=== PATIENT | male | born 1945 | race Caucasian/White ===

== ENCOUNTER 2018-05-26 22:50 | Inpatient (IN) ==
[2018-05-27] MEDS ORDERED: DUONEB (A & A) INH ONE (00:24)
[2018-05-27] MEDS ORDERED: ROCEPHIN 1 GM in NS 50 ML IV ONE (00:24)
[2018-05-27] MEDS ORDERED: ZITHROMAX 500 MG/NS 500 MG/250 ML IVPB IV ONE (00:24)
[2018-05-27 00:54] LABS: BASO# 0.02 X1000 (0.0-0.2); BASO% 0.2 % (0.0-0.8); EOS% 4.4 % (0.0-10.0); HEMATOCRIT 44.7 % (42.0-52.0); HEMOGLOBIN 15.4 g/dL (14.0-18.0); IMM GRAN# 0.03 X1000 (0.0-0.04); IMM GRAN% 0.3 % (0.0-0.5); LYMPH# 1.34 X1000 (1.2-3.4); LYMPH% 14.8 % (20.5-51.1); MCHC 34.5 g/dL (33-37); MCV 92.9 FL (81-99); MONO# 0.98 X1000 (0.11-0.59); MONO% 10.8 % (1.7-9.3); MPV 11.4 FL (7.4-10.4); NEUT# 6.27 X1000 (1.4-6.5); NEUT% 69.5 % (42.2-75.2); PLT 225 X1000 (130-400); RBC 4.81 XMIL (4.7-6.1); RDW 14.5 % (11.5-14.5); WBC 9.04 X1000 (4.8-10.8)
[2018-05-27 00:55] LABS: ALLEN TEST YES; BE 0.7 mmoll (-3.0-3.0); BLOOD TYPE ARTERIAL; HCO3-(ACT) 25.2 mmoll (20.0-26.0); METHB 0.6 % (0.0-1.5); PCO2(98.6) 40 mmHg (35-45); PO2(98.6) 56 mmHg (60-100); SAMPLE BLOOD; SAO2 90.5 % (95.0-100.0); THB 15.3 g/dL (11.5-17.4); pH(98.6) 7.41 (7.35-7.45)
[2018-05-27 00:56] LABS: MODALITY CANNULA
[2018-05-27 00:57] LABS: O2HB 88.5 % (95.0-99.0)
[2018-05-27 01:02] LABS: INR 1.03; PROTIME 14.3 Seconds (11.0-16.0)
[2018-05-27 01:03] LABS: PTT 36.8 Seconds (22.3-41.8)
[2018-05-27 01:15] LABS: ALB/GLOB RATIO 1.7; ALBUMIN 3.8 g/dL (3.5-5.0); CALCIUM 9.4 mg/dL (8.8-10.2); CREATININE 1.3 mg/dL (0.7-1.2); TOTAL BILIRUBIN 0.5 mg/dL (0.20-1.00); TOTAL PROTEIN 6.1 g/dL (6.3-8.3)
[2018-05-27 01:54] LABS: URINE SOURCE CLEAN CATCH
[2018-05-27 01:57] LABS: BILIRUBIN URINE NEGATIVE (NEGATIVE); BLOOD URINE NEGATIVE (NEGATIVE); COLOR YELLOW; GLUCOSE URINE NEGATIVE (NEGATIVE); KETONE URINE NEGATIVE (NEGATIVE); LEUKOCYTES URINE TRACE (NEGATIVE); NITRITE URINE NEGATIVE (NEGATIVE); PROTEIN URINE 100 mg/dL (NEGATIVE); SP GRAVITY URINE 1.009; TURBIDITY URINE CLEAR (CLEAR); UR EPITHELIAL CELLS <10 /HPF (<10); URINE BACTERIA NEGATIVE /HPF; URINE RBC <10 /HPF (<10); URINE WBC <10 /HPF (<10); UROBILINOGEN URINE NORMAL (NORMAL)
[2018-05-27] MEDS ORDERED: LASIX IV ONE (05:54)
[2018-05-27] MEDS ORDERED: NITROGLYCERIN TOP ONE (05:55)
--- NOTE | 2018-05-27 06:04 | PROVIDER DOCUMENTATION ---
This chart was entered by Abida Cordova Scribe, acting as scribe for Devon High MD. HPI-Abdominal Pain/GI Problem - General Chief Complaint: Abdominal Pain Stated Complaint: LOWER ABDOMINAL, SOB, HAD IMAGING DONE EARLIER Time Seen by Provider: 05/26/18 23:39 Source: patient Allergies/Adverse Reactions: Patient Allergies Allergy/AdvReac Type Severity Reaction Status Date / Time No Known Allergies Allergy Verified 05/27/18 00:42 Home Medications: Home Medication List Medication Instructions Recorded Confirmed Last Taken Type Duloxetine [Cymbalta] 60 mg PO QAM #30 capsule 03/04/16 09/14/17 08/28/17 Rx Quetiapine [Seroquel] 100 mg PO HS #0 tablet 03/04/16 09/14/17 08/28/17 Rx Aspirin 325 mg PO DAILY 08/13/17 09/14/17 Unknown History Atorvastatin Calcium 10 mg PO QPM 08/13/17 09/14/17 08/28/17 History Bupropion X.l. [Wellbutrin Xl] 300 mg PO DAILY 08/13/17 09/14/17 08/28/17 History Ropinirole HCl 1 mg PO WSUPPER 08/13/17 09/14/17 08/28/17 History Albuterol 2.5MG/Ipratrop 0.5MG 3 ml INH Q4H PRN PRN neb 08/18/17 09/14/17 Unknown Rx [Duoneb (A & A)] Amiodarone [Cordarone] 200 mg PO DAILY #30 tab 08/18/17 09/14/17 08/28/17 Rx Diltiazem C.d. [Cardizem Cd] 120 mg PO DAILY #60 cap 08/18/17 09/14/17 08/28/17 Rx Polyethylene Glycol 3350 [Miralax] 17 gm PO BID powder, packet 08/18/1708/28/17 Rx Lactobacillus Rhamnosus GG 1 ea PO BID #120 cap 09/08/17 09/14/17 Unknown Rx [Culturelle] Omeprazole [Prilosec] 40 mg PO DAILY@0700 #120 cap 09/08/17 09/14/17 Unknown Rx Diltiazem C.d. [Cardizem Cd] 120 mg PO DAILY #30 cap 09/19/17 Unknown Rx Hydrocodone/APAP 7.5 mg/325 mg 1 ea PO Q6H PRN PRN #20 tab 09/19/17 Unknown Rx [[place]-7.5] - History of Present Illness-ABD Nature of Presenting Problems: Pt is 72/m presenting to the ED w/ lower abd pain that has been constant for the last 2 weeks. He sts that he had some imaging done today, but that he tried to lay down but could not because it was hurting so badly and he decided to just come in. He reports some SOB for the last week as well as some weakness. Abdominal Pain Onset Location: reports: periumbilical Pain Radiation: reports: no radiation Quality of Pain: reports: aching Severity in ED: reports: moderate Onset/Duration: reports: other (2 wks) Timing: reports: still present Activities at Onset: reports: none Modifying Factors: improves with: eating (eating temporarily helps) Associated Symptoms: reports: shortness of breath, weakness. denies: constipation, fatigue, fever/chills, vomiting Review of Systems - Adult - REVIEW OF SYSTEMS - ADULT Constitutional: denies: chills, fever Eyes: reports: no symptoms reported Ears, Nose, Mouth & Throat: reports: no symptoms reported Cardiovascular: reports: no symptoms reported. denies: chest pain Respiratory: reports: shortness of breath. denies: wheezing Gastrointestinal: reports: abdominal pain. denies: diarrhea, nausea, vomiting Genitourinary: reports: no symptoms reported Musculoskeletal: reports: no symptoms reported Integumentary: reports: no symptoms reported Neurological: reports: no symptoms reported. denies: dizziness/vertigo Psychiatric: reports: no symptoms reported Endocrine: reports: no symptoms reported Hematologic/Lymphatic: reports: no symptoms reported Allergic/Immunologic: reports: no symptoms reported All Other Systems: Reviewed and Negative Past History - Adult - PAST MEDICAL HISTORY-ADULT Review of Records: reports: Old Records Reviewed, Nursing Assessment Review, Medications Reviewed, Social history reviewed & non-contributory. Major Childhood Illnesses: reports: denies history Cardiovascular: reports: aortic disease (AAA), CAD, HTN, hyperlipidemia, [place], PVD Respiratory: reports: COPD Gastrointestinal: reports: denies history Obstetrical/Gynecological: reports: denies history Genitourinary: reports: denies history Musculoskeletal: reports: chronic pain, intervertebral disc disease Neurological: reports: denies history Psychiatric: reports: anxiety, depression, other (substance abuse) Endocrine/Immune: reports: denies history Other Conditions: reports: denies history - PRIOR SURGERIES/PROCEDURES Surgical/Procedure History: reports: CABG, cholecystectomy, hernia repair, other (bilateral fem/pop) - IMMUNIZATION STATUS Childhood Immunizations: See Nurse Assessment Flu Vaccine: See Nurse Assessment - FAMILY HISTORY Family History: reviewed, not pertinent - SOCIAL HISTORY Smoking: quit greater than 1 year Alcohol Use Frequency: never Living Situation: family Physical Exam-General - PHYSICAL EXAM-ADULT Initial Vital Signs Reviewed: Yes - CONSTITUTIONAL General Appearance: appears well, alert, no apparent distress - EYES Eyes: PERRL/EOMI - HEAD, EARS, NOSE, MOUTH & THROAT HENMT: normocephalic/atraumatic, moist mucous membranes, normal ENT inspection, TMs normal, pharynx normal - NECK Neck: non-tender, full range of motion, supple, normal inspection - RESPIRATORY Respiratory: chest non-tender, normal breath sounds, rhonchi (bilat bases) - CARDIOVASCULAR Cardiovascular: other (2+ edema to L lower extremities) - GASTROINTESTINAL (ABDOMEN) Abdominal Exam: normal bowel sounds, soft, tenderness (suprapubic bilater and RLQ) - LYMPHATIC Lymphatic: no adenopathy - MUSCULOSKELETAL Back Exam: normal inspection, no CVA tenderness Extremity: normal range of motion, non-tender, normal gait, normal inspection - SKIN Integumentary: normal color, warm/dry - NEUROLOGIC Neurologic: grossly normal - PSYCHIATRIC Psych/Mental Status: normal mood/affect, normal thought content, normal thought process, oriented x 3 Progress - PLAN OF CARE/RESULTS Progress/Plan/Lab Results: Vital Signs - 8 hr 05/26/18 23:39 05/26/18 23:40 05/26/18 23:50 Temperature Pulse Rate 98 H 92 H Respiratory Rate 24 20 Blood Pressure O2 Sat by Pulse Oximetry 81 L 83 L 92 L 05/26/18 23:53 05/27/18 00:00 05/27/18 00:10 Temperature 97.7 F Pulse Rate 57 L 84 88 Respiratory Rate 18 18 14 Blood Pressure 167/86 O2 Sat by Pulse Oximetry 83 L 91 L 92 L Orders Category Date Time Status Bladder Scan and Record Result ORDERED Care 05/27/18 00:19 Active ABG [RESP] Routine Lab 05/27/18 00:22 Ordered BLOOD CULTURE [BLDCUL] Stat Lab 05/27/18 00:20 Ordered CBC WITH DIFF [HEME] Stat Lab 05/27/18 00:30 Ordered COMPREHENSIVE METABOLIC PANEL [CHEM] Stat Lab 05/27/18 00:30 Ordered LACTATE, PLASMA [CHEM] Stat Lab 05/27/18 00:30 Ordered PROTIME WITH INR [COAG] Stat Lab 05/27/18 00:26 Uncollected PTT [COAG] Stat Lab 05/27/18 00:26 Uncollected URINALYSIS W/POSS RFLX CULT [URINALYSIS] Stat Lab 05/27/18 00:19 Uncollected Albuterol 2.5MG/Ipratrop 0.5MG [Duoneb (A & A)] Med 05/27/18 00:24 Discontinued 3 ml INH NOW ONE Azithromycin 500 mg/Ns [Zithromax 500 mg/Ns] Med 05/27/18 00:24 Active 500 mg in 250 ml IV NOW CefTRIAXONE [Rocephin] 1 gm Med 05/27/18 00:24 Active 0.9% Sodium Chloride Inj [Ns] 50 ml IV NOW Aerosol Treatments Routine Oth 05/27/18 00:25 Active Aerosol Treatments Stat Oth 05/27/18 00:25 Active Oxygen Device Stat Oth 05/27/18 00:21 Active Pulse Oximetry Stat Oth 05/27/18 00:21 Active EKG [EKG] Stat Ther 05/26/18 23:39 Ordered Result Diagrams: 05/26/18 23:45 05/26/18 23:45 - EKG 1 Time of EKG reading by physician:: 23:36 EKG Read and Signed by:: Devon High EKG Interpretation (*Must complete 3 of following elements*): Abnormal (sinus rhythm with frequent premature ventricular complexes. Possible left atrial enlargement, Nonspecific T wave abnormality Prolonged QT Abnormal ECG) [place]: normal - CT/MRI 1 CT Study: Abdomen, Pelvis Impression: Abnormal CT Results: interval devel of mod pleural effusions and suspected pul edema - CONSULTS/PCP/HOSPITALIST Notification #1 *Consult/PCP/Hospitalist*: Levi Time Discussed: 06:02 Consult Disposition: Admit Departure - Departure Date of Disposition Decision: 05/27/18 Time of Disposition Decision: 06:02 DIAGNOSIS: Pleural effusion, bilateral, Hypoxemia Pulmonary edema Qualifiers: Chronicity: acute Qualified Code(s): J81.0 - Acute pulmonary edema Disposition: ADMITTED INPATIENT 09 Certified Medical Emergency: Emergent Condition: Fair Referrals and Follow-Ups: Halle See MD [Primary Care Provider] - - Critical Care Note This patient required my direct & personal management of CC.: No Attestation - Physician/ LAVELL Attestation Patient care was provided by Advanced Practice Provider:: No The physician spent face to face time with patient:: Yes Advanced Practice Provider documentation review:: Supervising physician onsite and consulted in the evaluation and care of this patient. The physician did have a face to face encounter with the patient. This chart was documented by the indicated scribe, (Abida Cordova, [email or web address]) and accurately reflects the services I performed and decisions made by me, Devon High MD, as attested by the provider's signature.
--- NOTE | 2018-05-27 06:55 | Diag Imaging Result Doc PS360 ---
EXAM: CT ABD/PELVIS W/IV CONT ONLY HISTORY: low abd pain TECHNIQUE: CT abdomen and pelvis with intravenous contrast COMPARISON: 09/13/2017 FINDINGS: There are [id number] sized bilateral pleural effusions on the current study. Normal left measures 4.0 cm posteriorly in the midline where is the one on the right measures 5.0 cm. There is basilar atelectasis and there may be underlying infiltrates. The gallbladder has been removed. There is fatty infiltration of the liver with a tiny cyst anteriorly. Normal spleen, pancreas, and adrenal glands. There is scarring to the right kidney. Small renal cysts. No hydronephrosis. Prominent atherosclerosis with prior aortic iliac grafts. There is stool throughout. There are scattered colonic diverticula. No inflammation about the cecum. No abscess. The urinary bladder is moderately distended and is normal. The calcifications within the prostate. Prostate is not enlarged. Prominent atherosclerosis in the iliac and femoral arteries. IMPRESSION: 1.Interval development of bilateral pleural effusions with basilar atelectasis and possibly underlying infiltrates. There is pulmonary edema. 2.Cholecystectomy 3.Fatty infiltration of the liver with a tiny cyst 4.Prominent constipation 5.Diverticulosis 6.Aortic iliac graft. Prominent atherosclerosis 7.A preliminary report was given at 5:41 AM This exam was performed using automated exposure control, adjustment of mA or kV according to patient size, and/or use of iterative reconstruction technique. Electronically signed by Jermaine Lambert 05/27/2018 6:53 AM
[2018-05-27] MEDS ORDERED: NORCO-7.5 PO PRN (08:00)
[2018-05-27] MEDS ORDERED: APRESOLINE IV PRN (08:00)
[2018-05-27] MEDS ORDERED: DUONEB (A & A) INH PRN (09:09)
[2018-05-27] MEDS ORDERED: CARDIZEM CD PO ONE (09:09)
[2018-05-27] MEDS ORDERED: FLEET ENEMA PR ONE (09:09)
--- NOTE | 2018-05-27 09:19 | HISTORY AND PHYSICAL ---
PRIMARY CARE PROVIDER: Dr. Halle See. RAG BALER: Dr. Diaz Silvestre. CHIEF COMPLAINT: Left lower quadrant abdominal pain, ongoing shortness of breath. HISTORY OF PRESENT ILLNESS: Mr. Cerna is a 72-year-old male who carries a past medical history of coronary artery disease status post CABG, hypertension, hyperlipidemia, BPH, supraventricular tachycardia, restless leg syndrome, hypertension, situational depression, non STEMI secondary to supply demand mismatch. Patient reported to the ED for increase in left lower quadrant abdominal pain. Patient states it has been ongoing for weeks. He could only describe it as "terrible pain" that is constant. Eating and drinking does not have any affect on the pain. His last bowel movement was 4 to 5 days ago; it was watery diarrhea, but he states since coming to the ED his pain has subsided. He also reports constantly being short of breath. He thinks it may have increased over the last 2 weeks. However, it does not get any worse with activity or rest. It remains the same. Imaging in the ED revealed a left lobe infiltrate and pulmonary edema. Initiated on IV antibiotics and IV Lasix. Abdomen and pelvis CT showed constipation. He was also hypoxemic; even on nasal cannula, he was switched to a non-rebreather. We will admit him for CIC. Continue treatment for hypoxic respiratory failure, congestive heart failure, pneumonia, and constipation. PAST MEDICAL HISTORY: 1. Coronary artery disease. 2. Hypertension. 3. Hyperlipidemia. 4. Benign prostatic hyperplasia. 5. Supraventricular tachycardia. 6. Colitis. 7. Pneumonia. 8. Restless leg syndrome. 9. Situational depression. 10. Non-ST segment elevated myocardial infarction, believed to be supply/demand mismatch. 11. Grade 1 diastolic heart function. PAST SURGICAL HISTORY: 1. Thoracic aortic aneurysm repair with graft. 2. Coronary artery bypass graft. 3. Abdominal hernia repair. FAMILY HISTORY: 1. Positive for mother with heart disease. 2. Positive for father with brain cancer. SOCIAL HISTORY: He lives with his . He is . He quit smoking 25 years ago. No illicit drugs or alcohol. ALLERGIES: No known drug allergies. HOME MEDICATIONS: Home medications have not been reconciled, however upon his last discharge in September he was on amiodarone, aspirin, Lipitor, Wellbutrin, Cardizem CD, [place], Culturelle, Protonix, MiraLAX, Seroquel and Requip. Again, these medications have not been confirmed. REVIEW OF SYSTEMS: A 14 point review of systems completely negative, except for those mentioned in HPI. The patient denies any nausea or vomiting. No headache. No fever. No chills. No cough. No productive sputum. Negative for chest pain. PHYSICAL EXAMINATION: VITAL SIGNS: Temperature is 97.7 degrees, heart rate 103, respirations 18, blood pressure is 172/116, O2 90% on non-rebreather. GENERAL: Mr. Cerna is a 72-year-old male, who is sitting up on the side of the bed urinating in no acute distress. HEENT: Atraumatic, normocephalic. ARUNA. NECK: Supple. Trachea midline. No JVD appreciated. CV: S1, S2 appreciated. No murmurs, gallops, or rubs noted. RESPIRATORY: Lung sounds clear with diffuse crackles heard in the bases. GI: Soft, tender to the left lower quadrant. Positive bowel sounds 4 quads. EXTREMITIES: Bilateral lower extremity trace edema. Per patient report, his edema was worse a few weeks ago. It has gone down since. NEUROLOGIC: He is alert and oriented x3. Follows commands. Moves all extremities. SKIN: Appears to be warm, dry, and intact. DIAGNOSTIC DATA: Abdomen and pelvis CT: Interval development of bilateral effusions with bibasilar atelectasis and possibly underlying infiltrates. There is pulmonary edema, cholecystectomy, fatty infiltration of the liver and a tiny cyst, prominent constipation, diverticulosis, aortic iliac graft, prominent atherosclerosis. V/Q scan with no evidence of PE. Chest x-ray showed left-sided pneumonia and mild central vascular prominence. LABORATORY DATA: White count 9, hemoglobin and hematocrit 15 and 44, platelet count is 225. ABG: He had an O2 saturation of 90. Chemistry: Sodium 139, potassium 4.0. BUN 19, creatinine 1.3, blood glucose is 110. ProBNP is currently pending. Urinalysis is negative. ASSESSMENT AND PLAN: 1. Diastolic heart failure exacerbation. We will continue with intravenous Lasix every 12 hours. Reassess his cardiac function with echocardiogram. We will continue strict ins and outs, daily weights. 2. Left-sided pneumonia, community acquired. We will continue with Rocephin and Levaquin. Aggressive pulmonary toilet, bronchodilators. Follow-up chest x-rays. 3. Significant constipation. We will continue with laxatives with oral Colace, bisacodyl suppositories, and a Fleet's enema now. 4.Hypoxic respiratory failure continue with supplemental O2 recheck ABG in am. 5. Coronary artery disease status post non-ST segment elevated myocardial infarction. We will continue on home medications when reconciled. 6. Hypertension. The patient has accelerated hypertension now. We will all start intravenous Apresoline. Continue home medications when reconciled. 7. Hyperlipidemia. Will continue statin. 8. Benign prostatic hypertrophy. 9. Recent supraventricular tachycardia. Will continue on patient's Cardizem and amiodarone. 10. Restless leg syndrome. 11. Further recommendation to follow physician evaluation, laboratory, and diagnostic data. Dictated by BRIAN Carter for Kevin Edgar MD cc: MD Halle Gan MD I have seen and examined Mr Cerna today. No family at the bedside. But was on the phone I have reviewed his labs and imaging studies. Mr Ayala presents with Heart failure exacerbation. He has hx of ischemic cardiomyopathy with abnormal stress test done on Aug 12 2017. He follows up with Dr. Silvestre. He seems to have have left lower lobe pneumonia and severe obstipation Will continue with iv diuretic therapy and restart his other home meds and consult cardiology. I agree with the above HPI and the plan reflects my opinion discussed with the [employer]LECT[employer]ION [employer]. Plan has been discussed with the patient and his on the phone. KANA
[2018-05-27] MEDS: COLACE PO SCH ×2 (10:00→20:41)
[2018-05-27] MEDS ORDERED: NORCO-10 PO ONE (10:16)
[2018-05-27] MEDS: DULCOLAX PR SCH ×2 (10:30→20:42)
[2018-05-27] MEDS: DUONEB (A & A) INH SCH ×4 (11:30→22:50)
[2018-05-27] MEDS: NORCO-10 PO SCH ×2 (15:12→19:16)
[2018-05-27] MEDS: LASIX IV SCH (16:00)
--- NOTE | 2018-05-27 20:00 | ECHO REPORT ---
ORDER DATE: 05/27/2018 INDICATION: Pulmonary edema, coronary artery disease, hypertension, hyperlipidemia. FINDINGS: 1. Right atrium appears normal size. 2. Mild tricuspid regurgitation. Insufficient data to estimate RV systolic pressure. 3. Right ventricle is difficult to visualize on this study. It appears to have normal size, possible mild reduction in RV systolic function. 4. Mild pulmonic insufficiency. 5. There is moderate left atrial enlargement at 5 cm. 6. No mitral valve prolapse. Mild to moderate mitral regurgitation. 7. Dilated left ventricle with an end-diastolic dimension of 6.3 cm. Normal wall thicknesses with a posterior and interventricular septal wall thickness 1 cm each. There is reduction in LV systolic function. This is a very difficult study. There appears to be a somewhat irregular rate as well as off axis views. Estimated ejection fraction on this study is around 40%. I would consider alternative modality to assess. 8. Aortic valve opens well. It is trileaflet. No evidence of stenosis or insufficiency. 9. Aorta appears normal in visualized segments. 10. No pericardial effusion seen. cc: Diaz Silvestre MD
[2018-05-27] MEDS: KLONOPIN PO SCH (20:40)
[2018-05-27] MEDS: LIPITOR PO SCH (21:39)
[2018-05-27] MEDS: PLETAL PO SCH (21:40)
[2018-05-27] MEDS: ZANAFLEX PO SCH (21:41)
[2018-05-28] MEDS ORDERED: ROCEPHIN 1 GM in NS 50 ML IV SCH ×2
[2018-05-28] MEDS: LEVAQUIN 500 MG/D5W 500 MG/100 ML IVPB IV SCH (00:21)
[2018-05-28] MEDS: LASIX IV SCH ×2 (01:23→15:25)
[2018-05-28] MEDS: DUONEB (A & A) INH SCH ×6 (03:00→23:25)
[2018-05-28 06:10] LABS: BASO# 0.02 X1000 (0.0-0.2); BASO% 0.2 % (0.0-0.8); EOS# 0.11 X1000 (0.0-0.7); EOS% 1.2 % (0.0-10.0); HEMATOCRIT 46.1 % (42.0-52.0); HEMOGLOBIN 15.8 g/dL (14.0-18.0); IMM GRAN# 0.02 X1000 (0.0-0.04); IMM GRAN% 0.2 % (0.0-0.5); LYMPH# 0.85 X1000 (1.2-3.4); LYMPH% 9.4 % (20.5-51.1); MCH 31.8 PG (27-31); MCHC 34.3 g/dL (33-37); MCV 92.8 FL (81-99); MONO% 7.7 % (1.7-9.3); MPV 10.7 FL (7.4-10.4); NEUT# 7.36 X1000 (1.4-6.5); NEUT% 81.3 % (42.2-75.2); PLT 250 X1000 (130-400); RBC 4.97 XMIL (4.7-6.1); RDW 14.4 % (11.5-14.5); WBC 9.06 X1000 (4.8-10.8)
[2018-05-28 06:20] LABS: ALLEN TEST YES; BLOOD TYPE ARTERIAL; HCO3-(ACT) 26.2 mmoll (20.0-26.0); METHB 0.4 % (0.0-1.5); O2(CT) 28.6 mL/dL (15.0-23.0); O2HB 91.1 % (95.0-99.0); PCO2(98.6) 37 mmHg (35-45); PO2(98.6) 60 mmHg (60-100); SAMPLE BLOOD; SAO2 92.9 % (95.0-100.0); THB 22.4 g/dL (11.5-17.4); pH(98.6) 7.45 (7.35-7.45)
[2018-05-28 06:25] LABS: MODALITY CANNULA
[2018-05-28 06:51] LABS: ALB/GLOB RATIO 1.7; ALBUMIN 3.8 g/dL (3.5-5.0); CALCIUM 8.7 mg/dL (8.8-10.2); CREATININE 1.5 mg/dL (0.7-1.2); POTASSIUM 3.3 mmol/L (3.5-5.1); TOTAL BILIRUBIN 0.36 mg/dL (0.20-1.00); TOTAL PROTEIN 6.1 g/dL (6.3-8.3)
[2018-05-28] MEDS: DULCOLAX PR SCH ×3 (09:00→22:45)
[2018-05-28] MEDS: PLETAL PO SCH ×2 (09:35→22:38)
[2018-05-28] MEDS: KLONOPIN PO SCH ×2 (09:35→22:38)
[2018-05-28] MEDS: COLACE PO SCH ×2 (09:35→22:37)
[2018-05-28] MEDS: WELLBUTRIN XL PO SCH (09:35)
[2018-05-28] MEDS: NORCO-10 PO SCH ×3 (09:35→18:48)
[2018-05-28] MEDS: CARDIZEM CD PO SCH (09:35)
[2018-05-28] MEDS: ZANAFLEX PO SCH ×2 (09:35→22:38)
[2018-05-28] MEDS: CYMBALTA PO SCH (09:35)
[2018-05-28] MEDS: PROTONIX PO SCH (09:35)
[2018-05-28] MEDS: NEURONTIN PO SCH (09:35)
--- NOTE | 2018-05-28 11:04 | Diag Imaging Result Doc PS360 ---
EXAM: CHEST-PORTABLE - 05/28/2018 HISTORY: Pneumonia TECHNIQUE: Portable chest COMPARISON: 05/26/2018 FINDINGS: The patient is rotated towards the right. Heart size appears upper normal. There has been apparent mild increase in perihilar infiltrate on the left. There is been apparent decrease in small left pleural effusion. The right lung appears essentially clear. There is no pneumothorax identified. IMPRESSION: Mild increase in perihilar infiltrate on the left. Decrease in small left pleural effusion. Electronically signed by Yang Teran 05/28/2018 11:01 AM
--- NOTE | 2018-05-28 12:55 | PROGRESS NOTE ---
DATE: 05/28/2018 SUBJECTIVE: Patient is resting comfortably in bed. OBJECTIVE: Vital Signs: Temperature 98.7 degrees, pulse 106, respirations 19, blood pressure 126/90, oxygen saturation is 93%. HEENT: Atraumatic and normocephalic. Cardiovascular System: S1, S2. Irregular. Respiratory System: Good air entry bilaterally. Abdomen: Soft, nontender. No masses felt. Extremities: No evidence of significant edema. Central Nervous System: No obvious focal deficits noted. Labs: WBCs 9.06, hematocrit is 36.1, with a platelet count of 250,000. ABG 7.45/37/60/92.9. Sodium is 140, potassium 3.3, chloride is 101, bicarb is 25, BUN is 16, creatinine is 1.5. X-ray of the chest shows mild increase in perihilar infiltrate on the left. There is also a decrease in small left pleural effusion. ASSESSMENT AND PLAN: 1. Community-acquired pneumonia. Obtain sputum and blood cultures. Continue antibiotics. 2. Chronic diastolic heart failure. Monitor intakes and outputs, as well as daily weights. Use diuretics as needed. 3. Coronary artery disease, stable. The patient is currently asymptomatic. 4. Hypertension. Optimize blood pressure control. Use parenteral as well as oral agents. 5. Hyperlipidemia. Continue statin. 6. Benign prostatic hypertrophy. Maintain patient on Flomax. 7. History of supraventricular tachycardia. Continue rate controlling agent. 8. Deep vein thrombosis prophylaxis. Lovenox. 9. Gastrointestinal prophylaxis. Proton pump inhibitor. cc: Sea Casas MD
[2018-05-28] MEDS: FLOMAX PO SCH (14:25)
[2018-05-28] MEDS: LIPITOR PO SCH (22:37)
[2018-05-28] MEDS: TYLENOL PO PRN (22:38)
[2018-05-29] MEDS: LEVAQUIN 500 MG/D5W 500 MG/100 ML IVPB IV SCH (01:09)
[2018-05-29] MEDS: TYLENOL PO PRN ×2 (01:09→22:55)
[2018-05-29] MEDS: DUONEB (A & A) INH SCH ×6 (03:15→23:05)
[2018-05-29] MEDS: WELLBUTRIN XL PO SCH (08:35)
[2018-05-29] MEDS: PLETAL PO SCH ×2 (08:35→22:56)
[2018-05-29] MEDS: CARDIZEM CD PO SCH (08:35)
[2018-05-29] MEDS: NORCO-10 PO SCH ×3 (08:35→16:24)
[2018-05-29] MEDS: COLACE PO SCH ×2 (08:35→22:56)
[2018-05-29] MEDS: ZANAFLEX PO SCH ×2 (08:35→22:57)
[2018-05-29] MEDS: KLONOPIN PO SCH ×2 (08:35→23:01)
[2018-05-29] MEDS: NEURONTIN PO SCH (08:35)
[2018-05-29] MEDS: PROTONIX PO SCH (08:35)
[2018-05-29] MEDS: CYMBALTA PO SCH (08:35)
[2018-05-29] MEDS: FLOMAX PO SCH (08:35)
[2018-05-29] MEDS: DULCOLAX PR SCH ×2 (08:36→22:58)
--- NOTE | 2018-05-29 09:18 | EKG Report ---
Test Performed on : 05/26/2018 11:36:23 PM Test Reason : low hr Blood Pressure : / mmHG Vent. Rate : 099 BPM Atrial Rate : 099 BPM P-R Int : 162 ms QRS Dur : 100 ms QT Int : 378 ms P-R-T Axes : 031 016 067 degrees QTc Int : 485 ms Sinus rhythm. with frequent premature ventricular complexes. Possible Left atrial enlargement Nonspecific T wave abnormality Prolonged QT Abnormal ECG When compared with ECG of 13-SEP-2017 15:58, premature ventricular complexes. are now present Nonspecific T wave abnormality, improved in Inferior leads Unconfirmed Result
[2018-05-29] MEDS: LASIX IV SCH ×2 (13:39→23:29)
[2018-05-29] MEDS ORDERED: KLOR-CON PO ONE (15:25)
--- NOTE | 2018-05-29 16:00 | PROGRESS NOTE ---
DATE: 05/29/2018 SUBJECTIVE: The patient is resting comfortable in bed. Not in any obvious distress. OBJECTIVE: As follows: Temperature is 98.1, pulse 101, respiratory rate is 16 , blood pressure is 127/55, oxygen saturation 92%. HEENT: Atraumatic, normocephalic. Cardiovascular: S1, S2. Irregular. Respiratory: Has evidence of good air entry bilaterally. Abdomen: Soft, nontender. No masses felt. Extremities: No evidence of edema. Central Nervous System: No obvious of focal deficit noted. LABORATORY DATA: None today. ASSESSMENT AND PLAN: 1. Community-acquired pneumonia. Continue antibiotics. Follow up on sputum as well as blood cultures. Maintain patient on oxygen and nebulized bronchodilators if needed. 2. Chronic diastolic heart failure. Monitor I's and O's, as well as daily weights. Use diuretics if needed. 3. Coronary artery disease. Asymptomatic. Maintain the patient on anti- platelet. Continue statin. 4. Hypertension. Continue current antihypertensive regimen. 5. Hyperlipidemia. Continue statin. 6. Benign prostatic hypertrophy. Continue Flomax. 7. History of supraventricular tachycardia. Continue rate controlling agent. 8. Urinary tract infection. Urine cultures positive for E coli. Maintain patient on antibiotics. 9. DVT prophylaxis. Lovenox. 10. GI prophylaxis. PPI. cc: Sea Casas MD MTDD
[2018-05-29] MEDS: ASPIRIN PO SCH (16:25)
[2018-05-29] MEDS: LIPITOR PO SCH (22:56)
[2018-05-30] MEDS: LASIX IV SCH ×2 (01:24→14:50)
[2018-05-30] MEDS: LEVAQUIN 500 MG/D5W 500 MG/100 ML IVPB IV SCH (01:24)
[2018-05-30] MEDS: DUONEB (A & A) INH SCH ×6 (03:55→23:27)
[2018-05-30 06:23] LABS: BASO# 0.02 X1000 (0.0-0.2); BASO% 0.3 % (0.0-0.8); EOS# 0.37 X1000 (0.0-0.7); EOS% 4.7 % (0.0-10.0); HEMOGLOBIN 14.9 g/dL (14.0-18.0); LYMPH# 0.84 X1000 (1.2-3.4); LYMPH% 10.6 % (20.5-51.1); MCHC 33.9 g/dL (33-37); MCV 94.6 FL (81-99); MONO# 0.76 X1000 (0.11-0.59); MONO% 9.6 % (1.7-9.3); MPV 10.4 FL (7.4-10.4); NEUT# 5.94 X1000 (1.4-6.5); NEUT% 74.8 % (42.2-75.2); PLT 225 X1000 (130-400); RBC 4.65 XMIL (4.7-6.1); RDW 14.5 % (11.5-14.5); WBC 7.93 X1000 (4.8-10.8)
[2018-05-30 06:38] LABS: CALCIUM 8.9 mg/dL (8.8-10.2); CREATININE 1.6 mg/dL (0.7-1.2); POTASSIUM 3.9 mmol/L (3.5-5.1)
[2018-05-30] MEDS: CARDIZEM CD PO SCH (09:32)
[2018-05-30] MEDS: PROTONIX PO SCH (09:32)
[2018-05-30] MEDS: KLONOPIN PO SCH ×2 (09:32→21:12)
[2018-05-30] MEDS: WELLBUTRIN XL PO SCH (09:33)
[2018-05-30] MEDS: ASPIRIN PO SCH (09:33)
[2018-05-30] MEDS: NEURONTIN PO SCH (09:33)
[2018-05-30] MEDS: COLACE PO SCH ×2 (09:33→21:12)
[2018-05-30] MEDS: FLOMAX PO SCH (09:33)
[2018-05-30] MEDS: PLETAL PO SCH ×2 (09:34→21:11)
[2018-05-30] MEDS: CYMBALTA PO SCH (09:34)
[2018-05-30] MEDS: ZANAFLEX PO SCH ×2 (09:34→21:11)
[2018-05-30] MEDS: NORCO-10 PO SCH ×3 (09:34→17:58)
[2018-05-30] MEDS: DULCOLAX PR SCH ×2 (09:36→21:12)
[2018-05-30] MEDS: ROCEPHIN 1 GM in NS 50 ML IV SCH (18:01)
--- NOTE | 2018-05-30 18:22 | PROGRESS NOTE ---
DATE: 05/30/2018 SUBJECTIVE: The patient has no complaints, no major issues. OBJECTIVE: Blood pressure 134/75, heart rate 61, respiratory rate 18, temperature 98.1 degrees, 91% on 6 L. Cardiovascular: Regular rate and rhythm. Pulmonary: Bilateral breath sounds, clear to auscultation. GI: Soft, nontender, nondistended. Bowel sounds are positive. LABORATORY DATA: White count 7, hemoglobin and hematocrit 14 and 44, platelets 225,000. Creatinine 1.6. Urine culture grew out E. coli, resistant to Levaquin. PROBLEM LIST: 1. Pneumonia. He had been on Levaquin but because of resistance I have changed it to Rocephin. We may need to add azithromycin. He still has a fairly hefty oxygen requirement, although he does not look like he is in any particular distress, but he has not had a chest x-ray in a couple of days. I think that needs to be repeated, and we will continue with pulmonary toilet. I am not sure if he may need further diuresis. 2. Escherichia coli urinary tract infection. We will continue Rocephin. This will be day 1. 3. Diastolic heart failure. I may give him a bit of diuretic. He is still weak and short of breath, and he has an oxygen requirement. 4. Supraventricular tachycardia, stable currently. DISPOSITION: He is going to need PT. He is going to need home O2. I do not think he is ready for discharge just yet. He has been on Lasix, he has been on diuretics. He has been on breathing treatments. We will get, again, a 2-view x-ray and see where we are at. cc: Emile Dumont MD
[2018-05-30] MEDS: ZITHROMAX 500 MG/NS 500 MG/250 ML IVPB IV SCH (18:49)
[2018-05-30] MEDS: LIPITOR PO SCH (21:11)
[2018-05-31] MEDS: LASIX IV SCH ×2 (02:44→13:53)
[2018-05-31] MEDS: DUONEB (A & A) INH SCH ×6 (03:51→23:15)
[2018-05-31] MEDS: WELLBUTRIN XL PO SCH (08:43)
[2018-05-31] MEDS: NEURONTIN PO SCH (08:43)
[2018-05-31] MEDS: ASPIRIN PO SCH (08:43)
[2018-05-31] MEDS: PLETAL PO SCH ×2 (08:43→22:19)
[2018-05-31] MEDS: FLOMAX PO SCH (08:43)
[2018-05-31] MEDS: PROTONIX PO SCH (08:43)
[2018-05-31] MEDS: COLACE PO SCH ×2 (08:44→22:18)
[2018-05-31] MEDS: KLONOPIN PO SCH ×2 (08:44→22:18)
[2018-05-31] MEDS: CARDIZEM CD PO SCH (08:44)
[2018-05-31] MEDS: ZANAFLEX PO SCH ×2 (08:44→22:19)
[2018-05-31] MEDS: CYMBALTA PO SCH (08:44)
[2018-05-31] MEDS: DULCOLAX PR SCH ×2 (08:45→22:20)
[2018-05-31] MEDS: NORCO-10 PO SCH ×3 (08:45→16:54)
--- NOTE | 2018-05-31 11:47 | Diag Imaging Result Doc PS360 ---
MUGA (GATED CARDIAC SCAN) - 05/31/2018 INDICATION: chf TECHNIQUE: 18.5 mCi of labeled red blood cells was used COMPARISON: None FINDINGS: The left ventricular ejection fraction is 34%. This is very subnormal. There is global hypokinesis of the left ventricular becker, without any focal abnormality. IMPRESSION: Subnormal left ventricular ejection fraction is 34%. Global hypokinesis of the left ventricle becker. Electronically signed by Heraclio Field 05/31/2018 11:44 AM
[2018-05-31] MEDS: ROCEPHIN 1 GM in NS 50 ML IV SCH (16:55)
[2018-05-31] MEDS: ZITHROMAX 500 MG/NS 500 MG/250 ML IVPB IV SCH (17:40)
--- NOTE | 2018-05-31 19:50 | PROGRESS NOTE ---
DATE: 05/31/2018 SUBJECTIVE: Patient is breathing better. OBJECTIVE: Vital Signs: Blood pressure is more stable, 120/82. Heart rate 74, respiratory rate 16, temperature 98.3, 94% on 3 L. Cardiovascular: Regular rate and rhythm. Pulmonary: Bilateral breath sounds. Clear to auscultation. GI: Soft, nontender, nondistended. Bowel sounds are positive. LABORATORY DATA: White count 7, hemoglobin and hematocrit 14 and 44. Basic was normal. Creatinine 1.6. Troponin was negative. ProBNP has been mildly elevated. MUGA shows an EF of 34%, which is consistent with systolic heart failure. Now he had an echo earlier which we really could not tell. Actually, the EF around there was 40%, which is close and looks like there has been a change in his cardiac function, because I think his previous echos were normal or he has had diastolic dysfunction. He is status post CABG but his CABG was in 1992, so it has been a while then, about 16 years. He had a stress test and a catheterization which showed PATRICIA was patent. His saphenous vein was occluded to the marginal and the PDA and he had an in-stent stenosis. He may be not amenable to treatment. His perfusion imaging showed a fixed defect but only very small jaylin-infarct ischemia. His EF at that time was 47%, which was pretty close. I am not sure if he has had progression here. It is possible. His echocardiogram in 2016 showed a normal EF, so I am a little suspicious he has had progression and there could be some ischemic issues going on here concurrently. 1. Pneumonia. He is on Rocephin and azithromycin and he seems to be doing okay. 2. E coli urinary tract infection. He is on Rocephin day 2. 3. Heart failure. It looks like he has systolic heart failure, acute, although his x-ray to me looks a bit better. He is on Lasix. We will continue that. He seems to be doing better and I am going to get a Cardiology input in the morning, about other testing and we will see how he does. 4. Disposition: We will likely need him to have home O2, hopefully needs to be discharged either tomorrow or the next day because we set up home oxygen already which I anticipate he will need. cc: Emile Dumont MD
[2018-05-31] MEDS: LIPITOR PO SCH (22:18)
[2018-05-31] MEDS: TYLENOL PO PRN (22:19)
[2018-06-01] MEDS: DUONEB (A & A) INH SCH ×6 (03:10→23:10)
[2018-06-01] MEDS: LASIX IV SCH ×2 (05:02)
[2018-06-01 06:51] LABS: BASO# 0.04 X1000 (0.0-0.2); BASO% 0.5 % (0.0-0.8); EOS# 0.44 X1000 (0.0-0.7); EOS% 5.8 % (0.0-10.0); HEMATOCRIT 46.7 % (42.0-52.0); HEMOGLOBIN 15.9 g/dL (14.0-18.0); IMM GRAN# 0.02 X1000 (0.0-0.04); IMM GRAN% 0.3 % (0.0-0.5); LYMPH# 0.92 X1000 (1.2-3.4); LYMPH% 12.1 % (20.5-51.1); MCH 31.8 PG (27-31); MCV 93.4 FL (81-99); MONO# 0.72 X1000 (0.11-0.59); MONO% 9.5 % (1.7-9.3); MPV 10.8 FL (7.4-10.4); NEUT# 5.46 X1000 (1.4-6.5); NEUT% 71.8 % (42.2-75.2); PLT 248 X1000 (130-400); RDW 14.5 % (11.5-14.5)
[2018-06-01 07:13] LABS: CALCIUM 9.7 mg/dL (8.8-10.2); CREATININE 1.8 mg/dL (0.7-1.2); POTASSIUM 3.8 mmol/L (3.5-5.1)
[2018-06-01] MEDS: KLONOPIN PO SCH ×2 (08:17→22:39)
[2018-06-01] MEDS: CYMBALTA PO SCH (08:17)
[2018-06-01] MEDS: PLETAL PO SCH ×2 (08:17→22:37)
[2018-06-01] MEDS: NORCO-10 PO SCH ×3 (08:17→17:51)
[2018-06-01] MEDS: ASPIRIN PO SCH (08:18)
[2018-06-01] MEDS: NEURONTIN PO SCH (08:18)
[2018-06-01] MEDS: WELLBUTRIN XL PO SCH (08:18)
[2018-06-01] MEDS: COLACE PO SCH ×2 (08:18→22:36)
[2018-06-01] MEDS: PROTONIX PO SCH (08:18)
[2018-06-01] MEDS: FLOMAX PO SCH (08:18)
[2018-06-01] MEDS: CARDIZEM CD PO SCH (08:18)
[2018-06-01] MEDS: ZANAFLEX PO SCH ×2 (08:19→22:37)
[2018-06-01] MEDS: DULCOLAX PR SCH ×2 (08:19→22:40)
--- NOTE | 2018-06-01 11:53 | CARDIOLOGY CONSULTATION ---
DATE: 06/01/2018 CHIEF COMPLAINT ON PRESENTATION: Abdominal pain, shortness of breath. HISTORY OF PRESENT ILLNESS: Mr. Cerna is a 72-year-old white male who I follow in clinic, who has a history of coronary artery disease coronary artery bypass grafting. He presented with complaints of shortness of breath, abdominal pain and chest discomfort. His abdominal pain is felt to be due to a significant amount of constipation that has been present and found on the CT. His shortness of breath and chest discomfort has been occurring with minimal exertion. His discomfort is described as tightness and has occurred 3 to 4 times in the last month. They seem to occur with minimal exertion and resolve after 3 to 4 minutes or so. He does not seem to have any other associated symptoms with that. It resolves with minimal rest. He has noted some orthopnea over that time period. His medication regimen that he came in on is different from what I had him on in September 2016. He did not follow up for his 6 month visit. PAST MEDICAL HISTORY: Significant for: 1. Coronary disease with coronary artery bypass grafting. This was done in 1992. He has a PATRICIA to the LAD. He had a vein graft to the ramus and a vein graft to the PDA. Last catheterization in 2015 showed an occluded LAD, patent PATRICIA to the LAD. His circumflex was normal proximally with a mid 50% lesion. His ramus was occluded. Vein graft to the ramus was noted to be occluded. His RCA was occluded. Vein graft to the PDA was noted to be occluded. His last nuclear scan in July 2015 demonstrated an EF of 58%, a reversible perfusion defect in the lateral wall diagnostic of ischemia was noted, as well as a fixed defect in the mid and basal inferior wall suggestive of scar. 2. Aortic aneurysm. 3. Hypertension. 4. Hyperlipidemia. 5. Previous tobacco abuse. 6. Peripheral vascular disease with a femoral-popliteal bypass as well as a previous aortic aneurysm repair. 7. Chronic pain. 8. Hypertension. 9. Hyperlipidemia. SOCIAL HISTORY: He is . He quit smoking around 25 years ago. No current alcohol or illicit drugs. FAMILY HISTORY: Mother reported had heart disease, father had a history of some sort of brain malignancy. REVIEW OF SYSTEMS: Ten system review of systems is negative except for those mentioned in HPI. PHYSICAL EXAMINATION: Vital signs: He is afebrile. His heart rate is 81. His most recent blood pressure is 151/89. He has had systolics ranging in the 120s to 140s lately. His intakes and outputs over the course of this hospitalization are somewhat difficult to evaluate secondary to limited input on many days as well as limited output. Overall he is -700 mL per vitals. His weight is 194 pounds. He has widely fluctuating weights during this hospitalization. General: He is in no acute distress. Very pleasant. He is not short of breath during the examination. HEENT: Oropharynx is moist. Poor dentition. Eye examination is pink conjunctivae, white sclerae. Neck: No obvious thyromegaly or thyroid tenderness. Cardiovascular : He sounds to be in a regular rate and rhythm. I do not hear any obvious murmurs. He has somewhat distant heart sounds. No lower extremity edema. He has warm and well perfused lower extremities. Chest: Has mild reduction in breath sounds in the bases. Otherwise clear bilaterally. No increased work of breathing. Abdomen: Soft, nontender. He has no obvious organomegaly . Skin: Warm and dry throughout without any rashes. Neurological: He is moving all extremities well. He has no lateralizing deficits. PERTINENT DATA: He had an echo suggesting a dilated left ventricle, mild reduction in his EF of 40%. Possible mild reduction in RV systolic pressure. He had a MUGA scan demonstrating an ejection fraction of 34% with global hypokinesis. His most recent chest x-ray was interpreted on the and shows a mild increase in the perihilar infiltrate on the left with a decrease in the small left effusion. His laboratory data shows a white count of 7.6, hematocrit 46, platelet count of 248,000. His sodium is 143, potassium is 3.8, BUN 29, creatinine is 1.8. His creatinine was 1.3 on presentation with the most recent of 1.8. His proBNP is 553. His admit proBNP was 4257. ASSESSMENT: Mr. Cerna is a 72-year-old gentleman with a history of coronary artery disease who presents with the above complaints and was noted to have a new reduction in ejection fraction. PLAN: His proBNP and creatinine would suggest that he has been diuresed. We will stop his IV diuretics and start him on oral Lasix in the morning. I will stop his diltiazem and place him on Coreg 6.25 b.i.d. starting in the morning. He will likely need a new ischemia evaluation in the future. We will likely plan on doing a nuclear scan as an outpatient considering he just had a MUGA. We will try to add in an ROVERTO or an ARB in the near future but given his mild renal insufficiency and trend-up lately, I would try to avoid that for the time being. cc: Diaz Silvestre MD MTDD
[2018-06-01] MEDS: ROCEPHIN 1 GM in NS 50 ML IV SCH (17:51)
[2018-06-01] MEDS: ZITHROMAX 500 MG/NS 500 MG/250 ML IVPB IV SCH (18:03)
--- NOTE | 2018-06-01 19:15 | PROGRESS NOTE ---
DATE: 06/01/2018 INTERVAL HISTORY: No acute events. MUGA scan had detected ejection fraction of 35%. His diltiazem was stopped and he was started on Coreg by Cardiology. SUBJECTIVE: The patient is feeling fine, denying any chest pain or shortness of breath. His lower extremity swelling has significantly decreased. His abdominal pain has resolved. We discussed about the echocardiogram for findings and plan, and I answered all of his questions. OBJECTIVE: Currently temperature of 98 degrees, pulse 92, respiratory rate 20, blood pressure 130/84, saturating 93% on 3 L nasal cannula. General: Does not appear in any acute distress. Oral cavity is moist. Air entry bilaterally equal. No wheeze, rhonchi or crackles. S1, S2 normal, irregularly irregular. No murmur, rub or gallop. Abdomen is soft, nontender. No lower extremity edema. DIAGNOSTIC DATA: An EKG has been ordered. LABORATORY DATA: Labs suggestive of no leukocytosis. Acceptable range of hemoglobin, hematocrit and platelet count. Normal electrolytes, what appears to be chronic kidney disease stage 3. His proBNP has significantly decreased. Microbiology: Urine culture was growing E. coli. ASSESSMENT AND PLAN: 1. Bilateral pneumonia and urinary tract infection with Escherichia coli. Continue the patient on ceftriaxone and azithromycin to complete a total of 5-7 days course of antibiotics. 2. New-onset acute systolic congestive heart failure with ejection fraction of 35%. Cardiology on board. Continue the patient on Lasix, carvedilol, aspirin and atorvastatin. He would likely need nuclear medicine stress testing as an outpatient and further diagnostics or intervention. 3. Chronic kidney disease stage 3, appears to be currently stable. 4. Acute hypoxic respiratory failure, likely because of congestive heart failure and pneumonia. The patient would likely need home oxygen, and it has been already arranged. 5. Chronic pain and chronic back pain. Continue home duloxetine, gabapentin, hydrocodone/acetaminophen. 6. Continue pantoprazole for gastroesophageal reflux disease, and tizanidine for muscle relaxation for muscle spasm. 7. Disposition: The patient remains inside the hospital. If he continues to do better, my plan is to discharge him home tomorrow. The plan of care was discussed with him. All of his questions have been answered. cc: MD NANETTE GardnerD
[2018-06-01] MEDS ORDERED: LIPITOR PO SCH (21:00)
[2018-06-02] MEDS: DUONEB (A & A) INH SCH ×4 (03:27→15:25)
--- NOTE | 2018-06-02 06:54 | EKG Report ---
Test Performed on : 06/02/2018 01:02:52 AM Test Reason : rule out A-fib Blood Pressure : / mmHG Vent. Rate : 105 BPM Atrial Rate : 105 BPM P-R Int : 200 ms QRS Dur : 100 ms QT Int : 386 ms P-R-T Axes : 038 032 065 degrees QTc Int : 510 ms Sinus tachycardia. with premature atrial complexes. Moderate voltage criteria for LVH, may be normal variant Nonspecific T wave abnormality Abnormal ECG When compared with ECG of 01-JUN-2018 18:34, (Unconfirmed) premature ventricular complexes. are no longer present Confirmed by Andreea ANDRE, Irwin Stone ([id number]) on 06/02/2018 7:16:02 AM
[2018-06-02 06:58] LABS: CALCIUM 9.3 mg/dL (8.8-10.2); CREATININE 1.5 mg/dL (0.7-1.2); MAGNESIUM 2.3 mg/dL (1.5-2.7); POTASSIUM 3.6 mmol/L (3.5-5.1)
--- NOTE | 2018-06-02 07:23 | EKG Report ---
Test Performed on : 06/01/2018 6:34:05 PM Test Reason : Rule out A Fib Blood Pressure : / mmHG Vent. Rate : 089 BPM Atrial Rate : 089 BPM P-R Int : 180 ms QRS Dur : 104 ms QT Int : 450 ms P-R-T Axes : 015 024 058 degrees QTc Int : 547 ms Sinus rhythm. with occasional premature ventricular complexes. and premature atrial complexes. Minimal voltage criteria for LVH, may be normal variant Nonspecific T wave abnormality Prolonged QT Abnormal ECG When compared with ECG of 26-MAY-2018 23:36, (Unconfirmed) premature atrial complexes. are now present QT has lengthened Confirmed by Andreea ANDRE, Irwin Stone ([id number]) on 06/03/2018 7:09:56 AM
[2018-06-02] MEDS: CYMBALTA PO SCH (08:39)
[2018-06-02] MEDS: PLETAL PO SCH (08:39)
[2018-06-02] MEDS: KLONOPIN PO SCH (08:39)
[2018-06-02] MEDS: NORCO-10 PO SCH ×2 (08:39→13:51)
[2018-06-02] MEDS: FLOMAX PO SCH (08:39)
[2018-06-02] MEDS: ASPIRIN PO SCH (08:40)
[2018-06-02] MEDS: COLACE PO SCH (08:40)
[2018-06-02] MEDS: WELLBUTRIN XL PO SCH (08:40)
[2018-06-02] MEDS: NEURONTIN PO SCH (08:40)
[2018-06-02] MEDS: DULCOLAX PR SCH (08:40)
[2018-06-02] MEDS: ZANAFLEX PO SCH (08:40)
[2018-06-02] MEDS: PROTONIX PO SCH (08:40)
[2018-06-02] MEDS ORDERED: COREG PO SCH (09:00)
[2018-06-02] MEDS ORDERED: LASIX PO SCH (09:00)
[2018-06-02] MEDS ORDERED: ZOSTRIX TOP PRN (11:32)
--- NOTE | 2018-06-02 15:15 | Diag Imaging Result Doc PS360 ---
EXAM: CHEST-2 VIEWS HISTORY: hypoxia TECHNIQUE: Chest two views 05/28/2018 COMPARISON: 05/28/2018 FINDINGS: Interval decrease in the size and density of the left perihilar infiltrates. Interval decrease in the vascular prominence. Small infiltrates remain. The heart remains enlarged. Questionable trace pleural fluid. IMPRESSION: Overall interval improvement Electronically signed by Jermaine Lambert 06/02/2018 3:12 PM
[2018-06-02 15:37] VITALS: BP 110/70
--- NOTE | 2018-06-02 21:15 | CARDIOLOGY PROGRESS NOTE ---
DATE: 06/02/2018 SUBJECTIVE: Mr. Cerna is not have any orthopnea. He has no chest pain. PHYSICAL: Vital Signs: He is afebrile, heart rate 84, blood pressure 110/70. Generally: No acute distress. Cardiovascular: He sounds to be in a regular rate and rhythm. I do not hear any obvious murmurs. He has no S3. He has no lower extremity edema. Chest exam: Sounds clear bilaterally. He has no increased work of breathing. Abdomen: Soft, nontender. PERTINENT DATA: Patient had chemistry data from today showing a sodium 141, potassium 3.6, his BUN is 28, creatinine is 1.5, which is relatively stable from the last couple of days. His proBNP yesterday was 553. ASSESSMENT: Mr. Cerna is a 72-year-old gentleman, with a history of coronary disease. He has a new reduction in ejection fraction. PLAN: He is on oral Lasix and Coreg. He will likely need a new ischemia evaluation as an outpatient. His renal function and relative low blood pressure are limiting the addition of an ROVERTO or ARB at this point. We will consider trying to add this as an outpatient. I will make arrangements for him to follow up with me in the office in a couple weeks. cc: Diaz Silvestre MD
--- NOTE | 2018-06-03 16:51 | DISCHARGE SUMMARY ---
ADMISSION DATE: 05/27/2018 DISCHARGE DATE: 06/02/2018 DISCHARGE DIAGNOSIS: 1. Acute hypoxic respiratory failure requiring home oxygen now. 2. Bilateral pneumonia due to gram-negative organism. 3. Escherichia coli urinary tract infection. 4. New onset acute systolic congestive heart failure with ejection fraction of 35%. 5. Acute kidney injury. OTHER DIAGNOSIS: 1. History of essential hypertension. 2. History of hyperlipidemia. 3. History of supraventricular tachycardia and benign prostatic hyperplasia. 4. History of coronary artery disease and non-ST segment elevation myocardial infarction in the past. 5. Chronic kidney disease stage 3. 6. Chronic back pain. 7. Gastroesophageal reflux disease and muscle spasm. 8. History of coronary artery bypass graft in 1992 . DISCHARGE MEDICATIONS: Atorvastatin 10 mg at nighttime, bupropion 150 mg daily, cilostazol 100 mg b.i.d., clonazepam 1 tablet p.o. b.i.d., gabapentin 300 mg p.o. daily, hydrocodone acetaminophen 1 tablet p.o. t.i.d., pantoprazole 40 mg daily, tizanidine 1 tablet 4 mg b.i.d., aspirin 81 mg daily, carvedilol 6.25 mg b.i.d. prescribed, cephalexin 500 mg p.o. q.12 hours, docusate 200 mg p.o. b.i.d., duloxetine 60 mg in the morning time, Lasix 40 mg daily, atorvastatin 40 mg at nighttime. PHYSICAL EXAMINATION: Vital Signs: At the time of discharge temperature 97.3 degrees, pulse 84 per minute, blood pressure 110/70, saturating 96% on 3 L nasal cannula. General: Does not appear in any acute distress. Oral cavity is moist. Lungs: Air entry bilaterally equal. No wheeze, rhonchi, crackles. S1, S2 normal. No murmur, rub, or gallop. No jugular venous distention. Abdomen: Soft, nontender. Minimal bilateral lower extremity edema. Neurologic: Alert, oriented x3. LABS: At the time of discharge WBC 7.6, hemoglobin 15.9, platelet 248,000, potassium of 3.6, BUN of 26, creatinine of 1.5, proBNP decreased from 2300 to 550. Microbiology. Urine culture growing E coli which is sensitive to cefazolin and ceftriaxone. CONSULTATION: Cardiology Dr. Diaz Silvestre. IMAGIN. Abdomen pelvis CT on admission had detected bilateral pleural effusion and basilar atelectasis and possible infiltrate, cholecystectomy, fatty infiltration of liver with tiny cyst, constipation, diverticulosis, aortic iliac graft with atherosclerosis. 2. Echocardiogram had suggested dilated left ventricle with end-diastolic dimension of 6.3 cm, normal wall thickness and ejection fraction of close to 40% however it was of poor quality so patient underwent cardiac imaging nuclear medicine MUGA scan which had suggested ejection fraction of 34%. HOSPITAL COURSE SUMMARY: Mr. Nehemiah berry is 72 years man with past medical history of coronary artery disease, CABG, essential hypertension who came in with complaints of left lower quadrant abdominal pain and subjective feeling of shortness of breath. CAT scan abdomen, pelvis had detected bilateral pleural effusions and pulmonary edema, he was started with intravenous diuresis. He was also diagnosed with bilateral pneumonia and was started on intravenous antibiotics. Urine culture grew E coli, with intravenous Lasix and intravenous antibiotics for pneumonia and urine tract infection he started improving. At the time of discharge he was hemodynamically stable. He still needed oxygen likely in the setting of acute congestive heart failure as well as pneumonia and he was discharged on home oxygen. He was detected to have new onset congestive heart failure for which he was advised to follow up outpatient to get further nuclear medicine testing done. HOSPITAL COURSE: 1. Bilateral pneumonia and urine tract infection with E coli. He should complete course of p.o. cephalexin which was prescribed to him. 2. New onset acute systolic congestive heart failure with ejection fraction of 35%. He was continued on Lasix, carvedilol, aspirin and atorvastatin. Considering his fluctuating kidney function ROVERTO inhibitors or ARBs were not started, he should get outpatient reevaluation regarding this. 3. Chronic kidney disease stage 3 it was stable. He was advised to get repeat BMP outpatient and a prescription was provided. 4. Acute hypoxic respiratory failure likely because of congestive heart failure and pneumonia, he will be discharged on home oxygen . 5. For his chronic back pain he was continued on home duloxetine, gabapentin, hydrocodone acetaminophen, he was continued on pantoprazole for GERD and tizanidine for muscle spasm. 6. Disposition. At the time of discharge I went to the bedside answered all of patient's questions. More than 30 minutes were spent in discharging this patient. He was advised to look out for signs of any bleeding. Plan of care were discussed with him. All of his questions have been answered satisfactorily . cc: Sarwat Lopez MD
== END 2018-06-02 18:46 | disposition home health service (06) | DRG 177 ==
LOC: ED 22:50 → SUATTDRO 05-27 08:51 → EDIPHOLD 05-27 08:51 → 4N 05-28 14:14
PROVIDERS: ATTEND Internal Medicine
CPT/HCPCS: 51798; 71010; 71020; 71045; 71046; 74177; 78472; 78582; 80048; 80053; 81001; 82805; 83605; 83735; 83880; 84484; 85025; 85610; 85730; 87040; 87077; 87088; 87186; 93005; 93010; 93306; 93970; 94640; 94761; 94799; 96365; 96367; 96375; 96376; 97116; 97162; 97530; 99285; A9270; A9512; A9539; A9540; J0360; J0456; J0696; J1940; J1956; Q9967

== ENCOUNTER 2018-06-15 16:20 | Inpatient (IN) ==
[2018-06-15] MEDS ORDERED: TORADOL IV ONE (18:26)
[2018-06-15] MEDS ORDERED: NS 1,000 ML IV ONE (18:26)
[2018-06-15 18:54] LABS: BASO# 0.01 X1000 (0.0-0.2); BASO% 0.1 % (0.0-0.8); EOS# 0.09 X1000 (0.0-0.7); HEMATOCRIT 49.7 % (42.0-52.0); HEMOGLOBIN 16.2 g/dL (14.0-18.0); IMM GRAN# 0.02 X1000 (0.0-0.04); IMM GRAN% 0.2 % (0.0-0.5); LYMPH# 0.83 X1000 (1.2-3.4); LYMPH% 9.5 % (20.5-51.1); MCH 31.2 PG (27-31); MCHC 32.6 g/dL (33-37); MCV 95.6 FL (81-99); MONO# 0.63 X1000 (0.11-0.59); MONO% 7.2 % (1.7-9.3); MPV 11.7 FL (7.4-10.4); NEUT# 7.16 X1000 (1.4-6.5); PLT 174 X1000 (130-400); RDW 14.3 % (11.5-14.5); WBC 8.74 X1000 (4.8-10.8)
--- NOTE | 2018-06-15 19:11 | Diag Imaging Result Doc PS360 ---
EXAM: CHEST-2 VIEWS INDICATION: sob TECHNIQUE: 2 views COMPARISON: 06/14/2018 FINDINGS: Bibasilar consolidations most consistent with pulmonary edema as well as bilateral small effusions and adjacent atelectasis are stable. No new consolidation is identified. Cardiac silhouette is stable. IMPRESSION: Stable chest. Electronically signed by Reza Schwarz 06/15/2018 7:08 PM
[2018-06-15 19:25] LABS: ALB/GLOB RATIO 2.2; ALBUMIN 4.2 g/dL (3.5-5.0); CALCIUM 9.2 mg/dL (8.8-10.2); CREATININE 1.6 mg/dL (0.7-1.2); POTASSIUM 4.8 mmol/L (3.5-5.1); TOTAL BILIRUBIN 0.62 mg/dL (0.20-1.00); TOTAL PROTEIN 6.1 g/dL (6.3-8.3)
[2018-06-15 19:31] LABS: URINE SOURCE VOIDED
[2018-06-15] MEDS ORDERED: LOPRESSOR IV ONE (19:36)
[2018-06-15 19:37] LABS: BILIRUBIN URINE NEGATIVE (NEGATIVE); BLOOD URINE NEGATIVE (NEGATIVE); COLOR YELLOW; GLUCOSE URINE NEGATIVE (NEGATIVE); KETONE URINE NEGATIVE (NEGATIVE); LEUKOCYTES URINE NEGATIVE (NEGATIVE); NITRITE URINE NEGATIVE (NEGATIVE); PH URINE 5.5; PROTEIN URINE 100 mg/dL (NEGATIVE); SP GRAVITY URINE 1.021; TURBIDITY URINE CLEAR (CLEAR); UROBILINOGEN URINE NORMAL (NORMAL)
[2018-06-15 19:38] LABS: UR EPITHELIAL CELLS <10 /HPF (<10); URINE BACTERIA NEGATIVE /HPF; URINE RBC <10 /HPF (<10); URINE WBC <10 /HPF (<10)
[2018-06-15] MEDS ORDERED: LASIX IV ONE ×2 (19:47→21:12)
--- NOTE | 2018-06-15 20:32 | PROVIDER DOCUMENTATION ---
This chart was entered by Surekha Schwarz Scribe, acting as scribe for Jesus White MD. HPI-Abdominal Pain/GI Problem - General Chief Complaint: Abdominal Pain Stated Complaint: CHF, FLUID ON LUNGS Time Seen by Provider: 06/15/18 18:14 Source: patient Allergies/Adverse Reactions: Patient Allergies Allergy/AdvReac Type Severity Reaction Status Date / Time No Known Allergies Allergy Verified 06/09/18 19:22 Home Medications: Home Medication List Medication Instructions Recorded Confirmed Last Taken Type Duloxetine [Cymbalta] 60 mg PO QAM #30 capsule 03/04/16 05/27/18 08/28/17 Rx Atorvastatin Calcium 10 mg PO QPM 08/13/17 05/27/18 08/28/17 History Bupropion X.l. [Wellbutrin Xl] 150 mg PO DAILY 08/13/17 05/27/18 08/28/17 Histo ry Cilostazol [Pletal] 100 mg PO BID 05/27/18 05/27/18 Unknown History Clonazepam 1 tab PO BID 05/27/18 05/27/18 Unknown History Gabapentin 1 cap PO DAILY 05/27/18 05/27/18 Unknown History Hydrocodone/Acetaminophen 1 tab PO TID 05/27/18 05/27/18 Unknown History [Hydrocodone-Acetamin 10-325 mg] Pantoprazole [Protonix] 1 tab PO DAILY 05/27/18 05/27/18 Unknown History Tizanidine [Zanaflex] 1 tab PO BID 05/27/18 05/27/18 Unknown History ATORVAstatin [Lipitor] 40 mg PO QPM #30 tab 06/02/18 Unknown Rx Aspirin 81 mg PO DAILY #30 chewtab 06/02/18 Unknown Rx Carvedilol [Coreg] 6.25 mg PO BID #120 tab 06/02/18 Unknown Rx Cephalexin [Keflex] 500 mg PO Q12H #10 cap 06/02/18 Unknown Rx Docusate Sodium [Colace] 200 mg PO BID #20 cap 06/02/18 Unknown Rx Furosemide [Lasix] 40 mg PO DAILY #30 tab 06/02/18 Unknown Rx Ondansetron Odt [Zofran 4 mg Odt] 4 mg PO Q6H PRN PRN #20 tab 06/09/18 Unknown Rx Oxycodone HCl/Acetaminophen 1 ea PO Q6-8H PRN PRN #20 tab 06/09/18 Unknown Rx [Percocet 5-325 mg Tablet] - History of Present Illness-ABD Nature of Presenting Problems: 72 yom presents to ed w/co lower abd pain, nausea and was sent by pcp to ed for fluid on heart. pt came to ed on 3- and saw Dr. lemons. pt has ct on abd and there was nothing notable wrong. pt states the pain in abd is dull and pt hasn't had an appetite in 2-3 days. pt states many times of when abd pain started ranging from months ago to 1 week ago. pt also having trouble sleeping because of nausea. pt has hx of chf, had aaa and had graft put in with no problems since. pt on 3 liters of o2 at home. pt denies fever, chills, body aches. Abdominal Pain Onset Location: reports: LLQ, suprapubic Review of Systems - Adult - REVIEW OF SYSTEMS - ADULT Constitutional: reports: no symptoms reported. denies: chills, fever Eyes: reports: no symptoms reported Ears, Nose, Mouth & Throat: reports: no symptoms reported Cardiovascular: reports: no symptoms reported, other (sent to ed by pcp for fluid on heart). denies: irregular heart rate, orthopnea, palpitations Respiratory: reports: no symptoms reported Gastrointestinal: reports: see HPI, abdominal pain (llq and suprapubic), nausea. denies: constipation, diarrhea, vomiting Genitourinary: reports: no symptoms reported Musculoskeletal: reports: no symptoms reported Integumentary: reports: no symptoms reported Neurological: reports: no symptoms reported Psychiatric: reports: no symptoms reported Endocrine: reports: no symptoms reported Hematologic/Lymphatic: reports: no symptoms reported Allergic/Immunologic: reports: no symptoms reported All Other Systems: Reviewed and Negative Past History - Adult - PAST MEDICAL HISTORY-ADULT Review of Records: reports: Old Records Reviewed, Nursing Assessment Review, Medications Reviewed, Social history reviewed & non-contributory. Major Childhood Illnesses: reports: denies history Cardiovascular: reports: aortic disease (AAA), CAD, HTN, hyperlipidemia, LA, PVD Respiratory: reports: COPD Gastrointestinal: reports: denies history Obstetrical/Gynecological: reports: denies history Genitourinary: reports: chronic UTI's Musculoskeletal: reports: chronic pain, intervertebral disc disease Neurological: reports: denies history Psychiatric: reports: anxiety, depression, other (substance abuse) Endocrine/Immune: reports: denies history Other Conditions: reports: denies history - PRIOR SURGERIES/PROCEDURES Surgical/Procedure History: reports: CABG, cholecystectomy, hernia repair, other (bilateral fem/pop) - IMMUNIZATION STATUS Childhood Immunizations: See Nurse Assessment Flu Vaccine: See Nurse Assessment - FAMILY HISTORY Family History: reviewed, not pertinent - SOCIAL HISTORY Smoking: other (former smoker) Substance Use: alcohol Alcohol Use Frequency: occasionally Physical Exam-General - PHYSICAL EXAM-ADULT Initial Vital Signs Reviewed: Yes - CONSTITUTIONAL General Appearance: appears well, alert, no apparent distress - EYES Eyes: PERRL/EOMI - HEAD, EARS, NOSE, MOUTH & THROAT HENMT: normocephalic/atraumatic, moist mucous membranes, normal ENT inspection - NECK Neck: non-tender, full range of motion, supple - RESPIRATORY Respiratory: chest non-tender, lungs clear, normal breath sounds - CARDIOVASCULAR Cardiovascular: normal peripheral pulses, regular rate, rhythm, no edema, no gallop, no JVD, no murmur - GASTROINTESTINAL (ABDOMEN) Abdominal Exam: normal bowel sounds, soft, no organomegaly, no pulsatile mass, tenderness (llq suprapubic). negative: non tender, guarding, rigid, rebound - LYMPHATIC Lymphatic: no adenopathy - MUSCULOSKELETAL Back Exam: normal inspection, no CVA tenderness, no vertebral tenderness Extremity: normal range of motion, non-tender, normal inspection - SKIN Integumentary: normal color, normal turgor, warm/dry - NEUROLOGIC Neurologic: machine fastener II-XII nml as tested, grossly normal, no motor/sensory deficits - PSYCHIATRIC Psych/Mental Status: normal mood/affect, normal thought content, normal thought process, oriented x 3 Progress - PLAN OF CARE/RESULTS Progress/Plan/Lab Results: Vital Signs - 8 hr 06/15/18 16:42 Temperature 98.2 F Pulse Rate 89 Respiratory Rate 20 Blood Pressure 127/89 Orders Category Date Time Status Saline Loc NOW Care 06/15/18 18:26 Active NPO Diet 06/15/18 16:54 Active CHEST-2 VIEWS [RAD] Stat Exams 06/15/18 18:24 Ordered CBC WITH DIFF [HEME] Stat Lab 06/15/18 16:54 Uncollected COMPREHENSIVE METABOLIC PANEL [CHEM] Stat Lab 06/15/18 16:54 Uncollected LIPASE [CHEM] Stat Lab 06/15/18 16:54 Uncollected PRO B-NATRIURETIC PEPTIDE Stat Lab 06/15/18 18:32 Uncollected TROPONIN T Stat Lab 06/15/18 18:27 Uncollected URINALYSIS [URINALYSIS] Stat Lab 06/15/18 16:54 Uncollected 0.9% Sodium Chloride Inj [Ns] 1,000 ml Med 06/15/18 18:26 Active IV 999 mls/hr Ketorolac [Toradol] Med 06/15/18 18:26 Discontinued 30 mg IV NOW ONE Abd Pain/OB <20 weeks Stat Oth 06/15/18 16:54 Ordered EKG [EKG] Stat Ther 06/15/18 16:54 Ordered A/P: Pulmonary Edema. Elevated BNP. pt also has epigastric pain of unknown origin, has been worke dup in the past, with no resolution. Pt is drug seeking, asking repeatlty for narcotic pain medication. anjali dmit for IV dieuresis. BP Result Diagrams: 06/15/18 18:33 06/15/18 18:33 - EKG 1 Time of EKG reading by physician:: 17:01 EKG Read and Signed by:: Charlie Livingston EKG Interpretation (*Must complete 3 of following elements*): Abnormal Rate: 91 (Possible Left Atrial Enlargement) Rhythm: NSR QRS: LVH, other (prolonged qt) TN Interval: normal - CONSULTS/PCP/HOSPITALIST Notification #1 *Consult/PCP/Hospitalist*: Dr Bustos Time Discussed: 20:31 Consult Disposition: Admit Departure - Departure Date of Disposition Decision: 06/15/18 Time of Disposition Decision: 20:31 DIAGNOSIS: Pulmonary edema Disposition: ADMITTED INPATIENT 09 Certified Medical Emergency: Emergent Condition: Stable Referrals and Follow-Ups: Halle See MD [Primary Care Provider] - - Critical Care Note This patient required my direct & personal management of CC.: No Attestation - Physician/ LAVELL Attestation Patient care was provided by Advanced Practice Provider:: No The physician spent face to face time with patient:: Yes Advanced Practice Provider documentation review:: Supervising physician onsite and consulted in the evaluation and care of this patient. The physician did have a face to face encounter with the patient. This chart was documented by the indicated scribe, (Surekha Schwarz, Inna) and accurately reflects the services I performed and decisions made by me, eJsus White MD, as attested by the provider's signature.
--- NOTE | 2018-06-15 22:16 | HISTORY AND PHYSICAL ---
CHIEF COMPLAINT: Abdominal pain. PRIMARY CARE PHYSICIAN: Halle See MD HISTORY OF PRESENT ILLNESS: This is a chronically ill-looking, 72-year-old male with past medical history of coronary artery disease with congestive heart failure with ejection fraction of 35% diagnosed last month who presented to the emergency department today complaining of abdominal pain. Actually that is the 2nd visit this month with same complaint. He was seen on June [address] scan of the abdomen and pelvis was unremarkable, and he was sent home with oral pain meds. Today, he came for same reason, actually abdominal pain is located in the left lower quadrant. According to who is at bedside, he was complaining also of shortness of breath that was progressively getting worse during the last week. She noticed orthopnea. He needed to use more pillows to sleep, and also patient has got paroxysmal nocturnal dyspnea. He was getting up 5 to 7 times during the night complaining of shortness of breath and also complaining of difficulty in urinating. He did not describe any burning, but he reports difficulty in peeing. Upon my examination, he is complaining of mild abdominal pain, 6-7 out of 10 in intensity, and also patient is very diaphoretic though he denies any shortness of breath, any chest pain, any chest discomfort, any palpitations. Workup in the ER revealed normal white cell count with stable chronic kidney disease stage 3 and proBNP is 8926. The chest x-ray shows stable chest, but the description includes bibasilar consolidation more consistent with pulmonary edema as well as bilateral effusions and atelectasis that are stable. Because of those findings considering the patient is still complaining of difficulty in breathing requiring Venturi mask and looking very diaphoretic, I prefer to send this patient to intensive care unit. PAST MEDICAL HISTORY: 1. History of new onset acute systolic congestive heart failure with ejection fraction of 35% in his last hospitalization of May 2018. 2. Chronic kidney disease stage 3 with creatinine at baseline now. 3. Essential hypertension. 4. Hyperlipidemia. 5. History of supraventricular tachycardia. 6. Benign prostatic hyperplasia. 7. History of coronary artery disease with non ST-segment elevation myocardial infarction in the past. 8. Chronic back pain. Taking Hamilton almost on a daily basis. 9. Gastroesophageal reflux disease. PAST SURGICAL HISTORY: 1. CABG in 1992. 2. Thoracic aneurysm with a graft. 3. Abdominal hernia repair. FAMILY HISTORY: Positive for mother with coronary artery disease. Father with brain cancer. SOCIAL HISTORY: Patient lives with his . Patient quit smoking 20 to 25 years ago. No drinking alcohol or using illicit drugs. ALLERGIES: No known drug allergies. HOME MEDICATIONS: Those are going to be reconciliated. REVIEW OF SYSTEMS: 1. Patient reports nocturia 6 to 7 times per night. 2. No weight loss. 3. Reports symptoms of paroxysmal nocturnal dyspnea. PHYSICAL EXAMINATION: GENERAL: This is a chronically ill-appearing, 72-year-old male, very diaphoretic, lying in bed in mild respiratory distress. tachypneic. HEENT: Head is normocephalic and atraumatic. Mucous membranes dry. Pupils equal, round, reactive to light and accommodation. Anicteric sclerae and pale conjunctivae. NECK: No JVD noted. No carotid bruits. No lymphadenopathy. No thyromegaly. CARDIOVASCULAR EXAM: S1, S2 heard. No murmurs, gallops, or rubs. Regular rate and rhythm. RESPIRATORY EXAM: Crackles all over both pulmonary gomez and also wheezing as well. Patient is using some accessory muscles, and no work of breathing noted. ABDOMEN: Soft, nontender to palpation. Bowel sounds present. No organomegaly. EXTREMITIES: No clubbing, cyanosis, or edema. Both lower extremities are cold to touch. Peripheral pulses present but faint. NEUROLOGICAL EXAM: Patient is alert and oriented x3. Moves 4 extremities. LABORATORY DATA: White cell count 8.74, hemoglobin 16.2, hematocrit 49.7, platelets 174,000 with creatinine 1.6. Urinalysis is normal. ASSESSMENT AND PLAN: 1. Acute congestive systolic heart failure. Patient came to the hospital with 1-week history of progressive shortness of breath, although no edema noted in both lower extremities. Patient has received Lasix for IV 80 mg. We are going to provide 1 more dose of 40. We will continue with Lasix 40 mg IV q.12 hours, and we will start Lasix drip on this patient. We will send to the intensive care unit. We will monitor this patient closely there. Even though this patient is not complaining of any chest pain, we will check troponins now q.6 hours to rule out any acute coronary syndrome. EKG did not show any ST-segment elevation or depression. 2. Acute hypoxemic respiratory failure secondary to condition #1. We will provide oxygen by Venturi mask. Pulmonary will be consulted. 3. Chronic kidney disease stage 3. Creatinine is at his baseline. We will continue to check BMP daily to make sure that kidney function did not get worse with the use of Lasix. 4. Essential hypertension. We are awaiting for reconciliation of his medications to start medications back. 5. Chronic back pain. We will provide Demerol IV p.r.n. 6. Recurrent abdominal pain. We are going to check another CT of abdomen and pelvis and see what it shows. 7. Gastroesophageal reflux disease. Patient will be placed on Protonix 40 mg IV q.12 hours. 8. Hyperlipidemia. We will check lipid panel tomorrow, and we will go from there. Addendum: CT of thorax showed bilateral patchy consolidations suspicious for pneumonia so will start Teflaro and Zosyn and will check CBC daily. cc: Luke Hutson MD MTDD
[2018-06-15] MEDS ORDERED: SODIUM CHLORIDE 0.9% INJ SCH (22:21)
--- NOTE | 2018-06-15 22:29 | Diag Imaging Result Doc PS360 ---
CT THORAX/ABD/PELVIS W/O CON - 06/15/2018 INDICATION: elevated WBC, LOC, hypothermia COMPARISON: 06/09/2018, 03/28/2016 FINDINGS: CHEST: There is cardiomegaly. There are moderate bilateral pleural effusions. There are heterogeneous infiltrates bilaterally involving every lobe. There is also diffuse interstitial pulmonary edema with intralobular septal thickening. There are CABG changes. There is an old healing right anterior-lateral sixth rib fracture. There is also a healing posterior right 11th rib fracture. Abdomen pelvis: Stable distal abdominal aortic aneurysm. Stable internal aortobiiliac stents. Stable cholecystectomy clips. No bowel obstruction or inflammation. There is mild diverticulosis of the colon. No abdominal free air or free fluid. Urinary bladder, prostate, and rectum are normal. Bony structures are grossly intact. IMPRESSION: 1. Cardiomegaly, pulmonary edema, moderate bilateral pleural effusions. 2. Heterogeneous bilateral infiltrates compatible with pneumonia. 3. No acute process in the abdomen or pelvis. This exam was performed using automated exposure control, adjustment of mA or kV according to patient size, and/or use of iterative reconstruction technique Electronically signed by Heraclio Field 06/15/2018 10:27 PM
--- NOTE | 2018-06-15 22:32 | Diag Imaging Result Doc PS360 ---
US ABDOMEN-COMPLETE - 06/15/2018 INDICATION: abdominal pain COMPARISON: Prior exams FINDINGS: The gallbladder is absent. The pancreas is mostly obscured. The liver, spleen, and both kidneys are normal. Common bile duct measures 4 mm. Aorta, IVC, and main portal vein are patent. IMPRESSION: No acute process. Electronically signed by Heraclio Field 06/15/2018 10:29 PM
[2018-06-15] MEDS: DEMEROL IV PRN (23:18)
[2018-06-15] MEDS: LOVENOX SUBQ SCH (23:19)
[2018-06-15] MEDS: PROTONIX IV SCH (23:20)
[2018-06-16] MEDS: ZOSYN 3.375 GM in NS 50 ML IV SCH ×5 (00:05→22:59)
[2018-06-16] MEDS: TEFLARO 600 MG in NS 250 ML IV SCH ×3 (00:42→22:59)
[2018-06-16] MEDS: LIPITOR PO SCH ×2 (01:44→20:15)
[2018-06-16] MEDS: LASIX 100 MG in NS 90 ML IV SCH ×3 (01:44→17:56)
[2018-06-16] MEDS: DEMEROL IV PRN (03:13)
[2018-06-16] MEDS: DUONEB (A & A) INH PRN (05:24)
[2018-06-16] MEDS: MORPHINE IV PRN ×2 (05:28→09:52)
[2018-06-16] MEDS: ZOFRAN IV PRN ×2 (05:29→20:19)
[2018-06-16 07:25] LABS: AGAP 14; BUN 34 mg/dL (8-22); CALCIUM 8.8 mg/dL (8.8-10.2); CHLORIDE 101 mmol/L (98-107); CHOLESTEROL 102 mg/dL (0-200); COSMO 289; CREATININE 1.6 mg/dL (0.7-1.2); ESTIMATED GFR 43; GLUCOSE 95 mg/dL (70-104); HDL 35 mg/dL (35-55); LDL 52 mg/dL; POTASSIUM 4.5 mmol/L (3.5-5.1); SODIUM 141 mmol/L (136-145); TCO2 26 mmol/L (25-35); TRIGLYCERIDES 77 mg/dL (39-160); VLDL 15 mg/dL
--- NOTE | 2018-06-16 07:25 | EKG Report ---
Test Performed on : 06/15/2018 5:01:24 PM Test Reason : SOB Blood Pressure : / mmHG Vent. Rate : 091 BPM Atrial Rate : 091 BPM P-R Int : 166 ms QRS Dur : 108 ms QT Int : 412 ms P-R-T Axes : 013 -04 031 degrees QTc Int : 506 ms Normal sinus rhythm. Possible Left atrial enlargement Left ventricular hypertrophy Inferior infarct , age undetermined Prolonged QT Abnormal ECG When compared with ECG of 09-JUN-2018 18:28, (Unconfirmed) premature ventricular complexes. are no longer present Inferior infarct is now present Unconfirmed Result
[2018-06-16 07:26] LABS: BASO# 0.01 X1000 (0.0-0.2); BASO% 0.1 % (0.0-0.8); EOS# 0.01 X1000 (0.0-0.7); EOS% 0.1 % (0.0-10.0); HEMATOCRIT 45.9 % (42.0-52.0); HEMOGLOBIN 15.1 g/dL (14.0-18.0); LYMPH# 1.11 X1000 (1.2-3.4); LYMPH% 15.3 % (20.5-51.1); MCH 31.5 PG (27-31); MCHC 32.9 g/dL (33-37); MCV 95.6 FL (81-99); MONO# 0.66 X1000 (0.11-0.59); MONO% 9.1 % (1.7-9.3); MPV 12.1 FL (7.4-10.4); NEUT# 5.45 X1000 (1.4-6.5); NEUT% 75.4 % (42.2-75.2); PLT 160 X1000 (130-400); RDW 14.1 % (11.5-14.5); WBC 7.24 X1000 (4.8-10.8)
[2018-06-16 09:12] LABS: ALLEN TEST YES; BE 0.5 mmoll (-3.0-3.0); BLOOD TYPE ARTERIAL; HCO3-(ACT) 25.1 mmoll (20.0-26.0); METHB 0.5 % (0.0-1.5); O2(CT) 20.5 mL/dL (15.0-23.0); O2HB 91.4 % (95.0-99.0); PCO2(98.6) 44 mmHg (35-45); PO2(98.6) 61 mmHg (60-100); SAMPLE BLOOD; pH(98.6) 7.38 (7.35-7.45)
[2018-06-16 09:14] LABS: MODALITY PRB
--- NOTE | 2018-06-16 09:31 | EKG Report ---
Test Performed on : 06/15/2018 8:54:16 PM Test Reason : ED. No order in [place] Blood Pressure : / mmHG Vent. Rate : 095 BPM Atrial Rate : 095 BPM P-R Int : 164 ms QRS Dur : 100 ms QT Int : 374 ms P-R-T Axes : 013 -03 010 degrees QTc Int : 469 ms Normal sinus rhythm. Possible Left atrial enlargement Inferior infarct (cited on or before 15-JUN-2018) Abnormal ECG When compared with ECG of 15-JUN-2018 17:01, (Unconfirmed) Non-specific change in ST segment in Lateral leads Unconfirmed Result
[2018-06-16] MEDS: PROTONIX IV SCH ×3 (09:54→22:58)
[2018-06-16] MEDS: ASPIRIN PO SCH (09:59)
[2018-06-16] MEDS ORDERED: DULCOLAX PR PRN (11:39)
[2018-06-16] MEDS ORDERED: RELISTOR SUBQ ONE (11:42)
--- NOTE | 2018-06-16 12:18 | PROGRESS NOTE ---
DATE: 06/16/2018 SUBJECTIVE: This morning Mr. Cerna refers to be hurting in his lower abdomen. He said this normally goes on every now and then and that he normally gets constipated. A CT scan of the chest and abdomen does show some constipation as well. Mr. Cerna is on Percocet chronically at home. OBJECTIVE: Vital signs: Blood pressure is 156/108, respiration is 23, pulse is 95, temperature is 98.9 degrees. Patient was saturating 91%. General exam: Mr. Cerna is a 72-year-old male. He is in bed, not in any cardiopulmonary distress. HEENT: Mucosa is pink and moist. Anicteric. Acyanotic. Neck: Supple. Chest: Air entry is bilaterally reduced. There are some crackles posteriorly. Cardiovascular: Regular rate and rhythm. There is a sternotomy scar on the anterior chest wall. Abdomen: Soft, minimally distended. Bowel sounds are present, but hypoactive. Patient has mild tympany on percussion. There is some tenderness in the lower abdomen. However, a Louis catheter is in place and bladder is decompressed. Extremities: No pedal edema. WOOL PULLER: Patient is awake, alert, oriented. There is no focal neurological deficit. LABORATORY DATA: WBC is 7.24, hemoglobin is 15.1, platelet count of 160. Chemistry is also reviewed. Creatinine is 1.6. ProBNP is 14,656. IMAGING STUDIES: 1. A chest x-ray did show bibasilar consolidation most consistent with pulmonary edema and bilateral fluids 2. A CT scan of the abdomen and pelvis showed no acute process in the abdomen and pelvis. ASSESSMENT: 1. Lower abdominal pain on presentation, likely secondary to constipation due to chronic narcotic use. I have withheld all narcotic medication. We will give the patient a dose of Relistor and start him on some bowel regimen. 2. Fluid overload manifested by pulmonary edema. 3. Pleural effusions likely due to congestive heart failure. The patient is getting diuretic therapy. The cardiac imaging nuclear scan which was done in May of this year showed an ejection fraction of 34% with global hypokinesis. cardiology has been consulted. 4. History of ischemic cardiomyopathy. 5. Chronic kidney disease, stable. 6. Suspected pneumonia. Patient is started on intravenous antibiotics. Cultures have been ordered. cc: MD KANA Gan
[2018-06-16] MEDS: MIRALAX PO SCH (12:33)
[2018-06-16] MEDS: ISORDIL PO SCH ×3 (13:21→20:16)
[2018-06-16] MEDS: OFIRMEV 1000 MG/ISOTONIC SOLN 1,000 MG/100 ML BOTTLE IV PRN ×2 (13:21→22:58)
--- NOTE | 2018-06-16 14:58 | CARDIOLOGY CONSULTATION ---
DATE: 06/16/2018 CHIEF COMPLAINT ON PRESENTATION: Shortness of breath, as well as chest pain. HISTORY OF PRESENT ILLNESS: Mr. Cerna is a 72-year-old white male with a history of systolic heart failure with a recent hospitalization last month. He has chronic kidney disease as well. Yesterday, he was at rest when he had the onset of a bloating type discomfort diffusely in his abdomen, as well as into his lower chest area. He denies any orthopnea. He reported his symptoms were quite severe and lasted for several minutes to hours. He did not have any nausea or vomiting. He denies any overt diaphoresis. He was short of breath with those symptoms. PAST MEDICAL HISTORY: Significant for: 1. Coronary disease with coronary bypass grafting performed in 1992. PATRICIA to the LAD, vein graft to the ramus and a vein graft to the PDA. His last heart catheterization in 2015 showed an occluded LAD with a patent PATRICIA. His circumflex was normal in the proximal vessel with a mid 50% lesion. His ramus is occluded. Vein graft to the ramus was noted to be occluded as well. The RCA was occluded. The vein graft to the PDA was occluded. Based on that he has a remaining PATRICIA to the LAD and a remaining tulalip circumflex. His last nuclear scan in August of 2017 demonstrated a large size, severe grade fixed defect in the inferior and inferior lateral wall diagnostic of scar. His last ejection fraction was calculated by [facility] last month and demonstrated an EF of 34% with global hypokinesis. 2. Aortic aneurysm. 3. Hypertension. 4. Hyperlipidemia. 5. Previous tobacco use. 6. History of peripheral vascular disease with femoral-popliteal bypass, as well as previous aortic aneurysm repair. 7. Chronic pain. SOCIAL HISTORY: He is . He quit smoking around 25 years ago. No current alcohol or illicit drugs. FAMILY HISTORY: Mother had heart disease; father had some sort of brain malignancy. REVIEW OF SYSTEMS: A 10 system review of systems is negative except for those things mentioned in the HPI. PHYSICAL EXAMINATION: Vital Signs: Patient is afebrile. His heart rates are in the 90s to low 100s. His blood pressure has been significantly elevated with the most recent of 143/100. His presenting blood pressure was 127/89, but most of his systolics have been in the 140s or higher. His I's and O's thus far have not really been assessed at all this hospitalization. General: He is in no acute distress. HEENT: Oropharynx is moist. Poor dentition. Eye examination has pink conjunctivae, white sclerae. Neck: Examination shows no obvious thyromegaly or thyroid tenderness. Cardiovascular: He sounds to be in a regular rate and rhythm. I do not hear any obvious murmurs. He has no S3. He has warm and well perfused extremities with no edema. Chest: His chest exam has bibasilar rales. No increased work of breathing. Abdomen: Soft, nontender, nondistended. He has no obvious organomegaly. Skin Exam: Warm and dry throughout without any rashes. Neurological: He is moving all extremities well. He has no lateralizing deficits. PERTINENT DATA: CT scan of his abdomen and pelvis showed a stable to moderate size bibasilar pleural effusions with adjacent atelectasis and/or possible infiltrate. His chest x-ray demonstrated bibasilar consolidations most likely suggestive of pulmonary edema with effusions. His EKG reviewed by me shows sinus rhythm. PVCs are evident. No acute signs of ischemic changes. His lab data shows a white count of 7.2, hematocrit 45, his platelet count is 160. His sodium is 141, potassium 4.5, BUN 34, creatinine is 1.6. Cardiac enzymes are negative. His proBNP is 14,656; it was down to 553 on the - when he went home. ASSESSMENT: Mr. Cerna is a 72-year-old gentleman with a new onset of systolic heart failure last month. PLAN: The plan was to pursue an outpatient ischemia evaluation which the patient did not tolerate. He is being admitted to the hospital. We are diuresing him over the weekend. We have initiated him on hydralazine, as well as ISDN. I have resumed his carvedilol. We will continue him on the aspirin and statin. Hopefully, we can diurese him and improve his heart failure over the weekend, and plan on catheterization on Tuesday. cc: Diaz Silvestre MD
[2018-06-16] MEDS: APRESOLINE PO SCH ×2 (15:15→20:16)
[2018-06-16] MEDS: WELLBUTRIN XL PO SCH (17:37)
[2018-06-16] MEDS: PERCOCET-5 PO PRN (17:37)
[2018-06-16] MEDS: KLONOPIN PO SCH (20:15)
[2018-06-16] MEDS: COREG PO SCH (20:16)
[2018-06-16] MEDS: LOVENOX SUBQ SCH ×2 (20:18→22:58)
--- NOTE | 2018-06-17 02:37 | CONSULTATION ---
DATE OF CONSULTATION: 06/16/2018 REQUESTING PROVIDER: Dr. Luke Bustos. REASON FOR CONSULTATION: Acute respiratory failure, pneumonia, congestive heart failure. HISTORY OF PRESENT ILLNESS: This is a 72-year-old male with a medical history of systolic congestive heart failure, chronic kidney disease, essential hypertension, hyperlipidemia, gastroesophageal reflux disease, supraventricular tachycardia, benign prostatic hyperplasia, coronary artery disease, chronic back and abdominal pain, restless legs syndrome. He presented to the ER last night with a dull lower abdominal pain, nausea, and insomnia for more than 1 week. Initial lab in the ER revealed BUN 33, creatinine 1.6, and proBNP 8926. Chest x-ray revealed pulmonary edema, with bilateral small effusions and adjacent atelectasis. CT thorax, abdomen, and pelvis revealed cardiomegaly, pulmonary edema, moderate bilateral pleural effusions, and heterogeneous bilateral infiltrates, compatible with pneumonia. He initially required a nasal cannula at 3 L, which is his baseline oxygen requirement at home. This morning, his respiratory status starting declining, and he eventually required a non-rebreather, with FiO2 80%. He has been admitted to the ICU for further evaluation and management. At the time of my examination, the patient just arrived at the ICU. He reports continuous shortness of breath. He also reports paroxysmal nocturnal dyspnea and difficulty in urination. He reports he gained 31 pounds in 3 days. He has no fever, chills, cough, wheezing, vomiting, diarrhea, chest pain, or palpitations. PAST MEDICAL AND SURGICAL HISTORY: 1. Systolic congestive heart failure. Ejection fraction of 35% on May 2018, currently on home oxygen at 3 L. 2. Chronic kidney disease stage 3. 3. Essential hypertension. 4. Hyperlipidemia. 5. Gastroesophageal reflux disease. 6. Supraventricular tachycardia. 7. Benign prostatic hyperplasia. 8. Coronary artery disease, with non ST-elevated myocardial infarction, status post coronary artery bypass grafting in 1992. 9. Chronic back and abdominal pain, on narcotic therapy. 10. Restless legs syndrome. 11. Thoracic aortic aneurysm, with a graft. 12. Abdominal hernia repair. SOCIAL HISTORY: Patient lives at home with his . He is a former smoker, and quit 25 years ago. He has no history of alcohol or illicit drug use. FAMILY HISTORY: Positive for coronary artery disease and brain cancer. ALLERGIES: No known drug allergies. REVIEW OF SYSTEMS: A 10-point review of systems was conducted, and the pertinent is listed within the HPI, otherwise noncontributory. PHYSICAL EXAMINATION: Vital Signs: Temperature 97.7, blood pressure 143/100, pulse 95, respiratory rate 26, oxygen saturation 90% on a nonrebreather, with FiO2 80%. HEENT: Atraumatic. Trachea midline. Mucosa pink and slightly dry. Respiratory: Rapid and shallow, but the patient does not use accessory muscles. Lung expansion equal bilaterally. Auscultation reveals crackles and diminished breathing sounds bilateral. Cardiovascular: Regular rate and rhythm. Gastrointestinal: Bowel sounds present in all 4 quadrants. Soft, nondistended, with tenderness in bilateral lower quadrant quadrants. Extremities: No pitting edema. No cyanosis. No clubbing. Neurologic: Alert and oriented x3. Speech fluent. Follows commands. LAB DATA: White blood cells 7.24, hemoglobin 15.1, hematocrit 45.9, platelets 160,000. Sodium 141, potassium 4.5, chloride 101, carbon dioxide 26, BUN 34, creatinine 1.6, glucose 95. ProBNP 14,656. ABG: pH 7.38, pCO2 44, PO2 61, HCO3 25.1, base excess 0.5, and oxyhemoglobin 91.4. ASSESSMENT AND PLAN: This is a 72-year-old male with a medical history of systolic congestive heart failure, chronic kidney disease, essential hypertension, hyperlipidemia, gastroesophageal reflux disease, supraventricular tachycardia, benign prostatic hyperplasia, coronary artery disease, chronic back pain, and restless legs syndrome. He has been admitted to the ICU with lower abdominal pain, pulmonary edema, and pleural effusions. 1. [id number] hypoxemic respiratory failure, likely secondary to congestive heart failure exacerbation and pneumonia. Continue supplemental oxygen. Start BiPAP at bedtime and as needed. 2. Continue bronchodilators. Follow up with ABG. 3. Congestive heart failure exacerbation. Dr. Silvestre is on board. Continue diuresis, per Dr. Silvestre. Follow with BMP for kidney function. 4. Pneumonia. Continue ceftaroline and Zosyn. Continue bronchodilators. Follow up with chest x- ray. 5. Lower abdominal pain. Aware. 6. Continue GI and DVT prophylaxis. 7. Additional recommendations pending hospital course. Thank you for the courtesy of this consult. Dictated by BRIAN Bean for Radha Jaramillo MD cc: BRIAN Bean MD MTDD
[2018-06-17] MEDS: PERCOCET-5 PO PRN ×4 (02:59→20:54)
[2018-06-17] MEDS: ZOFRAN IV PRN ×2 (03:05→06:24)
[2018-06-17] MEDS: ZOSYN 3.375 GM in NS 50 ML IV SCH ×5 (03:09→23:00)
[2018-06-17 04:50] LABS: ALLEN TEST YES; BE 3.6 mmoll (-3.0-3.0); BLOOD TYPE ARTERIAL; HCO3-(ACT) 27.7 mmoll (20.0-26.0); METHB 0.9 % (0.0-1.5); O2(CT) 20.9 mL/dL (15.0-23.0); PCO2(98.6) 43 mmHg (35-45); PO2(98.6) 89 mmHg (60-100); SAMPLE BLOOD; SAO2 96.9 % (95.0-100.0); THB 15.6 g/dL (11.5-17.4); pH(98.6) 7.43 (7.35-7.45)
[2018-06-17 04:51] LABS: MODALITY NRB
[2018-06-17 05:56] LABS: CALCIUM 8.3 mg/dL (8.8-10.2); CREATININE 1.6 mg/dL (0.7-1.2); POTASSIUM 3.9 mmol/L (3.5-5.1)
--- NOTE | 2018-06-17 07:48 | GASTROENTEROLOGY CONSULTATION ---
DATE: 06/16/2018 REASON FOR CONSULTATION: Abdominal pain. HISTORY OF PRESENT ILLNESS: Mr. Roberto Carlos Cerna is a 72-year-old gentleman with past medical history significant for hypertension, systolic CHF, hyperlipidemia, CAD status post CABG in 1992, peripheral vascular disease status post femoropopliteal bypass, chronic pain on opiates, who was admitted on 06/15/2018 with shortness of breath, chest pain, and recurrent abdominal pain. He is currently being treated with CHF exacerbation. However, the patient reports having severe diffuse abdominal pain for the last month. He says he has been seen in the hospital 4 times over this period, complaining of this problem. He denies any aggravating or alleviating factors. He says he has not had a bowel movement for the last 4 days and complains of associated bloating and shortness of breath. Currently, he denies nausea, vomiting, fevers, chest pain, rectal bleeding, melena, diarrhea, or abnormal weight loss. He denies having any similar symptoms like this in the past. No new medications. No NSAIDs. He is on aspirin. PAST MEDICAL HISTORY: Hypertension, hyperlipidemia, PAD status post CABG, popliteal-femoral bypass, chronic pain, GERD, CKD stage 3. PAST SURGICAL HISTORY: CABG, popliteal-femoral bypass, he has had a cholecystectomy in the past. MEDICATIONS: 1. Cymbalta. 2. Atorvastatin. 3. Bupropion. 4. Clonazepam. 5. Pantoprazole. 6. Aspirin. 7. Coreg. 8. Lasix. 9. [place]. ALLERGIES: No known drug allergies. FAMILY HISTORY: No family history of GI malignancies. Positive CHF. SOCIAL HISTORY: Remote smoker. No alcohol or drug use. REVIEW OF SYSTEMS: As per HPI, otherwise 12 point review of systems negative. PHYSICAL EXAMINATION: Vital Signs: Temperature 98.1 degrees, heart rate 97, respiratory rate 24, blood pressure 162/108, O2 saturation 96% on non-rebreather, 100% oxygen. Generally: Patient is awake, alert, oriented, in no acute distress. HEENT: Sclerae anicteric. Moist mucous membranes. No JVD or lymphadenopathy. Cardiac: Regular rate and rhythm. No murmurs. Lungs: Bibasilar crackles. No wheezing. Abdomen: Soft, nontender, nondistended. Normoactive bowel sounds. No rebound or guarding. Extremities: No clubbing, cyanosis, or edema. Skin: Warm and well perfused. Neurologic: Nonfocal. No lateralizing deficits. LABORATORY DATA: White count 7.2, hemoglobin 15.1, platelets of 160,000. Sodium 147, potassium 4.5, chloride 101, bicarb 26, BUN 34, creatinine 1.6. LFTs show a total bilirubin of 0.63, AST of 136, ALT of 211, alkaline phosphatase 111. Troponin 0.023, proBNP of 8926. Albumin of 4.2, total protein of 6.1, lipase of 30, lactate of 1.3. UA shows proteinuria, no infection. IMAGIN. Chest x-ray on 06/15/2018 showed stable chest compared to 06/14/2018 that showed bibasilar consolidations most consistent with pulmonary edema, as well as bilateral small pleural effusions and adjacent atelectasis. 2. Abdominal ultrasound on 06/15/2018 shows absent gallbladder. Common bile duct measuring 4 mm. No acute process. 3. CT chest, abdomen and pelvis without contrast done on 06/15/2018 and compared to one done on 06/09/2018 shows cardiomegaly, pulmonary edema, moderate bilateral pleural effusion, heterogeneous bilateral infiltrates compatible with pneumonia. No acute process in the abdomen or pelvis. Stable internal aortic and biliary stents. Mild diverticulosis without diverticulitis. No bowel obstruction or inflammation. ASSESSMENT AND PLAN: Mr. Roberto Carlos Cerna is a 72-year-old gentleman with past medical history of systolic congestive heart failure, coronary artery disease status post bypass, peripheral arterial disease, chronic kidney disease stage 3 and chronic pain on narcotics, who presents with acute hypoxic respiratory failure in the setting of congestive heart failure exacerbation. GI was consulted for a 1-month history of diffuse abdominal pain in the setting of constipation. Prior workup including lipase, CT abdomen and pelvis, ultrasound, and hemoglobin were unrevealing. He does have elevated liver function tests that are elevated in the hepatocellular pattern, unclear etiology of this finding. Liver function tests were normal just 6 days ago. Differential includes acute liver injury from probable medications side effect. Other etiologies include sepsis, sphincter of Oddi dysfunction. Unlikely acute viral hepatitis. No evidence of stones on recent abdominal imaging. The patient's pain is diffuse and is not localized in the right upper quadrant. # Abdominal pain I suspect that his abdominal pain is related to constipation either from constipation, and opioid-induced constipation. There are no red flags. He had a colonoscopy in the past within the last 5 to 10 years. His hgb is normal. He is being treated supportively with analgesics. # Constipation: He was given a dose of methylnaltrexone subcutaneously 12 mg earlier today. We will reassess his response to therapy. He is also currently on MiraLAX 17 g once daily. # Abnormal liver function tests, unclear etiology. Will check acute hepatitis panel and avoid hepatotoxic agents. # Gastroesophageal reflux disease. He is on PPI IV b.i.d. Can transition to p.o. once daily. # Congestive heart failure exacerbation. He is currently on a Lasix drip as per primary and Cardiology # Left basilar consolidation concerning for possible pneumonia, on antibiotics. # Chronic kidney disease stage 3. His creatinine is at baseline. We will continue to monitor. # Chronic back pain. He is on his home Percocet. Recommend minimizing narcotics, correcting any electrolyte abnormalities. Thank you for this consult. Will follow with you. Please call with any questions or concerns. KANA
[2018-06-17] MEDS: MIRALAX PO SCH ×2 (08:07→20:56)
[2018-06-17] MEDS: APRESOLINE PO SCH ×4 (08:08→20:54)
[2018-06-17] MEDS: WELLBUTRIN XL PO SCH (08:08)
[2018-06-17] MEDS: COREG PO SCH ×2 (08:08→20:54)
[2018-06-17] MEDS: CYMBALTA PO SCH (08:08)
[2018-06-17] MEDS: KLONOPIN PO SCH ×2 (08:08→20:55)
[2018-06-17] MEDS: ISORDIL PO SCH ×3 (08:08→20:55)
[2018-06-17] MEDS: ASPIRIN PO SCH (08:08)
[2018-06-17] MEDS: PROTONIX IV SCH ×2 (09:23→21:01)
[2018-06-17] MEDS: ALDACTONE PO SCH (09:24)
[2018-06-17] MEDS: LASIX IV SCH ×2 (09:24→17:22)
[2018-06-17 09:35] LABS: URINE SOURCE CATH
[2018-06-17 09:40] LABS: BILIRUBIN URINE NEGATIVE (NEGATIVE); BLOOD URINE SMALL (NEGATIVE); COLOR YELLOW; GLUCOSE URINE NEGATIVE (NEGATIVE); KETONE URINE NEGATIVE (NEGATIVE); LEUKOCYTES URINE NEGATIVE (NEGATIVE); NITRITE URINE NEGATIVE (NEGATIVE); PH URINE 5.5; PROTEIN URINE TRACE mg/dL (NEGATIVE); SP GRAVITY URINE 1.006; TURBIDITY URINE CLEAR (CLEAR); UR EPITHELIAL CELLS <10 /HPF (<10); URINE BACTERIA NEGATIVE /HPF; URINE RBC <10 /HPF (<10); URINE WBC <10 /HPF (<10); UROBILINOGEN URINE NORMAL (NORMAL)
--- NOTE | 2018-06-17 09:53 | PROGRESS NOTE ---
DATE: 06/17/2018 SUBJECTIVE: This morning Mr. Cerna refers to be feeling a little better. He still complains of the lower abdominal pain but according to him, it gets slightly better with medications. Per the nursing staff, Mr. Cerna was able to tolerate his BiPAP last night, but then after couple hours he referred to be having being uncomfortable so they had to take him off the BiPAP. This morning, he is saturating over 90 but when the face mask is off, he gets really low. OBJECTIVE: Vital signs: Blood pressure is 165/110, pulse is 93, respirations 24, temperature is 98 degrees. General: Mr. Cerna is a 72-year-old gentleman. He was in bed, no distress. HEENT: Mucosa was pink and moist. Anicteric. Acyanotic. Neck: Supple. Chest: Air entry is bilaterally reduced. There are crepitations posteriorly. There is also an old sternotomy scar on the anterior mid chest wall. Gastrointestinal: Abdomen is soft, distended and minimally tender in the lower abdomen. Bowel sounds are present but hypoactive. Central nervous system: Patient is awake, alert, and oriented. There is no focal neurological deficit. LABORATORY DATA: WBC 7.24, hemoglobin is 15.1, platelet count of 160,000. Chemistry is also reviewed. Sodium is 146, potassium is 3.9, chloride is 104, bicarb is 29, creatinine is 1.6. The patient's intake and output, urine output was 2450. Patient has a total negative balance of 925. IMAGING STUDIES: No imaging studies today. ASSESSMENT: 1. Diffuse abdominal pain, suspected to be due to constipation. This is improved. 2. Suspected narcotic gut. The patient was given 1 dose of Relistor yesterday. He was able to make some good bowel movement. We will put him on oral Movantik. 3. Chronic pain syndrome noted. 4. Fluid overload secondary to congestive heart failure. We will continue with the diuretic therapy. Patient has been evaluated by Cardiology. 5. Severe ischemic cardiomyopathy. The patient is status post coronary artery bypass grafting in the past. Per Cardiology notes, it appears that some of the bypass veins have also been occluded. There is a plan for a left heart catheterization on Tuesday once he becomes euvolemic. 6. Chronic kidney disease stage IIIB, stable. 7. Questionable bilateral lower lobe pneumonia. Patient is on IV antibiotics. PLAN: So in general, I think Mr. Cerna seems to be fairly stable. He continues to be remarkably hypoxemic as soon as he takes off the oxygen therapy. I think the hypoxemia is due to the pulmonary edema. The patient will continue to be here in the ICU. We will put in a Louis catheter to get better output documentation. I have discontinued the Lasix drip and switched it to 3 times per day diuretic therapy. We will add Aldactone to his medication, one, to enhance the diuretic therapy, and also for blood pressure control, and will also go up on the hydralazine since patient's blood pressure is fairly uncontrolled. cc: Kevin Edgar MD MTDD
[2018-06-17] MEDS: TEFLARO 600 MG in NS 250 ML IV SCH ×2 (11:15→23:00)
[2018-06-17] MEDS: OFIRMEV 1000 MG/ISOTONIC SOLN 1,000 MG/100 ML BOTTLE IV PRN (17:21)
[2018-06-17] MEDS: LIPITOR PO SCH (20:55)
[2018-06-17] MEDS: LOVENOX SUBQ SCH (21:01)
--- NOTE | 2018-06-17 23:03 | GASTROENTEROLOGY PROGRESS NOTE ---
DATE: 06/17/2018 SUBJECTIVE: Patient is resting in bed, he complains abdominal discomfort but is improving. He has moved his bowels once last night. He denies any nausea, vomiting, vomiting blood, denies any fevers, rigors, chills. OBJECTIVE: Vital signs: Temperature of 98.1, pulse rate of 81, respiratory, blood pressure 113/78, saturating 96% on 100% non-rebreather. Body weight of 189 pounds. BMI of 25.6 kg/m2. General: He is lying in bed, in no acute distress. HEENT: No pallor. No icterus. Neck: Face mask in place. Neck is supple. Abdomen: Mild distention noted. No rebound, no guarding. Discomfort periumbilical area. Extremities: No cyanosis, clubbing. Neuro- olson: Alert, awake, oriented. LABS: His hemoglobin and hematocrit yesterday was 15.1 and 45.9. His ABG showing pH of 7.43, pCO2 of 43, PO2 of 89, this is on non-rebreather 100% FiO2. Sodium 140, potassium 3.9, chloride 104, bicarb 29, anion gap 13, BUN of 29, creatinine 1.2. Glucose of 97, calcium 8.3. Urinalysis showing trace protein and small amount of blood. IMPRESSION AND PLAN: 1. Abdominal pain, likely secondary to constipation. We will continue the bowel regimen and evaluate the response. He had 1 bowel last night. Will continue MiraLAX once daily. 2. Elevated liver enzymes. We will follow up on the acute hepatitis panel. His ultrasound was negative for any kind of liver lesions. 3. Reflux disease. He is on proton pump inhibitors for now. 4. Congestive heart failure exacerbation. He is on Lasix and cardiology is following. 5. Left basilar consolidation. Follow up concerning for possible pneumonia. He is on antibiotics. 6. Chronic back pain. Aware, try to reduce the narcotics. 7. Chronic kidney disease. Aware. 8. Chronic ileus. 9. Severe ischemic cardiomyopathy. His ejection fraction is 35% to 40%, per the patient's recall. Will continue to work along with cardiology. Eventually as an outpatient, he will probably need EGD and colonoscopy, but this will be decided based on the patient's overall health status and cardiology status. 10. The above plan discussed with the patient, and all questions answered. I also spoke with the nursing staff. Further recommendations are pending hospital course. Please call us if further questions. cc: José Miguel Dietz MD MTDD
[2018-06-18] MEDS: LOVENOX SUBQ SCH ×3 (00:27→22:10)
[2018-06-18] MEDS: PROTONIX IV SCH ×2 (00:27→10:23)
[2018-06-18] MEDS: LASIX IV SCH ×3 (00:31→16:58)
[2018-06-18] MEDS: PERCOCET-5 PO PRN ×4 (03:31→20:18)
[2018-06-18] MEDS: ZOSYN 3.375 GM in NS 50 ML IV SCH ×4 (04:50→23:08)
[2018-06-18] MEDS: MOVANTIK PO SCH ×2 (04:51→06:02)
[2018-06-18 05:36] LABS: ALLEN TEST YES; BE 7.3 mmoll (-3.0-3.0); BLOOD TYPE ARTERIAL; HCO3-(ACT) 30.4 mmoll (20.0-26.0); O2HB 91.4 % (95.0-99.0); PCO2(98.6) 50 mmHg (35-45); PO2(98.6) 60 mmHg (60-100); SAMPLE BLOOD; SAO2 93.4 % (95.0-100.0); THB 15.6 g/dL (11.5-17.4); pH(98.6) 7.43 (7.35-7.45)
[2018-06-18 05:38] LABS: MODALITY NRB
[2018-06-18] MEDS: ZOFRAN IV PRN ×4 (06:07→20:20)
[2018-06-18 06:29] LABS: CALCIUM 8.4 mg/dL (8.8-10.2); CREATININE 1.6 mg/dL (0.7-1.2); POTASSIUM 3.1 mmol/L (3.5-5.1)
--- NOTE | 2018-06-18 07:12 | Diag Imaging Result Doc PS360 ---
EXAM: CHEST-1 VIEW 06/18/2018 HISTORY: SOB TECHNIQUE: AP portable at 0524 COMMENT: There is cardiomegaly. There is increased pulmonary vascularity. There are diffuse interstitial opacities. Compared to 06/15/2018 the left pleural fluid collection has improved. The right pleural fluid collection appears slightly worse however. IMPRESSION: Pulmonary edema, cardiomegaly, and right pleural effusion. Electronically signed by Emerson Kendrick 06/18/2018 7:10 AM
[2018-06-18] MEDS ORDERED: KLOR-CON PO ONE (08:10)
[2018-06-18] MEDS: MIRALAX PO SCH ×2 (08:53→21:10)
[2018-06-18] MEDS: KLONOPIN PO SCH ×2 (08:54→20:19)
[2018-06-18] MEDS: CYMBALTA PO SCH (08:54)
[2018-06-18] MEDS: ALDACTONE PO SCH (08:54)
[2018-06-18] MEDS: APRESOLINE PO SCH ×3 (08:55→20:18)
[2018-06-18] MEDS: ISORDIL PO SCH ×3 (08:55→20:18)
[2018-06-18] MEDS: ASPIRIN PO SCH (08:55)
[2018-06-18] MEDS: COREG PO SCH ×2 (08:55→20:17)
[2018-06-18] MEDS: WELLBUTRIN XL PO SCH (08:59)
--- NOTE | 2018-06-18 09:53 | PROGRESS NOTE ---
DATE: 06/18/2018 SUBJECTIVE: This morning Mr. Cerna refers to be feeling a whole lot better. Still remains some lower abdominal discomfort, but for most part he feels he is improved. OBJECTIVE: Vital signs: Blood pressure is 142/96, respiration is 20, pulse is 92. The patient is saturating about 99% on 5 L of nasal cannula. General: Mr. Cerna is a 72-year-old gentleman. He is in bed. He is not in any cardiopulmonary distress. Mucosa is pink and moist. Anicteric and acyanotic. No JVD. Respiratory: Air entry is bilaterally reduced. There is still some diffuse inspiratory crackles in both posterior lung gomez. There is an old sternotomy scar on the anterior chest wall. GI: Abdomen soft, distended, but nontender. Bowel sounds are present. Slightly hypoactive. EYEWEAR CONSULTANT: Patient is awake, alert, oriented. No focal neurological deficit. Extremities: No pedal edema. Distal pulses are present. There are old scars on the thighs consistent with previous vein harvest. LABORATORY DATA: Chemistry: Sodium is 143, potassium is 3.1, chloride is 100, bicarb is 29, creatinine remains at 1.6. INPUT AND OUTPUT: Urine output was 3250. Patient is currently negative balance of 2400. Bowel movement, one documented. CURRENT MEDICATIONS: All have been reviewed. Patient is on nebulization. 1. Aspirin 81 mg daily. 2. Lipitor 40 mg q.p.m. 3. Colace. 4. Bupropion. 5. Coreg 6.25 b.i.d. 6. Ceftaroline 600 q.12. 7. Klonopin 0.5 b.i.d. 8. Cymbalta 60 mg q.a.m. 9. Lovenox. 10. Furosemide 40 mg IV q.8. 11. Hydralazine 25 times per day. 12. Isordil 10 mg 3 times per day. 13. Movantik 12.5 q.a.m. 14. Percocet. 15. Protonix 40 mg IV daily. 16. Zosyn 3.375 q.6h. 17. MiraLAX. 18. Spironolactone 25 mg daily. ASSESSMENT: 1. Diffuse lower abdominal pain, suspected to be constipation, improved. The patient continues to be on bowel regimen. 2. Suspected narcotic gut. The patient is currently on Movantik. 3. Chronic pain syndrome. 4. Fluid overload secondary to congestive heart failure. The patient continues to be on diuretic therapy. Cardiology is on board. 5. Severe ischemic cardiomyopathy. The patient is status post CABG in the past. There is a plan for left heart catheterization on Tuesday. 6. Chronic kidney disease stage IIIB. Creatinine remains stable. 7. Questionable bilateral lower lobe pneumonia. Patient is currently on antibiotics. White cell count remains normal. A chest x-ray this morning only makes mention of pulmonary edema. We will repeat this tomorrow. If no other him is signs of pneumonia we will discontinue the antibiotics. PLAN: 1. So in general, I think Mr. Cerna is doing a lot better. Breathing has significantly improved. He is making adequate urine with the diuretic therapy. He is currently negative balance. We are going to transfer him from the ICU to [facility]. We will replace all his electrolyte abnormalities and get him ready for his left heart catheterization hopefully tomorrow. 2. Patient is being seen currently by Cardiology and Gastroenterology. cc: Kevin Edgar MD
[2018-06-18 09:55] LABS: HEPATITIS PROFILE ACUTE SEE COMMENTS
[2018-06-18 10:14] LABS: ALB/GLOB RATIO 1.4; ALBUMIN 3.3 g/dL (3.5-5.0); DIRECT BILIRUBIN 0.2 mg/dL (0.00-0.20); TOTAL BILIRUBIN 0.66 mg/dL (0.20-1.00); TOTAL PROTEIN 5.7 g/dL (6.3-8.3)
[2018-06-18] MEDS: TEFLARO 600 MG in NS 250 ML IV SCH ×2 (10:22→23:15)
--- NOTE | 2018-06-18 17:54 | GASTROENTEROLOGY PROGRESS NOTE ---
DATE: 06/18/2018 SUBJECTIVE: Resting in bed. He is feeling better. He denies any nausea, vomiting, vomiting blood, or passing blood in the stools. He continues to have some shortness of breath. He is on 5 L nasal cannula. He denies any fevers, rigors, chills. He had moved his bowels last night which was formed brown. PHYSICAL EXAMINATION: Vital Signs: Temperature 98.8, pulse rate 77, respiratory 24, blood pressure 124/94, saturating 95% on 5 L cannula. General Appearance: lying in bed, in no acute distress. HEENT: No pallor. No icterus. Neck: Supple. Abdomen: Protuberant. Mild distention. No rebound or guarding. Extremities: No cyanosis or clubbing. Neurologic: Alert, awake, and oriented x3. LABORATORY DATA: His ABG showing pH 7.43, pCO2 of 50, PO2 of 60, this is on non-rebreather. Sodium 143, potassium 3.1, chloride 100, bicarb 29, anion gap of 14, BUN of 23, creatinine 1.6, glucose 142. Calcium is 8.4, total bilirubin is 0.66, direct 0.2. AST 40, ALT 115, alkaline phosphatase 87, total protein 5.7, albumin of 3.3. Hepatitis panel is nonreactive. Chest x-ray done today showed pulmonary edema, cardiomegaly, right pleural effusion. IMPRESSION AND PLAN: 1. Elevated Liver enzymes and Diffuse abdominal pain. Slowly improving. He is on bowel regimen. He had a bowel movement yesterday. Continue to follow. His hepatitis panel was negative. ?Congestive hepatopathy from cardiomyopathy. Will follow the liver enzymes. Avoid Hepatotoxic drugs. 2. Narcotic bowel. He is on Movantik. 3. Chronic pain. He is on narcotics. I counseled him to reduce the dose of narcotics as low as possible. 4. Congestive heart failure, pulmonary edema, and the pleural effusion likely contributing to his shortness of breath. He has questionable bilateral lower lobe pneumonia. He is on antibiotics. 5. Severe ischemic cardiomyopathy. Likely component of congestive heart failure. He is status post coronary artery bypass graft in the past. He has left heart catheterization planned Tuesday with Dr. Silvestre. 6. Fluid overload secondary to congestive heart failure. He is on diuretic therapy. 7. GI prophylaxis, PPIs. 8. The above plans discussed with the patient and all questions answered. Please call us with any further questions. cc: MD Kevin Wilson MD MTDD
[2018-06-18] MEDS: LIPITOR PO SCH (20:17)
[2018-06-19] MEDS: LASIX IV SCH (00:09)
[2018-06-19] MEDS: PROTONIX IV SCH ×3 (00:10→22:18)
[2018-06-19] MEDS: ZOSYN 3.375 GM in NS 50 ML IV SCH ×4 (04:23→22:18)
[2018-06-19] MEDS: MOVANTIK PO SCH ×2 (04:23→06:02)
[2018-06-19 04:59] LABS: ALLEN TEST YES; BE 7.6 mmoll (-3.0-3.0); BLOOD TYPE ARTERIAL; HCO3-(ACT) 30.6 mmoll (20.0-26.0); PCO2(98.6) 43 mmHg (35-45); PO2(98.6) 51 mmHg (60-100); SAMPLE BLOOD; pH(98.6) 7.48 (7.35-7.45)
[2018-06-19 05:01] LABS: MODALITY ROOM AIR
--- NOTE | 2018-06-19 07:53 | Diag Imaging Result Doc PS360 ---
EXAM: CHEST-1 VIEW INDICATION: SOB TECHNIQUE: One view COMPARISON: 06/18/2018 FINDINGS: The patient is rotated toward the right. The pleural fluid collection on the right is approximately stable. Pulmonary edema and pulmonary venous congestion is approximately stable. No new consolidation is identified. Cardiac silhouette is stable. IMPRESSION: Stable chest. Electronically signed by Reza Schwarz 06/19/2018 7:50 AM
[2018-06-19] MEDS: ZOFRAN IV PRN (07:54)
[2018-06-19 08:33] LABS: BASO# 0.02 X1000 (0.0-0.2); BASO% 0.2 % (0.0-0.8); EOS# 0.21 X1000 (0.0-0.7); EOS% 2.5 % (0.0-10.0); HEMATOCRIT 51.3 % (42.0-52.0); LYMPH% 14.1 % (20.5-51.1); MCH 31.3 PG (27-31); MCHC 33.1 g/dL (33-37); MCV 94.5 FL (81-99); MONO# 0.92 X1000 (0.11-0.59); MONO% 10.8 % (1.7-9.3); MPV 11.6 FL (7.4-10.4); NEUT# 6.18 X1000 (1.4-6.5); NEUT% 72.4 % (42.2-75.2); PLT 168 X1000 (130-400); RBC 5.43 XMIL (4.7-6.1); RDW 14.5 % (11.5-14.5); WBC 8.53 X1000 (4.8-10.8)
--- NOTE | 2018-06-19 08:36 | EKG Report ---
Test Performed on : 06/19/2018 07:31:12 AM Test Reason : pre heart cath Blood Pressure : / mmHG Vent. Rate : 081 BPM Atrial Rate : 081 BPM P-R Int : 170 ms QRS Dur : 102 ms QT Int : 408 ms P-R-T Axes : 024 -04 027 degrees QTc Int : 473 ms Sinus rhythm. with occasional premature ventricular complexes. Possible Left atrial enlargement Left ventricular hypertrophy Inferior infarct , age undetermined Abnormal ECG No previous ECGs available Unconfirmed Result
[2018-06-19 08:38] LABS: INR 1.02; PROTIME 14.2 Seconds (11.0-16.0)
[2018-06-19 08:49] LABS: CREATININE 1.7 mg/dL (0.7-1.2); POTASSIUM 4.2 mmol/L (3.5-5.1)
[2018-06-19] MEDS: ALDACTONE PO SCH (08:54)
[2018-06-19] MEDS: CYMBALTA PO SCH (09:02)
[2018-06-19] MEDS: ISORDIL PO SCH ×3 (09:03→20:21)
[2018-06-19] MEDS: ASPIRIN PO SCH (09:03)
[2018-06-19] MEDS: APRESOLINE PO SCH ×3 (09:03→20:22)
[2018-06-19] MEDS: MIRALAX PO SCH ×2 (09:03→20:21)
[2018-06-19] MEDS: WELLBUTRIN XL PO SCH (09:03)
[2018-06-19] MEDS: COREG PO SCH ×2 (09:03→20:22)
[2018-06-19] MEDS: KLONOPIN PO SCH ×2 (09:03→20:21)
[2018-06-19] MEDS: PERCOCET-5 PO PRN (09:11)
[2018-06-19] MEDS ORDERED: HEPARIN 1000 UNITS/NS 2,000 UNIT/1,000 ML IV.SOLN ONE (09:15)
[2018-06-19] MEDS ORDERED: MORPHINE ONE (09:51)
[2018-06-19] MEDS ORDERED: NS 1,000 ML ONE (09:51)
[2018-06-19] MEDS ORDERED: VERSED ONE (09:51)
[2018-06-19] MEDS ORDERED: ANESTHESIA PB SET 88 IN 5742 ONE (09:51)
[2018-06-19] MEDS ORDERED: CLAVE TWINSITE 32 IN 11959 ONE (09:51)
--- NOTE | 2018-06-19 09:52 | PROGRESS NOTE ---
DATE: 06/19/2018 SUBJECTIVE: This morning, Mr. Cerna refers to be doing fairly okay. He complains of some nauseation, but no vomiting, and continued to have low abdominal discomfort. Mr. Cerna is pending to have left heart catheterization this morning. OBJECTIVE: Vital Signs: Blood pressure is 151/102, pulse 78, respirations 21, temperature is 97 degrees, the patient is saturating about 92% on 2 L. General: Mr. Cerna is a 72-year-old male. He is in bed. He is not in any cardiopulmonary distress. HEENT: Mucosa is pink and moist. Anicteric. Acyanotic. Neck: Supple. Chest: Air entry is bilaterally reduced. There are crepitations in both posterior lung gomez, but no wheezing, no rhonchi. Cardiovascular: Regular rate and rhythm. No murmurs, no rubs, no gallops. There is an old sternotomy scar on the anterior chest wall. GI: Abdomen was soft, minimally distended in the lower abdomen. Bowel sounds are present. Extremities: No pedal edema. HORSE GROOMER: The patient is awake, alert, oriented. There is no focal neurological deficit. Skin: There are some old scars on the thighs consistent with previous vein harvest for the CABG. LABORATORY DATA: WBC is 8.53, hemoglobin is 17.0, platelet count of 168,000. Sodium is 146, potassium is 4.2, creatinine is 1.7. ProBNP is down to 4407. The patient's I's and O's show urine output 3675. The patient is currently negative balance of 4685. MEDICATIONS: Medications have all been reviewed. Continues to be on ceftaroline and Zosyn. Today is day 4 on both antibiotics, for a total of 7 days therapy. ASSESSMENT: 1. Diffuse lower abdominal pain associated with nauseation, suspected to be constipation. The patient continues to be on bowel regimen. GI is on board. 2. Suspected narcotic gut. Will continue with Movantik. 3. Chronic pain syndrome. We are aware, and we are going to be extremely careful with the use of excessive narcotics in this gentleman. 4. Fluid overload secondary to congestive heart failure. The patient is on diuretic therapy. We are going to be cutting down on the Lasix. 5. Severe ischemic cardiomyopathy. The patient is status post coronary artery bypass graft in the past. Plan is to have a left heart catheterization today. 6. Chronic kidney disease stage IIIB, stable. 7. Bilateral lower lobe pneumonia. The patient is on antibiotics (ceftaroline and Zosyn) for a total of 7 days. Today is day 4. In general, Mr. Cerna seems to be fairly stable. The shortness of breath and the lung fluid seems to be getting better. The patient is currently negative balance. She seems to be euvolemic at this point. There is a plan for left heart catheterization today, and then go from there. Gastroenterology is also seeing the patient for the lower abdominal discomfort and nauseation. cc: Kevin Edgar MD
--- NOTE | 2018-06-19 11:14 | GASTROENTEROLOGY PROGRESS NOTE ---
DATE: 06/19/2018 SUBJECTIVE: Resting in bed. The patient is n.p.o. He is going for cardiac catheterization today with Dr. Silvestre. His is present at bedside. The patient has abdominal discomfort which is improving. He denies any nausea/vomiting or vomiting blood. He denies any fevers, rigors, chills. OBJECTIVE: Vital Signs: Temperature of 98.9 degrees, pulse rate of 70, respiratory rate of 20, blood pressure 151/102, saturating 92% on 5 L nasal cannula. General Appearance: Moderately built, well nourished, lying in bed, in no acute distress. HEENT: No pallor. No icterus. Neck: Supple. Abdomen: Protuberant, soft, mild discomfort in the periumbilical region. No rebound or guarding. Extremities: No cyanosis, clubbing. Neurologic: Alert, awake, oriented x3. DIAGNOSTIC STUDIES: Hemoglobin is 7, hematocrit 51.3, white count of 8.53, platelet count of 168,000. ABG showing pH of 7.48, pCO2 of 42, PO2 of 51. Sodium 146, potassium 4.2, chloride 103, bicarbonate of 29, anion gap of 14, BUN of 19, creatinine 1.7, glucose of 78, calcium 9. Troponin less than 0.01. Albumin yesterday was 3.3. His AST was 40, ALT 115 yesterday, alkaline phosphatase 87, which are trending down. Hepatitis panel is nonreactive. IMPRESSION AND PLAN: 1. Diffuse abdominal pain with nausea and constipation. We have been keeping him on bowel regimen. His bowels are moving. His last bowel movement was yesterday. His abdominal pain is improving. His nausea is still persistent. We will evaluate it. He is high risk for any kind of endoscopic intervention because of severe cardiomyopathy. 2. Suspected narcotic gut. He will continue on Movantik. 3. Chronic pain syndrome. We will try to reduce the narcotics as low as possible. 4. Ischemic cardiomyopathy. He is scheduled for left heart catheterization today by Dr. Silvestre. 5. Congestive heart failure causing fluid overload. He is on diuretic therapy with Lasix. 6. Chronic kidney disease, stage 3. Aware. 7. Bilateral lower lobe pneumonia. He is on antibiotics ceftaroline and Zosyn. 8. Gastrointestinal (GI) prophylaxis with proton pump inhibitors (PPIs). 9. Elevated liver enzymes. We will continue to watch for now. It could be secondary to congestive hepatopathy. His hepatitis panel is nonreactive, and his ultrasound of the abdomen is also unrevealing. The above plans were discussed with the patient and family, and all questions were answered. Please call with any further questions. cc: MD Kevin Wilson MD MTDNavdeep
[2018-06-19] MEDS: OFIRMEV 1000 MG/ISOTONIC SOLN 1,000 MG/100 ML BOTTLE IV PRN (11:45)
[2018-06-19] MEDS ORDERED: NS 1,000 ML IV SCH (11:45)
[2018-06-19] MEDS: TEFLARO 600 MG in NS 250 ML IV SCH ×2 (12:22→22:18)
--- NOTE | 2018-06-19 14:44 | CARDIOLOGY PROGRESS NOTE ---
DATE: 06/19/2018 SUBJECTIVE: Mr. Cerna reports he feels well today. His breathing has improved, as has his abdominal pain. SUBJECTIVE: Vital Signs: He is afebrile. Heart rate is 75. His blood pressure is 127/83. General: He is in no acute distress. Cardiovascular: He sounds to be in a regular rate and rhythm. He has no obvious murmurs. He has no S3. He has no lower extremity edema. Chest: His chest exam sounds clear bilaterally. He has no increased work of breathing. Abdomen: Soft, nontender. PERTINENT DATA: Sodium 146, potassium 4.2, BUN 19, creatinine is 1.7, which has roughly been stable over the last several checks. His proBNP is down to 4447 which is down from a peak of 14,000 on the 8th. ASSESSMENT: Mr. eCrna is a 72-year-old gentleman with an ischemic cardiomyopathy with a new recent drop in his ejection fraction. PLAN: He does not seem to have any targets for intervention on his cardiac catheterization. We will continue to titrate medications. His ISDN was increased this morning. We could consider a hydralazine increase tomorrow if his blood pressure will tolerate. We will continue him on the current Lasix dose. He has laboratories ordered for the morning. cc: Diaz Silvestre MD
[2018-06-19] MEDS: DUONEB (A & A) INH PRN (19:45)
[2018-06-19] MEDS: LIPITOR PO SCH (20:21)
[2018-06-19] MEDS: LOVENOX SUBQ SCH (22:18)
--- NOTE | 2018-06-19 23:43 | CARDIAC CATH REPORT ---
PROCEDURE NAME: - PROCEDURE PERFORMED: Left heart catheterization with selective coronary angiography and angiography of left internal mammary artery graft. Left ventriculography not performed to minimize contrast load. ENTRY SITE: Right femoral artery. CATHETERS USED: 5-Icelandic JL4, JR4, ADIN, and angled pigtail catheters. ENTRY SITE: Right femoral artery. TECHNIQUE: After intravenous sedation with morphine and Versed, local anesthesia with lidocaine was applied over right femoral artery. Arterial access was established with placement of a 5- Icelandic sheath in right femoral artery using modified Seldinger technique. Selective coronary angiography was performed. Following this, angiography of left internal mammary artery graft to left anterior descending coronary was performed. Angiography of saphenous vein grafts were not performed as they had been proven to be occluded on previous studies. Upon completion of procedure, arterial sheath was removed from right femoral artery and hemostasis facilitated with manual pressure. The patient tolerated the procedure without apparent complications. FINDINGS: Hemodynamics: Aortic pressure 84/68, left ventricular pressure 103/EDP of 8. COMMENTS: On hemodynamics there is no significant gradient across aortic valve demonstrated on pullback from left ventricle. ANGIOGRAPHY: 1. Left ventriculogram not performed. 2. Left main coronary. Left main coronary artery is free of significant coronary stenosis. 3. Left anterior descending coronary. The left anterior descending coronary gives rise to a medium to large 1st diagonal branch very proximally. Left anterior descending coronary is subsequently occluded after 1st septal perforators. The 1st diagonal branch demonstrates a stent proximally. There is a moderate (60%) stenosis in the proximal region of stent which is eccentric in nature. 4. Ramus intermedius branch. A ramus intermedius branch is demonstrated (versus very high 1st obtuse marginal) and occluded very proximally. The distal portion of ramus intermedius branch can be seen filling late by [id number] collaterals. 5. Left circumflex coronary . Left circumflex coronary gives rise to an obtuse marginal proximally which is medium to large in size. Just beyond this is a focal area of mild to moderate (40%) stenosis. The remainder of the left circumflex coronary branches are free of significant coronary stenosis. 6. Right coronary. The dominant right coronary demonstrates severe atherosclerotic disease very proximally and is occluded at the origin of the right ventricular branch. The very distal right coronary can be seen filling via left to right collaterals from the left circumflex coronary system. 7. Left internal mammary artery graft to left anterior descending coronary. This graft is widely patent. 8. Saphenous vein graft to distal right coronary and saphenous vein graft to ramus intermedius branch not imaged on the study as they were shown to be occluded on previous studies. CONCLUSIONS: 1. Severe 3 vessel coronary atherosclerosis as describe with proximal occlusion of left anterior descending coronary artery, occluded ramus intermedius branch and proximal occlusion of right coronary. There is moderate eccentric stenosis in the stented region of 1st diagonal branch. Left internal mammary artery graft to left anterior descending coronary widely patent. Previous studies have shown occlusion of saphenous vein graft to ramus intermedius branch and saphenous vein graft to right coronary. RECOMMENDATIONS: Favor continued medical management of patient's coronary atherosclerosis. cc: Asael Haynes MD
[2018-06-20] MEDS: PERCOCET-5 PO PRN ×4 (01:00→22:13)
[2018-06-20] MEDS: ZOSYN 3.375 GM in NS 50 ML IV SCH ×4 (05:19→22:13)
[2018-06-20] MEDS: MOVANTIK PO SCH ×2 (05:20→06:14)
[2018-06-20 05:31] LABS: ALLEN TEST YES; BE 4.6 mmoll (-3.0-3.0); BLOOD TYPE ARTERIAL; HCO3-(ACT) 28.4 mmoll (20.0-26.0); METHB 0.8 % (0.0-1.5); O2(CT) 21.1 mL/dL (15.0-23.0); O2HB 94.9 % (95.0-99.0); PCO2(98.6) 42 mmHg (35-45); PO2(98.6) 79 mmHg (60-100); SAMPLE BLOOD; SAO2 96.6 % (95.0-100.0); THB 15.8 g/dL (11.5-17.4); pH(98.6) 7.45 (7.35-7.45)
[2018-06-20 05:34] LABS: MODALITY CANNULA
[2018-06-20 06:08] LABS: CALCIUM 8.7 mg/dL (8.8-10.2); CREATININE 1.6 mg/dL (0.7-1.2); POTASSIUM 3.8 mmol/L (3.5-5.1)
[2018-06-20] MEDS: DUONEB (A & A) INH PRN ×4 (07:16→19:45)
--- NOTE | 2018-06-20 07:54 | Diag Imaging Result Doc PS360 ---
CHEST-1 VIEW - 06/20/2018 INDICATION: SOB COMPARISON: 06/19/2018 FINDINGS: Stable sternotomy wires. Stable significant cardiomegaly and pulmonary vascular congestion. Stable hazy focal infiltrate in the right midlung and lung base. Stable small right basilar pleural effusion. No left-sided pleural effusion. IMPRESSION: No change from prior. Electronically signed by Heraclio Field 06/20/2018 7:52 AM
[2018-06-20] MEDS: MIRALAX PO SCH ×3 (08:03→20:03)
[2018-06-20] MEDS: PROTONIX IV SCH ×3 (08:04→22:13)
[2018-06-20] MEDS: CYMBALTA PO SCH (08:04)
[2018-06-20] MEDS: ISORDIL PO SCH ×4 (08:05→20:02)
[2018-06-20] MEDS: WELLBUTRIN XL PO SCH (08:05)
[2018-06-20] MEDS: COREG PO SCH ×3 (08:05→20:02)
[2018-06-20] MEDS: KLONOPIN PO SCH ×3 (08:06→20:03)
[2018-06-20] MEDS: APRESOLINE PO SCH ×4 (08:06→20:02)
[2018-06-20] MEDS: ALDACTONE PO SCH (08:06)
[2018-06-20] MEDS: ASPIRIN PO SCH (08:09)
[2018-06-20] MEDS ORDERED: LASIX IV SCH (09:00)
--- NOTE | 2018-06-20 09:44 | PROGRESS NOTE ---
DATE: 06/20/2018 SUBJECTIVE: Mr. Cerna was admitted on 06/15/2018 with abdominal pain followed by Dr. See. A 72-year-old with a past medical history of coronary artery disease, congestive heart failure, and ejection fraction of 35% diagnosed last month in the emergency department complaining of abdominal pain. This is his second visit this month with the same complaint on 06/[address] scan of the abdomen and pelvis were unremarkable. He was sent home with oral pain medicines. He came back in for the same reason of abdominal pain located in the left lower quadrant complaining of shortness of breath and progressively worse, noticed orthopnea, and having to use more pillows to go to sleep. PAST MEDICAL HISTORY: 1. History of new onset acute systolic congestive heart failure with ejection fraction of 35%. Last hospitalization in May of 2018. 2. Chronic kidney disease stage 3 with creatinine at baseline now. 3. Essential hypertension. 4. Hyperlipidemia. 5. History of supraventricular tachycardia. 6. Benign prostatic hyperplasia. 7. Coronary artery disease with non ST-segment elevation myocardial infarction in the past. 8. Chronic back pain. 9. Gastroesophageal reflux. PAST SURGICAL HISTORY: He had CABG surgery in 1992, thoracic aneurysm with a graft, and abdominal hernia repair. He was admitted with congestive heart failure and acute hypoxemia, chronic kidney disease stage 3, essential hypertension, and back pain. OBJECTIVE: On exam today, he states he is breathing better and feeling better. His chest x-ray from this morning no change. Stable sternotomy wires. Stable significant cardiomegaly with pulmonary vascular congestion. Stable hazy focal infiltrate in the right midlung lung base. Stable small right basilar pleural effusion. No left-sided pleural effusion.Vital Signs: Afebrile, temperature 98.4 degrees, pulse 74, respirations 20, and blood pressure 120/89. HEENT: Pupils are equal and round. Lungs: Clear in all lung gomez. Cardiovascular: Regular rhythm and rate without murmur or S3. Abdomen: Nondistended. It feels like the swelling has gone down in his lower extremities. No pedal edema. ASSESSMENT AND PLAN: 1. Diffuse lower abdominal pain associated with nausea suspected to be constipation. Continue his bowel regimen. GI is following. 2. Suspect narcotic gut. Continue Movantik. 3. Chronic pain syndrome. He is going to be extremely careful with his narcotics. 4. Fluid overload secondary to congestive heart failure. The patient has been diuresed and marked improvement. 5. Severe ischemic cardiomyopathy, status post coronary artery bypass graft in the past. He has had a left heart catheterization, which I think was yesterday. I think he had a left heart catheterization. 6. Chronic kidney disease stage 3B. 7. Bilateral lower lobe pneumonia. The patient on antibiotics. He is on ceftaroline and Zosyn for a total of 7 days. This will be day 5. He seems to be clinically doing better. REVIEW OF ORDERS: 1. He is on aspirin 81 mg a day. 2. Lipitor 40 mg every evening. 3. Wellbutrin XL 150 mg a day. 4. Coreg 6.25 mg b.i.d. 5. Ceftaroline 600 mg IV q.12. 6. Klonopin 0.5 mg b.i.d. 7. Cymbalta 60 mg every morning. 8. Lovenox 30 mg subcutaneous q.24 hours. 9. Lasix 40 mg IV daily. 10. Apresoline 25 mg 3 times a day I believe. 11. Isosorbide dinitrate 20 mg 3 times a day. 12. Mobic 12.5 mg daily. 13. Protonix 40 mg IV q.12 14. MiraLAX 17 g b.i.d. 15. Zosyn 3.375 g IV q.6 hours. We need to make sure he is getting up out of bed. Physical Therapy has already been started. cc: Meño Arroyo MD
[2018-06-20] MEDS: TEFLARO 600 MG in NS 250 ML IV SCH ×2 (11:40→22:48)
--- NOTE | 2018-06-20 15:49 | CARDIOLOGY PROGRESS NOTE ---
DATE: 06/20/2018 SUBJECTIVE: Mr. Cerna reports his breathing is better. He is not having any pain complaints. OBJECTIVE: Vital Signs: On physical, he is afebrile .heart rate 65. His blood pressure is 101/64. More recently, his systolics have been predominantly in the 120s. His I's and O's continue to be slightly on the negative side. He is a total 4.9 L negative for the course of the hospitalization. General: He is in no acute distress. Cardiovascular: He is in a regular rate and rhythm. He has no murmurs, no S3, no lower extremity edema. His JVP is less than 8 cm of water. Chest: His chest exam is clear bilaterally. He has no increased work of breathing. Abdomen: Soft, nontender. PERTINENT DATA: He had a sodium today of 143, potassium 3.8, BUN 21, creatinine is 1.6 which has been stable for the course of the entire hospitalization. His proBNP yesterday was 4447. ASSESSMENT: Mr. Cerna is a 72-year-old gentleman with an ischemic cardiomyopathy. PLAN: He underwent cardiac catheterization yesterday which did not demonstrate any clear intervenable lesion. His EDP was 8 suggesting adequate volume status management. His medications have been increased significantly from his home regimen. His carvedilol continues at the same dose. I have escalated his furosemide to 60 mg daily, and we have initiated ISDN at 20 mg t.i.d. and hydralazine at 25 mg t.i.d. From my vantage point, he can get laboratories in the morning and if they are relatively stable, then he can likely be discharged. I have ordered basic chemistry and a proBNP. cc: Diaz Silvestre MD
[2018-06-20] MEDS: LIPITOR PO SCH ×2 (19:55→20:03)
[2018-06-20] MEDS: LOVENOX SUBQ SCH (22:13)
--- NOTE | 2018-06-20 23:32 | PROVIDER PROGRESS NOTE ---
Progress Note - - 06/20/2018 SUBJECTIVE: No acute overnight events. No N/V/F, CP, SOB, abdominal pain, rectal bleeding, melena, diarrhea. +BMs. Tolerating diet OBJECTIVE Last Vital Signs Temp 96.3 F L 06/20/18 19:35 Pulse 72 06/20/18 19:35 Resp 9 L 06/20/18 19:35 BP 92/68 06/20/18 19:35 Pulse Ox 99 06/20/18 19:35 Height 6 ft Weight 189 lb GEN: awake, alert, NAD HEENT: anicteric, MMM NECK: supple, no LAD CV: RRR, no murmurs PULM CTAB ABD: soft NT/ND, NABS, no rebound or guarding EXT: no cce NEURO: nonfocal LABS 06/20/18 04:55 Sodium 143 Potassium 3.8 Chloride 103 Carbon Dioxide 29 Anion Gap 11 BUN 21 Creatinine 1.6 H A/P: Mr. Roberto Carlos Cerna is a 72-year-old gentleman with past medical history of systolic congestive heart failure, coronary artery disease status post bypass, peripheral arterial disease, chronic kidney disease stage 3 and chronic pain on narcotics, who presents with acute hypoxic respiratory failure in the setting of congestive heart failure exacerbation. GI was consulted abdominal pain in the setting of constipation, likely OIC. #Abdominal pain: resolved with bowel regimen. Movantik #OIC: improved with Movantik #CHF exacerbation: on diuretics per primary #CKD3: stable #Abnormal LFTs: likely drug-induced; improve on last check #ICM: mgmt per cardiology Will sign off. Please call with questions
[2018-06-21 03:36] LABS: ALLEN TEST YES; BE 3.6 mmoll (-3.0-3.0); BLOOD TYPE ARTERIAL; HCO3-(ACT) 27.6 mmoll (20.0-26.0); METHB 0.9 % (0.0-1.5); O2HB 91.9 % (95.0-99.0); PCO2(98.6) 43 mmHg (35-45); PO2(98.6) 62 mmHg (60-100); SAMPLE BLOOD; SAO2 93.9 % (95.0-100.0); THB 14.7 g/dL (11.5-17.4); pH(98.6) 7.43 (7.35-7.45)
[2018-06-21 03:37] LABS: MODALITY CANNULA
[2018-06-21] MEDS: DUONEB (A & A) INH PRN (03:57)
[2018-06-21] MEDS: ZOSYN 3.375 GM in NS 50 ML IV SCH ×2 (05:50→11:11)
[2018-06-21] MEDS: MOVANTIK PO SCH ×2 (05:50→06:06)
[2018-06-21] MEDS: PERCOCET-5 PO PRN ×2 (05:51→11:16)
[2018-06-21 05:53] LABS: CALCIUM 8.7 mg/dL (8.8-10.2); CREATININE 1.5 mg/dL (0.7-1.2); MAGNESIUM 2.1 mg/dL (1.5-2.7); POTASSIUM 3.4 mmol/L (3.5-5.1)
--- NOTE | 2018-06-21 07:28 | Diag Imaging Result Doc PS360 ---
EXAM: CHEST-1 VIEW INDICATION: SOB TECHNIQUE: One view COMPARISON: 06/20/2018 FINDINGS: Pulmonary venous congestion is approximately stable. Interstitial thickening bilaterally and airspace infiltrate on the right is approximately stable. There has been interval decrease in the small right pleural effusion. Cardiac silhouette is stable. IMPRESSION: Decrease in small right pleural effusion. Essentially stable chest, otherwise. Electronically signed by Reza Schwarz 06/21/2018 7:26 AM
[2018-06-21] MEDS: ISORDIL PO SCH (08:01)
[2018-06-21] MEDS: ALDACTONE PO SCH (08:01)
[2018-06-21] MEDS: KLONOPIN PO SCH (08:01)
[2018-06-21] MEDS: WELLBUTRIN XL PO SCH (08:01)
[2018-06-21] MEDS: ASPIRIN PO SCH (08:01)
[2018-06-21] MEDS: CYMBALTA PO SCH (08:01)
[2018-06-21] MEDS: APRESOLINE PO SCH (08:02)
[2018-06-21] MEDS: COREG PO SCH (08:02)
[2018-06-21] MEDS ORDERED: LASIX PO SCH (09:00)
--- NOTE | 2018-06-21 10:00 | PROGRESS NOTE ---
DATE: 06/21/2018 SUBJECTIVE: Mr. Cerna feels much better and is questioning whether he can go home. OBJECTIVE: Vital signs: Afebrile, temperature 98.1 degrees, pulse 78, respirations 15, blood pressure 136/78. HEENT: Pupils are equal and round. Lungs are clear in all lung gomez. Cardiovascular: Regular rhythm and rate without murmur or S3. IMAGING: Chest x-ray from this morning, decrease in small right pleural effusion. ASSESSMENT AND PLAN: 1. Diffuse lower abdominal pain associated with nausea. Suspect constipation. Continue bowel regimen. 2. Suspect narcotic gut. He is on Movantik. 3. Chronic pain syndrome. Have explained to him he needs to be extremely careful with his opioid medicine. 4. Fluid overload secondary to congestive heart failure. Seems to be doing better. 5. Severe ischemic cardiomyopathy, status post coronary artery disease and coronary artery bypass graft. Has had a left heart catheterization. 6. Chronic kidney disease stage IIIB. 7. Bilateral lower pneumonia. He has been on ceftaroline and Zosyn. He has finished out 8 days of that and switch him to p.o. antibiotic, and he can go home today. cc: Meño Arroyo MD
--- NOTE | 2018-06-21 10:08 | DISCHARGE SUMMARY ---
ADMISSION DATE: 06/15/2018 DISCHARGE DATE: 06/21/2018 HOSPITAL COURSE: Mr. Cerna came in with abdominal pain. He is a patient of Dr. Halle See. A 72-year-old male with past medical history of coronary artery disease and congestive heart failure, ejection fraction 35% diagnosed last month in the emergency room. His 2nd visit to the emergency room complaining of shortness of breath, abdominal discomfort. PAST MEDICAL HISTORY: 1. History of new-onset acute systolic congestive heart failure with ejection fraction 35%. Last hospitalization was May of this year. 2. Chronic kidney disease stage 3. Creatinine at baseline now. 3. Essential hypertension. 4. Hyperlipidemia. 5. History of supraventricular tachycardia. 6. Benign prostatic hyperplasia. 7. History of coronary artery disease, [id number] elevation myocardial infarction in the past. 8. Chronic back pain, taking [place] almost daily basis. 9. Gastroesophageal reflux disease. PAST SURGICAL HISTORY: 1. CABG in 1992. 2. Thoracic aneurysm with a graft. 3. Abdominal hernia repair. So admission diagnosis was acute congestive heart failure, 1-week history of progressive shortness of breath. So they diuresed him with some Lasix IV and addressed his acute hypoxemic respiratory failure. He responded to diuresis. He does have underlying chronic kidney disease stage 3. Renal function remained stable and they watched his blood pressure carefully and he showed continued improvement. Gastroenterology was consulted, Dr. Landen Sotelo, and he was having abdominal pain, felt that was probably related to constipation, so they put him on a bowel regimen. Liver enzyme function tests were abnormal, unclear etiology, and because of his history of gastroesophageal reflux, he was on a proton pump inhibitor. He showed steady improvement. His bowels improved as well. He seemed to be responding to physical therapy. He was able to get up and walk around, stronger, and felt he was ready to go home on 06/21/2018. DISCHARGE MEDICATIONS: He will be on aspirin 81 mg a day, Lipitor 40 mg a day, Wellbutrin XR XL 150 mg a day, Coreg 6.25 mg b.i.d., Klonopin 0.5 mg b.i.d., Cymbalta 60 mg q.a.m., Lasix 60 mg p.o. daily, Apresoline 25 mg 3 times a day, Isordil 20 mg 3 times a day, Movantik 12.5 mg daily, and Protonix 40 mg IV q.12. We will change the Protonix to 40 mg p.o. twice a day. MiraLAX 17 g b.i.d., Aldactone 25 mg daily. FOLLOW-UP: He is to follow back with his primary care physician in a couple of weeks. He does apparently have O2 at home. cc: Meño Arroyo MD
[2018-06-21] MEDS: PROTONIX IV SCH (11:11)
[2018-06-21] MEDS: MIRALAX PO SCH (11:11)
[2018-06-21] MEDS: TEFLARO 600 MG in NS 250 ML IV SCH (11:11)
[2018-06-21 11:47] VITALS: BP 126/68
== END 2018-06-21 14:05 | disposition home health service (06) | DRG 286 ==
LOC: ED 16:20 → SUATTDRO 21:25 → EDIPHOLD 21:25 → ICU 06-16 10:55 → 3S 06-19 14:23
PROVIDERS: ATTEND Emergency Medicine
CPT/HCPCS: 71010; 71020; 71045; 71046; 71250; 74176; 76700; 80048; 80053; 80061; 80074; 80076; 81001; 82550; 82565; 82805; 82948; 83605; 83690; 83735; 83880; 84484; 85025; 85610; 93005; 93010; 93459; 94640; 94761; 96365; 96366; 96367; 96368; 96372; 96375; 96376; 97163; 97530; 99285; A9270; C9113; J0131; J0712; J1644; J1650; J1885; J1940; J2175; J2250; J2270; J2405; J2543; J7030; J7050; Q9967; S0164; XXXXX

== ENCOUNTER 2018-10-16 10:22 | Inpatient (IN) ==
--- NOTE | 2018-10-16 12:09 | PROVIDER DOCUMENTATION ---
HPI-General Adult - General Chief Complaint: Fall Stated Complaint: FALL - Time Seen by Provider: 10/16/18 10:58 Source: patient Allergies/Adverse Reactions: Patient Allergies Allergy/AdvReac Type Severity Reaction Status Date / Time No Known Allergies Allergy Verified 10/16/18 11:08 Home Medications: Home Medication List Medication Instructions Recorded Confirmed Last Taken Type Duloxetine [Cymbalta] 60 mg PO QAM #30 capsule 03/04/16 09/01/18 08/28/17 Rx Aspirin 81 mg PO DAILY #30 chewtab 06/02/18 09/01/18 Unknown Rx Carvedilol [Coreg] 6.25 mg PO BID #120 tab 06/02/18 09/01/18 Unknown Rx ATORVAstatin [Lipitor] 40 mg PO QPM tab 06/21/18 09/01/18 Unknown Rx Furosemide [Lasix] 60 mg PO DAILY 30 Days #30 tab 06/21/18 09/01/18 Unknown Rx Isosorbide Dinitrate [Isordil] 20 mg PO 0900,1500,2100 30 Days 06/21/18 09/01/18 Unknown Rx #90 tab Gabapentin 1 cap PO DAILY 09/01/18 09/01/18 Unknown History Hydrocodone/Acetaminophen [[place] 1 tab PO Q4-6H PRN PRN 09/01/18 09/01/18 Unknown History 10-325 Tablet] Tizanidine [Zanaflex] 1 tab PO BID 09/01/18 09/01/18 Unknown History - History of Present Illness -Gen Adult Nature of Presenting Problems: Patient is a 73yo M who presents after falling 3 days ago. Patient reports he fell 2x that afternoon. Reports the first fall, he was carrying groceries into his house when he got dizzy on the steps in his garage and fell. Reports he hit the R side of his head and his R ribs when he fell. States he is unsure if he lost consciousness or not. Patient reports later the same day, he was outside walking when he got dizzy and fell again landing on his R side. Reports he did not hit his head the second time. Patient states prior to falling, the only symptom he experienced was dizziness. Denies CP, SOB, diaphoresis, n/v, back pain, sensory/motor weakness/deficits, headache, or visual changes. A&Ox3. PERRLA. EOMI. Review of Systems - Adult - REVIEW OF SYSTEMS - ADULT Constitutional: denies: chills, fever Eyes: denies: decreased vision, blurred vision, double vision, eye pain Ears, Nose, Mouth & Throat: reports: no symptoms reported Cardiovascular: denies: chest pain, palpitations Respiratory: denies: cough, dyspnea on exertion, shortness of breath Gastrointestinal: denies: abdominal pain, nausea, vomiting Genitourinary: reports: no symptoms reported Musculoskeletal: reports: other (R rib pain). denies: back pain Integumentary: reports: no symptoms reported Neurological: reports: see HPI, dizziness/vertigo, loss of balance. denies: headache/migraines, paresthesia, seizure, slurred speech, tremors Psychiatric: reports: no symptoms reported Endocrine: reports: no symptoms reported Past History - Adult - PAST MEDICAL HISTORY-ADULT Review of Records: reports: Nursing Assessment Review, Medications Reviewed, Social history reviewed & non-contributory. Major Childhood Illnesses: reports: denies history Cardiovascular: reports: aortic disease (AAA), CAD, HTN, hyperlipidemia, NH, PVD Respiratory: reports: COPD Gastrointestinal: reports: denies history Obstetrical/Gynecological: reports: denies history Genitourinary: reports: denies history Musculoskeletal: reports: chronic pain, intervertebral disc disease Neurological: reports: denies history Psychiatric: reports: anxiety, depression, other (substance abuse) Endocrine/Immune: reports: denies history Other Conditions: reports: denies history - PRIOR SURGERIES/PROCEDURES Surgical/Procedure History: reports: CABG, cholecystectomy, hernia repair, other (bilateral fem/pop) - IMMUNIZATION STATUS Childhood Immunizations: See Nurse Assessment Flu Vaccine: See Nurse Assessment - FAMILY HISTORY Family History: reviewed, not pertinent - SOCIAL HISTORY Smoking: non-smoker Physical Exam-General - PHYSICAL EXAM-ADULT Initial Vital Signs Reviewed: Yes - CONSTITUTIONAL General Appearance: appears well, alert, no apparent distress. negative: anxiou s, lethargic, slow to respond, obtunded - EYES Eyes: PERRL/EOMI, pink conjunctivae. negative: EOM palsy - HEAD, EARS, NOSE, MOUTH & THROAT HENMT: normocephalic/atraumatic, moist mucous membranes, other (No pavon sign, racoon eyes, lacerations, or abrasions noted. Mild bruising noted to R sabianism from impact of eyeglasses when falling.) - NECK Neck: full range of motion, supple, normal inspection. negative: C-spine tenderness, limited range of motion - RESPIRATORY Respiratory: lungs clear, normal breath sounds, no respiratory distress, no accessory muscle use, pain on inspiration (R rib). negative: crackles, rales, rhonchi, stridor, wheezing, retractions, splinting, crepitus - CARDIOVASCULAR Cardiovascular: regular rate, rhythm, no gallop - GASTROINTESTINAL (ABDOMEN) Abdominal Exam: normal bowel sounds, non tender, soft - MUSCULOSKELETAL Back Exam: normal inspection, no CVA tenderness, no vertebral tenderness Extremity: normal range of motion, non-tender, normal gait, normal inspection, pelvis stable - SKIN Integumentary: normal color, warm/dry, other (mild bruising noted to R sabianism from impact of glasses during fall). negative: cyanosis, erythema, jaundice, pallor - NEUROLOGIC Neurologic: grossly normal. negative: abnormal gait, aphasia, EOM palsy, facial droop, focal weakness, motor weakness, sensory deficit - PSYCHIATRIC Psych/Mental Status: normal mood/affect, normal thought content, normal thought process, oriented x 3 Progress - PLAN OF CARE/RESULTS Progress/Plan/Lab Results: Vital Signs - 8 hr 10/16/18 10:44 Temperature 97.3 F L Pulse Rate 65 Respiratory Rate 18 Blood Pressure 116/69 O2 Sat by Pulse Oximetry 95 Orders Category Date Time Status ED: Orthostatic Vital Signs (E DIRECTED Care 10/16/18 11:[address] HEAD/C-SPINE W/O CONTRAST [CT] Stat Exams 10/16/18 11:00 Taken RIBS UNILAT W/PA CHEST RIGHT [RAD] Stat Exams 10/16/18 11:02 Taken BASIC METABOLIC PANEL [CHEM] Stat Lab 10/16/18 11:59 Uncollected CBC WITH ELECTRONIC DIFF [HEME] Stat Lab 10/16/18 11:59 Uncollected CK PROFILE [SP CHEM] Stat Lab 10/16/18 12:00 Uncollected PRO B-NATRIURETIC PEPTIDE Stat Lab 10/16/18 12:00 Ordered PROTIME WITH INR [COAG] Stat Lab 10/16/18 11:59 Uncollected PTT [COAG] Stat Lab 10/16/18 11:59 Uncollected TROPONIN T Stat Lab 10/16/18 12:00 Uncollected EKG [EKG] Stat Ther 10/16/18 12:00 Ordered Result Diagrams: 10/16/18 12:34 10/16/18 12:34 - XRAY 1 XRAY: Right XRAY Study: Chest, Ribs Impression: See EMR Report ([facility] - [address], [address], [place] [address] [place] [address] [place] [address] Department of Imaging Patient: CARMEN DRUMMOND Date: 10/16/18MR#: [id number] : 5ADM Status: PRE ERAcct#: [id number] Age/Sex: 73/MRoom/Bed: Loc: ED Ordering Physician: No Brody Family Physician: Halle See MD Reason for Procedure: fall Signed EXAM: RIBS UNILAT W/PA CHEST RIGHT HISTORY: fall TECHNIQUE: Chest and right rib detail, five views COMPARISON: 09/01/2018 FINDINGS: No contusion. No pneumothorax. There is deformity to the right seventh rib anteriorly. No acute fracture lines identified. IMPRESSION: Fracture to the right seventh rib anteriorly which may be an old injury. Electronically signed by Jermaine Lambert 10/16/2018 12:09 PM 10/16/18 1203 Interpreting Physician: Jermaine Lambert MD Dictated Date/Time: 10/16/18 1200 cc: No Brody; Halle See MD) - CT/MRI 1 CT Study: Cervical Spine, Head Impression: See EMR Report ([facility] - [address], [address], [place] [address] [place] [address] [address] [facility] [place] [address] Department of Imaging Patient: CARMEN DRUMMOND Date: 10/16/18#: [id number] : 1945DM Status: PRE ERAcct#: [id number] Age/Sex: 73/MRoom/Bed: Loc: ED Ordering Physician: No Brody Family Physician: Halle See MD Reason for Procedure: fall Signed EXAM : CT HEAD/C-SPINE W/O CONTRAST HISTORY: fall TECHNIQUE: 1. CT head without contrast 2. CT cervical spine without contrast COMPARISON: 08/29/2017 FINDINGS: Head: No parenchymal hemorrhage. No epidural or subdural hematoma. No subarachnoid hemorrhage. There are chronic microvascular ischemic changes and atrophy. Old lacunar infarcts. No mass identified on this noncontrasted exam. No hydrocephalus. No skull fracture. Cervical spine: Mild scoliosis. No precervical soft tissue swelling. No subluxation. No fracture. Degenerative changes throughout the cervical spine. IMPRESSION: Head: No hemorrhage. No injury. Cervical spine: No acute fracture. This exam was performed using automated exposure control, adjustment of mA or kV according to patient size, and/or use of iterative reconstruction technique. Electronically signed by Jermaine Lambert 10/16/2018 12:07 PM 10/16/18 1207 Interpreting Physician: Jermaine Lambert MD Dictated Date/Time: 10/16/18 1204 cc: No Brody; Halle See MD) - CONSULTS/PCP/HOSPITALIST Notification #1 *Consult/PCP/Hospitalist*: BRIAN Dale Hospitalist Time Discussed: 13:43 Reason/Comments: Orthostatic hypotension; frequent falls; tachycardia Consult Disposition: Admit Departure - Departure Date of Disposition Decision: 10/16/18 Time of Disposition Decision: 13:44 DIAGNOSIS: Orthostatic hypotension, Tachycardia, Frequent falls, Elevated brain natriuretic peptide (BNP) level Head injury, acute, without loss of consciousness Qualifiers: Encounter type: initial encounter Qualified Code(s): S09.90XA - Unspecified injury of head, initial encounter Disposition: ADMITTED INPATIENT 09 Certified Medical Emergency: Emergent Condition: Stable Referrals and Follow-Ups: Halle See MD [Primary Care Provider] - - Critical Care Note This patient required my direct & personal management of CC.: No Attestation - Physician/ LAVELL Attestation Patient care was provided by Advanced Practice Provider:: Yes Advanced Practice Provider:: No Brody Advanced Practice Provider documentation review:: The Mid-level provider documentation, treatment plan and medical decision making was reviewed by the physician who agrees with all treatment and medical decision making by the MLP. The physician spent face to face time with patient:: No Advanced Practice Provider documentation review:: Supervising physician onsite a nd consulted in the evaluation and care of this patient. The physician did not have a face to face encounter with the patient.
[2018-10-16 12:51] LABS: BASO# 0.02 X1000 (0.0-0.2); BASO% 0.3 % (0.0-0.8); EOS# 0.16 X1000 (0.0-0.7); EOS% 2.3 % (0.0-10.0); HEMATOCRIT 42.4 % (42.0-52.0); HEMOGLOBIN 14.4 g/dL (14.0-18.0); IMM GRAN# 0.05 X1000 (0.0-0.04); IMM GRAN% 0.7 % (0.0-0.5); LYMPH# 1.81 X1000 (1.2-3.4); LYMPH% 25.6 % (20.5-51.1); MCH 32.4 PG (27-31); MCV 95.5 FL (81-99); MONO# 0.69 X1000 (0.11-0.59); MONO% 9.7 % (1.7-9.3); MPV 10.9 FL (7.4-10.4); NEUT# 4.35 X1000 (1.4-6.5); NEUT% 61.4 % (42.2-75.2); PLT 133 X1000 (130-400); RBC 4.44 XMIL (4.7-6.1); RDW 14.9 % (11.5-14.5); WBC 7.08 X1000 (4.8-10.8)
[2018-10-16 12:56] LABS: INR 1.06; PROTIME 14.7 Seconds (11.0-16.0)
[2018-10-16 12:58] LABS: PTT 30.5 Seconds (22.3-41.8)
--- NOTE | 2018-10-16 13:00 | EKG Report ---
Test Performed on : 10/16/2018 12:34:29 PM Test Reason : dizziness Blood Pressure : / mmHG Vent. Rate : 059 BPM Atrial Rate : 059 BPM P-R Int : 198 ms QRS Dur : 104 ms QT Int : 504 ms P-R-T Axes : 021 012 105 degrees QTc Int : 498 ms Sinus bradycardia. with premature atrial complexes. with aberrant conduction. Possible Left atrial enlargement Nonspecific ST and T wave abnormality Abnormal ECG When compared with ECG of 01-SEP-2018 12:46, (Unconfirmed) Vent. rate has decreased BY 37 BPM Criteria for Inferior-posterior infarct are no longer present Nonspecific T wave abnormality, worse in Lateral leads Unconfirmed Result
[2018-10-16 13:07] LABS: CALCIUM 8.7 mg/dL (8.8-10.2); CREATININE 1.7 mg/dL (0.7-1.2)
--- NOTE | 2018-10-16 13:18 | ED EKG INTERP ---
This chart was entered by Surekha Schwarz Scribe, acting as scribe for Giacomo Rodrigues MD. EKG Interpretation - EKG Time of EKG reading by physician:: 13:04 EKG Read and Signed by:: Giacomo Rodrigues (early transition ) EKG Interpretation (*Must complete 3 of following elements*): Abnormal Rate: 59 (LAE ) Rhythm: Sinus daija w/ PVC QRS: LVH ST Wave: non-specific ST changes (nonspecific st and t wave abnormality) Attestation - Physician/ LAVELL Attestation Patient care was provided by Advanced Practice Provider:: Yes Advanced Practice Provider:: No Brody Advanced Practice Provider documentation review:: The Mid-level provider documentation, treatment plan and medical decision making was reviewed by the physician who agrees with all treatment and medical decision making by the MLP. The physician spent face to face time with patient:: No Advanced Practice Provider documentation review:: Supervising physician onsite and consulted in the evaluation and care of this patient. The physician did not have a face to face encounter with the patient. This chart was documented by the indicated scribe, (Surekha Schwarz Scribe) and accurately reflects the services I performed and decisions made by , Giacomo Rodrigues MD, as attested by the provider's signature.
[2018-10-16] MEDS ORDERED: ZOFRAN IV PRN (14:27)
[2018-10-16] MEDS ORDERED: PNEUMOVAX 23 IM ONE (16:32)
--- NOTE | 2018-10-16 16:51 | EKG Report ---
Test Performed on : 10/16/2018 4:42:54 PM Test Reason : dizzy, hypotension Blood Pressure : / mmHG Vent. Rate : 049 BPM Atrial Rate : 049 BPM P-R Int : 190 ms QRS Dur : 110 ms QT Int : 530 ms P-R-T Axes : 018 000 062 degrees QTc Int : 478 ms Sinus bradycardia. Possible Left atrial enlargement Left ventricular hypertrophy with repolarization abnormality Inferior infarct , age undetermined Abnormal ECG When compared with ECG of 16-OCT-2018 12:34, (Unconfirmed) aberrant conduction. is no longer present Inferior infarct is now present Confirmed by Dmitriy Robledo MD ([id number]) on 10/18/2018 4:37:06 PM
--- NOTE | 2018-10-16 18:33 | HISTORY AND PHYSICAL ---
CHIEF COMPLAINT: Fall, dizziness. HISTORY OF PRESENT ILLNESS: This is a very pleasant 73-year-old gentleman with a history of hypertension, CAD, chronic kidney disease, CHF. He presents to the emergency room complaining of dizziness on standing that has been present for about 4 weeks. He stated that it started shortly after being discharged from [facility] on . It was persistent, although it was self-limiting. He was evaluated by Dr. Diaz Silvestre in the office in September. Medications were decreased. He stated that symptoms did not improve; in fact, over the last 4 days, they have increased, and in the last 48 hours, he has fallen twice. He is unsure if he actually lost consciousness. He denied being incontinent of stool or urine. He denied any palpitations, any nausea, or any accompanying symptoms with these episodes. Today, he complains of right-sided rib pain and neck pain. He was noted to have abrasions to his face and elbows. His CT of the head revealed no acute abnormality. Chest x-ray with ribs showed a fracture to the right 7th rib anteriorly, although it did not appear acute. PAST MEDICAL HISTORY: 1. Hypertension. 2. CAD status post CO. 3. Paroxysmal SVT. 4. Congestive heart failure. 5. Chronic obstructive pulmonary disease. 6. Gastroesophageal reflux disease. 7. Chronic kidney disease, stage 3. 8. Aortic aneurysm. 9. Peripheral vascular disease with femoral-popliteal bypass with previous aortic aneurysm repair. SOCIAL HISTORY: He is . He denies any alcohol, tobacco, or illicit drug use. ALLERGIES: No known drug allergies. HOME MEDICATIONS: List will be obtained by the nursing staff, and once verified we will review and restart as is appropriate. REVIEW OF SYSTEMS: Discussed with patient with pertinent positives stated in the HPI. He denied any chest pain or palpitations, any shortness of breath, cough, fever, chills, recent weight loss, or weight gain, any night sweats, any nausea/vomiting, diarrhea, constipation, any black or bloody vomitus or stools, hematuria, dysuria, frequency, urgency. PHYSICAL EXAMINATION: GENERAL: This is a 73-year-old gentleman who is sitting up at the bedside in the chair in no distress. VITAL SIGNS: Blood pressure 158/80 with a heart rate of 52, respirations are 20, temperature is 98.9 degrees oral with room air saturations 97% to 98%. EYES: Pupils equal, round, and react to light. EOMs are intact. Sclerae anicteric. HENT: Head is normocephalic, atraumatic. Mucous membranes are moist. NECK: Supple with trachea midline. CARDIOVASCULAR: Regular rate and rhythm. S1 and S2 appreciated. He has no lower extremity edema. Peripheral pulses are palpable x4 extremities with calves nontender bilateral. PULMONARY: Breath sounds are clear with no increased work of breathing noted. Chest rises and falls symmetric with respiration. GASTROINTESTINAL: Abdomen is soft, nontender, nondistended with bowel sounds in all 4 quadrants. GENITOURINARY: He has no CVA or suprapubic tenderness. NEUROLOGIC: He is alert and oriented x3. DIAGNOSTIC STUDIES: WBC is 7.0 with hemoglobin 14.4, hematocrit 42.4, platelets 133,000. Sodium 143, potassium 4, BUN 26, creatinine 1.7 with a glucose of 67. CPK is 74 with a proBNP of 1163. CT of the head and cervical spine revealed no hemorrhage, no injury. Cervical spine has no acute fracture. Rib x-ray with chest x-ray revealed fracture to the right 7th rib anteriorly which may be an old injury. No acute fracture lines identified. No pneumothorax. No contusion. ASSESSMENT AND PLAN: 1. Syncope. 2. Orthostatic hypotension with a lying blood pressure of 180/97 with a heart rate of 49, standing heart rate of 64 with a blood pressure of 179/98. 3. Falls secondary to orthostatic hypotension. 4. Right rib fracture. 5. Hypertension. 6. CAD. 7. History of congestive heart failure. 8. Chronic obstructive pulmonary disease. 9. Chronic kidney disease, stage 3. 10. Gastroesophageal reflux disease. 11. History of abdominal aortic aneurysm. 12. History of supraventricular tachycardia. PLAN: The patient will be admitted to the medical/surgical floor. He will be placed on telemetry. We will consult Dr. Diaz Silvestre, his field associate. We will identify his home medications and once verified, we will review and continue as appropriate. We will check orthostatic vital signs q.12 h. along with vital signs every 4. We will check a CBC, CMP, magnesium, and phosphorus in the morning, as well as a TSH. We will trend his troponins and recheck EKG in the morning. For DVT prophylaxis, we will use SCDs, holding off on anticoagulation as he had frequent falls, and for GI prophylaxis, we will use PPI. Further treatments pending hospital course. Dictated by BRIAN Garcia for Brett Aponte MD cc: BRIAN Garcia MD
[2018-10-16] MEDS: NORCO-10 PO PRN (19:11)
--- NOTE | 2018-10-16 19:21 | CARDIOLOGY CONSULTATION ---
DATE: 10/16/2018 CHIEF COMPLAINT ON PRESENTATION: Dizziness. HISTORY OF PRESENT ILLNESS: Mr. Cerna is a 73-year-old male with a history of coronary disease who I last saw in clinic in September of 2018. He presented for evaluation of dizziness and falls. The falls have occurred this past Tuesday and occurred when he got out of his truck, took a couple steps, attempted to go up his back steps to his house, got quite dizzy and fell. One of the falls resulted in him obtaining a small contusion to the right side of his head as well as impacting his right ribs. He was quite sore over the weekend from his rib discomfort he did not experience syncope. The last time we saw in the clinic in September, we have made adjustments in his medications based on his history of chronic dizziness. This dizziness has been going on for at least several months. We decrease his Aldactone as well as his hydralazine. In an attempt to continue with antianginal, we increased his Ranexa. He cannot recall any real improvement in his symptoms based on these dose changes. He is a difficult historian at best. PAST MEDICAL HISTORY: 1. Significant for coronary disease with coronary bypass grafting. He had a PATRICIA to the LAD, vein graft to an OM 1 and a vein graft to the PDA. His last cardiac catheterization was performed in August of 2018 showing a distal left main lesion of 70%. His the LAD was occluded proximally and filled via a left internal mammary. There is a high takeoff diagonal with luminal irregularities. The circumflex has a high takeoff of the obtuse marginal with 50% lesion unchanged with previous studies earlier this year. The RCA was occluded proximally with [id number]-rjst collaterals from the circumflex. The ramus is occluded with oslz-nj-cvis collaterals. The vein graft to the RCA was occluded in the aorta. The vein graft to the ramus is occluded in the aorta. The mammary graft is widely patent. 2. SVT. 3. Chronic dizziness. 4. Diastolic heart failure. The weighted gated heart scan was performed in August of 2018 demonstrating a calculated ejection fraction of 49%, but appeared much better than that. 5. Aortic aneurysm. Last imaging study done in March of 2016 did not demonstrate any clear evidence of aneurysm. The aorta on that study was tortuous. Abdominal imaging has not shown any abdominal aneurysm. 6. Hypertension. 7. Hyperlipidemia. 8. Chronic kidney disease. 9. Peripheral vascular disease status post femoral-popliteal bypass. 10. Chronic back pain. 11. Extensive history of dizziness and falls with records at least as far back as 2016 with this. 12. Last echo showed rwts-vs-zdowxhyc MR, mild pulmonic insufficiency, mild tricuspid regurgitation. No evidence of significant aortic valvular pathology. SOCIAL HISTORY: He quit smoking around 25 years ago. . No current alcohol or illicit drugs. FAMILY HISTORY: Mother had some sort of heart disease father had some sort of brain malignancy. REVIEW OF SYSTEMS: A 10-system review of systems is negative except for those mentioned in HPI. PHYSICAL EXAMINATION: Vital signs: He is febrile. His heart rate on presentation was 65. He had orthostatics performed initially with a sitting heart rate of 59 and a standing heart rate of 200; however, this was not backed up with any sort of telemetry or EKG data. His subsequent orthostatics at 15:46 show a supine heart rate of 49 and a blood pressure of 180/97. Standing heart rate of 64 with a blood pressure 179/98. No significant change in the seated vitals. Generally: He is in no acute distress. HEENT: Oropharynx moist. Poor dentition. Eye examination is pink conjunctivae. White sclerae. Neck: Examination shows no obvious thyromegaly or thyroid tenderness. Cardiovascular: He sounds to be in a regular rate and rhythm. I do not hear any obvious murmurs. He has no S3. He has no lower extremity edema. Chest: Clear bilaterally. He has tenderness to palpation of the right lateral chest wall with no obvious external sign of trauma. He has no increased work of breathing. Abdomen: Soft, nontender, nondistended. He has no obvious organomegaly. Skin: Warm and dry throughout without any rashes. Neurological: He is moving all extremities well. He has no lateralizing deficits. PERTINENT DATA: His EKG at 12:34 today shows sinus rhythm, a suggestion of left atrial enlargement. PVC identified. His rib films show his fractures to the right 7th rib anteriorly which could possibly be an old injury. CT of the head and cervical spine show mild scoliosis. No obvious acute changes in the C-spine. No acute head findings. LABORATORY DATA: Shows a white count of 7, hematocrit of 42. His platelet count is 133,000. His INR is 1.0. His sodium is 143. Potassium 4, BUN 26, creatinine is 1.7. His cardiac enzymes are negative. His proBNP is 1163. ASSESSMENT: Mr. Cerna is a 73-year-old gentleman with chronic dizziness who presents with recurrent dizziness and a fall. PLAN: His initial vital signs appear to be orthostatics based on a supine blood pressure 127 systolic and a standing blood pressure of 99 systolic. His heart rate also escalated from 57 to 200 between those positional changes; however, I am questioning the validity of that 200 based on it was a blood pressure cuff reading and we have no objective telemetry or EKG data to back it up. His subsequent vitals show systolics quite elevated with no change between positions. I would not repeat an echo at this time as the patient has recently had those studies done. Specifically, he had 1 performed in May as well as a recent gated heart scan. I would, at this time, just trend his blood pressures. I am not sure what to recommend right now based on his widely variable blood pressures and some question of compliance at home in his medications. We had already made slight decreases in his Aldactone and hydralazine at home based on his symptoms of dizziness. I am not sure if it is actually blood pressure related or not. I would certainly recommend performing some sort of outpatient balance training and physical therapy to deal with fall prevention. Would consider an ENT evaluation as an outpatient as well. We will follow him on telemetry. If no significant arrhythmias present, then, I would likely plan on outpatient heart monitor. cc: Diaz Silvestre MD
[2018-10-16] MEDS ORDERED: SEROQUEL PO SCH (21:00)
[2018-10-16] MEDS ORDERED: REQUIP PO SCH (21:00)
[2018-10-16] MEDS ORDERED: LIPITOR PO SCH (21:00)
[2018-10-16] MEDS ORDERED: NEURONTIN PO SCH (21:00)
[2018-10-16] MEDS: ZANAFLEX PO SCH (22:33)
[2018-10-17] MEDS: NORCO-10 PO PRN ×3 (03:43→15:52)
[2018-10-17 06:52] LABS: BASO# 0.02 X1000 (0.0-0.2); BASO% 0.3 % (0.0-0.8); EOS# 0.18 X1000 (0.0-0.7); EOS% 2.8 % (0.0-10.0); HEMATOCRIT 43.1 % (42.0-52.0); HEMOGLOBIN 14.7 g/dL (14.0-18.0); IMM GRAN# 0.03 X1000 (0.0-0.04); IMM GRAN% 0.5 % (0.0-0.5); LYMPH# 1.42 X1000 (1.2-3.4); LYMPH% 21.9 % (20.5-51.1); MCH 32.3 PG (27-31); MCHC 34.1 g/dL (33-37); MCV 94.7 FL (81-99); MONO# 0.63 X1000 (0.11-0.59); MONO% 9.7 % (1.7-9.3); MPV 11.3 FL (7.4-10.4); NEUT# 4.21 X1000 (1.4-6.5); NEUT% 64.8 % (42.2-75.2); PLT 129 X1000 (130-400); RBC 4.55 XMIL (4.7-6.1); RDW 14.7 % (11.5-14.5); WBC 6.49 X1000 (4.8-10.8)
[2018-10-17] MEDS ORDERED: PROTONIX PO SCH (07:00)
[2018-10-17 07:32] LABS: ALB/GLOB RATIO 1.5; ALBUMIN 3.7 g/dL (3.5-5.0); CALCIUM 9.5 mg/dL (8.8-10.2); CREATININE 1.5 mg/dL (0.7-1.2); MAGNESIUM 2.2 mg/dL (1.5-2.7); POTASSIUM 4.5 mmol/L (3.5-5.1); TOTAL BILIRUBIN 0.84 mg/dL (0.20-1.00); TOTAL PROTEIN 6.2 g/dL (6.3-8.3)
[2018-10-17] MEDS ORDERED: IMDUR PO SCH (09:00)
[2018-10-17] MEDS ORDERED: PLAVIX PO SCH (09:00)
[2018-10-17] MEDS ORDERED: CYMBALTA PO SCH (09:00)
[2018-10-17] MEDS ORDERED: LASIX PO SCH (09:00)
[2018-10-17] MEDS ORDERED: ASPIRIN PO SCH (09:00)
--- NOTE | 2018-10-17 09:08 | PROGRESS NOTE ---
DATE: 10/17/2018 SUBJECTIVE: This patient has been complaining of right chest pain which is not new. He fell a few days ago and he has trauma in that area. He is still feeling dizzy, especially when he goes from the sitting position to the standing position. Orthostatic vital signs showed that when he is laying flat, his systolic blood pressure is 1/167 and upon standing, it is 139, and he felt dizzy. On the other hand, his heart rate has been sometimes in the low 50s and even 40s. OBJECTIVE: Vital Signs: Temperature 97.5 degrees, pulse 46, respiratory rate 20, blood pressure 174/83, oxygen saturation 96 on room air. HEENT: Head normocephalic. PERRLA. Neck: Supple. No JVD. No masses. Central trachea. Chest: Clear to auscultation. No wheezing. No rales. Painful to palpation at the level of the right side of the ribcage. Cardiovascular: RRR. Bradycardic. Abdomen: Soft, nontender, nondistended. No hepatosplenomegaly. Extremities: No edema, no clubbing, no cyanosis. Neurological Examination: The patient is alert and oriented x3. No focal deficits. Laboratory: WBC 6.4, hemoglobin 14.7, hematocrit 43.1, platelets 129,000. Sodium 141, potassium 4.5, chloride 104, bicarbonate 26, BUN 24, creatinine 1.5, glucose 102, calcium 9.5. Troponins negative x3. Albumin 3.7. ASSESSMENT AND PLAN: 1. Syncope. It looks like this patient has been having orthostatic changes. His systolic blood pressure a few minutes ago was 167 when he was laying flat and upon standing, 139. He has been bradycardic as well. Cardiology department on board. He is not on beta blockers. 2. Bradycardia, as above. 3. Orthostatic hypotension, as per #1. 4. Right rib fracture, aware. 5. Hypertension. We will continue with the same management. Cardiology on board. 6. History of severe coronary artery disease. 7. History of congestive heart failure. 8. Chronic obstructive pulmonary disease, not in exacerbation. 9. Chronic kidney disease stage 3. This is his baseline. 10. Gastroesophageal reflux disease. Continue with proton pump inhibitors. 11. History of supraventricular tachycardia, stable. 12. The patient seems to be having orthostatic changes. Also, he has been bradycardic. I checked his home medications and he is not on hydralazine or Aldactone. I basically put him back on his home medications and I will wait for cardiology recommendations. cc: Brett Aponte MD
[2018-10-17] MEDS: ZANAFLEX PO SCH (09:34)
--- NOTE | 2018-10-17 15:29 | CARDIOLOGY PROGRESS NOTE ---
DATE: 10/17/2018 SUBJECTIVE: Mr. Cerna mainly is complaining of his chronic neck pain that he has been complaining about for years. He has had no dizziness. He continues to have a right-sided rib pain consistent with his fractured rib. PHYSICAL EXAMINATION: Vital signs: He is afebrile. Heart rate 52 blood pressure 113/66. Notably his blood pressures have been widely variable, during this hospitalization. He did have orthostatics checked this morning with heart rates anywhere from 49 to 55. His standing blood pressure is 139/90 his sitting was 142/91. His supine was 167/90. Generally in no acute distress. Cardiovascular he sounds to be in a regular rate and rhythm. He has no murmurs, no S3. He has no lower extremity edema. His chest is clear bilaterally. No increased work of breathing. Abdomen: Soft, nontender. PERTINENT DATA: Sodium 141, potassium 4.5, BUN 24, creatinine is 1.5. ASSESSMENT: Mr. Cerna is a 73-year-old gentleman who presented with near syncope. PLAN: At this point, he has had no significant arrhythmias during this hospitalization. He did have a 1 time pulse rate elevation of 200 that is suspect given the method in which it was obtained and the fact that there is no corroborating data. We will check a 1 week KATHRYN at home to evaluate this. As far as his orthostasis goes, I do not have any acute recommendations. I would tend to consider trying to keep him on Imdur. He tends to be quite hypertensive at times. I am wondering if there is a pain component related to this as he has chronic neck and back pain. In addition, he could be having potential symptoms from it seems like multiple medications that could be related including the Cymbalta and Neurontin, Seroquel, Requip and Zanaflex. I would consider evaluation of these medications for there is significant for their necessity. He has a preserved ejection fraction based on recent MUGA. At this point from last from my standpoint, he can be discharged home. cc: Diaz Silvestre MD
[2018-10-17 15:40] VITALS: BP 140/85
--- NOTE | 2018-10-18 17:02 | DISCHARGE SUMMARY ---
ADMISSION DATE: 10/16/2018 DISCHARGE DATE: 10/17/2018 DISCHARGE DIAGNOSES: 1. Syncope, likely due to orthostatic changes, bradycardia. 2. Orthostatic hypotension. 3. History of right rib fracture. 4. Hypertension. 5. History of severe coronary artery disease. 6. History of congestive heart failure. 7. Chronic obstructive pulmonary disease, not in exacerbation. 8. Chronic kidney disease stage 3. 9. Gastroesophageal reflux disease. 10. History of supraventricular tachycardia. PROCEDURES PERFORMED: Head/cervical spine CT dated 10/16/2017, impression: No injury. Ribs with chest x-ray dated 10/16/2018, impression: Fracture to the right 7th rib anteriorly which may be an old injury. HOSPITAL COURSE: Mr. Roberto Carlos Cerna is a 73-year-old male with a past medical history of hypertension, coronary artery disease, CKD, CHF, paroxysmal SVT, GERD, COPD, peripheral vascular disease, and probably peripheral neuropathy, hypertension, admitted on 10/16/2018 due to dizziness on standing that has been present for about 4 weeks. Apparently, that started shortly after being discharged from [facility] on , but it has been persistent. He was evaluated by his biomedical equipment tech in the office in September and medications were decrease but even though the medications were decreased, the symptoms did not improved and in the past 48 hours he has fallen twice. He denied being incontinent of stool or urine. No palpitation, nausea, or associated symptoms with those episodes. He was noted to have abrasions to his face and elbow. CT of the head revealed no acute abnormality. Chest x-ray with ribs showed a fracture to the 7th rib, but it looks chronic. He was admitted to the medical floor. Cardiology Department evaluated this patient. No big changes were made. He has had no significant arrhythmia during this hospitalization. He will go home and he will be checked with 1 week KATHRYN at home to evaluate any kind of rhythm problems. Also, we recommended to decrease some of his medications like pain medication, gabapentin, bupropion, quetiapine to see if that can help. Also we recommended to this patient to go to an ENT doctor. The patient seems to understand. I explained to him that he if he is going to sit up or get up he needs to do that slowly and when he feels safe to walk or go he can do it. The patient seems to be stable. He will be discharged home. OBJECTIVE: Vital Signs: Temperature 98.4 degrees, pulse 58, respiratory rate 20, blood pressure 140/85, oxygen saturation 98 on room air. HEENT: Head normocephalic. No trauma. PERRLA. Neck: Supple. No JVD. Central trachea. He has mild abrasions on his face and elbows. Neck pain to mobilization, mostly. Chest: Clear to auscultation. No wheezing. No rales. Abdomen: Soft, nontender, nondistended. No hepatosplenomegaly. Extremities: No edema. No clubbing. No cyanosis. Cardiovascular: RRR. Bradycardic. Neurological: The patient is alert and oriented x3. No focal deficits. LABORATORY: WBC 6.4, hemoglobin 14.7, hematocrit 43.1, platelets 129,000. Sodium 141, potassium 4.5, chloride 104, bicarbonate 26, BUN 24, creatinine 1.5, glucose 102, calcium 9.5, magnesium 2.2. DISCHARGE MEDICATIONS: Aspirin 81 mg p.o. daily, atorvastatin 10 mg p.o. at bedtime, bupropion 150 mg p.o. daily, Plavix 75 mg p.o. daily, duloxetine 60 mg p.o. daily, furosemide 40 mg p.o. daily, gabapentin 300 mg p.o. at bedtime, [place] 10 one tablet p.o. q.6 hours as needed for pain, isosorbide mononitrate 120 mg p.o. q.a.m., pantoprazole 40 mg p.o. q.a.m., quetiapine 100 mg p.o. at bedtime, ranolazine 1000 mg p.o. b.i.d., ropinirole 1 mg p.o. at bedtime, tizanidine 4 mg p.o. b.i.d. TIME DISCHARGING THIS PATIENT: Thirty-five minutes. cc: Brett Aponte MD
== END 2018-10-17 16:36 | disposition home or self-care (01) | DRG 312 ==
LOC: ED 10:22 → 4N 15:17
PROVIDERS: ATTEND Internal Medicine
CPT/HCPCS: 70450; 71101; 72125; 80048; 80053; 82550; 83735; 83880; 84100; 84443; 84484; 85025; 85610; 85730; 90732; 93005; 93010; A9270

== ENCOUNTER 2019-04-08 09:43 | Inpatient (IN) ==
[2019-04-08 10:57] LABS: URINE SOURCE CLEAN CATCH
[2019-04-08 11:00] LABS: BILIRUBIN URINE NEGATIVE (NEGATIVE); BLOOD URINE SMALL (NEGATIVE); COLOR YELLOW; GLUCOSE URINE NEGATIVE (NEGATIVE); KETONE URINE NEGATIVE (NEGATIVE); LEUKOCYTES URINE LARGE (NEGATIVE); NITRITE URINE POSITIVE (NEGATIVE); PH URINE 6.5; PROTEIN URINE 200 mg/dL (NEGATIVE); TURBIDITY URINE HAZY (CLEAR); UROBILINOGEN URINE 2 mg/dL (NORMAL)
[2019-04-08 11:00] LABS: BASO# 0.01 X1000 (0.0-0.2); BASO% 0.1 % (0.0-0.8); EOS# 0.06 X1000 (0.0-0.7); EOS% 0.8 % (0.0-10.0); HEMATOCRIT 42.6 % (42.0-52.0); HEMOGLOBIN 14.2 g/dL (14.0-18.0); IMM GRAN# 0.03 X1000 (0.0-0.04); IMM GRAN% 0.4 % (0.0-0.5); LYMPH# 0.85 X1000 (1.2-3.4); LYMPH% 11.3 % (20.5-51.1); MCH 32.2 PG (27-31); MCHC 33.3 g/dL (33-37); MCV 96.6 FL (81-99); MONO# 0.58 X1000 (0.11-0.59); MONO% 7.7 % (1.7-9.3); MPV 11.3 FL (7.4-10.4); NEUT# 5.97 X1000 (1.4-6.5); NEUT% 79.7 % (42.2-75.2); PLT 158 X1000 (130-400); RBC 4.41 XMIL (4.7-6.1); RDW 14.4 % (11.5-14.5)
[2019-04-08 11:02] LABS: UR EPITHELIAL CELLS <10 /HPF (<10); URINE BACTERIA 4+ /HPF; URINE RBC <10 /HPF (<10); URINE WBC TNTC /HPF (<10)
[2019-04-08 11:10] LABS: INR 1.13; PROTIME 14.7 Seconds (11.0-16.0)
[2019-04-08 11:11] LABS: PTT 33.1 Seconds (22.3-41.8)
[2019-04-08 11:20] LABS: UR AMPHETAMINES QUAL NONE DETECTED (NONE DETECT); UR BARBITUATES QUAL NONE DETECTED (NONE DETECT); UR BENZODIAZEPIN QUAL NONE DETECTED (NONE DETECT); UR CANNABINOIDS QUAL NONE DETECTED (NONE DETECT); UR COCAINE QUAL NONE DETECTED (NONE DETECT); UR METHADONE QUAL NONE DETECTED (NONE DETECT); UR OPIATES QUAL PRESUMPTIVE POSITIVE (NONE DETECT); UR OXYCODONE QUAL NONE DETECTED (NONE DETECT); UR PCP QUAL NONE DETECTED (NONE DETECT)
--- NOTE | 2019-04-08 11:22 | PROVIDER DOCUMENTATION ---
This chart was entered by Brittanie Box Scribe, acting as scribe for Sandy Fuller MD. HPI-General Adult - General Chief Complaint: Fall Stated Complaint: BACK PAIN/FALL Time Seen by Provider: 04/08/19 09:48 Source: patient, family (gSon) Allergies/Adverse Reactions: Patient Allergies Allergy/AdvReac Type Severity Reaction Status Date / Time No Known Allergies Allergy Verified 04/08/19 10:09 Home Medications: Home Medication List Medication Instructions Recorded Confirmed Last Taken Type Aspirin 81 mg PO DAILY 10/16/18 10/16/18 10/16/18 History Atorvastatin Calcium 10 mg PO QHS 10/16/18 10/16/18 10/15/18 History Bupropion HCl [Bupropion HCl ER] 150 mg PO DAILY 10/16/18 10/16/18 10/16/18 History Clopidogrel Bisulfate [Plavix] 75 mg PO DAILY 10/16/18 10/16/18 10/16/18 History Duloxetine HCl [Cymbalta] 60 mg PO DAILY 10/16/18 10/16/18 10/16/18 History Furosemide 40 mg PO DAILY 10/16/18 10/16/18 10/16/18 History Gabapentin 300 mg PO QHS 10/16/18 10/16/18 10/15/18 History Hydrocodone/APAP 10 mg/325 mg 1 ea PO Q6H PRN PRN 10/16/18 04/08/19 04/08/19 History [Bromide-10] Isosorbide Mononitrate [Isosorbide 120 mg PO QAM 10/16/18 10/16/18 10/16/18 History Mononitrate ER] Pantoprazole Sodium 40 mg PO QAM 10/16/18 10/16/18 10/16/18 History Quetiapine Fumarate 100 mg PO QHS 10/16/18 10/16/18 10/15/18 History Ranolazine [Ranolazine ER] 1,000 mg PO BID 10/16/18 10/16/18 10/16/18 History Ropinirole HCl 1 mg PO QHS 10/16/18 10/16/18 10/15/18 History Tizanidine HCl 4 mg PO BID 10/16/18 10/16/18 10/16/18 History Ciprofloxacin HCl 500 mg PO Q12H #28 tab 03/11/19 Unknown Rx Dicyclomine [Bentyl] 20 mg PO BID #10 cap 03/11/19 Unknown Rx Promethazine [Phenergan] 25 mg PO Q12H PRN #12 tab 03/11/19 Unknown Rx - History of Present Illness -Gen Adult Nature of Presenting Problems: 73 y/o male presents to the ED after fall with complaint of neck and mid back pain. The patient states he was dizzy before fall today and gives a history of chronic neck pain for which he has an appointment with Dr. Cardenas but states this pain is new. The patient also reports he was seen in [place] 2 days ago due to being clammy and having elevated blood pressure when he went to visit his at rehab facility. Also states fell in [facility] 4 days ago when the room was spinning and he "just fell out". Son states the patient's who usually administers his medication has been in rehab facility in [place] since the day after [place] and he is unsure if the patient has been taking medication correctly. Son states he counted pills believes the patient has been taking too much norco including the patient admitting to the son he took 3 Bromide 10 mg just prior to arrival and immediately after fall. Son does not believe the patient is taking his other medications at all including his Plavix. Son also gives a history of multiple open heart surgeries and stent placement with most performed in [place] as well as history of inoperable aneurysm, denies history of a-fib. The patient was also seen in [place] two months ago for chest pain and told to be due to this aneurysm according to the son. Location of Pain/Injury: reports: neck, back (thoracic) Pain Radiation: reports: no radiation Onset/Duration: reports: just prior to arrival Timing: reports: still present Context/Activities at Onset: reports: other (fall) Modifying Factors: worse with: movement, palpation Associated Symptoms: reports: back/neck pain. denies: diarrhea, shortness of breath, vomiting Recently seen or treated by another doctor?: Yes (see HPI) Review of Systems - Adult - REVIEW OF SYSTEMS - ADULT Constitutional: reports: no symptoms reported Eyes: reports: no symptoms reported Ears, Nose, Mouth & Throat: denies: tinnitus, epistaxis, loose teeth Cardiovascular: reports: no symptoms reported Respiratory: reports: no symptoms reported Gastrointestinal: denies: diarrhea, poor appetite, vomiting Genitourinary: reports: no symptoms reported Musculoskeletal: reports: back pain, neck pain. denies: joint pain Integumentary: reports: no symptoms reported Neurological: reports: no symptoms reported Psychiatric: reports: no symptoms reported Endocrine: reports: no symptoms reported Hematologic/Lymphatic: reports: no symptoms reported Allergic/Immunologic: reports: no symptoms reported All Other Systems: Reviewed and Negative Past History - Adult - PAST MEDICAL HISTORY-ADULT Review of Records: reports: Old Records Reviewed, Nursing Assessment Review, Medications Reviewed Major Childhood Illnesses: reports: denies history Cardiovascular: reports: aortic disease (AAA), CAD, HTN, hyperlipidemia, NM, PVD Respiratory: reports: COPD Gastrointestinal: reports: denies history Obstetrical/Gynecological: reports: denies history Genitourinary: reports: denies history Musculoskeletal: reports: chronic pain, intervertebral disc disease Neurological: reports: denies history Psychiatric: reports: anxiety, depression, other (substance abuse) Endocrine/Immune: reports: denies history Other Conditions: reports: denies history - PRIOR SURGERIES/PROCEDURES Surgical/Procedure History: reports: CABG, cholecystectomy, hernia repair, other (bilateral fem/pop) - IMMUNIZATION STATUS Childhood Immunizations: See Nurse Assessment Flu Vaccine: See Nurse Assessment - FAMILY HISTORY Family History: reviewed, not pertinent - SOCIAL HISTORY Smoking: other (former smoker) Substance Use: alcohol Alcohol Use Frequency: occasionally Living Situation: family Physical Exam-General - PHYSICAL EXAM-ADULT Initial Vital Signs Reviewed: Yes - CONSTITUTIONAL General Appearance: alert, other (the patient answers questions mostly appropria tely but seems to get stories and times distorted) - EYES Eyes: PERRL/EOMI - HEAD, EARS, NOSE, MOUTH & THROAT HENMT: normocephalic/atraumatic - NECK Neck: supple, tender lateral (left). negative: C-spine tenderness - RESPIRATORY Respiratory: lungs clear, normal breath sounds, no respiratory distress, no accessory muscle use. negative: rales, rhonchi, crepitus - CARDIOVASCULAR Cardiovascular: normal peripheral pulses, no murmur, irregularly irregular - GASTROINTESTINAL (ABDOMEN) Abdominal Exam: normal bowel sounds, non tender, soft. negative: distended - MUSCULOSKELETAL Back Exam: other (paraspinous tenderness upper and mid thoracic spine on left and left lateral neck). negative: vertebral tenderness Extremity: other (walks with cane) - SKIN Integumentary: normal color, warm/dry - NEUROLOGIC Neurologic: grossly normal - PSYCHIATRIC Psych/Mental Status: normal mood/affect, oriented x 3 Progress - PLAN OF CARE/RESULTS Progress/Plan/Lab Results: Vital Signs - 8 hr 04/08/19 09:44 Temperature 98.1 F Pulse Rate 85 Respiratory Rate 18 Blood Pressure 168/94 O2 Sat by Pulse Oximetry 94 L Patient with frequent falls over the last week. Has UTI and son states takes too much of his pain medication. Tylenol level slightly elevated but not enough to give NAC. Will repeat in 4 hours. Has CKD and Cr appears to be at baseline. CT H ead and Cspine negative. BNP 6500. CXR showing COPD and CHF. Given a dose of rocephin and hospitlaist states they will dose lasix. Needs PT consult and CM consult for possible DC planning if placement is to be considered. Counseled patient and son and findings and the need to stay in hospital. Spoke to ANGELITO Dale for hospitalist who accepted patient for admission. Further orders to be placed by their team. Result Diagrams: 04/08/19 10:38 04/08/19 10:38 - EKG 1 Time of EKG reading by physician:: 11:06 EKG Read and Signed by:: Sandy Fuller EKG Interpretation (*Must complete 3 of following elements*): Abnormal Rate: 69 Rhythm: NSR QRS: LVH, other (prolonged QT) ST Wave: non-specific ST changes - CT/MRI 1 CT Study: Cervical Spine, Head Comparison with other Films: no changes (CT HEAD/C-SPINE W/O CONTRAST - 04/08/2019 INDICATION: dizziness, fall COMPARISON: 10/16/2018 FINDINGS: Head CT: There is stable advanced cerebral atrophy and cerebral white matter chronic microvascular ischemia. No intracranial mass or hemorrhage. The skull is intact. The sinuses are clear. Cervical spine: Alignment is anatomic. No fracture or subluxation. Stable advanced multilevel degenerative disc disease. No central canal stenosis. IMPRESSION: No acute injury. No change from prior. This exam was performed using automated exposure control, adjustment of mA or kV according to patient size, and/or use of iterative reconstruction technique Electronically signed by Heraclio Field 04/08/2019 12:11 PM) - CONSULTS/PCP/HOSPITALIST Notification #1 *Consult/PCP/Hospitalist*: [facility] Time Discussed: 12:20 Reason/Comments: multiple falls Consult Disposition: Admit (to [facility]) Departure - Departure Date of Disposition Decision: 04/08/19 Time of Disposition Decision: 12:20 DIAGNOSIS: Frequent falls, Opioid dependence, Polypharmacy, UTI (urinary tract infection), Chronic kidney disease, Congestive heart failure (CHF) Disposition: HOME 01 Certified Medical Emergency: Emergent Condition: Stable Referrals and Follow-Ups: Halle See MD [Primary Care Provider] - - Critical Care Note This patient required my direct & personal management of CC.: No Attestation - Physician/ LAVELL Attestation Patient care was provided by Advanced Practice Provider:: No The physician spent face to face time with patient:: Yes Advanced Practice Provider documentation review:: Supervising physician onsite and consulted in the evaluation and care of this patient. The physician did have a face to face encounter with the patient. This chart was documented by the indicated scribe, (Brittanie Box, [place]) and accurately reflects the services I performed and decisions made by me, Sandy Fuller MD, as attested by the provider's signature.
[2019-04-08 11:34] LABS: AGAP 15; ALB/GLOB RATIO 1.8; ALBUMIN 3.6 g/dL (3.5-5.0); ALKALINE PHOSPHATASE 82 U/L (32-122); BUN 21 mg/dL (8-22); CALCIUM 9.2 mg/dL (8.8-10.2); CHLORIDE 104 mmol/L (98-107); CK TOTAL 136 U/L (24-204); COSMO 285; CREATININE 1.4 mg/dL (0.7-1.2); GLUCOSE 109 mg/dL (70-104); GOT 28 U/L (10-34); GPT 38 U/L (10-44); POTASSIUM 4.3 mmol/L (3.5-5.1); SODIUM 141 mmol/L (136-145); TCO2 22 mmol/L (25-35); TOTAL BILIRUBIN 0.66 mg/dL (0.20-1.00); TOTAL PROTEIN 5.6 g/dL (6.3-8.3)
[2019-04-08] MEDS: ROCEPHIN 1 GM in NS 50 ML IV SCH (11:53)
--- NOTE | 2019-04-08 12:14 | Diag Imaging Result Doc PS360 ---
CT HEAD/C-SPINE W/O CONTRAST - 04/08/2019 INDICATION: dizziness, fall COMPARISON: 10/16/2018 FINDINGS: Head CT: There is stable advanced cerebral atrophy and cerebral white matter chronic microvascular ischemia. No intracranial mass or hemorrhage. The skull is intact. The sinuses are clear. Cervical spine: Alignment is anatomic. No fracture or subluxation. Stable advanced multilevel degenerative disc disease. No central canal stenosis. IMPRESSION: No acute injury. No change from prior. This exam was performed using automated exposure control, adjustment of mA or kV according to patient size, and/or use of iterative reconstruction technique Electronically signed by Heraclio Field 04/08/2019 12:11 PM
[2019-04-08 12:15] LABS: ACETAMINOPHEN 4.2 ug/mL (10-30); SALICYLATES < 3.00 mg/dL (3-10)
--- NOTE | 2019-04-08 12:15 | Diag Imaging Result Doc PS360 ---
CHEST-2 VIEWS - 04/08/2019 INDICATION: freq fall, rib pain COMPARISON: 03/11/2019 FINDINGS: Stable sternotomy wires. Stable cardiomegaly and moderate pulmonary vascular congestion. There are moderate interstitial infiltrates in the lung bases suggesting pulmonary edema. There is stable COPD. No pneumothorax or pleural effusion. IMPRESSION: Congestive heart failure. COPD. Electronically signed by Heraclio Field 04/08/2019 12:12 PM
[2019-04-08 12:22] LABS: FREE T4 1.16 ng/dL (0.93-1.70); TSH 1.17 uIUmL (0.27-4.20)
--- NOTE | 2019-04-08 16:26 | HISTORY AND PHYSICAL ---
The patient's primary are physician is Dr. See. CHIEF COMPLAINT: Syncope. HISTORY OF PRESENT ILLNESS: This is a 73-year-old gentleman with a prior history of hypertension, chronic kidney disease, CAD, congestive heart failure, as well as chronic back pain on chronic narcotics. He presents to the emergency room complaining of multiple falls and syncopal episodes. The patient is a poor historian and his son is at the bedside. He does assist in history. Mr. Cerna's usually sets his medications out for him. She has been in a rehab facility since just after and the patient has been managing his medications himself. As the patient does have a history of overtaking narcotics the son went through the patient's medication bottles. He reports that patient had his [place] 10 refilled on the 05 of April. On pill count today he has 22 pills, there are 22 extra pills missing that should be. The patient did report taking three 10 mg [place] this morning. According to the son, Mr. Cerna has had multiple syncopal episodes over the past 2 weeks falling at home multiple times . He was in [employer] 4 days ago felt the room spinning and fell out. Evidently a pharmacist and other employees evaluated the patient, opted not to call 911. The patient felt better after sitting down and drove himself home. Two days ago he reports being at the [facility] visiting his . He said that rehab workers said that he was pale, sweating. They were concerned and sent him to the emergency room where he was evaluated and discharged from the ER. Today when he fell he had no warning. He woke up on the floor and his left side was hurting. Mr. Cerna does have a history of chronic back pain when asked where he hurts he states "just all over." PAST MEDICAL HISTORY: 1. Coronary artery disease status post SD. 2. Hypertension. 3. Hyperlipidemia. 4. Peripheral vascular disease. 5. COPD. 6. Aortic disease. 7. Chronic kidney disease stage 3. 8. History of congestive heart failure. 9. History of prior syncopal episodes. He was bradycardic at this time. 10. History of SVT. PAST SURGICAL HISTORY: Cholecystectomy, coronary artery bypass graft, cataract removal, hernia repair, femoral-popliteal bypass, esophageal surgery and cardiac stents. SOCIAL HISTORY: He lives alone at present as his is in rehab. He does have a daughter and son that are as active in his care as he will allow. He does have a history of alcohol use and he does have a history of overtaking prescribed narcotics. ALLERGIES: No known drug allergies. FAMILY HISTORY: Is positive for hypertension and heart disease in grandparents. REVIEW OF SYSTEMS: Discussed with the patient with pertinent positives stated in the HPI. He denied any chest pain or palpitations, any shortness of breath, cough, fever, chills, night sweats, any nausea, vomiting, diarrhea, constipation, black or bloody vomitus or stools, any hematuria, dysuria, frequency urgency. PHYSICAL EXAM: This is a 73-year-old gentleman who is sitting up in the bed in no distress. VITAL SIGNS: Blood pressure is 150/90 with a heart rate of 67, respirations are 18, temperature is 98.1 degrees with room air saturations that are 95 to 96 percent. HEENT: Head is normocephalic, atraumatic. Mucous membranes are moist. NECK: Supple with trachea midline. CARDIOVASCULAR: Regular rate and rhythm. S1 and S2 appreciated. He has no lower extremity edema. Peripheral pulses are palpable x4 extremities. Calves are nontender bilateral. PULMONARY: Breath sounds are clear with no increased work of breathing noted. Chest rises and fall symmetric with respiration. Chest wall is nontender to palpation . GASTROINTESTINAL: Abdomen soft, nontender, nondistended with bowel sounds in all 4 quadrants. : He has no CVA or suprapubic tenderness. NEUROLOGIC: He is alert and oriented x3. He is anxious. SKIN: Warm and dry. LABS: WBC is 7.5 with hemoglobin 14.2, hematocrit 42.6 and platelets 158,000. Sodium 141, potassium 4.3, BUN 21, creatinine 1.4 which is his baseline with a glucose of 109. Urinalysis reveals small amount of blood with positive nitrites, large leukocytes, fxh-gtawyxae-qi-count white blood cells and 4+ bacteria. Urine drug screen is presumptive positive for opiates. Blood alcohol is none detected. Urine culture is pending. Chest x-ray revealed congestive heart failure and COPD. CT of the head revealed no acute injury. No change from prior. CT of the cervical spine revealed alignment is anatomic. No fracture or subluxation. Stable advanced multilevel degenerative disk disease. ASSESSMENT AND PLAN: 1. Syncope. 2. Frequent falls. 3. Chronic pain on chronic narcotics. 4. History of overuse of prescribed narcotics. 5. History of coronary artery disease. 6. Chronic kidney disease stage 3 with a baseline creatinine of 1.4. 7. History of congestive heart failure with echocardiogram May 2018 which reveals ejection fraction of 40% with reduced systolic function. PLAN: 1. The patient will be admitted to the hospital. He will be placed on telemetry. We will get orthostatic vital signs every shift. We will check them now and then every shift. Will update his home medications and once they are verified will review and restart as appropriate. We will obtain a echocardiogram as well as a carotid ultrasound, neuro checks q.4 hours. Will identify his home medications and continue. 2. Urinary tract infection. He was given Rocephin in the emergency room. We will continue the and then further antibiotics will be culture driven. 3. For DVT prophylaxis will use SCDs. Will hold off on any anticoagulation as patient has fallen multiple times. For GI prophylaxis PPI. Mr. Cerna is very concerned about being admitted to the hospital. He keeps stating that he has to go home. He is concerned that we are not going to give his pain medication as he takes at home. I discussed with the patient as well as his son that he is overtaking his medications and this may very well in fact be the cause of his episodes. We discussed the narcotics altering his mentation as well as decreasing his blood pressure and heart rate to which he stated "I don't care I need my medicine." He did after much talking from the son he did decide to stay at the hospital as of this time. I did discuss with the patient that we would not discharge him. He would have to leave against medical advice. Plan was discussed with Dr. Casas. Dictated by BRIAN Garcia for Sea Casas MD cc: BRIAN Garcia MD
--- NOTE | 2019-04-08 16:56 | EKG Report ---
Test Performed on : 04/08/2019 11:04:40 AM Test Reason : fall Blood Pressure : / mmHG Vent. Rate : 069 BPM Atrial Rate : 069 BPM P-R Int : 176 ms QRS Dur : 100 ms QT Int : 506 ms P-R-T Axes : 024 004 055 degrees QTc Int : 542 ms Sinus rhythm. with premature atrial complexes. Moderate voltage criteria for LVH, may be normal variant Inferior infarct (cited on or before 16-OCT-2018) Prolonged QT Abnormal ECG When compared with ECG of 11-MAR-2019 18:23, (Unconfirmed) T wave inversion no longer evident in Anterior leads QT has lengthened Unconfirmed Result
[2019-04-08] MEDS ORDERED: MELATONIN PO ONE (20:41)
[2019-04-08] MEDS ORDERED: NEURONTIN PO ONE (20:41)
[2019-04-08] MEDS: ZOFRAN IV PRN (21:10)
[2019-04-08] MEDS: TYLENOL PO PRN (21:11)
[2019-04-09] MEDS: TYLENOL PO PRN ×4 (02:50→21:15)
[2019-04-09 07:34] LABS: HEMATOCRIT 43.9 % (42.0-52.0); HEMOGLOBIN 14.8 g/dL (14.0-18.0); MCH 32.7 PG (27-31); MCHC 33.7 g/dL (33-37); MCV 96.9 FL (81-99); MPV 11.2 FL (7.4-10.4); RBC 4.53 XMIL (4.7-6.1); RDW 14.5 % (11.5-14.5); WBC 6.12 X1000 (4.8-10.8)
[2019-04-09 07:47] LABS: CALCIUM 8.8 mg/dL (8.8-10.2); CREATININE 1.3 mg/dL (0.7-1.2)
[2019-04-09] MEDS: ZOFRAN IV PRN (08:47)
[2019-04-09] MEDS: NORCO-7.5 PO PRN ×2 (10:28→18:43)
[2019-04-09] MEDS: LASIX PO SCH (10:28)
[2019-04-09] MEDS: ROCEPHIN 1 GM in NS 50 ML IV SCH (11:53)
[2019-04-09] MEDS ORDERED: ROCEPHIN 1 GM in NS 50 ML IV SCH (12:00)
[2019-04-09] MEDS ORDERED: LASIX IV ONE (15:25)
--- NOTE | 2019-04-09 16:29 | CARDIOLOGY CONSULTATION ---
DATE: 04/09/2019 CHIEF COMPLAINT ON PRESENTATION: Fall. HISTORY OF PRESENT ILLNESS: Mr. Cerna is a 73-year-old white male who I see in clinic, he has a history of coronary disease, coronary artery bypass grafting. He was in his usual state of health Tuesday evening while he was watching a football game. He got up to go to the restroom and denies having an episode of syncope. He said he thinks he may have just tripped around the end of his bed ended up on the floor. He is not aware of any significant injuries but he did have some pain in his back. He carried about the rest of the evening doing his usual activities and then contacted his son the next morning and was brought in to the ER for evaluation. The patient denies syncope to me. He is not exactly sure what happened in him ending up on the floor but he thinks it may have been just a simple trip. He is not having any chest pain. No shortness of breath. PAST MEDICAL HISTORY: 1. Significant for coronary disease with previous coronary bypass grafting. His last cardiac catheterization was in August 2018. At that time, he had a distal tapering left main lesion of 70%. His LAD was occluded proximally and fills via a patent ADIN. Circumflex had a high takeoff with 50% proximal stenosis in obtuse marginal. This was not significantly changed from previous evaluations earlier in the year. The RCA was occluded proximally with left-to- right collaterals from the circumflex. The ramus was occluded proximally with [id number]-ba-pazx collaterals. His vein graft to the RCA was occluded. Vein graft to the ramus was occluded, PATRICIA to the LAD was widely patent. This was consistent with a recent cardiac catheterization. Ejection fraction by MUGA in August 2018 was 49%. 2. PVCs. 3. Relative bradycardia. 4. Diastolic heart failure. 5. COPD. 6. Hypertension. 7. Hyperlipidemia. 8. Peripheral vascular disease with previous femoral-popliteal bypass. 9. Peripheral edema. 10. Chronic pain with chronic use of narcotic pain medications. 11. History of falling. SOCIAL HISTORY: He is , is not present with him. His is apparently in rehab after a hospital stay. FAMILY HISTORY: Significant for hypertension. REVIEW OF SYSTEMS: A 10 system review of systems is negative except for those things mentioned in HPI. PHYSICAL EXAMINATION: He is afebrile. Blood pressure 152/96. His heart rate during my evaluation was in the 70s to 80s per his telemetry.General: He is in no acute distress. HEENT: Oropharynx is moist. Normal dentition. Eye examination shows pink conjunctivae, white sclerae. Neck: Shows no obvious thyromegaly or thyroid tenderness. Cardiovascular: He sounds to be in a regular rate and rhythm. He has no obvious murmurs. He has no S3. He has no lower extremity edema. Chest: Clear bilaterally. He has no increased work of breathing. Abdomen: Soft, nontender. He has no obvious organomegaly. Skin: Warm and dry throughout without any rashes. Neurological: He is moving all extremities well. He has no lateralizing deficits. PERTINENT DATA: His EKG on presentation yesterday at 11:04 shows sinus rhythm, PACs, nonspecific ST-T changes. Suggestion of LVH. Chest x-ray shows stable cardiomegaly with moderate pulmonary vascular congestion. His head CT shows no acute changes. White count is 6.1, his hematocrit is 43, his platelet count is 151,000. His sodium is 142, potassium 4, BUN 21, creatinine is 1.3. Yesterday his proBNP was 6325 with negative cardiac enzymes. His UDS is positive for opiates. ASSESSMENT: Mr. Cerna is a 73-year-old gentleman with a history of chronic narcotic usage at times taking excessive medications, presents with a fall. He denies any shortness of breath. PLAN: Reviewed patient's telemetry and discussed with the telemetry service. The patient has not had any heart rates below 60 during the course of the evaluation. He has multiple PACs and PVCs. Historically most likely the heart rates documented between 42 and 46 are secondary to erroneous reads from a blood pressure cuff. Would recommend recording of the heart rate off the telemetry pack that he has. We have sent the patient home before with a KATHRYN that was unremarkable for evaluation of bradycardia. I would recommend resumption of his home medications. He is back on his home dose of Lasix. Patient's is currently in rehab so could possibly be that he has a much higher salt intake recently. Again the patient has had a long history of noncompliance. cc: Diaz Silvestre MD
--- NOTE | 2019-04-09 18:01 | PROGRESS NOTE ---
DATE: 04/09/2019 INTERVAL HISTORY: Patient with no further syncopal episodes, but has had some bradycardia today, mostly in the low 40s. No other acute events. No new complaints aside from missing his . REVIEW OF SYSTEMS: Twelve-point review of systems negative except as per interval history. LABS: WBC 6.1, hemoglobin 14.8, hematocrit 43.9, platelets 151,000. Sodium 142, potassium 4, BUN 21, creatinine 1.3, glucose 101. VITAL SIGNS: T-max 98.6 degrees, pulse 46, respirations 20, blood pressure 152/96, and O2 saturation 93% on room air. Orthostatic vital signs essentially negative. The patient had some increase in heart rate and some decrease in blood pressure from going supine to sitting, but he was significantly bradycardic and hypertensive before that, and then moving from sitting to standing did essentially nothing to his blood pressure and only minimal increase in heart rate. PHYSICAL EXAMINATION: General: No acute distress. Vital Signs: As above. HEENT and Neck: Normocephalic, atraumatic. Moist mucous membranes. No cervical adenopathy. Cardiovascular: Mildly bradycardic, but regular. No murmurs noted. Pulmonary: Clear to auscultation bilaterally. No wheezing, rales, or rhonchi. Abdomen: Soft, nontender, nondistended. Bowel sounds positive. Extremities: Peripheral pulses intact. No clubbing, cyanosis, or edema. Neurologic: Cranial nerves grossly intact. No focal deficits identified. Psychiatric: Essentially normal mood and affect. Cooperative. Awake, alert. Skin: No new appearing rashes or lesions noted. ASSESSMENT AND PLAN: 1. Syncopal episode. Initially strongly favored polypharmacy and likely taking a little too much of his home medication as a cause of his issues, but has had some bradycardia this morning down in the 40s pretty consistently, so we will get Cardiology to see him and see what their opinion is. Workup has been otherwise unremarkable. BNP is elevated at 6000, but he has been up to 8000 or 14,000 on more than 1 occasion in the past, so it is not really markedly elevated for him. Other vital signs are stable. 2. Chronic pain. The patient on a fair amount of [place] at home and reportedly had a fair number of pills missing when he was brought in. Also, on a number of other sedating medications including gabapentin and Seroquel. All of these may have been contributing to his issue, although as above bradycardia confuses the picture of it. We will continue his home [place] 10 every 8 hours as needed. We will hold his home gabapentin and Seroquel. We will likely restart home Cymbalta once this dose is confirmed. 3. Coronary artery disease. Continue home aspirin. 4. Hypertension. Continuing home Lasix and monitoring. We will see what his blood pressure does before starting other home medications. 5. Hyperlipidemia. Continue home statin. 6. Chronic obstructive pulmonary disease. No sign of exacerbation at this time. 7. Chronic kidney disease 3. Kidney function stable. 8. Mild chronic systolic congestive heart failure, last ejection fracture of 40%. No sign of significant volume overload at this point. A little pulmonary vascular congestion on chest x- ray, but the patient without any respiratory symptoms, saturating well on room air, and BNP not really significantly different than what he has had in the past. We will continue regular home Lasix and monitor. 9. Dementia, pretty coherent and cooperative right now.
[2019-04-09] MEDS ORDERED: MELATONIN PO PRN (19:36)
[2019-04-09] MEDS ORDERED: LIPITOR PO SCH (21:00)
--- NOTE | 2019-04-09 21:59 | ECHO REPORT ---
ORDER DATE: 04/08/2019 INTERPRETING PHYSICIAN: Dr. Salas CLINICAL INDICATIONS: Syncope, chronic kidney disease, and hypertension. M-MODE MEASUREMENTS: Left ventricle end diastole: 6.3 cm. Left ventricle end systole: 5.2 cm. Posterior wall: 1.2 cm. Interventricular septum: 1.2 cm. Left atrium: 6.2 cm. Aortic diameter: 3.4 cm. SUMMARY OF 2-DIMENSIONAL IMAGIN. Left ventricular chamber is enlarged significant. The left ventricular systolic function is moderately impaired. Ejection fraction is estimated to be in the range of 35% to 40%. There is segmental wall motion abnormality involving the posterior and inferior wall of the left ventricle consistent with a previous scar/myocardial infarction. 2. The left atrium is markedly dilated. 3. Aortic valve shows sclerosis of the cusps without stenosis. Color flow mapping unremarkable. 4. The tricuspid valve does not show any significant regurgitation. 5. The pulmonic valve is unremarkable. Color flow mapping shows trace of regurgitation. 6. Mitral valve shows reversal of the E and the A ratio at 0.7. 7. Tissue Doppler of septal and lateral mitral annulus averages 5 cm. 8. There is mild to moderate degree of mitral regurgitation. 9. There is no pericardial effusion, mass, and no thrombus. 10.The right-sided chambers do not appear to be particularly enlarged. Clinical correlation is recommended. The study was difficult. cc: MD Ingris Alvarado CRNP
[2019-04-10] MEDS: NORCO-7.5 PO PRN ×2 (02:56→15:30)
[2019-04-10] MEDS ORDERED: PLAVIX PO SCH (09:00)
[2019-04-10] MEDS: ZOFRAN IV PRN (09:41)
[2019-04-10] MEDS: TYLENOL PO PRN (09:41)
[2019-04-10] MEDS: LASIX PO SCH (09:41)
[2019-04-10] MEDS ORDERED: CYMBALTA PO SCH (10:45)
[2019-04-10] MEDS: ROCEPHIN 1 GM in NS 50 ML IV SCH (12:25)
[2019-04-10 14:38] VITALS: BP 159/99
--- NOTE | 2019-04-10 18:12 | DISCHARGE SUMMARY ---
ADMISSION DATE: 04/08/2019 DISCHARGE DATE: 04/10/2019 ADMISSION DIAGNOSES: 1. Syncope. 2. Frequent falls. 3. Chronic pain, on chronic narcotics. 4. History of overuse of prescribed narcotics. 5. History of coronary artery disease. 6. Chronic kidney disease stage 3, with a baseline creatinine of 1.9. 7. History of congestive heart failure, with echocardiogram in 05/2018 which reveals ejection fraction of 40% with reduced systolic function. DISCHARGE DIAGNOSES: 1. Syncopal episode, likely secondary to polypharmacy, too much pain medication and having some bradycardia. 2. Chronic pain. 3. Coronary artery disease. 4. Hypertension. 5. Hyperlipidemia. 6. Chronic obstructive pulmonary disease. 7. Chronic kidney disease stage 3. 8. Mild chronic systolic congestive heart failure. Last ejection fraction of 40%. No volume overload. 9. Dementia. 10. Asymptomatic bacteriuria with Escherichia coli, pansensitive. He was not symptomatic, so did not get any antibiotics. He did not have elevated white blood cell count. CONSULTATIONS: Cardiology. SURGERIES AND PROCEDURES: None. HOSPITAL COURSE: Mr. Roberto Carlos Cerna is a 73-year-old male who came in on 04/08 secondary to a syncopal episode. He had been having multiple episodes, multiple falls. He is a very poor historian. The son was at the bedside who assisted with history. Usually his gets medications out for him, but she was in a rehab facility and he had been trying to manage his home medications. He has a history of over-taking narcotics. When counting his [place] bottle, there were 22 extra pills missing from it from the time he had it filled. He admitted to taking 3 [place] 10 tablets on the morning of presentation. During his stay it was noted that he had bradycardic episodes. He had an echocardiogram which revealed that he had a newly found ejection fraction of 35% to 40%. Cardiology was consulted. He was seen by Dr. Diaz Silvestre. He has had other times where he has had his heart monitored in the past to evaluate for bradycardia. Today instead of continuing to be evaluated, he insisted on leaving as his was being sent to [facility]. He essentially was leaving against medical advice instead of receiving further workup for the newly found congestive heart failure. He was able to be sent home with Lasix and lisinopril, with strong advisement to follow up with Cardiology. DISCHARGE VITAL SIGNS: Temperature 98.3 degrees, heart rate 74, respiratory rate 15, blood pressure 162/98, O2 saturation 98% on room air. DISCHARGE LABORATORY DATA: White blood cells 6000, hemoglobin 14, hematocrit 43, platelet count 151,000. Sodium 142, potassium 4.0, BUN 21, creatinine 1.3, glucose 101, calcium 8.8. Microbiology: He had E. coli in the urine. It was pansensitive and ESBL negative. DIAGNOSTIC DATA: Pertinent imaging: Head spine CT; no acute findings. Chest x-ray: CHF and COPD. Echocardiogram: EF 35% to 40%; left atrium dilated. EKG: Rate is 69, sinus rhythm with PACs. DISCHARGE MEDICATIONS: 1. Atorvastatin 10 mg p.o. nightly. 2. Cymbalta 60 mg p.o. daily. 3. Pepcid 40 mg p.o. twice daily. 4. Nitroglycerin sublingual 0.4 mg. 5. [place] 10, one tablet p.o. every 8 hours p.r.n. 6. Plavix 75 mg p.o. daily. 7. Aspirin 81 mg p.o. daily. 8. Lisinopril 2.5 mg p.o. daily. DISCHARGE DIET: Heart healthy. DISCHARGE ACTIVITY: As tolerated. PHYSICIAN FOLLOWUP: Dr. See and Dr. Diaz Silvestre. DISCHARGE INSTRUCTIONS: No driving while taking pain medications. If condition changes, contact physician and/or return to the emergency department. Changes may include, but are not limited to, shortness of breath, increased fatigue, excessive bleeding, unexplained weight loss or gain, unmanageable pain or signs or symptoms of infection. DISCHARGE DISPOSITION: Home. Dictated by BRIAN Osborne for Haroon Black MD cc: BRIAN Osborne Agree with the above. the following is my own face to face assessment. patient with syncopal episode initially favored to be secondary to taking too much of his pain medicine but during the hospitalization he has had intermittent bradycardia and repeat echo showed mildly decreased EF which is new to him(previous chf diastolic with normal EF). cardiology on board but prior to them re-assessing the patient he and his sun insisted on leaving as the patient's had been hospitalized. discussed with them that I strongly recommended remaining for cardiology to see and evaluate him in light of his ongoing intermittent bradycardia, and new systolic CHF but he remained adamant on leaving. lisinopril added but no beta-luis given because of his intermittent bradycardia. strongly recommended that patient follow up with cardiology as soon as possible and return to care if further issues developed. KANA
[2019-04-10] MEDS ORDERED: PEPCID PO SCH (21:00)
--- NOTE | 2019-04-11 09:45 | Carotid Study ---
DATE: 04/08/2019 PROCEDURE: Bilateral duplex and color flow imaging of the carotid arteries. EQUIPMENT USED: Askuityid E 9 ultrasound system with a 9 L-D transducer. REFERRING PHYSICIAN: Chon. COMPLIANCE MONITOR: Alicia Mclaughlin RVT. PATIENT PROFILE: A 73-year-old male. INDICATIONS: Syncope/dizziness. FINDINGS: The velocities in cm/sec of both carotid systems were reviewed. The right ICA/CCA ratio 0.60, corresponding 2% stenosis of 0 to 39 percent. The left ICA/CCA ratio is 1, corresponding 2% stenosis of 0 to 39 percent. INTERPRETATION: Mild atherosclerotic disease of the distal common and internal carotid arteries bilaterally without evidence of a hemodynamically significant lesion in either carotid system. cc: MD Ingris Kennedy CRNP
== END 2019-04-10 16:48 | disposition home or self-care (01) | DRG 918 ==
LOC: ED 09:43 → EDIPHOLD 13:13 → SUATTDRO 13:13 → 3N 16:48
PROVIDERS: ATTEND Internal Medicine

== ENCOUNTER 2019-07-03 13:49 | Inpatient (IN) ==
--- NOTE | 2019-07-03 14:10 | Diag Imaging Result Doc PS360 ---
EXAM: CT HEAD W/O CONTRAST INDICATION: ams TECHNIQUE: This exam was performed using automated exposure control, adjustment of mA or kV according to patient size, and/or use of iterative reconstruction technique. COMPARISON: 04/08/2019 FINDINGS: There is stable advanced diffuse brain atrophy. There are a couple of thalamic chronic lacunar infarcts and a left basal ganglion chronic lacunar infarct that are stable. There is stable advanced white matter microangiopathy. There is no definite acute infarct given the limited sensitivity of CT versus MRI. There is no discrete intracranial mass, mass effect, or intracranial hemorrhage. The surrounding soft tissues and bony structures are essentially unremarkable. IMPRESSION: Stable advanced chronic changes as described. No definite acute intracranial pathology by CT. Electronically signed by Reza Schwarz 07/03/2019 2:08 PM
--- NOTE | 2019-07-03 14:51 | Diag Imaging Result Doc PS360 ---
EXAM: CHEST-2 VIEWS INDICATION: cough TECHNIQUE: 2 views COMPARISON: 04/08/2019 FINDINGS: There is stable cardiomegaly and CABG changes. Central vasculature is prominent suggesting at least moderate pulmonary venous congestion. There is also mild interstitial edema. This is similar to the previous study. No discrete pleural fluid collection or pneumothorax is appreciated. IMPRESSION: Cardiomegaly with pulmonary venous congestion and mild edema. Electronically signed by Reza Schwarz 07/03/2019 2:48 PM
[2019-07-03 15:29] LABS: URINE SOURCE CATH
[2019-07-03 15:33] LABS: BASO# 0.13 X1000 (0.0-0.2); BASO% 0.9 % (0.0-0.8); HEMATOCRIT 50.7 % (42.0-52.0); HEMOGLOBIN 17.2 g/dL (14.0-18.0); IMM GRAN# 0.21 X1000 (0.0-0.04); IMM GRAN% 1.5 % (0.0-0.5); LYMPH% 11.2 % (20.5-51.1); MCH 31.7 PG (27-31); MCHC 33.9 g/dL (33-37); MCV 93.5 FL (81-99); MONO# 1.81 X1000 (0.11-0.59); MONO% 12.7 % (1.7-9.3); NEUT# 10.53 X1000 (1.4-6.5); NEUT% 73.7 % (42.2-75.2); PLT 50 X1000 (130-400); RBC 5.42 XMIL (4.7-6.1); RDW 18.8 % (11.5-14.5); WBC 14.28 X1000 (4.8-10.8)
--- NOTE | 2019-07-03 15:33 | EKG Report ---
Test Performed on : 07/03/2019 2:31:54 PM Test Reason : CP Blood Pressure : / mmHG Vent. Rate : 101 BPM Atrial Rate : 101 BPM P-R Int : 162 ms QRS Dur : 098 ms QT Int : 368 ms P-R-T Axes : 052 005 061 degrees QTc Int : 477 ms Undetermined rhythm Left ventricular hypertrophy with repolarization abnormality Inferior infarct (cited on or before 16-OCT-2018) Abnormal ECG When compared with ECG of 08-APR-2019 11:04, Current undetermined rhythm precludes rhythm comparison, needs review QT has shortened Unconfirmed Result
[2019-07-03 15:35] LABS: BILIRUBIN URINE MODERATE (NEGATIVE); BLOOD URINE MODERATE (NEGATIVE); COLOR YELLOW; GLUCOSE URINE NEGATIVE (NEGATIVE); KETONE URINE NEGATIVE (NEGATIVE); LEUKOCYTES URINE SMALL (NEGATIVE); NITRITE URINE NEGATIVE (NEGATIVE); PROTEIN URINE 600 mg/dL (NEGATIVE); SP GRAVITY URINE 1.024; TURBIDITY URINE HAZY (CLEAR); UROBILINOGEN URINE 12 mg/dL (NORMAL)
[2019-07-03 15:37] LABS: UR EPITHELIAL CELLS <10 /HPF (<10); URINE BACTERIA 4+ /HPF
[2019-07-03 15:50] LABS: ALB/GLOB RATIO 1.8; ALBUMIN 3.4 g/dL (3.5-5.0); CALCIUM 10.2 mg/dL (8.8-10.2); CREATININE 1.8 mg/dL (0.7-1.2); POTASSIUM 4.3 mmol/L (3.5-5.1); TOTAL BILIRUBIN 14.17 mg/dL (0.20-1.00); TOTAL PROTEIN 5.3 g/dL (6.3-8.3)
[2019-07-03] MEDS ORDERED: NS 1,000 ML IV ONE (15:59)
[2019-07-03] MEDS ORDERED: LASIX IV ONE (16:08)
[2019-07-03 16:16] LABS: CK INDEX 1.5 (0.0-2.5); CK-MB 10.38 ng/mL (0.0-5.0)
[2019-07-03] MEDS ORDERED: ZOSYN 2.25 GM in NS 50 ML IV ONE (16:30)
--- NOTE | 2019-07-03 16:48 | Diag Imaging Result Doc PS360 ---
EXAM: CT ABDOMEN/PELVIS W/O CONTRAST INDICATION: abd pain, jaundice TECHNIQUE: This exam was performed using automated exposure control, adjustment of mA or kV according to patient size, and/or use of iterative reconstruction technique. COMPARISON: 03/11/2019 FINDINGS: There is marked cardiomegaly. The heart appears larger than the previous study. There is a trace right pleural effusion. There is excessive respiratory motion artifact, which somewhat limits the study at the upper abdomen. There has been a prior cholecystectomy. There is stable tiny low dense focus associated with the left hepatic lobe that probably represents a small cyst. The liver is grossly unremarkable as imaged, otherwise. As imaged, the spleen, pancreas, and adrenal glands are unremarkable. The right kidney is atrophic, stable. There are a couple of stable small right renal cyst. There is a Louis catheter in the urinary bladder and the bladder is nondistended. The urinary bladder wall is thickened. In part, this is due to underdistention. However, there is mild pericystic stranding, which could indicate cystitis. Please correlate clinically. There are a few scattered colonic diverticula. There is no evidence of diverticulitis. There is questionable very slight colonic wall thickening mainly at the sigmoid colon. At least in part, this is due to underdistention. A component of colitis is also possible. There is mild diffuse mesenteric edema and trace free fluid layering in the pelvis. There is no obstructive bowel pattern. The remainder of the GI tract is essentially unremarkable. There is a stable stent graft repair abdominal aortic aneurysm. Just superior to the stent graft, there is aneurysmal dilation of the upper abdominal aorta measuring up to 4.7 cm. This is stable. There is lumbar spondylosis. There is no evidence of acute osseous abnormality. IMPRESSION: 1.Bladder wall thickening with mild stranding around the urinary bladder. Consider cystitis. Please correlate clinically. 2.Subtle sigmoid colonic wall thickening. This could be due to underdistention. A component of colitis is possible, however. 3.Mild diffuse mesenteric edema with trace fluid layering in the pelvis. 4.Stable abdominal aortic aneurysm. 5.Cardiomegaly that appears worse than the previous study. 6.Trace effusion at the right lung base. 7.Other incidental/nonacute findings detailed above. Electronically signed by Reza Schwarz 07/03/2019 4:45 PM
[2019-07-03] MEDS ORDERED: ZOFRAN IV PRN (17:07)
--- NOTE | 2019-07-03 17:17 | PROVIDER DOCUMENTATION ---
This chart was entered by Cassidy Kimball Scribe, acting as scribe for Jorge Whitley CRNP. HPI-Neurological Disorder - General Chief Complaint: Altered Mental Status Stated Complaint: AMS Time Seen by Provider: 07/03/19 14:18 Source: patient, EMS (first response) Unable to obtain history due to:: altered Allergies/Adverse Reactions: Patient Allergies Allergy/AdvReac Type Severity Reaction Status Date / Time No Known Allergies Allergy Verified 07/03/19 15:35 Home Medications: Home Medication List Medication Instructions Recorded Confirmed Last Taken Type Atorvastatin Calcium 10 mg PO QHS 10/16/18 04/09/19 10/15/18 History Clopidogrel Bisulfate [Plavix] 75 mg PO DAILY 10/16/18 04/09/19 10/16/18 History Duloxetine HCl [Cymbalta] 60 mg PO DAILY 10/16/18 04/09/19 10/16/18 History Hydrocodone/APAP 10 mg/325 mg 1 ea PO Q8H PRN PRN 10/16/18 04/08/19 04/08/19 History [[place]-10] Famotidine 40 mg PO BID 04/09/19 04/09/19 Unknown History Nitroglycerin [Nitrostat] 0.4 tab SUBLINGUAL PRN PRN 04/09/19 04/09/19 Unknown History Aspirin [Children's Aspirin] 81 mg PO DAILY #30 tab.chew 04/10/19 Unknown Rx Lisinopril 2.5 mg PO DAILY #30 tab 04/10/19 Unknown Rx - History of Present Illness-Neuro Nature of Presenting Problem: 73 yowm presents to the ed via ems (first response) from his home. per ems ems was called by family with c/o ams and pt has been lying in the bed for 4 days and will not get up. pt has been incontinent of urine, decreased PO intake, generalized fatigue and weakness, cough, sob and abd discomfort.pt on exam is jaundice and confused and winces when palpation of LLQ is done. Severity: reports: moderate Onset/Duration: reports: 4 days ago Timing: reports: still present, constant Context: reports: other (not acting at baseline) Character of Altered Mental Status: reports: confused Any recent trauma/injury?: reports: none Character of Deficits: reports: decreased ability to walk New weakness or altered sensation location:: reports: general (diffuse) Cognitive Baseline: alert, oriented x3 Gait Baseline: walks without assistance Associated Symptoms: reports: short of breath, decreased ability to walk or s tand, confusion, other (abdominal pain LLQ). denies: fainting, chest pain, neck/back pain, fever/chills, loss of consciousness, nausea, slurred speech, vomiting, vision changes Similar Symptoms Previously?: No Recently seen or treated by another doctor?: No Review of Systems - Adult - REVIEW OF SYSTEMS - ADULT Constitutional: reports: see HPI, fatique. denies: chills, fever Eyes: reports: no symptoms reported Ears, Nose, Mouth & Throat: reports: no symptoms reported Cardiovascular: denies: chest pain, palpitations Respiratory: reports: see HPI, cough, shortness of breath. denies: wheezing Gastrointestinal: reports: see HPI, abdominal pain, poor appetite. denies: diarrhea, nausea, vomiting Genitourinary: reports: see HPI, incontinence (urine) Musculoskeletal: reports: see HPI, other (generalized weakness). denies: back pain, neck pain Integumentary: reports: no symptoms reported Neurological: reports: see HPI, other (confusion). denies: dizziness/vertigo, headache/migraines Psychiatric: reports: no symptoms reported Endocrine: reports: no symptoms reported Hematologic/Lymphatic: reports: no symptoms reported Allergic/Immunologic: reports: no symptoms reported All Other Systems: Reviewed and Negative Past History - Adult - PAST MEDICAL HISTORY-ADULT Review of Records: reports: Old Records Reviewed, Nursing Assessment Review, Medications Reviewed, Social history reviewed & non-contributory. Major Childhood Illnesses: reports: denies history Cardiovascular: reports: aortic disease (AAA), CAD, HTN, hyperlipidemia, IA, PVD Respiratory: reports: COPD Gastrointestinal: reports: denies history Genitourinary: reports: denies history Musculoskeletal: reports: chronic pain, intervertebral disc disease Neurological: reports: denies history Psychiatric: reports: anxiety, depression, other (substance abuse) Endocrine/Immune: reports: denies history Other Conditions: reports: denies history - PRIOR SURGERIES/PROCEDURES Surgical/Procedure History: reports: CABG, cholecystectomy, hernia repair, other (bilateral fem/pop) - IMMUNIZATION STATUS Childhood Immunizations: See Nurse Assessment Flu Vaccine: See Nurse Assessment - FAMILY HISTORY Family History: reviewed, not pertinent Physical Exam- Neurological - Physical Exam-Neuro Exam Limited by: pt will answer some questions and on exam is a/o x1 to person only Initial Vital Signs Reviewed: Yes General Appearance: alert, no apparent distress Eye Exam: bilateral eye: PERRL, EOMI, other (bilateral scleral icterus) HENMT: negative: moist mucous membranes (dry oral) Head Injury: no evidence of injury Neck: non-tender, full range of motion, normal inspection Respiratory: chest non-tender, lungs clear, normal breath sounds, increased rate (30) Cardiovascular: normal peripheral pulses, regular rate, rhythm Abdominal Exam: non tender, soft Extremity: normal range of motion, normal capillary refill, erythema (noted to bilateral elbow with left elbow has small open wound/bilateral heels are spongy with redness noted) fuller brush man Exam: normal hearing, normal speech (pt is short in speech but does answer questions when asked), PERRL Neurologic: negative: facial droop, focal weakness Integumentary: warm/dry, jaundice Psych/Mental Status: negative: oriented x 3 (pt is A/O x1 to person only) - Glascow Coma Scale Best Eye Response: (4) open spontaneously Best Verbal Response: (4) confused conversation Best Motor Response: (6) obeys commands Total Glascow Score: 14 Progress - PLAN OF CARE/RESULTS Progress/Plan/Lab Results: Vital Signs - 8 hr 07/03/19 14:20 Temperature 97.5 F L Pulse Rate 95 H Respiratory Rate 30 H Blood Pressure 155/108 O2 Sat by Pulse Oximetry 96 Laboratory Results - last 24 hr 07/03/19 07/03/19 07/03/19 15:02 15:02 15:02 WBC RBC Hgb Hct MCV MCH MCHC RDW Std Deviation Plt Count MPV Immature Gran % (Auto) Neut % (Auto) Lymph % (Auto) [place] % (Auto) Eos % (Auto) Baso % (Auto) Immature Gran # (Auto) Neut # (Auto) Lymph # (Auto) [place] # (Auto) Eos # (Auto) Baso # (Auto) Sodium 146 H Potassium 4.3 Chloride 105 Carbon Dioxide 22 L Anion Gap 19 BUN 67 H Creatinine 1.8 H Estimated GFR/1.73 m2 37 BUN/Creatinine Ratio 37 Glucose 120 H POC Glucose Calculated Osmolality 311 Calcium 10.2 Total Bilirubin 14.17 H AST 861 H ALT 1060 H Alkaline Phosphatase 239 H Ammonia 16 Creatine Kinase 688 H Creatine Kinase Index 1.5 CK-MB (CK-2) 10.38 H Troponin T High Sens Qeb-M-Xgwstynsgln Pept Total Protein 5.3 L Albumin 3.4 L Globulin 1.9 Albumin/Globulin Ratio 1.8 Amylase 78 Lipase 120 H Plasma Lactate Urine Source Urine Color Urine Turbidity Urine pH Ur Specific [place] Urine Protein Ur Glucose (Stick) Ur Ketones (Stick) Urine Blood Urine Nitrite Urine Bilirubin Urobilinogen Dipstick Urine Leukocytes Urine WBC (Auto) Urine RBC (Auto) U Epithel Cells (Auto) Urine Bacteria (Auto) 07/03/19 07/03/19 07/03/19 15:02 15:02 15:02 WBC 14.28 H RBC 5.42 Hgb 17.2 Hct 50.7 MCV 93.5 MCH 31.7 H MCHC 33.9 RDW Std Deviation 18.8 H Plt Count 50 L MPV Not Reportable Immature Gran % (Auto) 1.5 H Neut % (Auto) 73.7 Lymph % (Auto) 11.2 L [place] % (Auto) 12.7 H Eos % (Auto) 0.0 Baso % (Auto) 0.9 H Immature Gran # (Auto) 0.21 H Neut # (Auto) 10.53 H Lymph # (Auto) 1.60 [place] # (Auto) 1.81 H Eos # (Auto) 0.00 Baso # (Auto) 0.13 Sodium Potassium Chloride Carbon Dioxide Anion Gap BUN Creatinine Estimated GFR/1.73 m2 BUN/Creatinine Ratio Glucose POC Glucose Calculated Osmolality Calcium Total Bilirubin AST ALT Alkaline Phosphatase Ammonia Creatine Kinase Creatine Kinase Index CK-MB (CK-2) Troponin T High Sens 56 H Itg-W-Umsnzdxnoxv Pept > 75943 H Total Protein Albumin Globulin Albumin/Globulin Ratio Amylase Lipase Plasma Lactate Urine Source Urine Color Urine Turbidity Urine pH Ur Specific [place] Urine Protein Ur Glucose (Stick) Ur Ketones (Stick) Urine Blood Urine Nitrite Urine Bilirubin Urobilinogen Dipstick Urine Leukocytes Urine WBC (Auto) Urine RBC (Auto) U Epithel Cells (Auto) Urine Bacteria (Auto) 07/03/19 07/03/19 07/03/19 15:02 15:17 15:23 WBC RBC Hgb Hct MCV MCH MCHC RDW Std Deviation Plt Count MPV Immature Gran % (Auto) Neut % (Auto) Lymph % (Auto) [place] % (Auto) Eos % (Auto) Baso % (Auto) Immature Gran # (Auto) Neut # (Auto) Lymph # (Auto) [place] # (Auto) Eos # (Auto) Baso # (Auto) Sodium Potassium Chloride Carbon Dioxide Anion Gap BUN Creatinine Estimated GFR/1.73 m2 BUN/Creatinine Ratio Glucose POC Glucose 120 H Calculated Osmolality Calcium Total Bilirubin AST ALT Alkaline Phosphatase Ammonia Creatine Kinase Creatine Kinase Index CK-MB (CK-2) Troponin T High Sens Ivp-K-Wqptdetzuam Pept Total Protein Albumin Globulin Albumin/Globulin Ratio Amylase Lipase Plasma Lactate 4.9 H* Urine Source CATH Urine Color YELLOW Urine Turbidity HAZY Urine pH 6.0 Ur Specific [place] 1.024 Urine Protein 600 A Ur Glucose (Stick) NEGATIVE Ur Ketones (Stick) NEGATIVE Urine Blood MODERATE A Urine Nitrite NEGATIVE Urine Bilirubin MODERATE A Urobilinogen Dipstick 12 A Urine Leukocytes SMALL A Urine WBC (Auto) 10-20 A Urine RBC (Auto) 10-20 A U Epithel Cells (Auto) <10 Urine Bacteria (Auto) 4+ Orders Category Date Time Status Admit - [facility] Routine AdmDCTranf 07/03/19 17:07 Active Louis Cath Insertion ORDERED Care 07/03/19 15:08 Active NEWS Score 2-4:Order NEWS Lactate Series NOW Care 07/03/19 14:23 Active Neurological Check Q4H Care 07/03/19 17:08 Active Nursing- Obtain EKG ONCE Care 07/03/19 14:26 Active Saline Loc DIRECTED Care 07/03/19 14:14 Active Vital Signs Order Q 4-HR ASSESS Care 07/03/19 17:07 Active Z-Document. for Tele Applied ORDERED Care 07/03/19 17:09 Active NPO Diet 07/03/19 14:14 Completed NPO Diet 07/03/19 17:08 Active CHEST-2 VIEWS [RAD] Stat Exams 07/03/19 14:[address] ABDOMEN/PELVIS W/O CONTRAST [CT] Stat Exams 07/03/19 16:[address] HEAD W/O CONTRAST [CT] Stat Exams 07/03/19 13:50 Completed AMMONIA [CHEM] Stat Lab 07/03/19 15:02 Completed AMYLASE [CHEM] Stat Lab 07/03/19 15:02 Completed BLOOD CULTURE [BLDCUL] Stat Lab 07/03/19 15:09 Results CBC WITH ELECTRONIC DIFF [HEME] Stat Lab 07/03/19 15:02 Completed CK PROFILE [SP CHEM] Stat Lab 07/03/19 15:02 Completed COMPREHENSIVE METABOLIC PANEL [CHEM] Stat Lab 07/03/19 15:02 Completed LACTATE, PLASMA [CHEM] Lab 07/03/19 15:02 Completed LACTATE, PLASMA [CHEM] Lab 07/03/19 17:45 Uncollected LACTATE, PLASMA [CHEM] Lab 07/03/19 20:45 Uncollected LIPASE [CHEM] Stat Lab 07/03/19 15:02 Completed PRO [PRO B-NATRIURETIC PEPTIDE] Stat Lab 07/03/19 15:02 Completed TROPONIN T HIGH SENSITIVITY Stat Lab 07/03/19 15:02 Completed URINALYSIS W/POSS RFLX CULT [URINALYSIS] Stat Lab 07/03/19 15:17 Completed URINE CULTURE [RM] Routine Lab 07/03/19 15:17 Received 0.9% Sodium Chloride Inj [Ns] 1,000 ml Med 07/03/19 15:59 Discontinued IV 999 mls/hr Furosemide [Lasix] Med 07/03/19 16:08 Discontinued 60 mg IV NOW ONE Morphine Med 07/03/19 17:07 Active 2 mg IV Q2H PRN PRN Ondansetron [Zofran] Med 07/03/19 17:07 Active 4 mg IV Q4H PRN PRN Piperacillin/Tazobactam [Zosyn] 2.25 gm Med 07/03/19 16:30 Discontinued 0.9% Sodium Chloride Inj [Ns] 50 ml IV NOW Oxygen Device Routine Oth 07/03/19 17:08 Active Telemetry [OM.EQ] Routine Oth 07/03/19 17:07 Active EKG [EKG] Stat Ther 07/03/19 14:26 Draft Transfer/Admit Order [TRANSFER] Routine Transfer 07/03/19 17:10 Ordered Result Diagrams: 07/03/19 15:02 07/03/19 15:02 - EKG 1 Time of EKG reading by physician:: 14:31 EKG Read and Signed by:: Giacomo Rodrigues EKG Interpretation (*Must complete 3 of following elements*): Abnormal Rate: 101 Rhythm: undetermined rhythm QRS: LVH (with repolarization abnormality) OK Interval: normal ST Wave: normal Comments: inferior infarct, age undetermined - XRAY 1 XRAY: Bilateral XRAY Study: Chest Impression: See EMR Report (IMPRESSION: Cardiomegaly with pulmonary venous congestion and mild edema. Electronically signed by Reza Schwarz 07/03/2019 2:48 PM) - CT/MRI 1 CT Study: Head Impression: See EMR Report (FINDINGS: There is stable advanced diffuse brain atrophy. There are a couple of thalamic chronic lacunar infarcts and a left basal ganglion chronic lacunar infarct that are stable. There is stable advanced white matter microangiopathy. There is no definite acute infarct given the limited sensitivity of CT versus MRI. There is no discrete intracranial mass, mass effect, or intracranial hemorrhage. The surrounding soft tissues and bony structures are essentially unremarkable. IMPRESSION: Stable advanced chronic changes as described. No definite acute intracranial pathology by CT. Electronically signed by Reza Schwarz 07/03/2019 2:08 PM) 2 CT Study: Abdomen, Pelvis Impression: Abnormal ( FINDINGS: There is no definite acute infarct given the limited sensitivity of CT versus MRI. There is no discrete intracranial mass, mass effect, or intracranial hemorrhage. The surrounding soft tissues and bony structures are essentially unremarkable. IMPRESSION: No evidence of acute intracranial pathology.), See EMR Report - CONSULTS/PCP/HOSPITALIST Notification #1 *Consult/PCP/Hospitalist*: Dr Leon Time Discussed: 16:59 Reason/Comments: sepsis with acute hepatic failure, SONA, CHF, UTI Consult Disposition: Admit (Do not bolus fluids do to CHF and BNP.) Departure - Departure Date of Disposition Decision: 07/03/19 Time of Disposition Decision: 16:54 DIAGNOSIS: Acute kidney injury AMS (altered mental status) Qualifiers: Altered mental status type: unspecified Qualified Code(s): R41.82 - Altered mental status, unspecified Congestive heart failure (CHF) Qualifiers: Heart failure type: unspecified Heart failure chronicity: unspecified Qualified Code(s): I50.9 - Heart failure, unspecified UTI (urinary tract infection) Qualifiers: Urinary tract infection type: site unspecified Hematuria presence: with hematuria Qualified Code(s): N39.0 - Urinary tract infection, site not specified; R31.9 - Hematuria, unspecified Sepsis with acute hepatic failure Qualifiers: Hepatic coma status: unspecified Severe sepsis shock status: unspecified Disposition: ADMITTED INPATIENT 09 Certified Medical Emergency: Emergent Condition: Critical Additional Instructions: ED Follow Up Instructions: You have been treated by a care provider in the Emergency Department. These instructions are being provided to you so you can have an understanding of how to care for yourself upon discharge. Upon discharge from the Emergency Department, you are responsible for making arrangements for follow-up care by a physician of your choice. Take all prescribed medications as directed. Return to the Emergency Department immediately for any new or worsening symptoms. You may call the Physician Referral phone number at [phone] to obtain a list of Physicians who are taking new patients. Referrals and Follow-Ups: Halle See MD [Primary Care Provider] - Discharge Education: Steps to Quit Smoking, [id number] - Critical Care Note This patient required my direct & personal management of CC.: No Attestation - Physician/ LAVELL Attestation Patient care was provided by Advanced Practice Provider:: Yes Advanced Practice Provider documentation review:: The Mid-level provider documentation, treatment plan and medical decision making was reviewed by the physician who agrees with all treatment and medical decision making by the MLP. The physician spent face to face time with patient:: No Advanced Practice Provider documentation review:: Supervising physician onsite and consulted in the evaluation and care of this patient. The physician did not have a face to face encounter with the patient. This chart was documented by the indicated scribe, (Cassidy Kimball Scribe) and accurately reflects the services I performed and decisions made by me, Jorge Whitley CRNP, as attested by the provider's signature.
[2019-07-03] MEDS ORDERED: POTASSIUM CHLORIDE 10 MEQ in NS 1,000 ML IV SCH (19:30)
--- NOTE | 2019-07-03 19:57 | HISTORY AND PHYSICAL ---
CHIEF COMPLAINT: Altered mental status. HISTORY OF PRESENT ILLNESS: Mr. Cerna is a 73-year-old gentleman, not giving any history. Patient was confused and disoriented. History gotten from ER record. The patient was at home. He was brought by EMS. The family called EMS. As per EMS records, the patient did have altered mental status for 4 days. The patient was lying in the bed. Patient was incontinent of urine. His oral intake was poor. The patient was incontinent of urine, generalized weakness and fatigue. The patient did have some cough, chest congestion, shortness of breath, abdominal discomfort. Patient was also deeply jaundiced. On exam patient did have tenderness in the left lower quadrant. The patient was laying on examination table. The patient had Louis catheter placed, and it was draining dark urine. No recent seizure-type episode. The patient did have confusion and slurred speech at times, pain in the left lower quadrant. No seizure-type episode. No abdominal distention. No leg swelling. The patient was moving all 4 limbs. No sore throat. No further history available at this time. ALLERGIES: No known drug allergy. MEDICATIONS: Lipitor 10 mg p.m., Plavix, Cymbalta, [place], Pepcid, nitroglycerin, aspirin and lisinopril. PAST MEDICAL HISTORY: Significant for coronary artery disease, hypertension, hyperlipidemia, benign prostatic hypertrophy, supraventricular tachycardia, colitis, restless legs, situational depression, diastolic heart failure. PAST SURGICAL HISTORY: Thoracic aortic aneurysm repair with graft, coronary artery bypass graft, abdominal hernia repair. FAMILY HISTORY: Significant for mother with heart disease and father with brain cancer. SOCIAL HISTORY: , lives with . Quit smoking many years ago. Denied alcohol or substance abuse. REVIEW OF SYSTEMS: As per HPI. The patient has significant confusion and disorientation, otherwise unobtainable. PHYSICAL EXAMINATION: GENERAL: Elderly white gentleman lying in the bed in mild distress. The patient is uncooperative for detailed exam. VITAL SIGNS: Blood pressure 155/108, pulse 95, respirations 30, temperature 97.5 degrees. SKIN: Senile turgor. HEAD: Atraumatic, normocephalic. EYES: Lluveras conjunctivae. Icteric sclerae. Extraocular muscle movement. The patient was uncooperative. EARS AND NOSE: Benign. NECK: Supple. No JVD, thyromegaly or lymphadenopathy. CHEST: Bibasilar crepitation. No rales. Few basal crepitations. CARDIOVASCULAR: S1 and S2 heard. No gallop or thrill. ABDOMEN: Soft, globular. Bowel sounds present. Vague tenderness left lower quadrant. No guarding or rigidity. EXTREMITIES: No cyanosis, clubbing. No acute DVT. Peripheral pulsation. The patient was uncooperative. No acute vascular compromise. CENTRAL NERVOUS SYSTEM: Alert, awake but confused. Uncooperative for detailed exam. LABORATORY DATA: Revealed leukocytosis, hemoglobin 17.2, hematocrit 50.7, platelet count was 50,000. Patient does have thrombocytopenia. His electrolytes, sodium 146 potassium 4.3, anion gap was 19, BUN 67, creatinine 1.8, suggestive of acute kidney injury. Patient's bilirubin was 14.17. Abnormal LFT. Total CPK 688. ProBNP was more than 35,000. Amylase and lipase results reviewed. Urinalysis did reveal UTI. ASSESSMENT AND PLAN: 1. The patient is acutely ill with urinary tract infection. 2. Abnormal liver enzymes suggestive of hepatitis. I am going to check hepatitis panel. Ammonia level was normal. 3. Leukocytosis. 4. Acute kidney injury. 5. History of coronary artery disease. 6. The patient's CT scan of the abdomen and pelvis results reviewed which did reveal possible cystitis, colitis, mild diffuse mesenteric edema, cardiomegaly, trace effusion at the right lung base. The patient is acutely ill. We will do septic workup, gentle hydration, IV antibiotics, give him some Lasix, Protonix. We will do nephrology and GI consult. Overall prognosis fair to guarded. Admit patient to ICU. Dr. Sheikh to see the patient from tomorrow. Overall prognosis fair to guarded. cc: Raj Garland MD MTDD
[2019-07-03] MEDS: POTASSIUM CHLORIDE 10 MEQ in NS 1,000 ML IV SCH (20:30)
[2019-07-03] MEDS: PROTONIX IV SCH (20:40)
[2019-07-03] MEDS ORDERED: VANCOMYCIN IV PER PHARMACY MISC SCH (21:15)
[2019-07-03] MEDS: ZOSYN 2.25 GM in NS 50 ML IV SCH (22:06)
[2019-07-03] MEDS: MORPHINE IV PRN (22:14)
[2019-07-03 22:58] LABS: PTT 56.8 Seconds (22.3-41.8)
[2019-07-03] MEDS ORDERED: VANCOMYCIN 1,850 MG in NS 500 ML IV ONE (23:00)
[2019-07-03 23:03] LABS: INR 4.49; PROTIME 44.2 Seconds (11.0-16.0)
[2019-07-03 23:05] LABS: URINE SOURCE CATH
[2019-07-03 23:16] LABS: BILIRUBIN URINE SMALL (NEGATIVE); BLOOD URINE MODERATE (NEGATIVE); COLOR YELLOW; GLUCOSE URINE NEGATIVE (NEGATIVE); KETONE URINE NEGATIVE (NEGATIVE); LEUKOCYTES URINE NEGATIVE (NEGATIVE); NITRITE URINE NEGATIVE (NEGATIVE); PROTEIN URINE 70 mg/dL (NEGATIVE); SP GRAVITY URINE 1.014; TURBIDITY URINE HAZY (CLEAR); UROBILINOGEN URINE 3 mg/dL (NORMAL)
[2019-07-03 23:23] LABS: UR EPITHELIAL CELLS <10 /HPF (<10); URINE BACTERIA NEGATIVE /HPF; URINE RBC <10 /HPF (<10); URINE WBC <10 /HPF (<10)
[2019-07-03 23:31] LABS: URINE CASTS NONE SEEN; URINE CRYSTALS NONE SEEN; URINE SMALL ROUND CELLS NONE SEEN; URINE YEAST PRESENT
[2019-07-04] MEDS: MORPHINE IV PRN ×6 (00:15→23:48)
[2019-07-04] MEDS: POTASSIUM CHLORIDE 10 MEQ in NS 1,000 ML IV SCH (03:40)
[2019-07-04] MEDS: ZOSYN 2.25 GM in NS 50 ML IV SCH ×4 (03:40→22:05)
[2019-07-04 06:47] LABS: BASO# 0.08 X1000 (0.0-0.2); BASO% 0.5 % (0.0-0.8); HEMATOCRIT 47.5 % (42.0-52.0); HEMOGLOBIN 16.4 g/dL (14.0-18.0); IMM GRAN# 0.34 X1000 (0.0-0.04); IMM GRAN% 2.1 % (0.0-0.5); LYMPH% 7.5 % (20.5-51.1); MCH 32.7 PG (27-31); MCHC 34.5 g/dL (33-37); MCV 94.6 FL (81-99); MONO# 1.51 X1000 (0.11-0.59); MONO% 9.5 % (1.7-9.3); NEUT# 12.82 X1000 (1.4-6.5); NEUT% 80.4 % (42.2-75.2); RBC 5.02 XMIL (4.7-6.1); WBC 15.95 X1000 (4.8-10.8)
[2019-07-04 06:53] LABS: PLT 38 X1000 (130-400)
[2019-07-04 07:04] LABS: MONO 4 % (1-9); NRBC 3 % (0-0); SEGS 94 % (42-75)
[2019-07-04 07:07] LABS: ALB/GLOB RATIO 2.4; ALBUMIN 3.3 g/dL (3.5-5.0); CALCIUM 9.2 mg/dL (8.8-10.2); MAGNESIUM 2.5 mg/dL (1.5-2.7); POTASSIUM 4.5 mmol/L (3.5-5.1); TOTAL PROTEIN 4.7 g/dL (6.3-8.3)
[2019-07-04 07:09] LABS: HEMOGLOBIN A1C 5.1 % (4.8-6.0)
[2019-07-04 07:20] LABS: TOTAL BILIRUBIN 15.57 mg/dL (0.20-1.00)
[2019-07-04 09:51] LABS: ALLEN TEST NO; BE -6.8 mmoll (-3.0-3.0); BLOOD TYPE ARTERIAL; HCO3-(ACT) 19.4 mmoll (20.0-26.0); METHB 0.5 % (0.0-1.5); O2(CT) 20.6 mL/dL (15.0-23.0); O2HB 90.5 % (95.0-99.0); PCO2(98.6) 33 mmHg (35-45); PO2(98.6) 67 mmHg (60-100); SAMPLE BLOOD; SAO2 92.9 % (95.0-100.0); THB 16.2 g/dL (11.5-17.4); pH(98.6) 7.34 (7.35-7.45)
[2019-07-04 09:53] LABS: MODALITY CANNULA
[2019-07-04] MEDS: ATIVAN IV PRN ×2 (12:14→19:42)
--- NOTE | 2019-07-04 12:51 | GASTROENTEROLOGY CONSULTATION ---
DATE: 07/04/2019 CONSULTING PHYSICIAN: Dr. Gill MD. REASON FOR CONSULTATION: Hepatic failure. HISTORY OF PRESENT ILLNESS: This is a 73-year-old white male who was brought in to the emergency room after he was found to have altered mental status. The patient is currently admitted in ICU and being treated for UTI and urosepsis. During an investigation he was found to have significantly elevated LFT, hence consult was obtained. The chart was reviewed, data was reviewed, and films reviewed which revealed the patient has multiorgan failure including acute liver failure. 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 He has altered mental status, elevated PT/INR, and significantly elevated transaminases. As far as the underlying etiology triggering multiorgan injury, it is not clear, workup is in progress. From a GI point of view, there is not much to be added except identifying the injuring agent and addressing that. The liver will improve, but looking at the data it appears the patient has a poor prognosis. I have discussed the case with Dr. See and the nurse. I will be available if needed, again from the GI point of view not much can be added except with the supportive care and identification of underlying causes and treatment of that. cc: MD Halle Gonzalez MD
--- NOTE | 2019-07-04 13:36 | NEPHROLOGY CONSULTATION ---
DATE: 07/04/2019 REASON FOR CONSULTATION: Acute kidney injury. HISTORY OF PRESENT ILLNESS: Mr. Cerna is a 73-year-old, white male, who was brought to the emergency room because he had altered mental status for the last several days. He was not able to give any history in the ER, and he is still unable to interact verbally. He really does not respond, except to noxious stimuli. His initial evaluation in the emergency room found blood pressure 155/108, with heart rate 95, respirations 30, and he was afebrile. He was markedly jaundiced on initial evaluation. CT of the abdomen with possible cystitis and possible colitis. Marked liver abnormalities with transaminitis as well as bilirubin elevation. His INR is elevated at 4.49, and he does not take Coumadin. Tylenol level was 1.4. In this context, creatinine was 1.8, with BUN 67. Chart review finds baseline creatinine ranges from 1.3 to 1. He was actually seen by us back in 2018, at which time he had acute kidney injury in the context of cardiac evaluation. PAST MEDICAL HISTORY: Coronary artery disease, hypertension, hyperlipidemia, BPH, restless legs, diastolic heart failure. HOME MEDICATION LIST: Includes atorvastatin, clopidogrel, duloxetine, hydrocodone, nitroglycerin, famotidine, aspirin, quetiapine, gabapentin, lisinopril. ALLERGIES: None. SOCIAL HISTORY: He is and lives with his . Former smoker. FAMILY HISTORY: Otherwise noncontributory. REVIEW OF SYSTEMS: Otherwise noncontributory. PHYSICAL EXAMINATION: Vital Signs: Blood pressure 161/119, heart rate 112, respirations 16, afebrile. General: He is in moderate respiratory distress with increased work of breathing, and is writhing somewhat. Skin: Jaundiced and dry. HEENT: Conjunctivae are icteric. Pupils are equal and reactive. Oropharynx is dry. Neck: Neck veins are not appreciated. Trachea is midline. Cardiovascular: Heart is difficult to hear because of sonorous respiratory tones. No crackles. Accessory muscle use is present. No retractions. Abdomen: Soft, nontender. Bowel sounds are diminished. Organomegaly is not palpable. Extremities: No edema, clubbing, or cyanosis. Neurologic: As above. He moves all extremities. IMPRESSION: Acute kidney injury overlying chronic kidney disease. This is likely secondary to his liver disease, which is so far uncharacterized. It is possible that this is hepatocellular injury, possibly from Tylenol. We do not have a history of ingestion. Will check urine electrolytes. Will treat his hypertension with intravenous nicardipine. Will follow. cc: MD Halle Cook MD
[2019-07-04] MEDS ORDERED: CARDENE 20 MG/NS 20 MG/200 ML PIGGYBACK IV SCH (14:00)
[2019-07-04 15:22] LABS: UR CREAT RANDOM 84.6 mg/dL (14-26); UR PROT RANDOM 151.5 mg/dL
[2019-07-04 18:54] LABS: URINE SOURCE CATH
[2019-07-04 19:04] LABS: BILIRUBIN URINE MODERATE (NEGATIVE); BLOOD URINE LARGE (NEGATIVE); CLARITY CLEAR (CLEAR); COLOR AMBER; GLUCOSE URINE NEGATIVE (NEGATIVE); KETONE URINE NEGATIVE (NEGATIVE); LEUKOCYTES URINE TRACE (NEGATIVE); NITRITE URINE NEGATIVE (NEGATIVE); PROTEIN URINE 100 mg/dL (NEGATIVE); SP GRAVITY URINE 1.025
[2019-07-04 19:07] LABS: URINE BACTERIA 1+ /HFP; URINE EPITHELIAL CELLS <10 /HPF (<10); URINE RBC 20-40 /HPF (<10); URINE WBC <10 /HPF (<10)
[2019-07-04 19:08] LABS: URINE CAST GRANULAR PRESENT /LPF; URINE SMALL ROUND CELLS TRANSITIONAL PRESENT
[2019-07-04] MEDS: PROTONIX IV SCH (19:42)
[2019-07-04] MEDS: LEVOPHED 8 MG in D5 1/2 NS 250 ML IV SCH (21:00)
[2019-07-04] MEDS: D5 1/2 NS 1,000 ML IV SCH ×3 (21:00→23:48)
[2019-07-04] MEDS: CLINIMIX E 4.25%-5% SOLUTION 1,000 ML IV SCH (21:40)
[2019-07-04 22:31] LABS: BLOOD TYPE ARTERIAL; SAMPLE BLOOD
[2019-07-04 22:32] LABS: ALLEN TEST YES; BE -10.6 mmoll (-3.0-3.0); HCO3-(ACT) 16.7 mmoll (20.0-26.0); METHB 0.6 % (0.0-1.5); O2(CT) 18.7 mL/dL (15.0-23.0); O2HB 97.2 % (95.0-99.0); PCO2(98.6) 32 mmHg (35-45); PO2(98.6) 438 mmHg (60-100); SAO2 99.8 % (95.0-100.0); SRATE 18 BPM; THB 12.8 g/dL (11.5-17.4); TVOL 650 mL; pH(98.6) 7.28 (7.35-7.45)
[2019-07-04 22:34] LABS: MODALITY VENTILATOR
--- NOTE | 2019-07-04 22:36 | PULMONOLOGY CONSULTATION ---
DATE: 07/04/2019 REQUESTING CLINICIAN: Halle See MD REASON FOR CONSULTATION: Respiratory failure. HISTORY OF PRESENT ILLNESS: Mr. Cerna is a 73-year-old white male with multiple medical problems outlined below who was brought to the to the emergency room by EMS after family reported he had altered mental status for 4 days. He had not been eating or drinking. He was overtly jaundiced upon presentation. PAST MEDICAL HISTORY: 1. Coronary artery disease status post myocardial infarction and bypass grafting. 2. Chronic obstructive pulmonary disease with ongoing tobacco use. 3. Hypertension. 4. Dyslipidemia. 5. Peripheral vascular disease. 6. Chronic kidney disease. 7. History of congestive heart failure. 8. History of SVT. 9. Alcohol abuse. 10. Chronic pain syndrome. 11. Recurrent Escherichia coli urinary tract infection. SOCIAL HISTORY: The patient lives with his . Alcohol and tobacco use noted, but current amount, frequency or cessation not known. REVIEW OF SYSTEMS: Cannot be obtained. PHYSICAL EXAM: General: Upon my presentation room patient was completely unresponsive. His blood pressure was dropping. He had markedly increased work of breathing. He was semi urgently intubated. No drugs were required for sedation. He had a large amount of dried mucus above the vocal cords which could not be suctioned clear and had to be had to be removed with a Sera forceps. There was minor bleeding associated with removal. The patient was intubated with a 7.5 endotracheal tube and secured in position at 24 cm at the lip. Chest x-ray is pending. Vital Signs: Blood pressure 84/55, heart rate 103, respiratory rate 23, oxygen saturation currently not trending. HEENT: Eyes are anicteric, but pupils are equal. Oropharynx appears dry with intubation in place. Neck: Supple. Chest: Reveals coarse rhonchi bilaterally. Cardiac Exam: S1-S2. Abdomen: Soft. Extremities: Cool to the touch. LABORATORIES: White blood count 15.95, hemoglobin 16.4, platelet count 38,000. Sodium 149, potassium 4.5, chloride 107, bicarb 21, BUN 76, creatinine 2.0, glucose 67, bilirubin 15.5, AST 970, ALT 1198, albumin 3.3. IMPRESSION: A 73-year-old with: 1. Acute hypoxemic respiratory failure. 2. Acute liver failure. 3. Acute renal failure. 4. Hypotension. 5. Urinary tract infection. PLAN: 1. Intubation and initiation of mechanical ventilation. 2. Fluid bolus. 3. Continue current antibiotic regimen pending results of culture data. 4. Continue Ativan and morphine for sedation. 5. Prognosis is guarded to poor given multiorgan dysfunction. TIME SPENT: Time spent in critical care management 1 hour and 50 minutes. cc: MD Halle Clark MD [facility] CENTERNavdeep
[2019-07-04] MEDS: DUONEB (A & A) INH SCH (23:30)
[2019-07-05] MEDS: CLINIMIX E 4.25%-5% SOLUTION 1,000 ML IV SCH ×3 (00:54→18:12)
[2019-07-05] MEDS: DUONEB (A & A) INH SCH ×6 (03:00→23:30)
[2019-07-05] MEDS: ZOSYN 2.25 GM in NS 50 ML IV SCH ×5 (03:17→22:01)
[2019-07-05] MEDS: ATIVAN IV PRN (03:17)
[2019-07-05] MEDS: MORPHINE IV PRN ×2 (04:00→11:36)
--- NOTE | 2019-07-05 04:13 | PROGRESS NOTE ---
DATE: 07/04/2019 SUBJECTIVE: The patient is not able to communicate and has been somewhat agitated. He is awake but is disoriented and cannot answer my questions. OBJECTIVE: Vital Signs: Temperature 98.2 degrees, pulse 106 per minute, respiratory rate 18 per minute, blood pressure 153/103, pulse oximetry 99 percent with 6 L of oxygen via nasal cannula. General: The patient is awake but disoriented. He appears to be somewhat agitated at times but is not in any acute distress otherwise. Cardiovascular System: First and second heart sounds are audible, with regular tachycardia. Respiratory System: Bilateral lung air entry is slightly decreased but there are no rales or rhonchi present on auscultation. Gastrointestinal System: Abdomen is soft, nondistended. It is nontender on palpation and normal bowel sounds are present. Diagnostic Data: CBC shows WBC count of 15.95, with 80.4% neutrophils. Hemoglobin and hematocrit are within normal limits and platelet counts are 38,000. In comparison, his platelet count was 50,000 yesterday. Comprehensive metabolic panel shows bilirubin of 15.57, AST 970, ALT 1198, and alkaline phosphatase 202. BUN level is 76 and creatinine level is 2.2. Sodium level of 149. The rest of the comprehensive metabolic panel is nondiagnostic. Plasma lactate levels are found to be 5.4. Arterial blood gas obtained showed a pH of 7.34, pCO2 of 33, and PO2 of 67 44 % of oxygen. PT, PTT, and INR were found to be elevated yesterday with PT of 44.2, INR of 4.4, and PTT 56.8. Urinalysis showed 10 to 20 white blood cells per high-power field and 10 to 20 red blood cells per high-power field, with moderate improvement. Acetaminophen levels done this morning were found to be low at 1.4. CT of the abdomen and pelvis without contrast yesterday showed bladder wall thickening with stranding around the urinary bladder. Subtle sigmoid colonic wall thickening was also noted. Furthermore, there was trace of effusion at the right lung base. IMPRESSION: 1. Altered mental status with urinary tract infection and colitis causing sepsis. 2. Acute hepatitis with elevated PT/INR/PTT and multiple comorbidities including acute kidney injury, thrombocytopenia, leukocytosis and metabolic acidosis secondary to sepsis. PLAN: The patient has been admitted to the intensive care unit and has already been screened for Covid 19. Specimen has been sent for testing and it is my understanding, it is going to take several days before we get the results. Meanwhile, the patient will be kept in isolation and we will be given empiric antibiotics including vancomycin and Zosyn intravenously. We will continue supportive care including IV fluids and give him lorazepam on an as-needed basis for agitation. We will also give him morphine sulfate on an as-needed basis for pain and give him ondansetron on an as-needed basis for nausea and vomiting. We have initiated him on pantoprazole intravenously for peptic ulcer disease protection. Overall, his condition is critical and the next 24 to 48 hours will determine if he is getting any better in response to these measures. cc: Halle See MD MTDD
[2019-07-05 05:07] LABS: ALLEN TEST YES; BE -11.1 mmoll (-3.0-3.0); BLOOD TYPE ARTERIAL; HCO3-(ACT) 16.2 mmoll (20.0-26.0); METHB 0.8 % (0.0-1.5); O2(CT) 18.3 mL/dL (15.0-23.0); O2HB 96.3 % (95.0-99.0); PCO2(98.6) 27 mmHg (35-45); PO2(98.6) 155 mmHg (60-100); SAMPLE BLOOD; SAO2 98.6 % (95.0-100.0); SRATE 18 BPM; THB 13.3 g/dL (11.5-17.4); TVOL 650 mL; pH(98.6) 7.31 (7.35-7.45)
[2019-07-05 05:09] LABS: MODALITY VENTILATOR
[2019-07-05 05:38] LABS: BASO# 0.06 X1000 (0.0-0.2); BASO% 0.2 % (0.0-0.8); HEMATOCRIT 39.1 % (42.0-52.0); HEMOGLOBIN 13.1 g/dL (14.0-18.0); IMM GRAN# 0.23 X1000 (0.0-0.04); IMM GRAN% 0.8 % (0.0-0.5); LYMPH# 3.04 X1000 (1.2-3.4); LYMPH% 10.7 % (20.5-51.1); MCH 32.4 PG (27-31); MCHC 33.5 g/dL (33-37); MCV 96.8 FL (81-99); MONO# 2.03 X1000 (0.11-0.59); MONO% 7.2 % (1.7-9.3); NEUT# 23.01 X1000 (1.4-6.5); NEUT% 81.1 % (42.2-75.2); RBC 4.04 XMIL (4.7-6.1); RDW 19.1 % (11.5-14.5); WBC 28.37 X1000 (4.8-10.8)
[2019-07-05 05:42] LABS: PLT 31 X1000 (130-400)
[2019-07-05 05:51] LABS: ALB/GLOB RATIO 2.3; ALBUMIN 2.1 g/dL (3.5-5.0); CALCIUM 7.5 mg/dL (8.8-10.2); CREATININE 3.3 mg/dL (0.7-1.2); MAGNESIUM 2.2 mg/dL (1.5-2.7); PHOSPHORUS 4.9 mg/dL (2.7-4.5); POTASSIUM 4.9 mmol/L (3.5-5.1); TOTAL BILIRUBIN 14.23 mg/dL (0.20-1.00)
[2019-07-05 06:19] LABS: FREE T4 2.66 ng/dL (0.93-1.70)
--- NOTE | 2019-07-05 07:09 | Diag Imaging Result Doc PS360 ---
EXAM: CHEST-1 VIEW 07/04/2019 HISTORY: intubation TECHNIQUE: AP portable at 2213 COMMENT: There is an endotracheal tube with its tip at the thoracic inlet. There is cardiomegaly. The patient is rotated to the right. There is some haziness over the right hemidiaphragm which may be indicative of pulmonary edema. There was also some interstitial pulmonary edema on 07/03/2019. IMPRESSION: Cardiomegaly and mild pulmonary edema. Electronically signed by Emerson Kendrick 07/05/2019 7:06 AM
--- NOTE | 2019-07-05 07:15 | Diag Imaging Result Doc PS360 ---
EXAM: CHEST-PORTABLE 07/05/2019 HISTORY: respiratory failure TECHNIQUE: AP portable at 0530 COMMENT: There is an endotracheal tube with its tip at the thoracic inlet. There is ill-defined opacity over the right base. Some clearing of the left base has occurred since the previous study of 07/04/2019. IMPRESSION: Slightly improved pulmonary edema. Electronically signed by Emerson Kendrick 07/05/2019 7:13 AM
--- NOTE | 2019-07-05 11:09 | GASTROENTEROLOGY PROGRESS NOTE ---
DATE: 07/05/2019 Chart reviewed. Data reviewed. It appears the patient is in critical condition. He is currently being treated for urosepsis and has multiorgan injury including liver. He appears to have acute liver failure, maybe fulminant liver disease. He has elevated PT, INR, and he has altered mental status as well. From a GI point of view, it appears that his synthetic function of the liver is deteriorating and he is in critical condition. Not much to be added except treatment that has been instituted, that is antibiotics to take care of the urosepsis, and supportive care. No acute GI intervention needed. cc: MD Halle Gonzalez MD
[2019-07-05 11:36] LABS: HEPATITIS PROFILE ACUTE SEE COMMENTS
[2019-07-05] MEDS ORDERED: GAMUNEX-C 10% IV ONE (12:00)
[2019-07-05] MEDS ORDERED: OFIRMEV 1000 MG/ISOTONIC SOLN 1,000 MG/100 ML BOTTLE IV PRN (12:05)
[2019-07-05] MEDS: OFIRMEV 1000 MG/ISOTONIC SOLN 1,000 MG/100 ML BOTTLE IV PRN (12:10)
[2019-07-05] MEDS ORDERED: NS 1,000 ML IV ONE ×2 (12:15→13:16)
[2019-07-05] MEDS ORDERED: NS 500 ML IV ONE (12:17)
[2019-07-05] MEDS ORDERED: DILUENT IV ONE (12:30)
[2019-07-05] MEDS ORDERED: GAMUNEX C IV ONE (12:30)
--- NOTE | 2019-07-05 13:39 | PROGRESS NOTE ---
DATE: 07/05/2019 SUBJECTIVE: Patient has been intubated since yesterday and has not been able to communicate. OBJECTIVE: Vital Signs: Temperature 99.6 degrees Fahrenheit, pulse rate 107 per minute, respiratory rate 28 per minute, blood pressure 132/65, pulse ox 100 percent. Lungs: Bilateral lung air entry is slightly decreased but there are no rales or rhonchi present on auscultation. Cardiovascular System: First and second heart sounds are audible without any murmurs. Gastrointestinal System: Abdomen is soft and looks benign on palpation and auscultation. DIAGNOSTIC DATA: CBC shows WBC count of 28.37, hemoglobin 13.1, hematocrit 39.1, and platelet count of 31,000. Neutrophils are 81.1%. Chemistry shows BUN of 109, creatinine 3.3, calcium 7.5, phosphorus 4.9, total bilirubin 14.23, AST 80, ALT 1397, alkaline phosphatase 125. Total protein 3.0 and albumin levels of 2.1. B12 and folate levels were normal and ABG obtained this morning on 50% of oxygen showed pH of 7.31, pCO2 27, and PO2 of 155 with lactate levels of 5.8. Hepatitis profile for hepatitis A, B and C were negative and IgG and IgM levels were found to be low. Chest x-ray obtained this morning showed slightly improved pulmonary edema and ill-defined opacity over the right base, but no other infiltrates seen. IMPRESSION: 1. Acute hypoxemic respiratory failure with altered mental status and urinary tract infection along with colitis with sepsis. 2. Acute hepatitis with fulminant liver failure, acute kidney injury, thrombocytopenia, leukocytosis and metabolic acidosis secondary to sepsis with suspected Coronavirus Disease 2019 infection. PLAN: The patient will remain in the intensive care unit since he has already been intubated. We are going to wait for the Covid 19 testing and would continue with broad- spectrum antibiotics including intravenous vancomycin along with Zosyn. Dr. Bedoya from the critical care and pulmonology service is following the case. We have obtained a consultation with Dr. Christina from the gastroenterology service as well, who has recommended to continue with current management. The patient will continue with the IV fluids along with supportive care including immunoglobulins intravenously. We are also going to transfuse him platelets on as needed basis and we will continue with pantoprazole intravenously for peptic ulcer disease protection. Overall, his condition remains critical and I discussed that with his son, Edward Cerna, earlier this morning, who voiced understanding. TIME SPENT: 37 minutes of critical care time. cc: MD KANA Blake
--- NOTE | 2019-07-05 14:25 | NEPHROLOGY PROGRESS NOTE ---
DATE: 07/05/2019 SUBJECTIVE: He is now on the ventilator. OBJECTIVE: Vital Signs: Blood pressure 119/84, heart rate 115, respiration 29, temperature 101.6 degrees. General: He is unresponsive on the ventilator. Skin: Warm and dry, actually cool in the extremities but there is less mottling today. HEENT: Conjunctivae are pink. Neck: Neck veins are not visible. Heart: Regular and tachycardic. Lungs: Equal with decreased air movement and crackles. Abdomen: Soft. Decreased bowel sounds. Extremities: No edema. IMPRESSION: Acute kidney injury in the context of acute liver injury as well. Pattern most consistent with acute tubular necrosis. He does have blood and protein on his dipstick urine and high urine protein to creatinine ratio with low FENa. He is receiving a bolus of intravenous fluids and continues on norepinephrine. He is at high risk for requiring renal replacement therapy. Significant lactic acidosis. cc: MD Halle Cook MD
--- NOTE | 2019-07-05 14:31 | Diag Imaging Result Doc PS360 ---
CHEST-PORTABLE - 07/05/2019 INDICATION: central line placement COMPARISON: 5:30 AM FINDINGS: There is a new subclavian left central line in good position with the catheter tip at the upper SVC. Stable endotracheal tube in good position. Stable cardiomegaly. There has been improvement in the faint atelectasis in the right lung base. No new infiltrates. Stable significant cardiomegaly and pulmonary vascular congestion. IMPRESSION: Good left central line placement. Improved aeration of the right lung base. Electronically signed by Heraclio Field 07/05/2019 2:29 PM
--- NOTE | 2019-07-05 15:29 | OPERATIVE NOTE ---
PROCEDURE DATE: 07/05/2019 PROCEDURE PERFORMED: Left subclavian line placement. CLINICAL INDICATIONS: Critically ill patient with hypotension and shock in need of central venous access. PROCEDURE: The left subclavian site was prepped and draped in the usual sterile fashion. The patient was placed in Trendelenburg position. The left subclavian vein was identified with the 1st pass of the introducer needle. Wire was easily passed through the introducer. Site was dilated with the plastic dilator. A triple-lumen catheter was advanced over the wire and sutured into position. There was good blood return from all 3 ports. A post-procedure chest x-ray revealed no evidence of pneumothorax. Good line position. cc: MD Halle Clark MD
[2019-07-05] MEDS: LEVOPHED 8 MG in D5 1/2 NS 250 ML IV SCH (16:13)
--- NOTE | 2019-07-05 19:14 | PULMONOLOGY PROGRESS NOTE ---
DATE: 07/05/2019 SUBJECTIVE: The patient remains poorly responsive. Vital signs: Maximum temperature in last 24 hours is 102.5 degrees, blood pressure 120/69, respiratory rate 25, heart rate 100, oxygen saturation 100%. HEENT: Pupils are equal. Sclera are icteric. Oropharynx appears dry. Neck: Supple. Chest: Reveals rhonchi bilaterally. Cardiac exam: S1-S2. Abdomen: Soft with decreased bowel sounds. Extremities: Are cool to the touch. LABORATORIES: White blood count 14548, hemoglobin 13.1, platelet count 31,000. Sodium 146, potassium 4.9, chloride 112, bicarbonate 22, BUN 109, creatinine 3.3. Chest x-ray reveals better aeration of the right lung base. Microbiology is growing Escherichia coli from the urine which is ESBL negative. IMPRESSION: 73-year-old with 1. Acute hypoxemic respiratory failure. 2. Acute liver failure. 3. Acute renal failure. 4. Hypotension. 5. Urinary tract infection. PLAN: 1. Continue mechanical ventilation. 2. Additional fluid bolus this morning. 3. Continue current antibiotic regimen. 4. Continue gastric acid suppression. 5. A central line was placed in the left subclavian prior to this dictated note. Time spent in critical care management including central line placement is 1 hour and 50 minutes. cc: MD Halle Clark MD
[2019-07-05] MEDS: PROTONIX IV SCH (19:44)
[2019-07-06] MEDS: MORPHINE IV PRN ×3 (00:07→12:42)
[2019-07-06] MEDS: CLINIMIX E 4.25%-5% SOLUTION 1,000 ML IV SCH ×2 (03:29→16:04)
[2019-07-06] MEDS: ZOSYN 2.25 GM in NS 50 ML IV SCH ×4 (03:31→23:13)
[2019-07-06] MEDS: DUONEB (A & A) INH SCH ×6 (03:48→23:55)
[2019-07-06 04:34] LABS: ALLEN TEST YES; BE -9.9 mmoll (-3.0-3.0); BLOOD TYPE ARTERIAL; HCO3-(ACT) 17.2 mmoll (20.0-26.0); METHB 0.9 % (0.0-1.5); O2(CT) 17.3 mL/dL (15.0-23.0); O2HB 96.3 % (95.0-99.0); PCO2(98.6) 30 mmHg (35-45); PO2(98.6) 170 mmHg (60-100); SAMPLE BLOOD; SAO2 98.8 % (95.0-100.0); SRATE 18 BPM; THB 12.5 g/dL (11.5-17.4); TVOL 700 mL; pH(98.6) 7.31 (7.35-7.45)
[2019-07-06 04:35] LABS: MODALITY VENTILATOR
[2019-07-06] MEDS ORDERED: CARDIZEM IV ONE (05:41)
[2019-07-06] MEDS ORDERED: CARDIZEM 100 MG/NS 100 MG/100 ML IVPB ONE (05:51)
[2019-07-06] MEDS: CARDIZEM 100 MG/NS 100 MG/100 ML IVPB IV SCH ×2 (05:55→09:34)
[2019-07-06] MEDS: ATIVAN IV PRN (06:04)
--- NOTE | 2019-07-06 06:32 | Diag Imaging Result Doc PS360 ---
EXAM: CHEST-PORTABLE HISTORY: respiratory failure TECHNIQUE: Single view COMPARISON: 07/05/2019 FINDINGS: No change in the endotracheal tube or left subclavian line. The heart is mildly enlarged and there are sternal wires. Mild vascular distention. There appear to be infiltrates in the lower right lung. No pleural effusions identified. IMPRESSION: Mild interval worsening Electronically signed by Jermaine Lambert 07/06/2019 6:29 AM
[2019-07-06 06:51] LABS: BASO# 0.02 X1000 (0.0-0.2); BASO% 0.1 % (0.0-0.8); HEMATOCRIT 35.2 % (42.0-52.0); HEMOGLOBIN 11.8 g/dL (14.0-18.0); IMM GRAN# 0.11 X1000 (0.0-0.04); IMM GRAN% 0.5 % (0.0-0.5); LYMPH# 1.27 X1000 (1.2-3.4); LYMPH% 5.9 % (20.5-51.1); MCHC 33.5 g/dL (33-37); MCV 95.4 FL (81-99); MONO# 1.19 X1000 (0.11-0.59); MONO% 5.6 % (1.7-9.3); NEUT# 18.84 X1000 (1.4-6.5); NEUT% 87.9 % (42.2-75.2); PLT 59 X1000 (130-400); RBC 3.69 XMIL (4.7-6.1); RDW 19.5 % (11.5-14.5); WBC 21.43 X1000 (4.8-10.8)
[2019-07-06 07:24] LABS: LYMPHS 5 % (21-51); MONO 7 % (1-9); NRBC 6 % (0-0); SEGS 88 % (42-75)
[2019-07-06 07:26] LABS: ALB/GLOB RATIO 1.1; ALBUMIN 1.9 g/dL (3.5-5.0); CALCIUM 7.2 mg/dL (8.8-10.2); CREATININE 3.7 mg/dL (0.7-1.2); POTASSIUM 5.1 mmol/L (3.5-5.1); TOTAL BILIRUBIN 12.07 mg/dL (0.20-1.00); TOTAL PROTEIN 3.6 g/dL (6.3-8.3)
--- NOTE | 2019-07-06 10:08 | EKG Report ---
Test Performed on : 07/06/2019 00:59:08 AM Test Reason : CCU. No order in [place] Blood Pressure : / mmHG Vent. Rate : 108 BPM Atrial Rate : 174 BPM P-R Int : 160 ms QRS Dur : 104 ms QT Int : 402 ms P-R-T Axes : 046 017 066 degrees QTc Int : 538 ms Sinus tachycardia. with occasional premature ventricular complexes. and premature atrial complexes. Possible Left atrial enlargement Nonspecific T wave abnormality Prolonged QT Abnormal ECG When compared with ECG of 03-JUL-2019 14:31, (Unconfirmed) Criteria for Inferior infarct are no longer present T wave inversion now evident in Anterior leads QT has lengthened Confirmed by Dmitriy Robledo MD ([id number]) on 07/07/2019 5:24:26 PM
--- NOTE | 2019-07-06 10:09 | EKG Report ---
Test Performed on : 07/06/2019 05:41:16 AM Test Reason : HR 150'S Blood Pressure : / mmHG Vent. Rate : 156 BPM Atrial Rate : 153 BPM P-R Int : 000 ms QRS Dur : 114 ms QT Int : 328 ms P-R-T Axes : 000 006 200 degrees QTc Int : 528 ms Supraventricular tachycardia. vs. atrial flutter with RVR Inferior-posterior infarct , possibly acute Marked ST abnormality, possible lateral subendocardial injury ACUTE SD / STEMI Consider right ventricular involvement in acute inferior infarct Abnormal ECG When compared with ECG of 06-JUL-2019 00:59, (Unconfirmed) premature ventricular complexes. are no longer present ST more depressed in Anterior leads T wave inversion now evident in Inferior leads T wave inversion more evident in Anterolateral leads Confirmed by Dmitriy Robledo MD ([id number]) on 07/07/2019 5:27:01 PM
[2019-07-06] MEDS ORDERED: VANCOMYCIN 1,500 MG in NS 250 ML IV SCH (12:00)
[2019-07-06 12:26] LABS: UR CREAT RANDOM 49.1 mg/dL (14-26); UR SODIUM < 10 mmoll
--- NOTE | 2019-07-06 13:20 | PULMONOLOGY PROGRESS NOTE ---
DATE: 07/06/2019 SUBJECTIVE: Mr. Cerna does not respond today. He continues on a ventilator. OBJECTIVE: Vital Signs: Blood pressure is 124/76, heart rate of 88, respirations are 20, temperature 98.4 degrees, with O2 saturation saturations that are 100% on 50% FiO2. HEENT: Pupils are equal, round, react to light. Sclerae are icteric. Mucous membranes are dry. Neck: Supple with trachea midline. Cardiovascular: Regular rate and rhythm. S1 and S2 are appreciated. Pulmonary: Breath sounds reveal rhonchi scattered throughout. A little expiratory wheeze noted on the left. Chest rises and falls symmetrically with respiration. Gastrointestinal: Abdomen is soft with hypoactive bowel sounds throughout. He is nondistended. Extremities: With no edema. LABS: WBC is 21.4 with hemoglobin 11.8, hematocrit 35.2, platelets of 59. Sodium 142, potassium 5.1, BUN 141, creatinine 3.7 with a glucose of 119. Total bilirubin is 12 with AST of 1227, ALT of 1249. Urine culture reveals Escherichia coli. IMPRESSION: This is a 73-year-old gentleman with: 1. Acute hypoxemic respiratory failure. 2. Acute liver failure. 3. Acute renal failure. 4. Hypotension. 5. Escherichia coli urinary tract infection. PLAN: 1. Continue with mechanical ventilation. 2. Continue antibiotics of vancomycin and Zosyn. 3. Continue Protonix for GI prophylaxis. Dictated by BRIAN Garcia for Levi Bedoya MD Case was discussed with Ingris Givens. Time spent in critical care management: 35 minutes cc: BRIAN Garcia MD Adnan A. Seljuki, MD [facility]
[2019-07-06] MEDS ORDERED: CALCIUM GLUCONATE 1 GM in NS 50 ML IV ONE (13:45)
--- NOTE | 2019-07-06 14:07 | PROGRESS NOTE ---
DATE: 07/06/2019 SUBJECTIVE: Patient is unable to communicate since he is intubated. He does not appear to be in any acute distress. He did have an episode of atrial flutter with rapid ventricular rate at which time he was started on diltiazem IV. He has been doing relatively better and stable since then. OBJECTIVE: Vital Signs: Temperature 98.4 degrees, pulse 88 per minute, respiratory rate 24 per minute, blood pressure 124/76, pulse oximetry 100% on 50% oxygen. Respiratory System: Bilateral lung air entry is slightly decreased but there are no rales or rhonchi present on auscultation. Cardiovascular System: First and second heart sounds are audible without any murmurs. Slight irregularity of rhythm is noted. Gastrointestinal System: Abdomen is soft and nontender on palpation. Normal bowel sounds are present. DIAGNOSTIC DATA: CBC shows WBC count of 21.43 with 87.9% neutrophils. In comparison, his WBC count was 28.37 yesterday. Comprehensive metabolic panel shows BUN of 141 and creatinine 3.7. In comparison his BUN was 109 and creatinine 3.3 yesterday. AST is elevated at 1227 and ALT at 1249. In comparison, his AST was 1880 and ALT 1397 yesterday. Total bilirubin is 12.07 today. In comparison, his total bilirubin was 14.23 yesterday. Albumin is down from 2.1 yesterday to 1.9 today. ABG done this morning showed a pH of 7.31, pCO2 30, and PO2 170 on 50% of oxygen with lactate levels down from 5.80 yesterday to 2.70 today. Novel Coronavirus PCR testing was also found to be negative. ECG done this morning at 5:41 AM showed supraventricular rhythm that is underlying atrial flutter with rapid ventricular response of 156 beats per minute. Chest x-ray done this morning showed slight right lung base infiltrate with mild interval worsening. IMPRESSION: Acute hypoxemic respiratory failure with altered mental status, urinary tract infection and colitis, along with sepsis causing acute hepatitis with possible fulminant liver failure, acute kidney injury, thrombocytopenia, leukocytosis, and metabolic acidosis. He also has atrial flutter, initially with rapid ventricular response, but now with controlled rate. PLAN: The patient has been in intensive care unit and has been already intubated. We will continue with respiratory support as per Pulmonology and Critical Care Medicine. He will continue with broad-spectrum antibiotics including IV vancomycin and Zosyn. He had an episode of atrial flutter with rapid ventricular response after which he was started on diltiazem. Currently, his heart rhythm remains irregular and he is on Levophed because of hypotension, although that is being weaned off. He is still getting diltiazem 10 mg IV per hour for his rate control and currently his ventricular response has been within desired range. I am going to obtain Cardiology consultation to further assist us in controlling his atrial flutter. Otherwise, his renal function has worsened, although his transaminasemia seems to be getting better. He has received IVIG along with platelet transfusion yesterday. His platelet count has improved but we will see if that will remain there tomorrow. He is currently followed by Nephrology as well and we will continue to monitor his renal function under Nephrology guidance. He will also continue with IV pantoprazole and generalized supportive care. Further care will be provided as per hospital course. cc: Halle See MD MTDD
--- NOTE | 2019-07-06 14:51 | NEPHROLOGY PROGRESS NOTE ---
DATE: 07/06/2019 SUBJECTIVE: He remains unresponsive on the ventilator. OBJECTIVE: Vital Signs: Blood pressure 102/72 on Levophed, heart rate 85, respiration 23, afebrile, T-max. 100.6 degrees. General: Unresponsive. Skin: Cool and dry, minimal cyanosis. HEENT: Conjunctivae are pink. Neck: Neck veins are questionable. Heart: Regular. No gallops. Lungs: Equal. A few scattered crackles. Abdomen: Soft. Decreased bowel sounds. No organomegaly. Extremities: 1+ edema. No clubbing or cyanosis. IMPRESSION: Acute kidney injury. Moderate metabolic acidosis and a BUN 141. I will discuss potential renal replacement therapy with his . Most likely etiology of his renal disease is acute tubular necrosis from ischemia. He is not currently receiving intravenous fluids though he has received multiple boluses in the last 24 hours. Acid-base status is acceptable but if intravenous fluids are needed will use bicarb drip. cc: MD Halle Cook MD
--- NOTE | 2019-07-06 15:38 | CONSULTATION ---
DATE OF CONSULTATION: 07/06/2019 IMPRESSION: 1. Atrial flutter with rapid ventricular rate occurring in setting of acute severe noncardiac illness with multi organ failure. 2. Acute hypoxemic respiratory failure. 3. Acute hepatic failure. 4. Acute renal failure. 5. Marked coagulopathy and thrombocytopenia. Consider possible DIC. 6. Severe atherosclerotic coronary disease. 7. Chronic obstructive pulmonary disease. 8. Hypertension. 9. Hyperlipidemia. 10. Chronic kidney disease. 11. Urinary tract infection with Escherichia coli. Blood cultures negative. RECOMMENDATIONS: 1. Echocardiography. 2. Continue intravenous diltiazem drip as needed for rate control. Will provide IV metoprolol to be used on an as needed basis. 3. Recheck coag studies as well as D-dimer and fibrinogen level. 4. For now will manage conservatively with rate control. HISTORY: This is a 73-year-old white male with severe coronary disease, COPD, hypertension, hyperlipidemia, chronic kidney disease, and peripheral vascular disease who was admitted with acute hypoxemic respiratory failure after he had altered mental status for several days. He has been found to have multi-system failure and is on a ventilator. Early this morning, he developed atrial flutter with rapid ventricular rate and intravenous diltiazem was initiated. He is unresponsive. He has history of severe coronary disease including previous coronary bypass grafting. Last cardiac catheterization study in August 2018 demonstrated severe 3 vessel coronary atherosclerosis and patent left internal mammary artery graft to left anterior descending coronary with other bypass conduits occluded. PAST MEDICAL HISTORY: 1. Atherosclerotic coronary disease with previous coronary bypass grafting. 2. Hypertensive cardiovascular disease. 3. Chronic kidney disease. 4. Chronic obstructive pulmonary disease. 5. Hyperlipidemia. 6. Peripheral vascular disease. 7. Supraventricular tachycardia in the past. PAST SURGICAL HISTORY: 1. Previous femoral popliteal bypass and coronary bypass surgery. 2. Patient status post thoracic aortic aneurysm repair as well as abdominal hernia repair. ALLERGIES: He has no known drug allergies. MEDICATIONS PRIOR TO ADMISSION: As listed. SOCIAL HISTORY: He is and lives with his . He quit smoking around 25 years ago. He is . He does not currently use alcohol. FAMILY HISTORY: Positive for coronary disease. REVIEW OF SYSTEMS: Not obtainable given patient's condition. PHYSICAL EXAMINATION: General: A chronically ill-appearing, older white male who appears jaundiced and is on ventilator. He is unresponsive. Vital signs: Blood pressure 102/72, heart rate 85, with ECG monitor showing atrial flutter with controlled rate. Oxygen saturation 100% on ventilator. HEENT: Extraocular movements appear intact. Mucous membranes are moist. Neck: Supple without discernible jugular venous distention. Chest: Auscultation of the chest reveals coarse breath sounds bilaterally. Cardiac: Irregular rate and rhythm without appreciable murmur or gallop. Abdomen: Soft. Bowel sounds audible. Extremities: Demonstrate mild edema. LABORATORY DATA: Includes a white blood cell count of 21.43, hematocrit 35.2, hemoglobin 11.8, platelet count 59,000. Sodium 142, potassium 5.1, chloride 110, carbon dioxide 14, creatinine 3.7, BUN 141, glucose 119. AST 1227, ALT 1149, bilirubin 12.07. Albumin 1.9. PERTINENT DATA: A 12-lead EKG obtained on admission demonstrates sinus rhythm with frequent ventricular ectopy, left ventricular hypertrophy and repolarization abnormality and old inferior infarct. A 12-lead electrocardiogram from 5:50 a.m. today demonstrates atrial flutter with ventricular rate response of 156 beats per minute and 2 to 1 AV conduction. Inferior infarct, old and ST-T wave abnormality, consider ischemia or rate related changes. cc: MD Halle Molina MD
--- NOTE | 2019-07-06 16:45 | OPERATIVE NOTE ---
PROCEDURE DATE: 07/06/2019 PREOPERATIVE DIAGNOSIS: Acute kidney injury requiring hemodialysis. POSTOPERATIVE DIAGNOSIS: Acute kidney injury requiring hemodialysis. PROCEDURE: Ultrasound-guided right common femoral vein Vas-Cath placement. SURGEON: Marco Stewart MD. BAG PRESSER: None. ANESTHESIA: Local administered by the surgeon. FINDINGS: Good caliber common femoral vein, calcified femoral artery. COMPLICATIONS: None at time of dictation. ESTIMATED BLOOD LOSS: 10 mL. SPECIMENS REMOVED: None. BRIEF HISTORY: A 73-year-old gentleman who came in unresponsive. He has been in the hospital for several days and his kidney function is not improved. He was Coronavirus negative x2. [place] he would benefit from a Vas-Cath. The risks, benefits, and alternatives of procedure were discussed with the family. All questions answered. DESCRIPTION OF PROCEDURE: After informed consent was obtained, patient remained in his ICU bed, critical on the ventilator. His right groin was prepped and draped in a sterile fashion. After a time-out we turned our attention the right groin, used the ultrasound to identify the common femoral vein. I was able to cannulate the right common femoral vein on the 1 pass. I passed a wire. I was able to serially dilate up the tract in typical Seldinger technique to place the tip of the catheter in the vena cava. All ports aspirated and flushed easily. We secured it in place and placed sterile dressing. Patient tolerated the procedure well. cc: MD Halle Rodriguez MD
[2019-07-06] MEDS: PROTONIX IV SCH (20:29)
[2019-07-06] MEDS: ALBUMIN 25% IV SCH (23:13)
[2019-07-07] MEDS: CLINIMIX E 4.25%-5% SOLUTION 1,000 ML IV SCH ×3 (00:45→20:25)
[2019-07-07] MEDS: CARDIZEM 100 MG/NS 100 MG/100 ML IVPB IV SCH ×2 (00:50→22:50)
[2019-07-07] MEDS: DUONEB (A & A) INH SCH ×5 (03:35→19:50)
[2019-07-07 04:56] LABS: ALLEN TEST YES; BE -10.4 mmoll (-3.0-3.0); BLOOD TYPE ARTERIAL; HCO3-(ACT) 16.8 mmoll (20.0-26.0); METHB 0.5 % (0.0-1.5); O2(CT) 14.7 mL/dL (15.0-23.0); O2HB 96.6 % (95.0-99.0); PCO2(98.6) 29 mmHg (35-45); PO2(98.6) 113 mmHg (60-100); SAMPLE BLOOD; SRATE 18 BPM; THB 10.7 g/dL (11.5-17.4); TVOL 700 mL; pH(98.6) 7.31 (7.35-7.45)
[2019-07-07 04:57] LABS: MODALITY VENTILATOR
[2019-07-07] MEDS: ZOSYN 2.25 GM in NS 50 ML IV SCH ×4 (04:58→22:50)
[2019-07-07] MEDS: ALBUMIN 25% IV SCH ×2 (04:58→13:35)
[2019-07-07 07:01] LABS: BASO# 0.01 X1000 (0.0-0.2); BASO% 0.1 % (0.0-0.8); HEMATOCRIT 30.9 % (42.0-52.0); HEMOGLOBIN 10.5 g/dL (14.0-18.0); IMM GRAN# 0.13 X1000 (0.0-0.04); IMM GRAN% 0.7 % (0.0-0.5); LYMPH# 0.64 X1000 (1.2-3.4); LYMPH% 3.2 % (20.5-51.1); MCH 31.9 PG (27-31); MCV 93.9 FL (81-99); MONO# 1.49 X1000 (0.11-0.59); MONO% 7.5 % (1.7-9.3); NEUT# 17.71 X1000 (1.4-6.5); NEUT% 88.5 % (42.2-75.2); PLT 43 X1000 (130-400); RBC 3.29 XMIL (4.7-6.1); RDW 19.1 % (11.5-14.5); WBC 19.98 X1000 (4.8-10.8)
[2019-07-07 07:39] LABS: ALBUMIN 1.9 g/dL (3.5-5.0); CALCIUM 7.2 mg/dL (8.8-10.2); CREATININE 4.1 mg/dL (0.7-1.2); POTASSIUM 5.6 mmol/L (3.5-5.1); TOTAL BILIRUBIN 9.23 mg/dL (0.20-1.00); TOTAL PROTEIN 3.8 g/dL (6.3-8.3)
[2019-07-07 07:41] LABS: BANDS 8 % (0-1); LYMPHS 4 % (21-51); MONO 4 % (1-9); SEGS 84 % (42-75)
[2019-07-07 07:42] LABS: ANISOCYTOSIS 1+; HYPOCHROM 1+; POIKILOCYTOSIS 1+
[2019-07-07 07:43] LABS: LARGE PLATELETS 1+; SCHISTOCYTES OCCASIONAL
[2019-07-07 07:54] LABS: INR 2.94; PROTIME 31.5 Seconds (11.0-16.0)
[2019-07-07 07:58] LABS: PTT 101.5 Seconds (22.3-41.8)
[2019-07-07] MEDS ORDERED: NS 2,000 ML MISC PRN (08:01)
--- NOTE | 2019-07-07 08:11 | Diag Imaging Result Doc PS360 ---
EXAM: CHEST-PORTABLE INDICATION: respiratory failure TECHNIQUE: One view COMPARISON: 07/06/2019 FINDINGS: Support tubes and lines are in stable positions. Pulmonary venous congestion and interstitial edema is essentially stable. No new consolidation is identified. There is stable cardiomegaly. IMPRESSION: Stable chest. Electronically signed by Reza Schwarz 07/07/2019 8:08 AM
--- NOTE | 2019-07-07 10:00 | PROGRESS NOTE ---
DATE: 07/07/2019 SUBJECTIVE: The patient is noncommunicative on the ventilator at this time. OBJECTIVE: Vital signs: Blood pressure 131/65, respirations 22, pulse 79, temperature 98.1 degrees Fahrenheit. HEENT: He is normocephalic. Lungs: Sound fairly clear to auscultation. Chest x-ray is stable showing pulmonary venous congestion and interstitial edema that is essentially stable. No new consolidations identified. There is stable cardiomegaly. Heart: Sounds regular rate and rhythm at this time. He has had atrial flutter. Abdomen: Soft with active bowel sounds. Neurological: Difficult to assess at this point. LABORATORY: Shows white count 19,980, hemoglobin 10.5, hematocrit 30.9, platelet count is 43,000, neutrophils 17.71, which was high, and has a left shift. INR is 2.94, PTT 8.4, PTT 31.5 so he does have coagulopathy. Blood gas shows a pH of 7.31, pCO2 29, PO2 113. Lactate is coming down, had been 6.50 on the and is down to 1.90. Creatinine 4.1, BUN 176. He is getting dialysis. Total bilirubin 9.23. Patient does appear very jaundiced and had been up over 15 previously. AST 380, ALT 837, alkaline phosphatase 89. ProBNP had been over 35,000 on the . Albumin 3.8, globulin 1.9, so both low. The patient had E. coli in the urine, he has moderate acidosis. ASSESSMENT: 1. Respiratory distress on a ventilator and unresponsive. 2. Acute kidney injury. 3. Liver failure. 4. Probable early disseminated intravascular coagulation (DIC). 5. Probable urosepsis, though cultures were negative on the blood cultures. 6. Episode of atrial flutter. PLAN: Continue support. Appreciate Cardiology and Nephrology, Pulmonology seeing the patient. cc: MD Halle Bello Jr, MD
[2019-07-07] MEDS: MORPHINE IV PRN ×2 (10:04→15:29)
[2019-07-07] MEDS: ATIVAN IV PRN (11:44)
--- NOTE | 2019-07-07 11:46 | NEPHROLOGY PROGRESS NOTE ---
DATE: 07/07/2019 SUBJECTIVE: He remains sedated on the ventilator, unresponsive. OBJECTIVE: Vital Signs: Blood pressure 106/65, heart rate 86, respiration 25, afebrile. Intake 3.2 L, output 800 mL. General: No acute distress. Skin: Warm and dry. HEENT: Conjunctivae are pink. Heart: Regular with occasional irregularities, rate controlled. Lungs: Equal. Increased work of breathing but no crackles. Abdomen: Soft, nontender. Bowel sounds present. Extremities: 1+ edema. No clubbing or cyanosis. IMPRESSION AND PLAN: Acute kidney injury. Complicated by hyperkalemia, metabolic acidosis. SLED today for 8 hours using a 3K bath and a goal of 4 L ultrafiltration. He is not currently requiring vasopressor support and if his blood pressure becomes a problem, we will decrease our ultrafiltration and avoid vasopressors if possible. cc: MD Halle Cook MD
--- NOTE | 2019-07-07 13:19 | PULMONOLOGY PROGRESS NOTE ---
DATE: 07/07/2019 SUBJECTIVE: Mr. Cerna remains sedated and on the ventilator unresponsive. OBJECTIVE: Vital signs: Blood pressure is 100/54 with a heart rate of 90, respirations are 26, temperature is 98.1 degrees with O2 saturations that are 100% on 50% FiO2 per ventilator. HEENT: Pupils are equal, round, react to light. Sclerae anicteric. Head is atraumatic, normocephalic. Mucous membranes are moist. Neck: Supple with trachea midline. Cardiovascular: Regular rate and rhythm. S1 and S2 are appreciated. Pulmonary: Breath sounds are clear, coarse in the bases. Chest rises and falls symmetric with respiration. Gastrointestinal: Abdomen is soft, nontender with bowel sounds in all 4 quadrants. Extremities: He does have about 1+ edema to extremities x4. LABORATORY: WBC is 19.9 with hemoglobin 10.5, hematocrit 30.9, and platelets 43,000. Sodium 144, potassium 5.6, BUN 176, creatinine 4.1, with a glucose of 130. Total bilirubin is 9.23 with AST 380, ALT 837. ABGs: pH is 7.31 with pCO2 29, pO2 113, and bicarbonate of 16.8. IMPRESSION: This is a 73-year-old gentleman with: 1. Acute hypoxemic respiratory failure. Continue mechanical ventilation with current settings, PRVC with a rate of 18, FiO2 50%, tidal volume 700, PEEP of 5. 2. Acute liver failure. 3. Acute renal failure, being followed by Dr. Mccrary. The patient is currently receiving hemodialysis. 4. Hypotension. This is improved. The patient is requiring no pressors at present. 5. Escherichia coli urinary tract infection. Continue antibiotics as per Primary team. 6. Continue Protonix for gastrointestinal prophylaxis. 7. Protein calorie malnutrition. Will continue Clinimix. Dictated by BRIAN Garcia for Levi Bedoya MD Case was discussed with Ingris Givens. Time spent critical care management: 35 minutes cc: BRIAN Garcia MD Adnan A. Seljuki, MD [facility] CENTERNavdeep
[2019-07-07 14:11] LABS: INR 1.92; PROTIME 22.4 Seconds (11.0-16.0)
[2019-07-07] MEDS: LEVOPHED 8 MG in D5 1/2 NS 250 ML IV SCH (16:13)
[2019-07-07] MEDS: PROTONIX IV SCH (20:25)
[2019-07-08] MEDS: DUONEB (A & A) INH SCH ×6 (00:10→20:00)
[2019-07-08] MEDS: ZOSYN 2.25 GM in NS 50 ML IV SCH ×4 (04:34→23:24)
[2019-07-08 04:50] LABS: ALLEN TEST YES; BE -5.4 mmoll (-3.0-3.0); BLOOD TYPE ARTERIAL; HCO3-(ACT) 20.7 mmoll (20.0-26.0); METHB 0.8 % (0.0-1.5); O2(CT) 14.2 mL/dL (15.0-23.0); O2HB 96.2 % (95.0-99.0); PCO2(98.6) 32 mmHg (35-45); PO2(98.6) 146 mmHg (60-100); SAMPLE BLOOD; SRATE 18 BPM; THB 10.3 g/dL (11.5-17.4); TVOL 700 mL; pH(98.6) 7.38 (7.35-7.45)
[2019-07-08 04:51] LABS: MODALITY VENTILATOR
[2019-07-08] MEDS: CLINIMIX E 4.25%-5% SOLUTION 1,000 ML IV SCH ×4 (05:52→23:24)
[2019-07-08 06:25] LABS: BASO# 0.07 X1000 (0.0-0.2); BASO% 0.3 % (0.0-0.8); HEMATOCRIT 28.4 % (42.0-52.0); HEMOGLOBIN 9.6 g/dL (14.0-18.0); IMM GRAN# 0.23 X1000 (0.0-0.04); IMM GRAN% 1.1 % (0.0-0.5); LYMPH# 1.22 X1000 (1.2-3.4); MCH 31.9 PG (27-31); MCHC 33.8 g/dL (33-37); MCV 94.4 FL (81-99); MONO# 2.26 X1000 (0.11-0.59); MONO% 11.1 % (1.7-9.3); NEUT# 16.62 X1000 (1.4-6.5); NEUT% 81.5 % (42.2-75.2); PLT 36 X1000 (130-400); RBC 3.01 XMIL (4.7-6.1); RDW 19.9 % (11.5-14.5)
[2019-07-08 06:55] LABS: ALB/GLOB RATIO 1.2; ALBUMIN 2.3 g/dL (3.5-5.0); CALCIUM 7.7 mg/dL (8.8-10.2); CREATININE 2.7 mg/dL (0.7-1.2); POTASSIUM 6.1 mmol/L (3.5-5.1); TOTAL BILIRUBIN 6.62 mg/dL (0.20-1.00); TOTAL PROTEIN 4.2 g/dL (6.3-8.3)
[2019-07-08 07:26] LABS: LYMPHS 13 % (21-51); MONO 8 % (1-9); NRBC 8 % (0-0); SEGS 79 % (42-75)
[2019-07-08 07:27] LABS: ANISOCYTOSIS 2+
--- NOTE | 2019-07-08 08:24 | Diag Imaging Result Doc PS360 ---
EXAM: CHEST-PORTABLE INDICATION: respiratory failure TECHNIQUE: One view COMPARISON: 07/07/2019 FINDINGS: Support tubes and lines are in stable positions. Pulmonary venous congestion and interstitial edema appears to have improved somewhat, especially at the lung bases. No new consolidation is identified. Cardiac silhouette is stable. IMPRESSION: Interval improvement. Electronically signed by Reza Schwarz 07/08/2019 8:21 AM
[2019-07-08] MEDS ORDERED: KAYEXALATE PR ONE (10:26)
--- NOTE | 2019-07-08 10:48 | PROGRESS NOTE ---
DATE: 07/08/2019 SUBJECTIVE: The patient is not communicative. He is unconscious, on the ventilator at this point. OBJECTIVE: Vital Signs: Show blood pressure 115/74, respirations 31, pulse 77, temperature 99 degrees Fahrenheit. HEENT: He is normocephalic. Neck: Supple. Lungs: Sound fairly clear to auscultation. Chest x-ray shows pulmonary venous congestion and interstitial edema appears to have improved somewhat. Heart: Regular rate and rhythm without murmurs, gallops, or friction rubs. Abdomen: Soft. Active bowel sounds. No organomegaly or tenderness. Neurological Examination: Hard to assess at this point. Laboratory: Shows white count 20,400, hemoglobin 9.6, hematocrit 28.4, platelet count only 36,000. Blood gas with a pH of 7.38, pCO2 of 32, PO2 of 146, on 50% FiO2. Lactate is down to 2.20. Potassium is up today at 6.1, creatinine 2.7 after dialysis yesterday, BUN 101 down from 176 yesterday. Bilirubin 6.62, AST 160 which is down, ALT is 523 down from 837, had been higher than that. Total protein is low at 4.2, total albumin is low at 2.3. ASSESSMENT: 1. Acute hypoxic respiratory failure, on a ventilator. 2. Acute renal failure, has been on dialysis. 3. Hepatic failure. 4. Hypotension, improving. 5. Escherichia coli urinary tract infection. 6. Protein calorie malnutrition, being treated. 7. Hyperkalemia. We will give Kayexalate enema. PLAN: Continue to support. cc: MD Halle Bello Jr, MD
[2019-07-08] MEDS ORDERED: NS 2,000 ML MISC PRN (11:12)
--- NOTE | 2019-07-08 12:00 | ECHO REPORT ---
ORDER DATE: 07/06/2019 PROCEDURE: Limited 2D echocardiogram to assess left ventricular systolic function. INTERPRETING PHYSICIAN: Dr. Leoncio Jacobo. SUMMARY OF THE 2-DIMENSIONAL IMAGIN. Atrial flutter was noted. 2. Mitral valve was normal. 3. Aortic valve leaflets sclerosed, trileaflet. 4. Pulmonic valve was normal. 5. There is mild tricuspid regurgitation. Peak velocity across the tricuspid valve was 2.9 m/sec. 6. Pulmonary artery systolic pressure of 47 mmHg. 7. Normal left ventricular cavity size. Estimated ejection fraction of 35% to 40%. There is wall motion abnormality noted in the inferior wall and in the septum. 8. Peak velocity across the aortic valve less than 2 m/sec. 9. There is mild mitral regurgitation. 10. There is no pericardial effusion. cc: MD Asael Neal MD Adnan A. Seljuki, MD
[2019-07-08] MEDS: ALBUMIN 25% IV SCH (12:01)
--- NOTE | 2019-07-08 13:17 | GASTROENTEROLOGY PROGRESS NOTE ---
DATE: 07/08/2019 Mr. Cerna remains in critical condition. He remains obtunded and has been on ventilator. He has multiple organ failure, including liver failure. The etiology of his liver injury appears to be the same as whatever was the cause for his septicemia or multiorgan failure. His liver enzymes although have improved in the past few days. However, he still has significant thrombocytopenia and has had some lower GI bleed. Hemoglobin and hematocrit although have drifted down, but they are still within acceptable range and he has not required any blood transfusions. From a GI perspective, not much to add, except continue supportive care. Again, his liver enzymes have improved, and if he starts having brisk bleeding, the first thing to do would be to correct his thrombocytopenia. I have discussed the case with Dr. Branch. cc: MD Halle Gonzalez MD
--- NOTE | 2019-07-08 15:28 | PULMONOLOGY PROGRESS NOTE ---
DATE: 07/08/2019 SUBJECTIVE: Mr Cerna remains sedated on the ventilator. OBJECTIVE: Vital signs: Blood pressure is 148/80 with a heart rate of 73, respirations are 18, temperature is 99 degrees temporal with O2 saturations 100% on 40% FiO2. Cardiovascular: Regular rate and rhythm. S1 and S2 are appreciated. Pulmonary: Breath sounds are coarse throughout. Chest rises and falls symmetric with respiration. Gastrointestinal: Abdomen is soft, nondistended, with bowel sounds in all 4 quadrants. Extremities: Pitting edema noted to extremities x4. LABS: WBC is 20 with hemoglobin 9.6, hematocrit 28.4, platelets are 36,000. PTT is 167.4. Sodium 138, potassium 6.1, BUN 101, creatinine 2.7 with a glucose of 137. IMPRESSION: This is a 73-year-old gentleman with: 1. Acute hypoxemic respiratory failure. We will continue mechanical ventilation with his current settings: PRVC with a rate of 18, tidal volume 700, FiO2 40%, PEEP of 5. 2. Acute liver failure, being followed by Dr. Christina. 3. Acute renal failure, being followed by Dr. Mccrary. The patient is currently receiving hemodialysis. 4. Hypotension. 5. Escherichia coli urinary tract infection. Continue current antibiotics. 6. Continue Protonix for GI prophylaxis. 7. Protein calorie malnutrition. Continue Clinimix. Dictated by BRIAN Garcia for Levi Bedoya MD Case was discussed with Ingris Givens. Time spent in critical care management: 35 minutes cc: BRIAN Garcia MD Adnan A. Seljuki, MD MTDD
[2019-07-08] MEDS: CARDIZEM 100 MG/NS 100 MG/100 ML IVPB IV SCH (17:00)
--- NOTE | 2019-07-08 19:25 | NEPHROLOGY PROGRESS NOTE ---
DATE: 07/08/2019 SUBJECTIVE: He remains sedated on the ventilator. He has completed his dialysis treatment for today. He tolerated this without requiring vasopressor support. OBJECTIVE: Vital signs: Blood pressure 123/79, heart rate 83, respirations 27, T-max 100 degrees. Generally: Chronically ill, no acute distress. Skin: Is warm and dry. Neck: Veins are not visible. Cardiovascular: Heart is regular. No gallops. Lungs: Are equal. No crackles. Abdomen: Soft, scaphoid, nontender. Bowel sounds present. Extremities: 1+ edema. No clubbing or cyanosis. IMPRESSION: Acute kidney injury. We dialyzed him today because his potassium was 6.1. We achieved 4 L of ultrafiltration without difficulty. SLED again tomorrow. cc: MD Halle Cook MD
[2019-07-08] MEDS: PROTONIX IV SCH (19:51)
[2019-07-09] MEDS: DUONEB (A & A) INH SCH ×7 (00:15→23:21)
[2019-07-09] MEDS: CLINIMIX E 4.25%-5% SOLUTION 1,000 ML IV SCH ×3 (02:16→20:06)
[2019-07-09] MEDS: ZOSYN 2.25 GM in NS 50 ML IV SCH ×3 (04:02→21:43)
[2019-07-09 05:24] LABS: ALLEN TEST YES; BE -4.8 mmoll (-3.0-3.0); BLOOD TYPE ARTERIAL; HCO3-(ACT) 21.2 mmoll (20.0-26.0); METHB 0.5 % (0.0-1.5); O2(CT) 13.8 mL/dL (15.0-23.0); O2HB 96.7 % (95.0-99.0); PCO2(98.6) 30 mmHg (35-45); PO2(98.6) 184 mmHg (60-100); SAMPLE BLOOD; SAO2 98.9 % (95.0-100.0); SRATE 18 BPM; THB 9.8 g/dL (11.5-17.4); TVOL 700 mL; pH(98.6) 7.41 (7.35-7.45)
[2019-07-09 05:25] LABS: MODALITY VENTILATOR
[2019-07-09 07:15] LABS: BASO# 0.09 X1000 (0.0-0.2); BASO% 0.5 % (0.0-0.8); EOS# 0.04 X1000 (0.0-0.7); EOS% 0.2 % (0.0-10.0); HEMATOCRIT 27.1 % (42.0-52.0); IMM GRAN# 0.67 X1000 (0.0-0.04); IMM GRAN% 4.1 % (0.0-0.5); LYMPH# 1.16 X1000 (1.2-3.4); LYMPH% 7.1 % (20.5-51.1); MCH 31.6 PG (27-31); MCHC 33.2 g/dL (33-37); MCV 95.1 FL (81-99); MONO# 2.53 X1000 (0.11-0.59); MONO% 15.4 % (1.7-9.3); NEUT# 11.91 X1000 (1.4-6.5); NEUT% 72.7 % (42.2-75.2); PLT 51 X1000 (130-400); RBC 2.85 XMIL (4.7-6.1); RDW 20.7 % (11.5-14.5)
[2019-07-09 07:41] LABS: ALB/GLOB RATIO 1.5; ALBUMIN 2.7 g/dL (3.5-5.0); CALCIUM 8.1 mg/dL (8.8-10.2); CREATININE 2.7 mg/dL (0.7-1.2); TOTAL BILIRUBIN 4.85 mg/dL (0.20-1.00); TOTAL PROTEIN 4.5 g/dL (6.3-8.3)
[2019-07-09] MEDS: ALBUMIN 25% IV SCH ×2 (07:42→09:41)
--- NOTE | 2019-07-09 07:43 | Diag Imaging Result Doc PS360 ---
EXAM: CHEST-PORTABLE INDICATION: respiratory failure TECHNIQUE: One view COMPARISON: 07/08/2019 FINDINGS: Support tubes and lines are in stable positions. Slight pulmonary venous congestion and possible mild edema continues to improve. No new consolidation is identified. Cardiac silhouette is stable. IMPRESSION: Continued improvement. Electronically signed by Reza Schwarz 07/09/2019 7:40 AM
[2019-07-09] MEDS ORDERED: NS 2,000 ML MISC PRN (07:48)
[2019-07-09 08:04] LABS: BANDS 10 % (0-1); LYMPHS 9 % (21-51); MONO 13 % (1-9); NRBC 3 % (0-0); SEGS 68 % (42-75)
[2019-07-09 08:05] LABS: ANISOCYTOSIS 2+; HYPOCHROM 2+; POIKILOCYTOSIS 1+
[2019-07-09] MEDS: CARDIZEM 100 MG/NS 100 MG/100 ML IVPB IV SCH (09:04)
--- NOTE | 2019-07-09 10:34 | PROGRESS NOTE ---
DATE: 07/09/2019 SUBJECTIVE: Patient remains intubated. He is not able to respond. OBJECTIVE: Vital Signs: Temperature 97.8 degrees, pulse 79 beats per minute, respiratory rate 22 per minute, blood pressure 152/75, pulse oximetry 100% on 40% of oxygen. Cardiovascular System: First and second heart sounds are audible. A slight systolic murmur is present. Respiratory System: Bilateral lung air entry is good without any rales or rhonchi. Gastrointestinal System: Abdomen is soft and nondistended. Normal bowel sounds are present. DIAGNOSTIC DATA: CBC done this morning shows WBC count of 16.40, as opposed to 20.40 yesterday. Hemoglobin and hematocrit are also low at 9.0 and 27.1, as compared to 9.6 and 28.4 yesterday. Platelet counts have slightly improved with 51,000 today. His platelet counts were 36,000 yesterday. Comprehensive metabolic panel shows a potassium level of 6.0 as compared to 6.1 yesterday. BUN and creatinine are elevated at 110 and 2.7 respectively. His BUN was 101 yesterday and creatinine was 2.7 yesterday. Total bilirubin is down from 6.62 yesterday to 4.85 this morning. AST and ALT levels have also improved to 83 and 322 respectively. Furthermore, his albumin levels are low, but improved to 2.7. In comparison, his albumin levels were 1.9 two days ago on 07/07/2019. Arterial blood gases done this morning shows a pH of 7.41, pCO2 of 30, and PO2 of 184 with 40% of oxygen. His oxygenation appears to have improved since his ABG done yesterday showed PO2 of 146 on 50% of oxygen. Chest x-ray done this morning showed slight pulmonary venous congestion, but improved as compared to previous chest x-rays. No infiltrates were seen. IMPRESSION: 1. Acute hypoxemic respiratory failure with Escherichia coli urinary tract infection and colitis, along with sepsis, causing transaminasemia. 2. Acute kidney injury with hyperkalemia, thrombocytopenia, and leukocytosis. PLAN: The patient will be kept in the intensive care unit, and will be continued with respiratory support as per Pulmonology and Critical Care Medicine. The patient has been getting the Zosyn intravenously and IV vancomycin has been discontinued. He is currently off Levophed and his blood pressure has been stable. Furthermore, he has not been getting any diltiazem IV anymore and his heart rate has also been stable. He does have hyperkalemia with acute kidney injury and has had hemodialysis yesterday. I believe he is going to have another session of hemodialysis today. He will continue with the IV albumin as per Nephrology, and also continue with Clinimix IV. He will also continue with IV pantoprazole for gastrointestinal prophylaxis. Overall, his condition is getting better, but he continues to be in critical state. cc: Halle See MD
--- NOTE | 2019-07-09 11:30 | NEPHROLOGY PROGRESS NOTE ---
DATE: 07/09/2019 SUBJECTIVE: He is unresponsive, on no sedation. OBJECTIVE: Vital Signs: Blood pressure 149/76, heart rate 88, respirations 24. Intake 2.7 L, output 4.5 L. Levophed is now off. General: As above. Skin: Warm and dry. He has cyanosis of the feet that demarcates in the middle of the midfoot. Neck: Neck veins are not distended. Trachea is midline. Heart: Regular. Lungs: Equal. No crackles. Abdomen: Soft, scaphoid. Minimal bowel sounds. Extremities: Minimal edema. Cyanotic as above. IMPRESSION: Acute kidney injury. He is struggling with hyperkalemia, which is a new development over the last 48 hours. He does have peripheral ischemia, and this of course raises concern for bowel ischemia as well. Sustained low-efficiency dialysis today using a 3-potassium bath and 30 bicarbonate, goal of 4 liters. Poor prognosis. cc: MD Halle Cook MD
--- NOTE | 2019-07-09 16:35 | PULMONOLOGY PROGRESS NOTE ---
DATE: 07/09/2019 SUBJECTIVE: The patient is sedated and he is poorly responsive. He remains on Levophed for hypotensive shock. He has had some maroon/old blood in his stools. OBJECTIVE: Vital Signs: Maximum temperature in the last 24 hours was 100.0 degrees, blood pressure 138/76, heart rate 88, respiratory rate 26, oxygen saturation 100%. HEENT: Pupils are equal and reactive. Oropharynx appears clear. Neck: Supple. Chest: Reveals prolonged expiratory phase bilaterally. Cardiac Examination: S1-S2. Abdomen: Soft. Extremities: Reveal cyanosis/ischemia in both feet and toes. Laboratories: Chest x-ray reveals pulmonary vascular congestion with decreasing edema. Microbiology reveals no new data. White blood count 16.4, hemoglobin 9.0, platelet count 51,000. Sodium 137, potassium 6.0, chloride 104, bicarbonate 19, BUN 110, creatinine 2.7. Bilirubin 4.85, AST 83, ALT 322. IMPRESSION: A 74-year-old with: 1. Acute hypoxemic respiratory failure with radiographic improvement noted. 2. Acute renal failure with improvement in bilirubin. 3. Ongoing hypotension/shock. 4. Urinary tract infection. PLAN: 1. Continue full ventilatory support. 2. Continue vasopressors and wean as tolerated. 3. Continue current antibiotics. 4. Prognosis is guarded. Time spent in critical care management: 35 minutes cc: MD Halle Clark MD MTD
--- NOTE | 2019-07-09 16:41 | PROGRESS NOTE ---
DATE: 07/09/2019 SUBJECTIVE: Patient continues unresponsive, on the ventilator. He remains in atrial flutter with controlled rate. OBJECTIVE: Blood pressure 135/81, heart rate 90, with ECG monitor showing atrial flutter. Oxygen saturation 100% on the ventilator with FiO2 of 40%. Neck: Jugular venous distention cannot be appreciated. Chest: Auscultation of the chest reveals coarse breath sounds bilaterally. Cardiac Examination: Reveals an irregular rate and rhythm without appreciable murmur or gallop. Extremities: Demonstrate mild edema. Laboratory Data: Includes a white blood cell count of 16.4, hematocrit 27.1, hemoglobin 9.0, platelet count 51,000. PTT 59.2. Sodium 137, potassium 6.0, chloride 104, carbon dioxide 19, BUN 110, and creatinine 2.7. Total bilirubin 4.85, AST 83, ALT 322. IMPRESSION: 1. Atrial flutter occurring in the setting of acute severe noncardiac illness with multiorgan failure. 2. Acute hypoxemic respiratory failure. 3. Acute hepatic failure. 4. Acute renal failure. 5. Marked coagulopathy with thrombocytopenia, possibly related to disseminated intravascular coagulation. 6. Severe atherosclerotic coronary disease. 7. Chronic obstructive pulmonary disease. 8. Urinary tract infection with Escherichia coli. Blood cultures negative. 9. Hypertension. 10. Hyperlipidemia. RECOMMENDATIONS: 1. Try and transition to regular dosed IV metoprolol to allow weaning off of the IV diltiazem drip and continue supplemental IV metoprolol as needed for rate control. 2. Conservative cardiovascular management at present. His prognosis appears to be very poor. cc: MD Halle Molina MD
[2019-07-09] MEDS: LOPRESSOR IV SCH ×2 (18:28→21:46)
[2019-07-09] MEDS: PROTONIX IV SCH (20:06)
[2019-07-10] MEDS: DUONEB (A & A) INH SCH ×6 (03:23→22:46)
[2019-07-10] MEDS: ZOSYN 2.25 GM in NS 50 ML IV SCH ×5 (04:21→22:22)
[2019-07-10] MEDS: LOPRESSOR IV SCH ×4 (04:21→22:22)
[2019-07-10 04:29] LABS: ALLEN TEST YES; BE -1.7 mmoll (-3.0-3.0); BLOOD TYPE ARTERIAL; HCO3-(ACT) 23.5 mmoll (20.0-26.0); O2(CT) 10.9 mL/dL (15.0-23.0); O2HB 90.1 % (95.0-99.0); PCO2(98.6) 26 mmHg (35-45); PO2(98.6) 54 mmHg (60-100); SAMPLE BLOOD; SAO2 93.5 % (95.0-100.0); SRATE 18 BPM; THB 8.6 g/dL (11.5-17.4); TVOL 700 mL; pH(98.6) 7.51 (7.35-7.45)
[2019-07-10 04:30] LABS: MODALITY VENTILATOR
[2019-07-10] MEDS: CLINIMIX E 4.25%-5% SOLUTION 1,000 ML IV SCH ×2 (06:14→16:30)
--- NOTE | 2019-07-10 07:05 | Diag Imaging Result Doc PS360 ---
CHEST-PORTABLE - 07/10/2019 INDICATION: respiratory failure COMPARISON: 07/09/2019 FINDINGS: Support lines and tubes are stable. Stable cardiac megaly and pulmonary vascular congestion. Continued improvement in the mild pulmonary edema. No substantial infiltrates. No pneumothorax or pleural effusion. IMPRESSION: Continued improvement in the pulmonary edema. No complication. Electronically signed by Heraclio Field 07/10/2019 7:03 AM
[2019-07-10] MEDS: ALBUMIN 25% IV SCH (08:01)
--- NOTE | 2019-07-10 08:19 | PROGRESS NOTE ---
DATE: 07/10/2019 SUBJECTIVE: The patient is not able to respond since he remains intubated. OBJECTIVE: Vital Signs: Temperature 100.4 degrees Fahrenheit, pulse rate 83 beats per minute, respiratory rate 24 per minute, blood pressure 147/85, pulse oximetry 99% on 30% of oxygen. Cardiovascular System: First and second heart sounds are present, with slight murmur. Respiratory System: Bilateral lung air entry is good without any rales or rhonchi. Gastrointestinal: The abdomen seems to be benign. DIAGNOSTIC DATA: CBC and CMP are pending at the time of this dictation. ABG done on 30% of oxygen showed pH of 7.51, pCO2 26, and pO2 of 54. Lactate levels were found to be 2.30. Chest x- ray obtained this morning showed continued improvement in the pulmonary edema, with no complication and no infiltrates. IMPRESSION: 1. Acute hypoxemic respiratory failure with Escherichia coli urinary tract infection, colitis and sepsis with transaminasemia, acute kidney injury, hyperkalemia, thrombocytopenia, and leukocytosis. 2. Atrial flutter in the setting of sepsis with multiorgan failure. PLAN: The patient will be continued here at the intensive care unit on ventilator as per Pulmonology and Critical Care Medicine. He will be continued on broad-spectrum antibiotics along with supportive care. Currently, Cardiology and Nephrology are also following him along with Gastroenterology. Overall, his condition remains critical and he has a poor prognosis. cc: Halle See MD
[2019-07-10 08:42] LABS: ALB/GLOB RATIO 1.4; ALBUMIN 2.7 g/dL (3.5-5.0); CALCIUM 8.3 mg/dL (8.8-10.2); CREATININE 2.1 mg/dL (0.7-1.2); MAGNESIUM 2.2 mg/dL (1.5-2.7); POTASSIUM 5.9 mmol/L (3.5-5.1); TOTAL BILIRUBIN 4.3 mg/dL (0.20-1.00); TOTAL PROTEIN 4.7 g/dL (6.3-8.3)
--- NOTE | 2019-07-10 11:30 | PULMONOLOGY PROGRESS NOTE ---
DATE: 07/10/2019 SUBJECTIVE: The patient remains on mechanical ventilation. He has mild to moderate work of breathing. He does not follow commands. OBJECTIVE: Vital Signs: Maximum temperature in the last 24 hours is 100.4 degrees, blood pressure 154/74, heart rate 79, respiratory rate 20, oxygen saturation 100%. HEENT: Pupils are equal and reactive. Sclerae are icteric. Oropharynx appears bloody. Neck is supple. Chest reveals rhonchi bilaterally. Cardiac Examination: S1-S2. Abdomen is soft, with diminished bowel sounds. Extremities reveal significant cyanosis/ischemia of both feet, more prominent in the digits. Laboratories: Sodium 137, potassium 5.9, chloride 103, bicarbonate 19, BUN 80, creatinine 2.1. Bilirubin 4.3, total protein 4.7, albumin 2.7. Arterial blood gas reveals a pH of 7.51, pCO2 of 26, and PO2 of 54 on a respiratory rate of 18. Chest x-ray reveals cardiomegaly with decrease in edema. IMPRESSION: A 74-year-old with: 1. Acute hypoxemic respiratory failure with continued radiographic improvement. 2. Acute renal failure. 3. Acute liver failure with improvement in bilirubin. 4. Protein calorie malnutrition. 5. Urinary tract infection, on treatment. DISCUSSION: A 74-year-old with multiorgan failure as outlined above. He has had some marginal improvement over the last 24 to 48 hours. He remains poorly responsive. PLAN: 1. Place NG tube to begin trickle feeds in an attempt to protect gut integrity. 2. Continue current ventilator settings. He is alkalemic but he is overbreathing the rate of 18. 3. Continue antibiotics. 4. Overall prognosis is guarded to poor. Time spent in critical care management, 35 minutes. cc: MD Halle Clark MD
--- NOTE | 2019-07-10 13:42 | Diag Imaging Result Doc PS360 ---
CHEST-PORTABLE - 07/10/2019 1:29 PM INDICATION: NG tube placement confirmation COMPARISON: 6:05 AM FINDINGS: There is a new nasogastric tube in good position with the tip in the stomach. Stable endotracheal tube and left central line in good position. There is some slight worsening left central and basilar infiltrate or atelectasis. Stable cardiomegaly and pulmonary vascular congestion. No large pleural effusion. IMPRESSION: Good nasogastric tube placement. Worsening infiltrate or atelectasis in the left lung. Electronically signed by Heraclio Field 07/10/2019 1:40 PM
[2019-07-10 15:28] LABS: BASO# 0.05 X1000 (0.0-0.2); BASO% 0.4 % (0.0-0.8); EOS# 0.01 X1000 (0.0-0.7); EOS% 0.1 % (0.0-10.0); HEMOGLOBIN 7.7 g/dL (14.0-18.0); IMM GRAN# 0.42 X1000 (0.0-0.04); IMM GRAN% 3.2 % (0.0-0.5); LYMPH# 0.85 X1000 (1.2-3.4); LYMPH% 6.4 % (20.5-51.1); MCH 31.7 PG (27-31); MCHC 32.1 g/dL (33-37); MCV 98.8 FL (81-99); MONO# 1.33 X1000 (0.11-0.59); MONO% 10.1 % (1.7-9.3); NEUT# 10.53 X1000 (1.4-6.5); NEUT% 79.8 % (42.2-75.2); PLT 50 X1000 (130-400); RBC 2.43 XMIL (4.7-6.1); RDW 22.7 % (11.5-14.5); WBC 13.19 X1000 (4.8-10.8)
[2019-07-10 15:34] LABS: INR 1.6; PROTIME 19.4 Seconds (11.0-16.0); PTT 40.8 Seconds (22.3-41.8)
[2019-07-10 16:02] LABS: LYMPHS 2 % (21-51); MONO 9 % (1-9); NRBC 1 % (0-0); SEGS 89 % (42-75)
[2019-07-10 16:03] LABS: ANISOCYTOSIS 2+
[2019-07-10 16:04] LABS: HYPOCHROM 1+; POIKILOCYTOSIS 1+
--- NOTE | 2019-07-10 16:43 | PROGRESS NOTE ---
DATE: 07/10/2019 CARDIOLOGY FOLLOW-UP NOTE: SUBJECTIVE: The patient continues unresponsive on ventilator. He does appear to be making some spontaneous respiratory efforts. OBJECTIVE: Vital Signs: Blood pressure 153/79 to 164/92, heart rate 89, oxygen saturation 98%. Telemetry shows atrial flutter with controlled rate. neck: There is no significant jugular venous distention. chest: Auscultation of chest reveals coarse breath sounds bilaterally. Cardiac: Reveals an irregular rate and rhythm. Extremities: Demonstrate very mild edema. There are ischemic changes in the feet bilaterally. LABORATORY DATA: White blood cell count 13.19, hematocrit 24.0, hemoglobin 7.7, platelet count 50,000. PT 19.4, INR 1.6, PTT 40.8. Sodium 137, potassium 5.9, chloride 103, carbon dioxide 19, BUN 80, creatinine 2.1, glucose 124, bilirubin 4.3, AST 69, ALT 196. IMPRESSION: 1. Atrial flutter occurring in the setting of severe acute noncardiac illness with multi-organ failure. 2. Acute hypoxemic respiratory failure. 3. Acute hepatic failure. 4. Acute renal failure. 5. Encephalopathy. 6. Marked coagulopathy with thrombocytopenia, gradually improving. Suspect disseminated intravascular coagulation. 7. Severe coronary atherosclerosis with preserved left ventricular ejection fraction. 8. Chronic obstructive pulmonary disease. 9. Recent urinary tract infection with Escherichia coli. Blood cultures negative. 10. Hypertension. 11. Hyperlipidemia. RECOMMENDATIONS: 1. Continue regular-dosed IV metoprolol and supplemental IV metoprolol as needed for rate control. 2. Conservative cardiovascular management present. PROGNOSIS: His prognosis appears to be very poor. cc: MD Halle Molina MD
--- NOTE | 2019-07-10 17:45 | NEPHROLOGY PROGRESS NOTE ---
DATE: 07/10/2019 SUBJECTIVE: He remains unresponsive. OBJECTIVE: Vital signs: Blood pressure 160/80, heart rate 82, respirations 20, temperature maximum 100.4 degrees. Intake 2.8 L. Output 4.6 L. General: No acute distress. Skin: Skin is warm and dry. Demarcated cyanosis on the feet is unchanged. Neck: Veins are not distended. Cardiovascular: Heart is regular. No gallops. Lungs: Lungs are equal. No crackles or wheezes. Abdomen: Abdomen is scaphoid and soft. Decreased bowel sounds. Extremities: Trace edema. No clubbing or cyanosis. IMPRESSION: Acute kidney injury. BUN and creatinine are progressively improving with dialysis. Potassium remains marginally high at 5.9. Bicarbonate 19. No dialysis today. We will repeat his treatment in the morning. I will draw potassium late in the day and treat if appropriate. cc: MD Halle Cook MD
[2019-07-10] MEDS: PROTONIX IV SCH (20:04)
[2019-07-11] MEDS: CLINIMIX E 4.25%-5% SOLUTION 1,000 ML IV SCH ×2 (03:12→14:19)
[2019-07-11] MEDS: DUONEB (A & A) INH SCH ×6 (03:30→23:35)
[2019-07-11] MEDS: ZOSYN 2.25 GM in NS 50 ML IV SCH ×4 (03:54→21:27)
[2019-07-11] MEDS: LOPRESSOR IV SCH ×4 (03:54→21:36)
[2019-07-11 05:03] LABS: ALLEN TEST YES; BE -6.6 mmoll (-3.0-3.0); BLOOD TYPE ARTERIAL; HCO3-(ACT) 19.8 mmoll (20.0-26.0); METHB 0.3 % (0.0-1.5); O2(CT) 10.5 mL/dL (15.0-23.0); O2HB 93.9 % (95.0-99.0); PCO2(98.6) 29 mmHg (35-45); PO2(98.6) 68 mmHg (60-100); SAMPLE BLOOD; SAO2 96.6 % (95.0-100.0); SRATE 18 BPM; THB 7.9 g/dL (11.5-17.4); TVOL 700 mL; pH(98.6) 7.39 (7.35-7.45)
[2019-07-11 05:05] LABS: MODALITY VENTILATOR
[2019-07-11 06:07] LABS: BASO# 0.07 X1000 (0.0-0.2); BASO% 0.4 % (0.0-0.8); EOS# 0.01 X1000 (0.0-0.7); EOS% 0.1 % (0.0-10.0); HEMATOCRIT 24.1 % (42.0-52.0); HEMOGLOBIN 7.7 g/dL (14.0-18.0); IMM GRAN# 0.25 X1000 (0.0-0.04); IMM GRAN% 1.6 % (0.0-0.5); LYMPH# 0.71 X1000 (1.2-3.4); LYMPH% 4.5 % (20.5-51.1); MCH 31.6 PG (27-31); MCV 98.8 FL (81-99); MONO# 1.03 X1000 (0.11-0.59); MONO% 6.5 % (1.7-9.3); NEUT# 13.77 X1000 (1.4-6.5); NEUT% 86.9 % (42.2-75.2); PLT 55 X1000 (130-400); RBC 2.44 XMIL (4.7-6.1); RDW 22.9 % (11.5-14.5); WBC 15.84 X1000 (4.8-10.8)
[2019-07-11 06:41] LABS: ALB/GLOB RATIO 1.4; ALBUMIN 2.8 g/dL (3.5-5.0); CALCIUM 8.2 mg/dL (8.8-10.2); CREATININE 2.8 mg/dL (0.7-1.2); TOTAL BILIRUBIN 3.59 mg/dL (0.20-1.00); TOTAL PROTEIN 4.8 g/dL (6.3-8.3)
--- NOTE | 2019-07-11 06:48 | Diag Imaging Result Doc PS360 ---
CHEST-PORTABLE - 07/11/2019 INDICATION: respiratory failure COMPARISON: 07/10/2019 FINDINGS: Support lines and tubes are stable and in good position. Stable cardiomegaly and pulmonary vascular congestion. Stable patchy left basilar infiltrate. No new infiltrates. No large pleural effusion. IMPRESSION: No change from prior. Electronically signed by Heraclio Field 07/11/2019 6:45 AM
[2019-07-11] MEDS ORDERED: NS 2,000 ML MISC PRN (07:55)
--- NOTE | 2019-07-11 09:45 | PROGRESS NOTE ---
DATE: 07/11/2019 SUBJECTIVE: Patient remains intubated and has been on ventilator. OBJECTIVE: Vital Signs: Temperature 98.5 degrees, pulse 88 beats per minute, respiratory rate 28 per minute, blood pressure 135/75, pulse oximetry 97 percent. Cardiovascular System: First and second heart sounds are audible. Respiratory System: Bilateral lung air entry is good without any rales or rhonchi. Gastrointestinal System: Abdomen seems to be benign. DIAGNOSTIC DATA: CBC shows WBC count of 15.84 with 86.9% neutrophils. Hemoglobin is 7.7 and hematocrit 24.1. Platelet counts are found to be 55,000. In comparison, his hemoglobin was 7.7 and hematocrit 24.0 yesterday. White blood cell count was 13.19 yesterday and platelet count was 50,000 yesterday. Comprehensive metabolic panel showed sodium level of 135, potassium 6.0, BUN 125, creatinine 2.8, total bilirubin 3.59, AST 54, ALT 127, and total protein of 4.8 with albumin of 2.8. Arterial blood gases done this morning showed pH of 7.39, pCO2 29, and PO2 of 68 on 30% of oxygen. Chest x-ray done this morning does not show any acute infiltrate. IMPRESSION: 1. Acute hypoxemic respiratory failure with E. coli urinary tract infection, colitis and sepsis with transaminasemia, acute kidney injury, hyperkalemia, thrombocytopenia, and leukocytosis. 2. Suspected disseminated intravascular coagulation. 3. Atrial flutter in the setting of sepsis with multiorgan failure. 3. Anemia PLAN: The patient will continue to be here at the intensive care unit with ventilator support as per Pulmonology and Critical Care Medicine. He will also continue with the hemodialysis as per Nephrology since he again has hyperkalemia today. We will also continue with broad-spectrum antibiotics. He has anemia with dropping H&H and we will continue to monitor that. We will transfuse him packed red blood cells if needed. His overall condition remains critical with poor prognosis. I am going to communicate this with his family. cc: Halle See MD [facility]
[2019-07-11] MEDS ORDERED: NS 500 ML IV ONE (13:33)
--- NOTE | 2019-07-11 14:43 | PROGRESS NOTE ---
DATE: 07/11/2019 SUBJECTIVE: The patient continues unresponsive on ventilator. He remains in atrial flutter with controlled rate. OBJECTIVE: Vital Signs: Blood pressure 113/81, heart rate 102 and regular with ECG monitor showing atrial flutter, oxygen saturation 100% on ventilator. FiO2 is 30%. Neck: There is no appreciable jugular venous distention. Chest: Clear to auscultation bilaterally. Cardiac: Irregular rate and rhythm without appreciable murmur or gallop. Extremities: Mild edema. LABORATORY DATA: Includes a white blood cell count of 15.84, hematocrit 24.1, hemoglobin 7.7, platelet count 55,000. PTT 198.7. Sodium 135, potassium 6.0, chloride 101, carbon dioxide 16, BUN 125, creatinine 2.8, glucose 142. IMPRESSION: 1. Atrial flutter occurring in the setting of acute noncardiac illness with multiorgan failure. The patient continues in atrial flutter with controlled rate. 2. Severe acute noncardiac illness with respiratory failure, hepatic failure, renal failure, encephalopathy, and marked coagulopathy with thrombocytopenia, probably related to disseminated intravascular coagulation. 3. Severe coronary disease with preserved left ventricular ejection fraction. 4. Chronic obstructive pulmonary disease. 5. Recent urinary tract infection with Escherichia coli. Blood culture is negative. 6. Hypertension. 7. Hyperlipidemia. RECOMMENDATIONS: 1. Continue IV metoprolol as scheduled, and supplemental IV metoprolol as needed for rate control. 2. Conservative cardiovascular management at this point. His prognosis appears to be very poor. cc: MD Halle Molina MD
--- NOTE | 2019-07-11 16:05 | PULMONOLOGY PROGRESS NOTE ---
DATE: 07/11/2019 SUBJECTIVE: The patient remains poorly responsive. He has moderate increased work of breathing. OBJECTIVE: Vital Signs: Maximum temperature in the last 24 hours is 100.0 degrees, blood pressure 122/90, heart rate 103, respiratory rate 23, and oxygen saturation 100%. HEENT: Pupils are equal. The sclera are slightly icteric. Oropharynx reveals continues to have poor hygiene with residual blood oozing from the presumptive mucositis. Neck: Supple. Lungs: Chest reveals rhonchi bilaterally. Cardiac: S1, S2. Increased rate. Abdomen: Soft with diminished bowel sounds. Extremities: Reveal continued cyanosis of both feet. LABORATORIES: Chest x-ray reveals cardiomegaly with vascular congestion and basilar infiltrate at the left base. No change. White blood count 15.8, hemoglobin 7.7, and platelet count 55,000. Sodium 135, potassium 6.0, chloride 101, bicarbonate 16, anion gap 18, BUN 125, creatinine 2.8, and bilirubin 3.6. IMPRESSION: A 74-year-old with: 1. Acute hypoxemic respiratory failure. 2. Acute renal failure. 3. Acute liver failure with stabilization/improvement in bilirubin. 4. Protein calorie malnutrition. 5. Urinary tract infection on treatment. 6. Encephalopathy. PLAN: 1. Continue trickle feeds as tolerated. 2. Continue full ventilatory support. The patient is not currently a candidate for weaning. 3. Continue antibiotics. 4. Anticipate hemodialysis for hyperkalemia. 5. Poor prognosis. Time spent in critical care management: 40 minutes cc: MD Halle Clark MD [facility]
--- NOTE | 2019-07-11 18:44 | NEPHROLOGY PROGRESS NOTE ---
DATE: 07/11/2019 SUBJECTIVE: He remains unresponsive on no sedation. OBJECTIVE: Vital Signs: Blood pressure 139/79, heart rate 88, respirations 24, afebrile. Intake 3.5 L. Output 1.2 L. General: In no acute distress. Skin: Warm and dry. Heart: Regular. Lungs: Equal. Coarse scattered crackles. Abdomen: Soft. Decreased bowel sounds. Extremities: Cyanosis is unchanged. IMPRESSION: Acute kidney injury. No recovery. Acidotic and hyperkalemic today. SLED x8 hours using a 3K bath and 34 bicarbonate. Goal of 4 L ultrafiltration. cc: MD Halle Cook MD
[2019-07-11] MEDS: PROTONIX IV SCH (20:40)
[2019-07-12] MEDS: CLINIMIX E 4.25%-5% SOLUTION 1,000 ML IV SCH ×3 (01:04→21:43)
[2019-07-12] MEDS: DUONEB (A & A) INH SCH ×6 (03:40→23:50)
[2019-07-12] MEDS: ZOSYN 2.25 GM in NS 50 ML IV SCH ×4 (04:41→21:45)
[2019-07-12] MEDS: LOPRESSOR IV SCH ×4 (04:41→21:51)
[2019-07-12 05:10] LABS: ALLEN TEST YES; BE -2.7 mmoll (-3.0-3.0); BLOOD TYPE ARTERIAL; HCO3-(ACT) 22.7 mmoll (20.0-26.0); O2HB 94.5 % (95.0-99.0); PCO2(98.6) 32 mmHg (35-45); PO2(98.6) 96 mmHg (60-100); SAMPLE BLOOD; SAO2 97.9 % (95.0-100.0); SRATE 18 BPM; TVOL 700 mL; pH(98.6) 7.42 (7.35-7.45)
[2019-07-12 05:11] LABS: MODALITY VENTILATOR
[2019-07-12 05:44] LABS: BASO# 0.03 X1000 (0.0-0.2); BASO% 0.1 % (0.0-0.8); EOS# 0.05 X1000 (0.0-0.7); EOS% 0.2 % (0.0-10.0); HEMATOCRIT 25.7 % (42.0-52.0); HEMOGLOBIN 8.2 g/dL (14.0-18.0); IMM GRAN# 0.18 X1000 (0.0-0.04); IMM GRAN% 0.9 % (0.0-0.5); LYMPH# 0.59 X1000 (1.2-3.4); LYMPH% 2.9 % (20.5-51.1); MCH 31.8 PG (27-31); MCHC 31.9 g/dL (33-37); MCV 99.6 FL (81-99); MONO# 1.12 X1000 (0.11-0.59); MONO% 5.6 % (1.7-9.3); NEUT# 18.17 X1000 (1.4-6.5); NEUT% 90.3 % (42.2-75.2); PLT 53 X1000 (130-400); RBC 2.58 XMIL (4.7-6.1); RDW 23.1 % (11.5-14.5); WBC 20.14 X1000 (4.8-10.8)
[2019-07-12 05:53] LABS: INR 1.5; PROTIME 18.4 Seconds (11.0-16.0)
[2019-07-12 06:07] LABS: ALB/GLOB RATIO 1.5; ALBUMIN 2.8 g/dL (3.5-5.0); CALCIUM 7.7 mg/dL (8.8-10.2); CREATININE 1.6 mg/dL (0.7-1.2); POTASSIUM 5.2 mmol/L (3.5-5.1); TOTAL BILIRUBIN 3.39 mg/dL (0.20-1.00); TOTAL PROTEIN 4.7 g/dL (6.3-8.3)
[2019-07-12 06:26] LABS: LYMPHS 2 % (21-51); MONO 3 % (1-9); SEGS 95 % (42-75)
--- NOTE | 2019-07-12 06:45 | Diag Imaging Result Doc PS360 ---
CHEST-PORTABLE - 07/12/2019 INDICATION: respiratory failure COMPARISON: 07/11/2019 FINDINGS: Support lines and tubes are stable and in good position. Stable cardiomegaly. Stable faint interstitial infiltrates or edema in the lung bases. No pneumothorax or large pleural effusion. IMPRESSION: No change from prior. Electronically signed by Heraclio Field 07/12/2019 6:43 AM
[2019-07-12] MEDS ORDERED: NS 2,000 ML MISC PRN (07:38)
--- NOTE | 2019-07-12 08:48 | PROGRESS NOTE ---
DATE: 07/12/2019 SUBJECTIVE: Patient remains intubated and not responding to any verbal stimuli or touch. OBJECTIVE: Vital Signs: Temperature 97.7 degrees, pulse rate 91 per minute, respiratory rate 24 per minute, blood pressure 136/83, pulse oximetry 100% on 30% of oxygen. Cardiovascular System: First and second heart sounds are audible without any gallops. Respiratory System: Bilateral lung air entry is good without any rales or rhonchi. Gastrointestinal System: Abdomen is soft and nondistended. Normal bowel sounds are present. DIAGNOSTIC DATA: CBC shows WBC count of 20.14 with 90.3% neutrophils. Hemoglobin is 8.2 and hematocrit 25.7 with platelet count of 53,000. Comprehensive metabolic panel shows potassium level is improved at 5.2, BUN 86, creatinine 1.6, glucose 128, calcium 7.7, total bilirubin 3.39, AST 56, ALT 106, and total protein of 4.7 with albumin of 2.8. Rest of the comprehensive metabolic panel is nondiagnostic. Arterial blood gases done this morning shows pH of 7.42, pCO2 of 32, and pO2 of 96 on 30% of oxygen. PT is elevated 18.4 with INR of 1.5, PTT 32.6. Fibrinogen 336, and D-dimer elevated at 15.68. Chest x-ray obtained this morning showed stable faint interstitial infiltrates or edema at the lung bases but no obvious infiltrates otherwise. IMPRESSION: 1. Acute hypoxemic respiratory failure with Escherichia coli urinary tract infection, colitis, sepsis with transaminasemia, acute kidney injury with hyperkalemia, thrombocytopenia, and leukocytosis with suspected disseminated intravascular coagulation. 2. Atrial flutter in the setting of sepsis with multiorgan failure. 3. Anemia with gastrointestinal blood loss. PLAN: The patient will be continued to be kept here at intensive care unit with ventilator support as per Pulmonology and Critical Care Medicine. The patient was dialyzed yesterday that resulted in improvement of his hyperkalemia and BUN/creatinine, although his kidneys are not responding as desired. He will be continued on broad-spectrum antibiotics along with supportive care. Overall, his condition remains critical and with a poor prognosis. He has been having drop in H&H lately and was noted to have gastrointestinal blood loss yesterday. We think this is secondary to suspected disseminated intravascular coagulation and therefore we transfused him 1 pack of cryoprecipitate yesterday. I had a lengthy discussion with the family on a conference call with his and son. I did discuss with them the poor prognosis and the possibility of making him Do Not Resuscitate. They said that they will discuss amongst each other and then let us know. cc: Halle See MD MTDD
[2019-07-12] MEDS ORDERED: GAMUNEX-C 10% IV ONE (08:55)
--- NOTE | 2019-07-12 10:40 | NEPHROLOGY PROGRESS NOTE ---
DATE: 07/12/2019 SUBJECTIVE: Unresponsive. OBJECTIVE: Vital Signs: Blood pressure 147/98, heart rate 95, respirations 25, afebrile. Intake 3.9 L. Output 4.3 L. General: No acute distress. Skin: Warm and dry. HEENT: Conjunctivae are pink. Neck: Neck veins are approximately 6 cm. Heart: Regular and tachycardic. Lungs: Equal, sonorous. A few scattered crackles. Abdomen: Scaphoid, soft. Decreased bowel sounds. Extremities: There is 1 to 2+ edema. No clubbing. The feet have cyanosis of the toes. The toes are cool but the foot is warm and less clearly demarcated. IMPRESSION: Acute kidney injury. No change in his status. Sustained low-efficiency dialysis today, 8 hours, a 3 K bath, 32 bicarbonate, goal of 4 L ultrafiltration. cc: MD Halle Cook MD
--- NOTE | 2019-07-12 16:31 | PROGRESS NOTE ---
DATE: 07/12/2019 SUBJECTIVE: Patient continues unresponsive, on the ventilator. He remains in atrial flutter with controlled rate on current regimen. OBJECTIVE: Vital Signs: Blood pressure 158/96, heart rate 98, oxygen saturation 100% on the ventilator with FiO2 of 30%. There is no significant jugular venous distention. Respiratory: Auscultation of the chest reveals coarse breath sounds bilaterally. Cardiac Examination: Reveals an irregular rate and rhythm without appreciable murmur or gallop. Extremities are without edema. Laboratory Data: Includes a white blood cell count of 20.14, hematocrit 25.7, hemoglobin 8.2, platelet count 53,000. Prothrombin time 18.4, INR 1.5, PTT 32.6. Fibrinogen 336. Sodium 137, potassium 5.2, chloride 101, carbon dioxide 20, BUN 86, creatinine 1.6, glucose 128, albumin 2.8. IMPRESSION: 1. Atrial flutter occurring in the setting of acute severe noncardiac illness with multiorgan failure, rate controlled. 2. Severe acute noncardiac illness with respiratory failure, hepatic failure, renal failure, encephalopathy, and marked coagulopathy with thrombocytopenia probably related to disseminated intravascular coagulation. Prognosis appears to be poor. 3. Severe coronary atherosclerosis with preserved left ventricular ejection fraction. 4. Chronic obstructive pulmonary disease. 5. Hypertension. 6. Hyperlipidemia. 7. Recent urinary tract infection with Escherichia coli. Blood culture negative. RECOMMENDATIONS: 1. Continue current IV metoprolol on a scheduled basis with supplemental IV metoprolol as needed for rate control. 2. Conservative cardiovascular management overall. Prognosis appears to be poor. cc: MD Halle Molina MD
--- NOTE | 2019-07-12 19:36 | PULMONOLOGY PROGRESS NOTE ---
DATE: 07/12/2019 SUBJECTIVE: The patient remains on mechanical ventilation. OBJECTIVE: Vital Signs: Maximum temperature in the last 24 hours is 99.8 degrees, blood pressure 115/70, heart rate, respiratory rate 23, oxygen saturation 100%. HEENT: Pupils are equal and reactive. Sclerae are icteric. Oropharynx appears clear with residual blood present. Neck: Is supple. Chest: Reveals scattered rhonchi bilaterally. Cardiac: Exam S1- S2. Abdomen: Is soft. Extremities: Reveals decreased bowel sounds bilaterally. Extremities reveal peripheral cyanosis, most prominent in the feet with areas of significant ischemia. LABORATORIES: Chest x-ray reveals cardiomegaly with faint bibasilar infiltrates. IgG is extremely low at 461. White blood count 20,000, hemoglobin 8.2, platelet count 53,000. Sodium 132, potassium 5.2, chloride 101, bicarbonate 20, anion gap 16, BUN 86, creatinine 1.6, bilirubin 3.3. Arterial blood gas: pH 7.42, pCO2 of 32, PO2 of 96. IMPRESSION: A 74-year-old with: 1. Acute hypoxemic respiratory failure. 2. Acute liver failure. 3. Acute renal failure. 4. Immunoglobulin deficiency. 5. Urinary tract infection. 6. Encephalopathy. PLAN: 1. Continue tube feeds as tolerated. 2. Continue ventilatory support pending clinical improvement. 3. Continue antibiotics. 4. Will infuse 30 g of immunoglobulin today. 5. Prognosis remains poor. Time spent in critical care management: 40 minutes cc: MD Halle Clark MD MTDNavdeep
[2019-07-12] MEDS: PROTONIX IV SCH (20:16)
[2019-07-12] MEDS: SODIUM CHLORIDE 0.9% INJ SCH (20:17)
[2019-07-13] MEDS: DUONEB (A & A) INH SCH ×6 (03:25→23:25)
[2019-07-13] MEDS: ZOSYN 2.25 GM in NS 50 ML IV SCH ×4 (04:12→22:17)
[2019-07-13] MEDS: LOPRESSOR IV SCH ×4 (04:12→22:18)
[2019-07-13 04:50] LABS: ALLEN TEST YES; BE -3.7 mmoll (-3.0-3.0); BLOOD TYPE ARTERIAL; METHB 0.9 % (0.0-1.5); O2(CT) 12.4 mL/dL (15.0-23.0); O2HB 94.7 % (95.0-99.0); PCO2(98.6) 31 mmHg (35-45); PO2(98.6) 90 mmHg (60-100); SAMPLE BLOOD; SAO2 97.8 % (95.0-100.0); SRATE 18 BPM; THB 9.2 g/dL (11.5-17.4); TVOL 700 mL; pH(98.6) 7.42 (7.35-7.45)
[2019-07-13 04:51] LABS: MODALITY VENTILATOR
[2019-07-13 06:00] LABS: BASO# 0.02 X1000 (0.0-0.2); BASO% 0.1 % (0.0-0.8); EOS# 0.04 X1000 (0.0-0.7); EOS% 0.3 % (0.0-10.0); HEMATOCRIT 24.2 % (42.0-52.0); HEMOGLOBIN 7.8 g/dL (14.0-18.0); IMM GRAN# 0.09 X1000 (0.0-0.04); IMM GRAN% 0.6 % (0.0-0.5); LYMPH# 0.72 X1000 (1.2-3.4); LYMPH% 4.7 % (20.5-51.1); MCH 32.2 PG (27-31); MCHC 32.2 g/dL (33-37); MONO# 0.58 X1000 (0.11-0.59); MONO% 3.8 % (1.7-9.3); NEUT# 13.98 X1000 (1.4-6.5); NEUT% 90.5 % (42.2-75.2); PLT 65 X1000 (130-400); RBC 2.42 XMIL (4.7-6.1); RDW 22.2 % (11.5-14.5); WBC 15.43 X1000 (4.8-10.8)
[2019-07-13 06:44] LABS: ALB/GLOB RATIO 0.8; ALBUMIN 2.2 g/dL (3.5-5.0); CREATININE 1.7 mg/dL (0.7-1.2); POTASSIUM 5.3 mmol/L (3.5-5.1); TOTAL BILIRUBIN 2.97 mg/dL (0.20-1.00); TOTAL PROTEIN 4.8 g/dL (6.3-8.3)
--- NOTE | 2019-07-13 07:08 | Diag Imaging Result Doc PS360 ---
EXAM: CHEST-PORTABLE INDICATION: respiratory failure TECHNIQUE: One view COMPARISON: 07/12/2019 FINDINGS: The patient is rotated toward the right. Support tubes and lines are in stable positions. Mild interstitial thickening with a basilar predominance bilaterally is approximately stable. No new consolidation is identified. Cardiac silhouette is stable. IMPRESSION: Essentially stable chest. Electronically signed by Reza Schwarz 07/13/2019 7:05 AM
[2019-07-13] MEDS ORDERED: HALDOL IV PRN (08:20)
[2019-07-13] MEDS: CLINIMIX E 4.25%-5% SOLUTION 1,000 ML IV SCH ×2 (08:45→18:21)
[2019-07-13 11:24] LABS: ALLEN TEST YES; BE -4.9 mmoll (-3.0-3.0); BLOOD TYPE ARTERIAL; HCO3-(ACT) 21.1 mmoll (20.0-26.0); METHB 1.1 % (0.0-1.5); O2(CT) 12.4 mL/dL (15.0-23.0); O2HB 94.7 % (95.0-99.0); PCO2(98.6) 29 mmHg (35-45); PO2(98.6) 89 mmHg (60-100); SAMPLE BLOOD; SAO2 98.3 % (95.0-100.0); THB 9.2 g/dL (11.5-17.4); pH(98.6) 7.42 (7.35-7.45)
[2019-07-13 11:26] LABS: MODALITY VENTILATOR
--- NOTE | 2019-07-13 13:46 | PROGRESS NOTE ---
DATE: 07/13/2019 SUBJECTIVE: The patient is intubated. He is not on sedation but he is not responsive. He is on assist-control ventilation. He has cyanotic toes and he is not currently on pressors. OBJECTIVE: Vital signs: Seen with blood pressure 144/83, pulse oximetry 100% on assist-control ventilation. Head and neck: ET tube in place. Trachea midline. Chest: Reduced air entry bilaterally. Cardiac: S1, S2. Abdomen: Distended. Lower extremities: Cyanotic toes. LABORATORY DATA: CBC noted WBCs 15.43, hemoglobin 7.8, platelets 65,000. Creatinine 1.7. ABG 7.42, pCO2 29, PO2 89 on assist-control ventilation and now with CPAP of 5, pressure support of 5, FiO2 of 30%, but he is not extubated since he is not responsive. IMAGING: Chest x-ray was reviewed also and showed essentially stable chest. ASSESSMENT AND PLAN: A 74-year-old man with respiratory failure, alcoholism, multiorgan failure. 1. Respiratory failure, on assist-control ventilation and we titrated the ventilator settings and monitored the responses. He is not a candidate for extubation even though he did okay on spontaneous breathing trial, simply because of lack of responsiveness and airway protection factor. 2. Renal failure and liver failure. We will monitor his CMP results. 3. Alcoholism, calorie malnutrition and coagulopathy, and we will continue general support and monitor labs accordingly. CRITICAL CARE EVALUATION: 37 minutes. cc: MD Halle Booth MD
--- NOTE | 2019-07-13 17:05 | NEPHROLOGY PROGRESS NOTE ---
DATE: 07/13/2019 SUBJECTIVE: He remains unresponsive. OBJECTIVE: Vital Signs: Blood pressure 135/71, heart rate 99, respirations 25. Intake 3.7 L. Output 3.7 L. General: No acute distress. Skin: Warm and dry. Feet are unchanged. Neck: Neck veins are not visible. Heart: Irregular and tachycardic. Lungs: Equal. Sonorous. Few crackles. Abdomen: Soft. Decreased bowel sounds. Extremities: With trace edema. IMPRESSION: Acute kidney injury. No recovery. SLED tomorrow. Euvolemic. cc: MD Halle Cook MD
--- NOTE | 2019-07-13 18:56 | PROGRESS NOTE ---
DATE: 07/13/2019 SUBJECTIVE: The patient remains intubated and is not able to respond. He does not respond to any painful stimuli. OBJECTIVE: Vital Signs: Temperature 99.2 degrees Fahrenheit, pulse rate 113 beats per minute, respiratory rate 27 per minute, blood pressure 142/76, pulse ox 97% on 30% of oxygen. Cardiovascular System: First and second heart sounds are audible with regular tachycardia. Respiratory System: Bilateral lung air entry is slightly decreased, but there are no rales or rhonchi present on auscultation. Gastrointestinal System: Abdomen is soft and nondistended. Normal bowel sounds are present. DIAGNOSTIC DATA: CBC shows WBC count of 15.43, hemoglobin 7.8, hematocrit 24.2, and platelet count of 65,000. Comprehensive metabolic panel done this morning showed potassium level of 5.3, BUN 84, creatinine 1.7, glucose 119, calcium levels of 8.0, total bilirubin 2.97, AST 55, ALT 89, and total protein of 4.8 with albumin levels of 2.2. Rest of the chemistry is nondiagnostic. Arterial blood gases done this morning showed pH of 7.42 with pCO2 of 29 and pO2 of 89 on 30% of oxygen. Lactate levels were found to be 1.2. Chest x-ray obtained this morning did not show any acute infiltrate. IMPRESSION: 1. Acute hypoxemic respiratory failure with Escherichia coli urinary tract infection, colitis, sepsis with transaminasemia, acute kidney injury with hyperkalemia, thrombocytopenia and leukocytosis with suspected disseminated intravascular coagulation. 2. Atrial flutter in the setting of sepsis with multiorgan failure. 3. Anemia with gastrointestinal blood loss. PLAN: The patient has been intubated now since 07/05/2019 and has been getting broad-spectrum antibiotics with which his transaminasemia has improved but he still has renal failure for which he has had several hemodialysis sessions. Dr. Mccrary is following him, and although dialysis is improving his hyperkalemia and BUN/creatinine levels, his response has been poor. He also has disseminated intravascular coagulation for which he received 1 unit of cryoprecipitate 2 days ago, but he seems to be continuing to have GI blood loss with thrombocytopenia and coagulopathy. Overall, his condition remains critical with poor prognosis, which was discussed with the family in detail 2 days ago. Finally, his family decided that they are going to make him DNR, which was done this morning. He was tried to be weaned off the vent this morning by Pulmonology, and although the wean process was successful, he was left intubated to protect his airway. For now, we are going to continue with current care, and further recommendations will be as per hospital course. cc: Halle See MD
[2019-07-13] MEDS: PROTONIX IV SCH (20:18)
[2019-07-14] MEDS: DUONEB (A & A) INH SCH ×6 (03:40→23:30)
[2019-07-14 04:38] LABS: BASO# 0.08 X1000 (0.0-0.2); BASO% 0.5 % (0.0-0.8); HEMOGLOBIN 7.8 g/dL (14.0-18.0); IMM GRAN# 0.09 X1000 (0.0-0.04); IMM GRAN% 0.6 % (0.0-0.5); LYMPH# 0.68 X1000 (1.2-3.4); LYMPH% 4.4 % (20.5-51.1); MCH 31.6 PG (27-31); MCHC 31.2 g/dL (33-37); MCV 101.2 FL (81-99); MONO# 0.45 X1000 (0.11-0.59); MONO% 2.9 % (1.7-9.3); MPV 12.4 FL (7.4-10.4); NEUT# 14.01 X1000 (1.4-6.5); NEUT% 91.6 % (42.2-75.2); PLT 106 X1000 (130-400); RBC 2.47 XMIL (4.7-6.1); RDW 22.1 % (11.5-14.5); WBC 15.31 X1000 (4.8-10.8)
[2019-07-14] MEDS: ZOSYN 2.25 GM in NS 50 ML IV SCH ×4 (04:43→22:33)
[2019-07-14] MEDS: LOPRESSOR IV SCH ×4 (04:43→22:33)
[2019-07-14] MEDS: CLINIMIX E 4.25%-5% SOLUTION 1,000 ML IV SCH ×2 (04:43→16:22)
[2019-07-14 04:47] LABS: ALLEN TEST YES; BE -6.3 mmoll (-3.0-3.0); BLOOD TYPE ARTERIAL; O2(CT) 8.2 mL/dL (15.0-23.0); O2HB 94.3 % (95.0-99.0); PCO2(98.6) 33 mmHg (35-45); PO2(98.6) 79 mmHg (60-100); SAMPLE BLOOD; SAO2 97.2 % (95.0-100.0); THB 6.1 g/dL (11.5-17.4); pH(98.6) 7.36 (7.35-7.45)
[2019-07-14 04:48] LABS: MODALITY VENTILATOR
[2019-07-14 05:04] LABS: ALB/GLOB RATIO 0.8; ALBUMIN 2.3 g/dL (3.5-5.0); CALCIUM 7.8 mg/dL (8.8-10.2); CREATININE 2.2 mg/dL (0.7-1.2); TOTAL BILIRUBIN 2.31 mg/dL (0.20-1.00); TOTAL PROTEIN 5.1 g/dL (6.3-8.3)
[2019-07-14 05:05] LABS: POTASSIUM 6.5 mmol/L (3.5-5.1)
[2019-07-14 06:01] LABS: LYMPHS 2 % (21-51); SEGS 94 % (42-75)
--- NOTE | 2019-07-14 07:38 | Diag Imaging Result Doc PS360 ---
CHEST-PORTABLE - 07/14/2019 INDICATION: respiratory failure COMPARISON: 07/13/2019 FINDINGS: Support lines and tubes are stable and in good position. Stable cardiomegaly and pulmonary vascular congestion. There is worsening opacification of both lower lobes with some hazy atelectasis and possibly small pleural effusions. IMPRESSION: Worsening opacification of the lower lobes some atelectasis and possibly pleural effusions. Electronically signed by Heraclio Field 07/14/2019 7:36 AM
[2019-07-14] MEDS ORDERED: NS 2,000 ML MISC PRN (08:22)
[2019-07-14] MEDS: LEVOPHED 8 MG in D5 1/2 NS 250 ML IV SCH (09:58)
--- NOTE | 2019-07-14 12:31 | NEPHROLOGY PROGRESS NOTE ---
DATE: 07/14/2019 SUBJECTIVE: Unchanged. OBJECTIVE: Vital Signs: Blood pressure 109/68, heart rate 108, respirations 23, temperature 99.3 degrees. General: No acute distress. Skin: Warm and dry. Heart: Regular. Tachycardic. Lungs: Coarse with crackles. Abdomen: Soft. Decreased bowel sounds. Scaphoid. Extremities: 2+ edema. IMPRESSION: Acute kidney injury. No recovery. Slow, low efficiency dialysis today using a 3 potassium bath and 34 bicarbonate. Goal of 4 to 6 liters as his blood pressure will allow. He may require daily therapy in order to achieve negative fluid balance. cc: MD Halle Cook MD
--- NOTE | 2019-07-14 14:19 | PROGRESS NOTE ---
DATE: 07/14/2019 SUBJECTIVE: the patient is on the ventilator, very ill looking. He has cyanotic feet and prognosis is poor. OBJECTIVE: Vital signs noted. On neck exam trachea midline. ET tube is in place. Chest exam with reduced entry. Cardiac exam S1, S2. Abdomen exam reduced bowel sounds. Lower examination, cyanotic toes. LABORATORY AND INVESTIGATIONS: Potassium 6.5, given Kayexalate and Nephrology is already involved. Creatinine 2.2. CO2 is 18. WBC is 15.31, hemoglobin 7.8, platelets 106,000. Chest x- ray from today was reviewed. There is worsening bilateral pleural effusion. He has been dialyzed today. ASSESSMENT AND PLAN: A 74-year-old man with a very prolonged and tedious course in the hospital and poor prognosis. 1. Acute respiratory failure, multifactorial, secondary to volume overload and sepsis pneumonia, and possible immune globulin deficiency. 2. Acute renal failure, liver failure, on dialysis. 3. Alcoholism. 4. Cirrhotic and ischemic toes and coagulopathy. 5. Caloric malnutrition. 6. We titrated assist-control ventilation per patient's needs and followed responses closely per protocols. Prognosis is likely poor given multi-organ failure and toes ischemia with little space for intervention given co-morbidities. He remains critical and will monitor closely. Critical care time evaluation: 37 minutes. cc: MD Halle Booth MD MTDD
--- NOTE | 2019-07-14 15:15 | PROGRESS NOTE ---
DATE: 07/14/2019 SUBJECTIVE: Patient remains intubated and has been on ventilator. He does not respond to any painful stimuli and therefore has been nonverbal. OBJECTIVE: Vital Signs: Temperature 99.3 degrees, pulse 108 per minute, respiratory rate 22 per minute, blood pressure 109/68, pulse oximetry 98% on 35% of oxygen. General: The patient is nonverbal and not able to respond to painful stimuli. Of note, he has not been getting any sedatives. Cardiovascular System: First and second heart sounds are audible without any murmurs. Regular tachycardia is present. Respiratory System: The patient seems to be having dyspnea with a somewhat decreased bilateral lung air entry, but no rales or rhonchi present on auscultation. Gastrointestinal: Abdomen seems to be soft and nondistended. DIAGNOSTIC DATA: CBC shows WBC count of 15.31, hemoglobin 7.8, hematocrit 25.0, and platelet count of 106,000. Comprehensive metabolic panel showed potassium levels of 6.5, BUN 116, creatinine 2.2, with total bilirubin of 2.31, AST 56, ALT 91, and albumin levels of 2.3. Arterial blood gases done this morning showed pH of 7.36, pCO2 33, and PO2 79 on 30% of oxygen. Chest x- ray obtained this morning showed somewhat worsening opacification of the lower lobes with the atelectasis and possible pleural effusions. IMPRESSION: 1. Acute hypoxemic respiratory failure. 2. Escherichia coli urinary tract infection. 3. Colitis. 4. Sepsis. 5. Transient ischemia. 6. Acute kidney injury with hyperkalemia. 7. Thrombocytopenia and leukocytosis along with suspected disseminated intravascular coagulation secondary to sepsis. 8. Atrial flutter in the setting of sepsis with multi organ failure. 9. Anemia with gastrointestinal blood loss secondary to suspected disseminated intravascular coagulation. PLAN: The patient will remain in the intensive care unit on ventilator. He will continue to be on broad-spectrum antibiotics and continue to get daily hemodialysis as per Nephrology. His kidney function has been poor and his overall prognosis is grave. The family is aware of that and they have made him do not resuscitate. We will continue to provide him supportive care, but overall his prognosis as mentioned above is grave. cc: Halle See MD
[2019-07-14] MEDS: PROTONIX IV SCH (20:43)
[2019-07-14] MEDS: OFIRMEV 1000 MG/ISOTONIC SOLN 1,000 MG/100 ML BOTTLE IV PRN (20:43)
[2019-07-15] MEDS: CLINIMIX E 4.25%-5% SOLUTION 1,000 ML IV SCH ×3 (03:34→21:02)
[2019-07-15] MEDS: DUONEB (A & A) INH SCH ×6 (03:45→23:35)
[2019-07-15] MEDS: ZOSYN 2.25 GM in NS 50 ML IV SCH ×4 (03:57→21:02)
[2019-07-15] MEDS: LOPRESSOR IV SCH ×4 (04:58→21:51)
[2019-07-15 05:18] LABS: BASO# 0.05 X1000 (0.0-0.2); BASO% 0.3 % (0.0-0.8); HEMATOCRIT 23.6 % (42.0-52.0); HEMOGLOBIN 7.3 g/dL (14.0-18.0); IMM GRAN# 0.13 X1000 (0.0-0.04); IMM GRAN% 0.8 % (0.0-0.5); LYMPH# 0.81 X1000 (1.2-3.4); MCH 32.3 PG (27-31); MCHC 30.9 g/dL (33-37); MCV 104.4 FL (81-99); MONO% 7.5 % (1.7-9.3); MPV 12.9 FL (7.4-10.4); NEUT# 13.85 X1000 (1.4-6.5); NEUT% 86.4 % (42.2-75.2); PLT 116 X1000 (130-400); RBC 2.26 XMIL (4.7-6.1); RDW 21.3 % (11.5-14.5); WBC 16.04 X1000 (4.8-10.8)
[2019-07-15 05:19] LABS: ALLEN TEST YES; BE -6.9 mmoll (-3.0-3.0); BLOOD TYPE ARTERIAL; HCO3-(ACT) 19.5 mmoll (20.0-26.0); METHB 1.4 % (0.0-1.5); O2(CT) 10.6 mL/dL (15.0-23.0); O2HB 94.8 % (95.0-99.0); PCO2(98.6) 41 mmHg (35-45); PO2(98.6) 97 mmHg (60-100); SAMPLE BLOOD; SAO2 98.1 % (95.0-100.0); THB 7.8 g/dL (11.5-17.4); pH(98.6) 7.28 (7.35-7.45)
[2019-07-15 05:20] LABS: MODALITY VENTILATOR
[2019-07-15 05:44] LABS: ALBUMIN 2.3 g/dL (3.5-5.0); CALCIUM 7.5 mg/dL (8.8-10.2); TOTAL BILIRUBIN 1.97 mg/dL (0.20-1.00); TOTAL PROTEIN 4.7 g/dL (6.3-8.3)
[2019-07-15] MEDS: ALBUTEROL NEB INH SCH ×3 (07:44→15:41)
[2019-07-15] MEDS: HUMULIN R IV SCH ×3 (07:55→16:30)
[2019-07-15] MEDS: D50W SYRINGE IV SCH ×3 (07:55→16:30)
[2019-07-15] MEDS: LOKELMA POWDER PACKET PO SCH ×3 (08:00→16:53)
--- NOTE | 2019-07-15 08:34 | Diag Imaging Result Doc PS360 ---
CHEST-PORTABLE - 07/15/2019 INDICATION: respiratory failure COMPARISON: 07/14/2019 FINDINGS: Support lines and tubes are stable. Stable cardiomegaly and pulmonary vascular congestion. Stable mild bibasilar infiltrates or atelectasis. Stable small bilateral pleural effusions. IMPRESSION: No change from prior. Electronically signed by Heraclio Field 07/15/2019 8:31 AM
--- NOTE | 2019-07-15 14:25 | PROGRESS NOTE ---
DATE: 07/15/2019 SUBJECTIVE: The patient remains intubated and has been on the ventilator. Therefore, he is not able to respond. He has been nonverbal. OBJECTIVE: Vital Signs: Temperature 99.2 degrees, pulse 118 per minute, blood pressure 123/59, respiratory rate 29 per minute, pulse oximetry 100% on 30% of oxygen. General: The patient is nonverbal and has not been able to respond to any painful stimuli despite the fact that he has not been getting any sedatives or hypnotics. Cardiovascular System: First and second heart sounds are audible with regular tachycardia. Respiratory System: The patient seems to be having agonal breathing. Bilateral lung air entry is slightly decreased as well but there are no rales or rhonchi present on auscultation. Gastrointestinal System: Abdomen is soft. Bowel sounds appear to be hypoactive. Extremities: Bilateral toes noted to be discolored and gangrenous. Diagnostic Data: CBC shows WBC count of 16.04, hemoglobin 7.3, hematocrit 22.6, and platelet count of 116,000. Comprehensive metabolic panel showed sodium level of 128, potassium 6.0, BUN 104, creatinine 2.0. Total bilirubin 1.97, AST 70, ALT 97, total protein 4.7, with albumin of 2.3. Chest x-ray obtained this morning showed stable cardiomegaly with pulmonary vascular congestion and stable mild bibasilar infiltrates or atelectasis. Stable small bilateral pleural effusions are seen as well. No change from prior was noted. IMPRESSION: 1. Acute hypoxemic respiratory failure. 2. Escherichia coli urinary tract infection. 3. Peripheral arterial disease with bilateral gangrenous feet. 4. Colitis. 5. Sepsis. 6. Acute kidney injury with hyperkalemia. 7. Thrombocytopenia with leukocytosis along with suspected disseminated intravascular coagulation secondary to sepsis. 8. Atrial flutter in the setting of sepsis with multiorgan failure. 9. Anemia with gastrointestinal blood loss secondary to suspected disseminated intravascular coagulation. PLAN: The patient has been in the intensive care unit and has been on the ventilator. We have made him Do Not Resuscitate after having a discussion with the family. He has been getting hemodialysis to keep his potassium levels relatively down as well as to take care of his elevated BUN and creatinine levels. His kidney function has not been good at all and overall, his condition is deteriorating. He is not expected to survive for too long. We will continue with supportive care and palliative care team has already been involved. Today, I discussed patient's moribund condition and grave prognosis with his son Edson Cerna over the phone in detail. Questions were answered. He stated that he will relay this information to his mother and sister. cc: Halle See MD MTDD
--- NOTE | 2019-07-15 14:57 | PROGRESS NOTE ---
DATE: 07/15/2019 SUBJECTIVE: The patient is intubated, on the ventilator. He is ill-looking. OBJECTIVE: Vital Signs: Seen with temperature being 99.2, T-max was 102.4 degrees. Head and Neck Examination: Trachea midline. Chest Examination: Reduced entry bilaterally. Cardiac Examination: S1, S2. Abdominal Examination: Distended, nontender. Lower Limb Examination: Ischemic toes. Neurologic Examination: Not responsive. Labs and Investigations: CMP seen with potassium being 6.0, creatinine being 2.0, being managed by Dr. Mccrary. WBCs 16.04, hemoglobin 7.3, the platelets are 116,000. PH 7.28, pCO2 of 41, PO2 of 97, on assist-control ventilation 40%, PEEP of 5, and CPAP of 5. He is tolerating the spontaneous breathing trial but he is not a candidate for extubation given the comorbidities and poor responsiveness and poor airway protection. Chest x-ray was reviewed from July 14 and shows no change from prior. Medications where reviewed in the hospital. He is on Cardizem, Lopressor, Levophed, Zosyn. ASSESSMENT AND PLAN: A 74-year-old with a prolonged, tedious hospital course and poor prognosis, multiorgan failure 1. Acute respiratory failure. We are adjusting assist-control settings and keeping him intubated for airway protection, and closely monitoring his responses and oxygenation. 2. Acute renal failure, liver failure. Renal is seeing. 3. Cirrhosis, ischemic toes, and coagulopathy. 4. Septic shock. He is on pressors and we are titrating and closely monitoring responses. 5. He is Do Not Resuscitate 1. Poor prognosis. He is critically ill and a candidate for worsening. We are closely monitoring his clinical response. Critical care evaluation time, 38 minutes. cc: MD Halle Booth MD
[2019-07-15] MEDS: PROTONIX IV SCH (21:00)
[2019-07-15] MEDS: LEVOPHED 8 MG in D5 1/2 NS 250 ML IV SCH (21:21)
[2019-07-16] MEDS: ZOSYN 2.25 GM in NS 50 ML IV SCH ×4 (03:22→21:57)
[2019-07-16] MEDS: LEVOPHED 8 MG in D5 1/2 NS 250 ML IV SCH ×3 (03:22→19:52)
[2019-07-16] MEDS: DUONEB (A & A) INH SCH ×6 (03:30→23:25)
[2019-07-16] MEDS: LOPRESSOR IV SCH ×4 (04:33→21:57)
[2019-07-16 04:41] LABS: ALLEN TEST YES; BE -9.6 mmoll (-3.0-3.0); BLOOD TYPE ARTERIAL; HCO3-(ACT) 17.4 mmoll (20.0-26.0); METHB 1.7 % (0.0-1.5); O2(CT) 9.7 mL/dL (15.0-23.0); O2HB 92.3 % (95.0-99.0); PCO2(98.6) 36 mmHg (35-45); PO2(98.6) 70 mmHg (60-100); SAMPLE BLOOD; SAO2 95.6 % (95.0-100.0); SRATE 18 BPM; THB 7.4 g/dL (11.5-17.4); TVOL 700 mL; pH(98.6) 7.27 (7.35-7.45)
[2019-07-16 04:42] LABS: MODALITY VENTILATOR
[2019-07-16 04:58] LABS: BASO# 0.02 X1000 (0.0-0.2); BASO% 0.1 % (0.0-0.8); HEMATOCRIT 21.7 % (42.0-52.0); IMM GRAN# 0.09 X1000 (0.0-0.04); IMM GRAN% 0.4 % (0.0-0.5); LYMPH# 0.91 X1000 (1.2-3.4); LYMPH% 3.6 % (20.5-51.1); MCH 32.7 PG (27-31); MCHC 32.3 g/dL (33-37); MCV 101.4 FL (81-99); MONO% 1.6 % (1.7-9.3); MPV 11.8 FL (7.4-10.4); NEUT# 23.86 X1000 (1.4-6.5); NEUT% 94.3 % (42.2-75.2); PLT 145 X1000 (130-400); RBC 2.14 XMIL (4.7-6.1); RDW 19.8 % (11.5-14.5); WBC 25.28 X1000 (4.8-10.8)
[2019-07-16 05:21] LABS: LYMPHS 2 % (21-51); SEGS 98 % (42-75)
[2019-07-16 05:27] LABS: ALB/GLOB RATIO 0.7; CALCIUM 7.3 mg/dL (8.8-10.2); CREATININE 2.7 mg/dL (0.7-1.2); POTASSIUM 5.9 mmol/L (3.5-5.1); TOTAL BILIRUBIN 1.77 mg/dL (0.20-1.00); TOTAL PROTEIN 4.7 g/dL (6.3-8.3)
--- NOTE | 2019-07-16 06:07 | Diag Imaging Result Doc PS360 ---
EXAM: CHEST-PORTABLE HISTORY: respiratory failure TECHNIQUE: Single COMPARISON: 07/30/2019 FINDINGS: The no change in the endotracheal tube, nasogastric tube, or left sided catheter. The heart is not enlarged. There are sternal wires. There are increased interstitial markings bilaterally believed to be pulmonary edema. These are similar to the prior exam. There is basilar atelectasis. Small effusions. IMPRESSION: Questionable slight interval improvement Electronically signed by Jermaine Lambert 07/16/2019 6:05 AM
[2019-07-16] MEDS ORDERED: NS 2,000 ML MISC PRN (08:20)
--- NOTE | 2019-07-16 08:32 | PROGRESS NOTE ---
DATE: 07/16/2019 SUBJECTIVE: The patient remains intubated and has been on the ventilator. OBJECTIVE: Vital Signs: Temperature 99.7 degrees Fahrenheit, pulse rate 102 per minute, respiratory rate 23 per minute, blood pressure 127/56, pulse oximetry 98% on 30% of oxygen. Cardiovascular System: First and second heart sounds are audible without any murmurs. Respiratory System: The patient appears to be having almost agonal breathing. Bilateral lung air entry is shallow. No rales or rhonchi are present on auscultation, however. Abdomen: Soft. Bowel sounds remain hypoactive. Diagnostic Data: CBC shows WBC count of 25.28, hemoglobin 7.0, hematocrit 21.7, and platelet count of 145,000. In comparison, his white blood cell count was 16.04 yesterday. Hemoglobin was 7.3 and hematocrit 23.6 yesterday. Chemistry done this morning shows a sodium level of 131, potassium 5.9, BUN 141, creatinine 2.7, glucose 137, calcium 7.3. Total bilirubin 1.77, AST 67, and ALT 87, with albumin level of 2.0. Arterial blood gases this morning shows a pH of 7.27, pCO2 of 36, and PO2 of 70 on 40% of oxygen. IMPRESSION: 1. Acute hypoxemic respiratory failure. 2. Escherichia coli urinary tract infection. 3. Peripheral arterial disease with bilateral gangrenous feet. 4. Colitis. 5. Sepsis. 6. Acute kidney injury with hyperkalemia. 7. Thrombocytopenia with leukocytosis along with suspected disseminated intravascular coagulation secondary to sepsis. 8. Atrial flutter in the setting of sepsis with multiorgan failure. 9. Anemia with gastrointestinal blood loss secondary to suspected disseminated intravascular coagulation. PLAN: The patient has been on the ventilator in the intensive care unit. Already signed his Do Not Resuscitate by his family. The patient has been getting hemodialysis to control his hyperkalemia and renal function but his kidneys are not functioning at all and overall, his condition has worsened significantly over the past several days. The patient's family is aware of that, with whom I had a discussion yesterday. I really do not recommend continuing aggressive therapy since he has not responded at all. His prognosis is grave and he is not expected to survive for too long. cc: Halle See MD
[2019-07-16] MEDS: CLINIMIX E 4.25%-5% SOLUTION 1,000 ML IV SCH ×2 (08:47→16:36)
[2019-07-16] MEDS: SODIUM BICARBONATE 8.4% IV PUSH SCH ×3 (08:59→16:35)
[2019-07-16] MEDS: LOPRESSOR IV PRN (09:15)
[2019-07-16] MEDS ORDERED: HEPARIN IV ONE (10:45)
--- NOTE | 2019-07-16 14:58 | PROGRESS NOTE ---
DATE: 07/16/2019 SUBJECTIVE: The patient continues unresponsive on ventilator. He is currently in atrial fibrillation with controlled rate. OBJECTIVE: Vital Signs: Blood pressure is 137/78, heart rate is 101 and irregular with ECG monitor showing atrial fibrillation, oxygen saturation is 99% with FiO2 of 30%. Neck: There is no significant jugular venous distention. Chest: Auscultation of the chest reveals coarse breath sounds bilaterally. Cardiac: Reveals an irregular rate and rhythm without appreciable murmur or gallop. Extremities: Without edema. LABORATORY DATA: Includes a white blood cell count of 25.28, hematocrit 21.7, hemoglobin 7.0, platelet count 145,000. Sodium 131, potassium 5.9, chloride 96, carbon dioxide 15, BUN 141, creatinine 2.7, glucose 137. IMPRESSION: 1. Atrial arrhythmias in the setting of acute severe noncardiac illness with multi-organ failure. The patient presently in atrial fibrillation with controlled rate. 2. Severe acute noncardiac illness with respiratory failure, hepatic failure, renal failure, encephalopathy and coagulopathy with thrombocytopenia probably related to disseminated intravascular coagulation. The patient's platelet count has risen. 3. Severe coronary atherosclerosis with preserved left ventricular ejection fraction. 4. Chronic obstructive pulmonary disease. 5. Hypertension. 6. Hyperlipidemia. 7. Recent urinary tract infection with Escherichia coli. RECOMMENDATIONS: 1. Continue current IV metoprolol on a scheduled basis with supple IV metoprolol as needed for rate control. 2. Conservative cardiovascular management overall. Prognosis very poor. cc: MD Halle Molina MD
--- NOTE | 2019-07-16 18:25 | NEPHROLOGY PROGRESS NOTE ---
DATE: 07/16/2019 SUBJECTIVE: Unresponsive. OBJECTIVE: Vital Signs: Blood pressure 118/58, heart rate 100, respirations 22, afebrile. General: No changes. Neck: Veins remain distended. Extremities: Extremities are still densely cyanotic with frankly mummified, dry gangrene of the toes. IMPRESSION: Acute kidney injury. No recovery. Sustained low efficiency dialysis today using a 3 potassium bath and 34 bicarbonate with a goal of 4 L ultrafiltration as his blood pressure allows. He will need treatment likely daily in order to achieve negative fluid balance. cc: MD Halle Cook MD
--- NOTE | 2019-07-16 20:37 | PULMONOLOGY PROGRESS NOTE ---
DATE: 07/16/2019 SUBJECTIVE: The patient is unresponsive. He remains on increased doses of Levophed. PHYSICAL EXAMINATION: Vital Signs: BP 103/82, heart rate 114, respiratory rate 26, oxygen saturation 93%. HEENT: Pupils are equal but sluggish to response to light. Oropharynx appears dry with some residual bleeding from the gums. Neck: Supple. Chest: Coarse rhonchi. Cardiac Exam: S1-S2 increased rate. Abdomen: Soft with no bowel sounds present. Extremities: Ongoing ischemia and necrosis of the digits on the feet. LABORATORIES: Arterial blood gas reveals a pH 7.27, pCO2 of 36, PO2 of 70. White blood count 25,000, hemoglobin 7.0, platelet count 145,000. Sodium 131, potassium 5.9, chloride 96, bicarbonate 15, BUN 141, creatinine 2.7, bilirubin 1.77. Chest x-ray reveals pulmonary edema with possible marginal improvement. IMPRESSION: 1. A 74-year-old with hypoxemic respiratory failure. 2. Liver failure with improvement. 3. Renal failure without improvement. 4. Encephalopathy. 5. Immunoglobulin deficiency. DISCUSSION: A 74-year-old with multiorgan failure. He continues to do poorly. He is requiring ongoing Levophed for hemodynamic shock. PLAN: 1. Continue ventilatory support. 2. Renal replacement therapy per Dr. Mccrary. 3. Prognosis remains extremely poor. He is unlikely to survive this hospital stay. If he does, he may require amputations of the lower extremity digits. Time spent in critical care management: 45 minutes cc: MD Halle Clark MD [facility]
[2019-07-16] MEDS: SODIUM CHLORIDE 0.9% INJ SCH (20:41)
[2019-07-16] MEDS: PROTONIX IV SCH (20:41)
[2019-07-17] MEDS: DUONEB (A & A) INH SCH ×5 (03:40→19:12)
[2019-07-17] MEDS: ZOSYN 2.25 GM in NS 50 ML IV SCH ×4 (04:26→21:15)
[2019-07-17] MEDS: LOPRESSOR IV SCH ×5 (04:27→21:46)
[2019-07-17 05:01] LABS: ALB/GLOB RATIO 0.7; ALBUMIN 1.9 g/dL (3.5-5.0); CALCIUM 7.3 mg/dL (8.8-10.2); CREATININE 1.6 mg/dL (0.7-1.2); POTASSIUM 4.7 mmol/L (3.5-5.1); TOTAL BILIRUBIN 1.69 mg/dL (0.20-1.00); TOTAL PROTEIN 4.7 g/dL (6.3-8.3)
[2019-07-17 05:03] LABS: ALLEN TEST YES; BLOOD TYPE ARTERIAL; HCO3-(ACT) 24.2 mmoll (20.0-26.0); METHB 0.8 % (0.0-1.5); O2HB 95.3 % (95.0-99.0); PCO2(98.6) 29 mmHg (35-45); PO2(98.6) 114 mmHg (60-100); SAMPLE BLOOD; SAO2 98.8 % (95.0-100.0); SRATE 18 BPM; THB 7.3 g/dL (11.5-17.4); TVOL 700 mL; pH(98.6) 7.49 (7.35-7.45)
[2019-07-17 05:04] LABS: MODALITY VENTILATOR
[2019-07-17 05:08] LABS: BASO# 0.02 X1000 (0.0-0.2); BASO% 0.1 % (0.0-0.8); HEMATOCRIT 21.3 % (42.0-52.0); HEMOGLOBIN 6.7 g/dL (14.0-18.0); IMM GRAN# 0.04 X1000 (0.0-0.04); IMM GRAN% 0.3 % (0.0-0.5); LYMPH# 0.39 X1000 (1.2-3.4); LYMPH% 2.5 % (20.5-51.1); MCH 31.6 PG (27-31); MCHC 31.5 g/dL (33-37); MCV 100.5 FL (81-99); MONO# 0.77 X1000 (0.11-0.59); MPV 11.7 FL (7.4-10.4); NEUT# 14.16 X1000 (1.4-6.5); NEUT% 92.1 % (42.2-75.2); PLT 161 X1000 (130-400); RBC 2.12 XMIL (4.7-6.1); RDW 20.6 % (11.5-14.5); WBC 15.38 X1000 (4.8-10.8)
[2019-07-17] MEDS: MORPHINE IV PRN (06:02)
--- NOTE | 2019-07-17 07:19 | Diag Imaging Result Doc PS360 ---
EXAM: CHEST-PORTABLE INDICATION: respiratory failure TECHNIQUE: One view COMPARISON: 07/16/2019 FINDINGS: The tip of the NG tube is obscured by soft tissue attenuation. The ET tube and left central line are in stable positions. Bilateral infiltrates and prominent central vasculature suggesting pulmonary edema and pulmonary venous congestion are approximately stable. No new consolidation is identified. Cardiac silhouette is stable. IMPRESSION: Stable chest. Electronically signed by Reza Schwarz 07/17/2019 7:17 AM
[2019-07-17] MEDS: LEVOPHED 8 MG in D5 1/2 NS 250 ML IV SCH (07:38)
--- NOTE | 2019-07-17 08:46 | PROGRESS NOTE ---
DATE: 07/17/2019 SUBJECTIVE: The patient remains intubated and is not able to communicate. Since last night, he has been spontaneously opening his eyes, however. OBJECTIVE: Vital Signs: Temperature 98.8 degrees, pulse 99 per minute, respiratory rate 26 per minute, blood pressure 104/64, pulse oximetry 100% on 40% of oxygen. General: The patient opens his eyes spontaneously but does not respond to verbal stimuli. He does respond to painful stimuli by twitching his eyes. Cardiovascular System: First and second heart sounds are audible without any murmurs. Respiratory System: Bilateral lung air entry is slightly decreased but there are no rales or rhonchi present on auscultation. Gastrointestinal System: Abdomen is soft and not distended. Diagnostic Data: CBC shows WBC count of 15.38, hemoglobin 6.7, hematocrit 21.3, and platelet count of 161,000. Chemistry showed BUN levels of 82, creatinine 1.6, calcium 7.3. Total bilirubin 1.69, AST 58, ALT 80, and albumin level of 1.9. Rest of the comprehensive metabolic panel is nondiagnostic. ABG done this morning showed a pH of 7.49, pCO2 of 29, and PO2 of 114 on 40% of oxygen. Chest x-ray obtained this morning showed a stable chest with no new infiltrates. IMPRESSION: 1. Acute hypoxemic respiratory failure. 2. Escherichia coli urinary tract infection. 3. Peripheral arterial disease with bilateral gangrenous feet. 4. Colitis. 5. Sepsis. 6. Acute kidney injury with hyperkalemia. 7. Suspected disseminated intravascular coagulation. 8. Cardiac arrhythmia, atrial flutter/atrial fibrillation in the setting of sepsis with multiorgan failure. 9. Anemia with gastrointestinal blood loss secondary to suspected disseminated intravascular coagulation. PLAN: The patient will be continued on the ventilator in the intensive care unit. He will continue hemodialysis as per nephrology and will continue with broad-spectrum antibiotics, along with supportive care. We will monitor his H&H and transfuse PRBC as needed. Pulmonology, cardiology, and nephrology are following the case. The family is aware of the patient's grave prognosis. He does have some improvement overnight and has been opening his eyes spontaneously but I believe he has already developed encephalopathy. His family is going to decide whether they want to withhold any further aggressive therapy including hemodialysis in the next few days. TIME SPENT: 37 minutes of critical care time spent. cc: Halle See MD MTDD
[2019-07-17] MEDS: CLINIMIX E 4.25%-5% SOLUTION 1,000 ML IV SCH ×3 (09:18→22:46)
[2019-07-17] MEDS: LOPRESSOR IV PRN (12:37)
--- NOTE | 2019-07-17 13:44 | PROGRESS NOTE ---
DATE: 07/17/2019 SUBJECTIVE: Patient opens eyes to verbal, but does not interact. He continues on ventilator. He remains in atrial fibrillation. OBJECTIVE: Blood pressure 121/77, heart rate 110 and irregular with ECG monitor showing atrial fibrillation. Oxygen saturation 98% on ventilator with FiO2 of 40%. There is no significant jugular venous distention. Auscultation of the chest reveals coarse breath sounds bilaterally.Cardiac Exam: Reveals an irregular rate and rhythm without appreciable murmur or gallop. Extremities: Without edema. LABORATORY DATA: Includes white blood cell count of 15.3, hematocrit 21.3, hemoglobin 6.7, platelet count 161,000, sodium 134, potassium 4.7, chloride 100, carbon dioxide 22, BUN 82, creatinine 1.6. Glucose 122. IMPRESSION: 1. Atrial arrhythmias in setting of acute severe noncardiac illness with multiorgan failure. Patient presently in atrial fibrillation with controlled rate. 2. Severe acute noncardiac illness with multiorgan failure and probable DIC. 3. Severe coronary atherosclerosis with preserved left ventricular ejection fraction. 4. Chronic obstructive pulmonary disease. 5. Hypertension. 6. Hyperlipidemia. 7. Recent urinary tract infection. RECOMMENDATIONS: 1. Continue IV metoprolol on a scheduled basis along with supplemental IV metoprolol as needed for rate control. 2. Consider anticoagulation with subcutaneous heparin if DIC has resolved based on repeat laboratory studies. 3. Conservative cardiovascular management overall. Prognosis appears to be very poor. cc: MD Halle Molina MD
--- NOTE | 2019-07-17 14:50 | PULMONOLOGY PROGRESS NOTE ---
DATE: 07/17/2019 SUBJECTIVE: The patient is sedated but does respond to my voice when I call his name. Work of breathing appears to be less than yesterday. OBJECTIVE: Vital signs: Maximum temperature in the last 24 hours is 100.4 degrees. BP 121/77, heart rate 113, respiratory rate 26, oxygen saturation 98%. HEENT: Pupils are equal and reactive. Oropharynx appears dry but clear. Neck: Supple. Chest: Reveals coarse rhonchi bilaterally. Cardiac exam: S1, S2. Abdomen: Soft, with diminished bowel sounds. Extremities: Reveal ongoing ischemia and cyanosis of both feet. LABORATORIES: Chest x-ray 07/17/2019: Continued prominence of the pulmonary vasculature with patchy bilateral infiltrates. No change from yesterday. White blood count 15.38, hemoglobin 6.7, platelet count 161,000. Sodium 137, potassium 4.7, chloride 100, bicarbonate 22, BUN 82, creatinine 1.6. Arterial blood gas, pH 7.49, pCO2 of 29, PO2 of 114. IMPRESSIONS: A 74-year-old with: 1. Hypoxemic respiratory failure. 2. Liver failure with continued improvement. 3. Renal failure without improvement. 4. Encephalopathy. 5. Immunoglobulin deficiency, status post replacement. PLAN: 1. Continue ventilatory support pending improvement in physiologic status. 2. Renal replacement therapy as per Dr. Mccrary. 3. Continue current treatment regimen. 4. Check immunoglobulin level tomorrow. CRITICAL CARE TIME: Time spent in critical care management, 35 minutes. cc: MD Halle Clark MD
[2019-07-17] MEDS: OFIRMEV 1000 MG/ISOTONIC SOLN 1,000 MG/100 ML BOTTLE IV PRN (15:30)
--- NOTE | 2019-07-17 16:05 | NEPHROLOGY PROGRESS NOTE ---
DATE: 07/17/2019 SUBJECTIVE: Unresponsive. OBJECTIVE: Vital Signs: Blood pressure 135/78, heart rate 110, respiration 29. Intake 4.4 L. Output 5.5 L. General: No acute distress. Unresponsive. Skin: Warm and dry. Ischemia is unchanged. Heart: Regular. Neck: Neck veins are not distended. Lungs: Equal, clear. Abdomen: Soft. Decreased bowel sounds. IMPRESSION: Acute kidney injury. No recovery. Though his chart relates that he is 14 L positive, he does not look hypervolemic on exam so we will hold dialysis today. cc: MD Halle Cook MD
[2019-07-17] MEDS: PROTONIX IV SCH (19:48)
[2019-07-18] MEDS: DUONEB (A & A) INH SCH ×7 (00:05→23:29)
[2019-07-18] MEDS: LEVOPHED 8 MG in D5 1/2 NS 250 ML IV SCH ×2 (02:40→17:10)
[2019-07-18] MEDS: LOPRESSOR IV SCH ×6 (03:35→23:46)
[2019-07-18] MEDS: ZOSYN 2.25 GM in NS 50 ML IV SCH ×4 (03:35→21:15)
[2019-07-18 04:16] LABS: BASO# 0.02 X1000 (0.0-0.2); BASO% 0.2 % (0.0-0.8); EOS# 0.02 X1000 (0.0-0.7); EOS% 0.2 % (0.0-10.0); HEMATOCRIT 19.4 % (42.0-52.0); HEMOGLOBIN 6.1 g/dL (14.0-18.0); IMM GRAN# 0.04 X1000 (0.0-0.04); IMM GRAN% 0.4 % (0.0-0.5); LYMPH# 0.64 X1000 (1.2-3.4); LYMPH% 5.9 % (20.5-51.1); MCH 31.9 PG (27-31); MCHC 31.4 g/dL (33-37); MCV 101.6 FL (81-99); MONO# 0.26 X1000 (0.11-0.59); MONO% 2.4 % (1.7-9.3); MPV 11.2 FL (7.4-10.4); NEUT# 9.94 X1000 (1.4-6.5); NEUT% 90.9 % (42.2-75.2); PLT 171 X1000 (130-400); RBC 1.91 XMIL (4.7-6.1); RDW 21.1 % (11.5-14.5); WBC 10.92 X1000 (4.8-10.8)
[2019-07-18 04:35] LABS: INR 1.42; PROTIME 17.6 Seconds (11.0-16.0)
[2019-07-18 04:36] LABS: PTT 32.6 Seconds (22.3-41.8)
[2019-07-18 04:37] LABS: LYMPHS 2 % (21-51); SEGS 92 % (42-75)
[2019-07-18 04:56] LABS: ALB/GLOB RATIO 0.7; ALBUMIN 1.8 g/dL (3.5-5.0); CREATININE 1.9 mg/dL (0.7-1.2); POTASSIUM 5.8 mmol/L (3.5-5.1); TOTAL BILIRUBIN 1.33 mg/dL (0.20-1.00); TOTAL PROTEIN 4.5 g/dL (6.3-8.3)
[2019-07-18 04:56] LABS: ALLEN TEST YES; BE -3.5 mmoll (-3.0-3.0); BLOOD TYPE ARTERIAL; HCO3-(ACT) 22.2 mmoll (20.0-26.0); METHB 1.4 % (0.0-1.5); O2(CT) 7.9 mL/dL (15.0-23.0); O2HB 94.8 % (95.0-99.0); PCO2(98.6) 30 mmHg (35-45); PO2(98.6) 86 mmHg (60-100); SAMPLE BLOOD; SAO2 97.9 % (95.0-100.0); SRATE 18 BPM; THB 5.8 g/dL (11.5-17.4); TVOL 700 mL; pH(98.6) 7.44 (7.35-7.45)
[2019-07-18 04:59] LABS: MODALITY VENTILATOR
[2019-07-18] MEDS ORDERED: CALCIUM GLUCONATE 1 GM in NS 50 ML IV ONE (05:12)
[2019-07-18] MEDS ORDERED: SODIUM BICARBONATE 8.4% IV PUSH ONE (05:13)
--- NOTE | 2019-07-18 07:06 | Diag Imaging Result Doc PS360 ---
EXAM: CHEST-PORTABLE 07/18/2019 HISTORY: respiratory failure TECHNIQUE: AP portable at 0548 COMMENT: There is an endotracheal tube with its tip at thoracic inlet and an NG tube which passes below the diaphragm. There is a left subclavian central venous catheter with its tip at the level of the confluence of the brachiocephalic veins. There is pleural fluid on the left. There is hazy interstitial pulmonary edema particularly over the left lower lobe. This appears slightly worse than on 07/17/2019. IMPRESSION: Worsened pulmonary edema. Electronically signed by Emerson Kendrick 07/18/2019 7:04 AM
[2019-07-18] MEDS: NS 500 ML IV SCH (07:49)
[2019-07-18] MEDS ORDERED: NS 500 ML ONE (07:50)
--- NOTE | 2019-07-18 08:12 | PROGRESS NOTE ---
DATE: 07/18/2019 SUBJECTIVE: The patient has been awake for the past 36 hours, but appears to be disoriented. He remains intubated, however. OBJECTIVE: Vital Signs: Temperature 100.1 degrees, pulse 103 per minute, respiratory rate 23 per minute, blood pressure 125/70, pulse oximetry 98% on 30% of oxygen. Cardiovascular System: First and second heart sounds are audible without any murmurs. Respiratory System: Bilateral lung air entry is moderate, with no rales or rhonchi present on auscultation. Gastrointestinal: Abdomen is soft and nondistended. It is nontender on palpation, and normal bowel sounds are present. DIAGNOSTIC DATA: CBC shows WBC count of 10.92, hemoglobin 6.1, hematocrit 19.4, and platelet count of 171,000. In comparison, his hemoglobin and hematocrit was 6.7 and 21.3 yesterday. Comprehensive metabolic panel showed a potassium level of 5.8, BUN 109, creatinine 1.9, glucose 123. Calcium levels of 7.0. Total bilirubin 1.33. AST 60, ALT 77. Albumin level of 1.8. The rest of the comprehensive metabolic panel is nondiagnostic. Arterial blood gases obtained this morning showed pH of 7.44, pCO2 30, and pO2 of 86 on 30% of oxygen. PT is elevated at 17.6, with INR of 1.42, but PTT is normal at 32.6, with fibrinogen levels of 328, and D-dimer is elevated at 8.69. Chest x-ray obtained this morning showed worsened pulmonary edema. IMPRESSION: 1. Acute hypoxemic respiratory failure. 2. Escherichia coli urinary tract infection. 3. Peripheral arterial disease, with bilateral gangrenous feet. 4. Colitis. 5. Sepsis. 6. Acute kidney injury with hyperkalemia. 7. Cardiac arrhythmia with atrial flutter/atrial fibrillation in the setting of sepsis, with multiorgan failure. 8. Anemia with GI blood loss secondary to suspected disseminated intravascular coagulation. That appears to have resolved now, although he still continues to have a drop in hemoglobin and hematocrit. PLAN: The patient will be continued on the ventilator in the intensive care unit as per Pulmonary/Critical Care Medicine. He will continue with dialysis as per Nephrology as well. We will continue with broad-spectrum antibiotics along with supportive care. He did have a significant drop in hemoglobin and hematocrit because of which he will be transfused packed red blood cells today. We have initiated him on feeding through the NG tube as well and he has been tolerating well so far. His platelet counts have improved and disseminated intravascular coagulation appears to have resolved, but I would be reluctant to start him on any anticoagulant because of continued drop in hemoglobin and hematocrit and significant anemia. Overall, his condition has improved for the previous 2 days, although he appears to have developed encephalopathy, although that still needs to be determined. I had a lengthy discussion with the family yesterday and updated them on his current situation. TIME SPENT: 38 minutes of critical care time spent. cc: Halle See MD [facility]TD[facility]
[2019-07-18] MEDS ORDERED: NS 2,000 ML MISC PRN ×2 (08:42→14:24)
[2019-07-18] MEDS: CLINIMIX E 4.25%-5% SOLUTION 1,000 ML IV SCH ×2 (09:12→18:27)
[2019-07-18] MEDS ORDERED: BENADRYL IV ONE (09:24)
[2019-07-18] MEDS: OFIRMEV 1000 MG/ISOTONIC SOLN 1,000 MG/100 ML BOTTLE IV PRN ×2 (09:37→20:27)
[2019-07-18] MEDS: ALBUMIN 25% IV SCH ×3 (10:50→21:15)
[2019-07-18] MEDS: MORPHINE IV PRN ×2 (10:52→14:39)
[2019-07-18] MEDS: LOPRESSOR IV PRN (11:46)
[2019-07-18] MEDS ORDERED: STERILE WATER INJ. INJ ONE (12:00)
[2019-07-18] MEDS ORDERED: CATHFLO IV ONE (12:00)
--- NOTE | 2019-07-18 12:35 | NEPHROLOGY PROGRESS NOTE ---
DATE: 07/18/2019 SUBJECTIVE: His eyes are open today and looking around. He did not particularly fix on me. Coughing. OBJECTIVE: Vital Signs: Blood pressure 106/70, heart rate 118, respirations 25, temperature 99.6 degrees. Intake 4.7 L, output 1.4 L. General: No acute distress. Skin: Warm and dry. Neck: Neck veins are distended. Heart: Irregular. Tachycardic with a gallop. Lungs: Equal breath sounds. Scattered crackles. Abdomen: Soft, scaphoid. Bowel sounds diminished. Extremities: There is 2+ edema. No clubbing or cyanosis. IMPRESSION: Acute kidney injury. No recovery. Sustained low-efficiency dialysis today, 8 hours using a 4-potassium bath and 30 of bicarbonate, goal of 4 liters as blood pressure allows. cc: MD Halle Cook MD
--- NOTE | 2019-07-18 14:55 | Diag Imaging Result Doc PS360 ---
EXAM: CHEST-PORTABLE INDICATION: R IJ placement TECHNIQUE: One view COMPARISON: 07/18/2019 FINDINGS: There is a newly placed double-lumen right IJ catheter. The tip projects over the region of the lower SVC near the atriocaval junction. The remaining support tubes and lines are in stable positions. Pulmonary edema is approximately stable as compared to the previous study. Cardiac silhouette is stable. There is no evidence of pneumothorax status post central line placement. IMPRESSION: Interval placement of right double lumen IJ catheter with no evidence of postplacement pneumothorax. Electronically signed by Reza Schwarz 07/18/2019 2:52 PM
--- NOTE | 2019-07-18 15:53 | OPERATIVE NOTE ---
PROCEDURE DATE: 07/18/2019 PREOPERATIVE DIAGNOSIS: Acute renal failure requiring hemodialysis. POSTOPERATIVE DIAGNOSIS: Acute renal failure requiring hemodialysis. PRINCIPAL PROCEDURE: 1. Ultrasound-guided right internal jugular Vas-Cath. 2. Removal of right common femoral vein Vas-Cath. SURGEON: Saige Kimball MD ANESTHESIA: Local. ESTIMATED BLOOD LOSS: 25 mL. DRAINS: None. INDICATION: Mr. Roberto Carlos Grande is a 74-year-old white male who is intubated in our ICU and is suffering from acute renal failure requiring hemodialysis. He had a right groin Vas-Cath in place which was not functioning well. We were asked to place new access. DESCRIPTION OF PROCEDURE: The patient was placed supine in his bed ICU 10. His head was turned to the left. His right neck was prepped and draped within a sterile field. We used local anesthetic. I used ultrasound to identify the right internal jugular vein between the 2 heads of the right sternocleidomastoid muscle. Using ultrasound guidance, I directed an 18-gauge needle into the right internal jugular vein. Through this needle I placed a guidewire into the right side of the heart. The needle was removed. I made a small yue in the skin at the exit site of the guidewire and sequential dilators were placed over the guidewire into the internal jugular vein. I placed a Trialysis catheter over the guidewire into the superior vena cava. The wire was removed. All 3 ports were functioning well and were flushed with saline. I secured the catheter to the skin with two 3-0 nylon stitches. Dressings were applied. He tolerated the procedure well with plans for a portable chest x-ray to be performed for position. I removed his right common femoral vein Vas-Cath by cutting the sutures and sliding the catheter out of the vein and holding pressure at its exit site. After several minutes of held pressure there was no bleeding and we placed a dressing over his right groin. He tolerated both of these procedures well. It must be noted that I spoke with his prior to performing the procedure. cc: MD Halle Kennedy MD
[2019-07-18] MEDS ORDERED: LANOXIN IV ONE (16:41)
--- NOTE | 2019-07-18 17:01 | CARDIOLOGY PROGRESS NOTE ---
DATE: 07/18/2019 SUBJECTIVE: The patient continues on ventilator. He has been opening his eyes spontaneously but is recently received some narcotic analgesic. I cannot elicit any response than a grimace to noxious stimulus. He appears to be in atrial flutter with tendency for elevated heart rate despite current therapy. OBJECTIVE: Vital signs: Blood pressure 97/60, heart rate 120 to 135, with ECG monitor showing atrial flutter. Neck: Jugular venous distention cannot be appreciated. Chest: Auscultation of the chest reveals coarse breath sounds bilaterally. Cardiac Exam: Reveals a irregular tachycardia without appreciable murmur or gallop. Extremities: Without edema. LABORATORY DATA: Includes a white blood cell count of 10.9, hematocrit 19.4, hemoglobin 6.1, platelet count 171,000. Prothrombin time 17.6, INR 1.42, PTT 37.5, fibrinogen 328. Sodium 131, potassium 5.8, chloride 98, carbon dioxide 20, BUN 109, carbon dioxide 1.9, glucose 123. IMPRESSION: 1. Atrial arrhythmias including atrial fibrillation and atrial flutter in setting of severe acute noncardiac illness with multiorgan failure. Patient currently in atrial flutter with tendency for more elevated heart rate despite current therapy. 2. Severe acute noncardiac illness with multiorgan failure and probable disseminated intravascular coagulation. 3. Severe coronary artery disease with preserved left ventricular ejection fraction. 4. Anemia. 5. Chronic obstructive pulmonary disease. 6. Hypertension. 7. Hyperlipidemia. 8. Recent urinary tract infection with Escherichia coli. RECOMMENDATIONS: 1. Increase scheduled metoprolol to 5 mg IV q.4 hours and continue supplemental IV metoprolol as needed for rate control. 2. Initiate heparin 5000 units subcutaneously q.12. 3. Initiate amiodarone 200 mg t.i.d. to try enhance rate control. 4. Conservative cardiovascular management overall. Prognosis appears to be very poor. cc: MD Halle Molina MD [facility]
[2019-07-18] MEDS: CORDARONE NG SCH (17:10)
[2019-07-18] MEDS: PROTONIX IV SCH (20:07)
[2019-07-18] MEDS: HEPARIN SUBQ SCH (20:07)
--- NOTE | 2019-07-18 20:45 | PULMONOLOGY PROGRESS NOTE ---
DATE: 07/18/2019 SUBJECTIVE: The patient is arousable. He appears profoundly weak. The patient remains on Levophed, but the dose has been titrated over the last day. OBJECTIVE: Vital signs: BP 110/80, heart rate 101, respiratory rate 18, oxygen saturation 96%. HEENT: Pupils are equal and reactive. Oropharynx appears clear with some healing present. Neck: Supple. Chest: Reveals rhonchi bilaterally. Cardiac exam: S1, S2. Abdomen: Soft with diminished bowel sounds. Extremities: Reveal unchanged peripheral cyanosis. IMAGING: Chest x-ray reveals stable vascular congestion without change. LABORATORY DATA: White blood count 10.92, hemoglobin 6.1, platelet count 171,000. Arterial blood gas reveals pH of 7.44, pCO2 of 30, pO2 of 86 with a normal lactate. Sodium 131, potassium 5.8, chloride 28, BUN 109, creatinine 1.9, albumin 1.9. IMPRESSION: A 74-year-old with: 1. Hypoxemic respiratory failure. 2. Liver failure. 3. Renal failure. 4. Immunoglobulin deficiency, level stable after replacement. 5. Encephalopathy. 6. Severe protein calorie malnutrition. PLAN: 1. Continue current ventilatory support pending improvement in clinical status. 2. Continue current antibiotic regimen. 3. We will give albumin in an attempt to help wean vasopressors. 4. He remains critically ill. Chance of survival remains low, but he has had some evidence of clinical improvement. Time spent in critical care management: 40 minutes cc: MD Halle Clark MD [facility]
[2019-07-19] MEDS: DUONEB (A & A) INH SCH ×6 (03:33→23:40)
[2019-07-19] MEDS: NS 500 ML IV SCH ×3 (03:36→22:49)
[2019-07-19] MEDS: ZOSYN 2.25 GM in NS 50 ML IV SCH ×4 (03:54→21:19)
[2019-07-19] MEDS: LOPRESSOR IV SCH ×5 (03:55→20:43)
[2019-07-19 04:37] LABS: BASO# 0.06 X1000 (0.0-0.2); BASO% 0.7 % (0.0-0.8); EOS# 0.05 X1000 (0.0-0.7); EOS% 0.6 % (0.0-10.0); HEMATOCRIT 20.3 % (42.0-52.0); HEMOGLOBIN 6.4 g/dL (14.0-18.0); IMM GRAN# 0.04 X1000 (0.0-0.04); IMM GRAN% 0.4 % (0.0-0.5); LYMPH# 0.49 X1000 (1.2-3.4); LYMPH% 5.5 % (20.5-51.1); MCH 31.4 PG (27-31); MCHC 31.5 g/dL (33-37); MCV 99.5 FL (81-99); MONO# 0.52 X1000 (0.11-0.59); MONO% 5.8 % (1.7-9.3); MPV 11.8 FL (7.4-10.4); NEUT# 7.83 X1000 (1.4-6.5); PLT 140 X1000 (130-400); RBC 2.04 XMIL (4.7-6.1); RDW 21.9 % (11.5-14.5); WBC 8.99 X1000 (4.8-10.8)
[2019-07-19 04:42] LABS: ALLEN TEST YES; BE -3.5 mmoll (-3.0-3.0); BLOOD TYPE ARTERIAL; HCO3-(ACT) 22.2 mmoll (20.0-26.0); O2(CT) 9.8 mL/dL (15.0-23.0); O2HB 97.5 % (95.0-99.0); PCO2(98.6) 27 mmHg (35-45); PO2(98.6) 184 mmHg (60-100); SAMPLE BLOOD; SAO2 100.3 % (95.0-100.0); SRATE 18 BPM; THB 6.8 g/dL (11.5-17.4); TVOL 700 mL; pH(98.6) 7.47 (7.35-7.45)
[2019-07-19 04:44] LABS: MODALITY VENTILATOR
[2019-07-19 04:46] LABS: ALB/GLOB RATIO 1.3; ALBUMIN 2.8 g/dL (3.5-5.0); CALCIUM 8.2 mg/dL (8.8-10.2); CREATININE 1.5 mg/dL (0.7-1.2); POTASSIUM 5.4 mmol/L (3.5-5.1); TOTAL BILIRUBIN 1.66 mg/dL (0.20-1.00); TOTAL PROTEIN 4.9 g/dL (6.3-8.3)
[2019-07-19] MEDS: CLINIMIX E 4.25%-5% SOLUTION 1,000 ML IV SCH ×3 (05:12→16:31)
--- NOTE | 2019-07-19 07:31 | Diag Imaging Result Doc PS360 ---
EXAM: CHEST-PORTABLE 07/19/2019 HISTORY: respiratory failure TECHNIQUE: AP portable at 0525 COMMENT: There is an endotracheal tube with its tip at thoracic inlet. There is ill-defined opacity over both lung bases which is slightly worse than on 07/18/2019. IMPRESSION: Worsened pulmonary edema. Electronically signed by Emerson Kendrick 07/19/2019 7:29 AM
[2019-07-19] MEDS: HEPARIN SUBQ SCH ×2 (08:17→20:43)
[2019-07-19] MEDS: CORDARONE NG SCH ×3 (08:18→16:37)
[2019-07-19] MEDS: OFIRMEV 1000 MG/ISOTONIC SOLN 1,000 MG/100 ML BOTTLE IV PRN (09:53)
[2019-07-19] MEDS: MORPHINE IV PRN ×2 (10:31→22:00)
--- NOTE | 2019-07-19 10:32 | PROGRESS NOTE ---
DATE: 07/19/2019 SUBJECTIVE: The patient seems to be asleep. He does not respond to verbal stimuli, but does twitch his eyes with painful stimuli. OBJECTIVE: Vital Signs: Temperature 99.3 degrees, pulse 79 per minute, respiratory rate 24 per minute, blood pressure 100/57, pulse oximetry 100% on 30% of oxygen. Cardiovascular System: First and second heart sounds are audible. Respiratory System: Bilateral lung air entry is moderate with no rales or rhonchi present on auscultation. Gastrointestinal System: Abdomen seems to be benign. Extremities: Bilateral toes and feet seem to be gangrenous. LABORATORY AND DIAGNOSTIC DATA: CBC shows WBC count of 8.99, hemoglobin 6.4, hematocrit 20.3, and platelet count of 140,000. In comparison, his hemoglobin and hematocrit were 6.1 and 19.4 yesterday. He did receive 1 unit of packed red blood cell transfusion yesterday. Chemistry shows sodium level of 131, potassium levels of 5.4, chloride 96, CO2 20, BUN 97, creatinine 1.5, glucose 117, calcium 8.2. Total bilirubin 1.66, AST 56, ALT 63, and total protein 4.9 with albumin level of 2.8. Rest of the comprehensive metabolic panel is nondiagnostic. Arterial blood gases done on 30% of oxygen showed pH of 7.47, pCO2 27, and PO2 of 184. Chest x-ray done this morning showed ill-defined opacity over both lung bases, which is slightly worsened as compared to the previous day, suggesting worsened pulmonary edema. IMPRESSION: 1. Acute hypoxemic respiratory failure. 2. Peripheral arterial disease with bilateral gangrenous feet. 3. Acute kidney injury with hyperkalemia. 4. Anemia with gastrointestinal blood loss secondary to unknown etiology. PLAN: The patient has been on ventilator, the care of which will be continued as per Pulmonary/Critical Care Medicine. He will also continue with hemodialysis as per Nephrology and will continue with broad-spectrum antibiotics along with supportive care. He did receive 1 unit of packed red blood cell yesterday and the 2nd one is about to get finished now. We will continue to monitor his hemoglobin and hematocrit and transfuse him packed red blood cells accordingly. He has been having protein calorie malnutrition and we will continue with Clinimix IV. His albumin levels have somewhat improved after having IV albumin. Overall, his condition remains critical and he seems to have developed encephalopathy. Also, he has bilateral gangrenous feet that will need to be amputated in case he survives this hospital admission, which appears to be unlikely. TIME SPENT: 37 minutes of critical care time spent. cc: Halle See MD [facility]TDD
--- NOTE | 2019-07-19 11:27 | NEPHROLOGY PROGRESS NOTE ---
DATE: 07/19/2019 SUBJECTIVE: He has his eyes closed but opened them to verbal stimuli only. OBJECTIVE: Vital Signs: Blood pressure 100/57, heart rate 79, respirations 24, afebrile. General: No acute distress. Skin: Warm and dry. Heart: Regular. Lungs: Equal. Abdomen: Soft, nontender. Extremities: There is 1+ edema. IMPRESSION: Acute kidney injury. No recovery. Volume status, electrolytes, acid base are acceptable today. No dialysis. His hemoglobin is 6.4 today. I will defer the decision to transfuse to the intensive care team and Dr. See. cc: MD Halle Cook MD
--- NOTE | 2019-07-19 16:23 | PROGRESS NOTE ---
DATE: 07/19/2019 SUBJECTIVE: Patient continues on ventilator. He opens eyes to verbal stimuli but does not seem to interact in any meaningful way. He does not follow commands. He continues in atrial fibrillation with controlled rate. OBJECTIVE: Vital Signs: Blood pressure 103/61, heart rate 81, with ECG monitor showing atrial fibrillation. Oxygen saturation 99% to 100 percent on ventilator with FiO2 of 30%. There is no significant jugular distention. Chest: Auscultation of the chest reveals coarse breath sounds bilaterally. Cardiac Exam: Reveals an irregular rate and rhythm without appreciable murmur or gallop. There is no evidence of peripheral edema. LABORATORY DATA: Includes a white blood cell count 8.9, hematocrit 20.3, hemoglobin 6.4, platelet count 140,000. Sodium 131, potassium 5.4, chloride 96, carbon dioxide 20, BUN 97, creatinine 1.5, glucose 117. IMPRESSION: 1. Persistent atrial fibrillation. Rate controlled. Patient developed atrial arrhythmias in the setting of severe acute noncardiac illness with multiorgan failure. 2. Severe acute noncardiac illness with multiorgan failure. Probable disseminated intravascular coagulation. The patient's acute process appears to have stabilized and there is no evidence of ongoing disseminated intravascular coagulation. 3. Severe atherosclerotic coronary disease with preserved left ventricular ejection fraction. 4. Chronic obstructive pulmonary disease. 5. Anemia. 6. Hypertension. 7. Hyperlipidemia. 8. Recent urinary tract infection with Escherichia coli. RECOMMENDATIONS: 1. Continue current cardiovascular regimen with metoprolol 5 mg IV q.4 hours supplemented with additional 5 mg IV q.4 hours as needed for rate control. 2. Continue low-dose amiodarone load. 3. Continue heparin 5000 units subcu q.12. 4. Conservative cardiovascular management overall. Although he has given some indications of stabilization of acute process and he is opening his eyes, overall his prognosis remains very poor. cc: MD Halle Molina MD
[2019-07-19] MEDS: PROTONIX IV SCH (19:22)
[2019-07-19] MEDS ORDERED: LASIX IV ONE (21:43)
--- NOTE | 2019-07-19 22:28 | PULMONOLOGY PROGRESS NOTE ---
DATE: 07/19/2019 SUBJECTIVE: The patient arouses to name. He does track the practitioner. OBJECTIVE: The patient has been afebrile for the last 24 hours. Blood pressure 105/69, heart rate 84, respiratory rate 23, oxygen saturation 100%. His vasopressors are now on standby.HEENT: Pupils are equal. No definite scleral icterus appreciated. Oropharynx appears clear. Neck is supple. Chest reveals rhonchi bilaterally. Cardiac exam: S1, S2. Abdomen is soft, with positive bowel sounds. Extremities are without edema. LABORATORY DATA: Sodium 131, potassium 5.4, bicarbonate 96, BUN 97, creatinine 1.5. Bilirubin 1.66, total protein 4.9, albumin 2.8. Arterial blood gas reveals a pH of 7.47, pCO2 of 27, pO2 of 184. He is breathing over the ventilator set rate. DIAGNOSTIC DATA: Chest x-ray reveals increased bilateral edema. IMPRESSION: A 74-year-old with: 1. Hypoxemic respiratory failure. 2. Liver failure, which is resolving. 3. Renal failure, which is resolving. 4. Anemia. 5. Encephalopathy. 6. Severe protein-calorie malnutrition. DISCUSSION: A 74-year-old with problems outlined above. He has had multiorgan failure, but liver function and kidney function as well as pulmonary status continues to slowly improve. He is now off vasopressors. PLAN: 1. Continue ventilatory support, pending improvement in overall status. 2. Continue current antibiotic regimen. 3. Continue tube feeds. We will discontinue Clinimix. 4. Overall prognosis remains poor, but he has had some ongoing improvement. CC time: 40 minutes cc: MD Halle Clark MD [facility]
[2019-07-20] MEDS: LOPRESSOR IV SCH ×6 (00:42→21:00)
[2019-07-20] MEDS: DUONEB (A & A) INH SCH ×6 (03:40→23:24)
[2019-07-20] MEDS: ZOSYN 2.25 GM in NS 50 ML IV SCH ×4 (03:56→21:01)
[2019-07-20 04:49] LABS: BASO# 0.04 X1000 (0.0-0.2); BASO% 0.4 % (0.0-0.8); EOS# 0.02 X1000 (0.0-0.7); EOS% 0.2 % (0.0-10.0); HEMATOCRIT 24.4 % (42.0-52.0); HEMOGLOBIN 7.9 g/dL (14.0-18.0); IMM GRAN# 0.05 X1000 (0.0-0.04); IMM GRAN% 0.5 % (0.0-0.5); LYMPH# 0.49 X1000 (1.2-3.4); LYMPH% 4.7 % (20.5-51.1); MCH 31.2 PG (27-31); MCHC 32.4 g/dL (33-37); MCV 96.4 FL (81-99); MONO% 5.7 % (1.7-9.3); MPV 11.7 FL (7.4-10.4); NEUT# 9.29 X1000 (1.4-6.5); NEUT% 88.5 % (42.2-75.2); PLT 163 X1000 (130-400); RBC 2.53 XMIL (4.7-6.1); RDW 20.4 % (11.5-14.5); WBC 10.49 X1000 (4.8-10.8)
[2019-07-20 05:01] LABS: ALLEN TEST YES; BE -5.5 mmoll (-3.0-3.0); BLOOD TYPE ARTERIAL; HCO3-(ACT) 20.6 mmoll (20.0-26.0); METHB 1.9 % (0.0-1.5); O2(CT) 11.4 mL/dL (15.0-23.0); O2HB 94.3 % (95.0-99.0); PCO2(98.6) 28 mmHg (35-45); PO2(98.6) 97 mmHg (60-100); SAMPLE BLOOD; SAO2 98.4 % (95.0-100.0); SRATE 18 BPM; THB 8.5 g/dL (11.5-17.4); TVOL 700 mL; pH(98.6) 7.42 (7.35-7.45)
[2019-07-20 05:02] LABS: MODALITY VENTILATOR
[2019-07-20] MEDS: MORPHINE IV PRN ×4 (05:24→23:49)
[2019-07-20 05:27] LABS: ALB/GLOB RATIO 0.9; ALBUMIN 2.4 g/dL (3.5-5.0); CALCIUM 7.9 mg/dL (8.8-10.2); CREATININE 1.9 mg/dL (0.7-1.2); POTASSIUM 5.9 mmol/L (3.5-5.1); TOTAL BILIRUBIN 1.46 mg/dL (0.20-1.00); TOTAL PROTEIN 5.2 g/dL (6.3-8.3)
[2019-07-20 05:28] LABS: LYMPHS 5 % (21-51); MONO 5 % (1-9); SEGS 90 % (42-75)
--- NOTE | 2019-07-20 07:05 | Diag Imaging Result Doc PS360 ---
EXAM: CHEST-PORTABLE HISTORY: respiratory failure TECHNIQUE: Single view COMPARISON: 07/19/2019 FINDINGS: No change in the endotracheal tube, nasogastric tube, or right jugular line. The heart remains enlarged. There is pulmonary edema and small pleural effusions. There may be underlying infiltrates in the lower lungs. The overall appearance is similar to the prior exam. IMPRESSION: No interval improvement Electronically signed by Jermaine Lambert 07/20/2019 7:02 AM
[2019-07-20] MEDS ORDERED: NS 2,000 ML MISC PRN (09:14)
[2019-07-20] MEDS: CORDARONE NG SCH ×3 (09:21→16:44)
[2019-07-20] MEDS: HEPARIN SUBQ SCH ×2 (09:21→21:00)
--- NOTE | 2019-07-20 12:54 | PROGRESS NOTE ---
DATE: 07/20/2019 SUBJECTIVE: Patient continues on ventilator. He opens eyes and tracks me as I move at the bedside. However, he does not follow any commands. Does not give any purposeful response to stimulus. OBJECTIVE: Vital Signs: Blood pressure 116/74, heart rate 92, oxygen saturation 100% on ventilator with FiO2 of 30%. There is no significant jugular venous distention. Chest: Clear to auscultation bilaterally. Cardiac Exam: Reveals an irregular rate and rhythm without appreciable murmur or gallop. There is no evidence of peripheral edema. Extremities: Both feet demonstrated ischemic demarcation of the toes bilaterally with what appears to be dry gangrene of the toes involving both feet. LABORATORY DATA: Includes a white blood cell count of 10.49, hematocrit 24.4, hemoglobin 7.9, platelet count 163,000. Sodium 130, potassium 5.9, chloride 95, carbon dioxide 17, BUN 123, creatinine 1.9, glucose 112. IMPRESSION: 1. Persistent atrial fibrillation with controlled rate. At times, patient may be in sinus rhythm. 2. Severe acute noncardiac illness with multiorgan failure and probable DIC. The patient's acute process appears to have stabilized. 3. Severe atherosclerotic coronary disease with preserved left ventricular ejection fraction. 4. Chronic obstructive pulmonary disease. 5. Anemia. 6. Hypertension. 7. Hyperlipidemia. 8. Recent urinary tract infection with Escherichia coli. RECOMMENDATIONS: 1. Continue current cardiovascular regimen unchanged. 2. Repeat ECG. 3. Conservative cardiovascular management overall. 4. Prognosis poor. cc: MD Halle Molina MD
--- NOTE | 2019-07-20 13:00 | NEPHROLOGY PROGRESS NOTE ---
DATE: 07/20/2019 SUBJECTIVE: He is still on the vent. He opens his eyes. Blinks at me but I cannot clearly get a response. OBJECTIVE: Vital signs: Blood pressure 116/74, heart rate 92, afebrile, T-max 99.7 degrees. Intake 3.5 L. Output 1 L. General: Generally no change. Neck: Veins are not distended. HEENT: Oropharynx is dry. Cardiovascular: Heart is regular. Lungs: Are equal, coarse. Abdomen: Soft, scaphoid. Positive bowel sounds. Extremities: 2+ edema. No clubbing or cyanosis. IMPRESSION: Acute kidney injury. No recovery. SLED today for 8 hours with a goal of 4 to 5 L ultrafiltration. A 3 K bath. A 35 bicarbonate. cc: MD Halle Cook MD
--- NOTE | 2019-07-20 13:09 | EKG Report ---
Test Performed on : 07/20/2019 12:47:04 PM Test Reason : atrial fibrillation Blood Pressure : / mmHG Vent. Rate : 094 BPM Atrial Rate : 312 BPM P-R Int : 000 ms QRS Dur : 104 ms QT Int : 322 ms P-R-T Axes : 000 005 188 degrees QTc Int : 402 ms Atrial fibrillation. Voltage criteria for left ventricular hypertrophy Inferior infarct (cited on or before 16-OCT-2018) Marked ST abnormality, possible lateral subendocardial injury Abnormal ECG When compared with ECG of 06-JUL-2019 05:41, Significant changes have occurred Confirmed by Cruz ANDRE, [place] ([id number]) on 07/21/2019 11:48:56 AM
--- NOTE | 2019-07-20 15:42 | PULMONOLOGY PROGRESS NOTE ---
DATE: 07/20/2019 SUBJECTIVE: The patient opens his eyes when I call his name. He does not definitely follow commands. OBJECTIVE: Vital Signs: The patient has been afebrile for the last 24 hours. Blood pressure 114/68, heart rate 97, respiratory rate 18, oxygen saturation 94% on mechanical ventilation. HEENT: Pupils are equal. Oropharynx appears clear. Neck: Supple. Chest: Reveals coarse rhonchi bilaterally. Cardiac exam: S1, S2. Abdomen: Soft with positive bowel sounds. Extremities: Continued to reveal cyanosis. LABORATORY DATA: Sodium 130, potassium 5.9, chloride 95, bicarbonate 17, BUN 123, creatinine 1.9, glucose 112, bilirubin 1.49. White blood count 10.49, hemoglobin 7.9, platelet count 163,000. Chest x-ray reveals generous cardiac silhouette with vascular congestion, basilar infiltrates and small effusions without change. Arterial blood gas reveals a pH 7.42, pCO2 of 28, pO2 of 97. IMPRESSION: A 74-year-old with 1. Hypoxemic respiratory failure. 2. Multiorgan dysfunction syndrome. 3. Encephalopathy. 4. Protein calorie malnutrition. PLAN: 1. Continue ventilatory support. He failed a brief weaning trial, but overall is improving. 2. Continue tube feeds. 3. Continue antibiotics. 4. Prognosis is guarded, but continues to slowly improve. CC Time: 35 minutes cc: MD Halle Clark MD [facility]
--- NOTE | 2019-07-20 16:42 | PROGRESS NOTE ---
DATE: 07/20/2019 SUBJECTIVE: The patient is awake but does not follow any commands. He does respond to painful stimuli. He remains intubated, however. OBJECTIVE: Vital Signs: Temperature 97.7 degrees, pulse 93 per minute, respiratory rate 18 per minute, blood pressure 111/64, pulse ox 93 percent on 30% of oxygen. General: Patient is awake but does not respond to any verbal stimuli and does not follow commands. He does respond to painful stimuli, however. Cardiovascular: System first and second heart sounds are audible without any murmurs. Respiratory System: Bilateral lung air entry is good without any rales or rhonchi. Gastrointestinal System: Abdomen seems to be benign. DIAGNOSTIC DATA: CBC shows WBC count of 10.49, hemoglobin 7.9, hematocrit 24.4, and platelet count of 163,000. Chemistry shows sodium level of 130, potassium 5.9, BUN 123, creatinine 1.9, glucose 112, calcium 7.9, total bilirubin 1.46, AST 45, ALT 61, and albumin level of 2.4. Chest x- ray obtained this morning shows pulmonary edema with small bilateral pleural effusions with no clear-cut infiltrate and no interval improvement as compared to the previous day's chest x-ray. IMPRESSION: 1. Acute hypoxemic respiratory failure. 2. Peripheral arterial disease with bilateral gangrenous feet. 3. Acute kidney injury with hyperkalemia. 4. Anemia with GI blood loss secondary to unknown etiology. PLAN: The patient has been on ventilator and we will continue care as per Pulmonary/Critical Care Medicine. We will also continue with hemodialysis as per Nephrology and would also provide him supportive care. We will continue with broad-spectrum antibiotics along with packed red blood cell transfusion on as-needed basis. He has been having protein calorie malnutrition and therefore we will continue with Clinimix IV. He seems to have developed encephalopathy and his prognosis remains poor. Family is aware of it and they did make him do not resuscitate, although they want to continue aggressive care at this point. TIME SPENT: A total of 36 critical care time spent. cc: MD KANA Blake
[2019-07-20] MEDS: PROTONIX IV SCH (21:00)
[2019-07-20] MEDS: NS 500 ML IV SCH (21:12)
[2019-07-21] MEDS: LOPRESSOR IV SCH ×6 (01:13→21:45)
[2019-07-21] MEDS: DUONEB (A & A) INH SCH ×6 (03:47→23:30)
[2019-07-21] MEDS: ZOSYN 2.25 GM in NS 50 ML IV SCH ×4 (03:49→21:46)
[2019-07-21] MEDS: MORPHINE IV PRN ×2 (03:49→16:34)
[2019-07-21 04:38] LABS: ALLEN TEST YES; BE 0.5 mmoll (-3.0-3.0); BLOOD TYPE ARTERIAL; HCO3-(ACT) 25.3 mmoll (20.0-26.0); METHB 1.4 % (0.0-1.5); O2(CT) 13.3 mL/dL (15.0-23.0); O2HB 93.7 % (95.0-99.0); PCO2(98.6) 35 mmHg (35-45); PO2(98.6) 79 mmHg (60-100); SAMPLE BLOOD; SAO2 97.8 % (95.0-100.0); SRATE 10 BPM; TVOL 700 mL; pH(98.6) 7.45 (7.35-7.45)
[2019-07-21 04:39] LABS: MODALITY VENTILATOR
[2019-07-21 06:17] LABS: BASO# 0.02 X1000 (0.0-0.2); BASO% 0.2 % (0.0-0.8); EOS# 0.04 X1000 (0.0-0.7); EOS% 0.4 % (0.0-10.0); HEMATOCRIT 26.5 % (42.0-52.0); HEMOGLOBIN 8.3 g/dL (14.0-18.0); IMM GRAN# 0.07 X1000 (0.0-0.04); IMM GRAN% 0.7 % (0.0-0.5); LYMPH# 0.87 X1000 (1.2-3.4); MCH 31.3 PG (27-31); MCHC 31.3 g/dL (33-37); MONO# 0.29 X1000 (0.11-0.59); MPV 11.9 FL (7.4-10.4); NEUT# 8.38 X1000 (1.4-6.5); NEUT% 86.7 % (42.2-75.2); PLT 173 X1000 (130-400); RBC 2.65 XMIL (4.7-6.1); WBC 9.67 X1000 (4.8-10.8)
[2019-07-21 06:39] LABS: AGAP 14; ALB/GLOB RATIO 0.9; ALBUMIN 2.4 g/dL (3.5-5.0); ALKALINE PHOSPHATASE 77 U/L (32-122); BUN 58 mg/dL (8-22); CALCIUM 7.8 mg/dL (8.8-10.2); CHLORIDE 102 mmol/L (98-107); COSMO 292; ESTIMATED GFR > 60; GLUCOSE 105 mg/dL (70-104); GOT 56 U/L (10-34); GPT 66 U/L (10-44); POTASSIUM 4.6 mmol/L (3.5-5.1); SODIUM 138 mmol/L (136-145); TCO2 22 mmol/L (25-35); TOTAL BILIRUBIN 1.64 mg/dL (0.20-1.00); TOTAL PROTEIN 5.1 g/dL (6.3-8.3)
--- NOTE | 2019-07-21 06:43 | Diag Imaging Result Doc PS360 ---
EXAM: CHEST-PORTABLE 07/21/2019 HISTORY: respiratory failure TECHNIQUE: AP portable at 0540 COMMENT: There is an endotracheal tube with its tip slightly below the thoracic inlet. There is a left subclavian central venous catheter with its tip at the confluence of the brachiocephalic veins and a right internal jugular central venous catheter with its tip in the superior vena cava. The lungs are slightly better expanded than on 07/20/2019. There continues to be interstitial opacity throughout both lower lung gomez. The patient is rotated to the right. IMPRESSION: Pulmonary edema. Electronically signed by Emerson Kendrick 07/21/2019 6:41 AM
[2019-07-21] MEDS: HEPARIN SUBQ SCH ×2 (09:17→21:46)
[2019-07-21] MEDS: CORDARONE NG SCH ×3 (09:17→17:08)
--- NOTE | 2019-07-21 10:19 | PROGRESS NOTE ---
DATE: 07/21/2019 SUBJECTIVE: Patient remains in ICU on ventilator. He is clinically stable. He does blink, but follows no commands. He was able to respond somewhat when the phone was held up to his ear while his was talking earlier. OBJECTIVE: Vital Signs: T-max 100 degrees, blood pressure marginal--currently 93/60, pulse 78, respirations 20. CV: RRR without appreciable murmur. Lungs: Fairly clear. Abdomen: Tender, nondistended. Extremities: No edema. Necrotic distal feet and toes, chronic prominent bruising left inner triceps, elbow and forearm area. Chronic and possible cyanosis to the right hand. Moderate edema, left hand and arm, mild on the right. Neurologic: Again, patient does not follow commands. LABORATORY DATA: Shows white count 9.67, hemoglobin 8.3 and stable, platelets 173. ABG on 30% FiO2 shows pH 7.45, pCO2 35, PO2 79, O2 saturation 97.8. Sodium 138, potassium 4.6, chloride 102, CO2 22. BUN 58, creatinine 1.0, glucose 105, calcium 7.8. Total bilirubin 1.64, AST 56, ALT 66, alkaline phosphatase 77, total protein 5.1, albumin 2.4. IMAGING STUDIES: Chest x-ray reveals pulmonary edema pattern, both lower lungs. ASSESSMENT: 1. Acute hypoxic respiratory failure. 2. Peripheral arterial disease with bilateral gangrenous feet. 3. Acute kidney injury with hyperkalemia, improved, but with minimal urine output. He remains on hemodialysis per Dr. Mccrary on Mondays, Wednesdays, and Fridays. 4. Anemia secondary to gastrointestinal blood loss without definite source. PLAN: The patient remains on antibiotics per Dr. Bedoya. He is on Clinimix. He remains on ventilatory support. He continues on hemodialysis on Mondays, Wednesdays, and Fridays. Continue supportive measures with overall poor prognosis. cc: MD Halle Renee MD
[2019-07-21] MEDS: BICITRA NG SCH ×3 (11:39→18:26)
--- NOTE | 2019-07-21 12:16 | NEPHROLOGY PROGRESS NOTE ---
DATE: 07/21/2019 SUBJECTIVE: He opens his eyes and looks at me, grimaces. OBJECTIVE: Blood pressure 93/60, heart rate 78, respirations 20, temperature 99.0 degrees. Intake 2 L, output 4.5 L with 700 mL of urine output. Generally in no acute distress. Skin is warm and dry. Neck veins are distended. Heart is regular and tachycardic. Lungs are equal. No crackles. Abdomen benign. Extremities 1+ edema. No clubbing or cyanosis. IMPRESSION: 1. Acute kidney injury. No recovery. Electrolytes/acid base/volume status all in target. Hemoglobin is below target but does not meet transfusion criteria. No treatment today. cc: MD Halle Cook MD
--- NOTE | 2019-07-21 13:14 | PULMONOLOGY PROGRESS NOTE ---
DATE: 07/21/2019 SUBJECTIVE: The patient does open his eyes to voice. He continues to have significant minute ventilation of 12 to 14. No dialysis is planned today. OBJECTIVE: Vital Signs: Maximum temperature in the last 24 hours is 100.0 degrees, blood pressure 93/60, heart rate 79, respiratory rate 20, oxygen saturation 94%. HEENT: Pupils are equal and reactive. Oropharynx appears clear. Neck: Supple. Chest: Reveals rhonchi bilaterally. Cardiac Exam: S1, S2. Abdomen: Scaphoid and soft. Extremities: Reveal significant ischemia and gangrenous changes on both feet. DATA: Arterial blood gas reveals a pH of 7.45, pCO2 of 35, PO2 of 79. Sodium 138, potassium 4.6, chloride 102, bicarbonate 22, BUN 58, creatinine 1.0. IMPRESSION: A 74-year-old with: 1. Hypoxemic respiratory failure. 2. Multiorgan dysfunction syndrome with continued slow improvement. 3. Encephalopathy. 4. Protein calorie malnutrition. DISCUSSION: A 74-year-old with problems outlined above. Clinically, he does appear to be improving. He may pass a spontaneous breathing trial, but his minute ventilation remains elevated and he would likely eventually fatigue. I will try to improve his bicarbonate level today in an attempt to decrease his minute ventilation. He will be re-evaluated for weaning and extubation tomorrow. PLAN: 1. Continue full ventilatory support. 2. Continue tube feeds. We will give Bicitra today in an attempt to decrease his minute ventilation. 3. Continue antibiotics. 4. Prognosis is guarded. Time spent in critical care management 35 minutes. cc: MD Halle Clark MD
[2019-07-21] MEDS: NS 500 ML IV SCH (16:26)
[2019-07-21] MEDS: PROTONIX IV SCH (21:46)
[2019-07-22] MEDS: LOPRESSOR IV SCH ×6 (00:25→21:12)
[2019-07-22] MEDS: BICITRA NG SCH ×4 (00:25→06:24)
[2019-07-22] MEDS: ZOSYN 2.25 GM in NS 50 ML IV SCH ×4 (03:21→21:12)
[2019-07-22] MEDS: DUONEB (A & A) INH SCH ×6 (03:29→23:15)
[2019-07-22 04:55] LABS: ALLEN TEST YES; BE 2.1 mmoll (-3.0-3.0); BLOOD TYPE ARTERIAL; HCO3-(ACT) 26.4 mmoll (20.0-26.0); METHB 1.3 % (0.0-1.5); O2(CT) 14.2 mL/dL (15.0-23.0); O2HB 90.9 % (95.0-99.0); PCO2(98.6) 31 mmHg (35-45); PO2(98.6) 60 mmHg (60-100); SAMPLE BLOOD; SAO2 94.5 % (95.0-100.0); SRATE 10 BPM; THB 11.1 g/dL (11.5-17.4); TVOL 700 mL; pH(98.6) 7.51 (7.35-7.45)
[2019-07-22 04:56] LABS: MODALITY VENTILATOR
[2019-07-22 06:53] LABS: ALB/GLOB RATIO 0.8; ALBUMIN 2.2 g/dL (3.5-5.0); CALCIUM 8.1 mg/dL (8.8-10.2); CREATININE 1.5 mg/dL (0.7-1.2); POTASSIUM 5.2 mmol/L (3.5-5.1); TOTAL BILIRUBIN 1.56 mg/dL (0.20-1.00); TOTAL PROTEIN 4.9 g/dL (6.3-8.3)
--- NOTE | 2019-07-22 06:59 | Diag Imaging Result Doc PS360 ---
EXAM: CHEST-PORTABLE 07/22/2019 HISTORY: respiratory failure TECHNIQUE: AP portable at 0603 COMMENT: There is diffuse interstitial opacity consistent with pulmonary edema. This was also present on 07/21/2019. The endotracheal tube right internal jugular catheter and left subclavian catheter remain in place. The patient is slightly less rotated to the right than on the previous study. There may be slight improvement in the density of opacification of the left lower lobe compared to the previous study. IMPRESSION: Interstitial pulmonary edema, slightly improved. Electronically signed by Emerson Kendrick 07/22/2019 6:57 AM
[2019-07-22 07:38] LABS: BASO# 0.03 X1000 (0.0-0.2); BASO% 0.4 % (0.0-0.8); EOS# 0.01 X1000 (0.0-0.7); EOS% 0.1 % (0.0-10.0); HEMATOCRIT 26.6 % (42.0-52.0); HEMOGLOBIN 8.4 g/dL (14.0-18.0); IMM GRAN# 0.05 X1000 (0.0-0.04); IMM GRAN% 0.7 % (0.0-0.5); LYMPH# 0.77 X1000 (1.2-3.4); LYMPH% 10.1 % (20.5-51.1); MCH 31.7 PG (27-31); MCHC 31.6 g/dL (33-37); MCV 100.4 FL (81-99); MONO# 0.28 X1000 (0.11-0.59); MONO% 3.7 % (1.7-9.3); NEUT# 6.47 X1000 (1.4-6.5); PLT 196 X1000 (130-400); RBC 2.65 XMIL (4.7-6.1); RDW 21.4 % (11.5-14.5); WBC 7.61 X1000 (4.8-10.8)
[2019-07-22] MEDS: HEPARIN SUBQ SCH ×2 (08:32→21:12)
[2019-07-22] MEDS: CORDARONE NG SCH ×3 (08:32→16:49)
--- NOTE | 2019-07-22 10:00 | PROGRESS NOTE ---
DATE: 07/22/2019 SUBJECTIVE: Patient remains in ICU on mechanical ventilation per Dr. Bedoya. Little change from yesterday. He opens his eyes and looks about. Seems to respond by blinking but does not follow commands otherwise by squeezing your hand. OBJECTIVE: T-max 99.7 degrees, pulse 86, respirations 16, blood pressure 108/69, O2 saturation on the ventilator of 99%. CV: Irregularly irregular. Lungs: Minimal rhonchi. Abdomen: Soft. Active bowel sounds. Extremities: Trace lower extremity edema. Necrotic areas on the toes unchanged. He does blink. His eyes look about the room and seems to understand. White count 7.6, hemoglobin 8.4 which is stable, platelets 196,000. ABG on FiO2 30% on the ventilator reveals pH 7.51, pCO2 of 31, PO2 of 60, HC03 of 26.4, O2 saturation 94.5. Sodium 139, potassium 5.2, chloride 101, CO2 of 19, BUN 85, creatinine 1.5. LFTs with AST of 59, ALT 68. Chest x-ray today is read as showing interstitial pulmonary edema, slightly improved. ASSESSMENT: 1. Acute hypoxic respiratory failure. 2. Peripheral arterial disease with bilateral gangrenous feet. 3. Acute kidney injury with hyperkalemia, on hemodialysis per Dr. Mccrary on Mondays, Wednesdays, and Fridays. 4. Anemia secondary to gastrointestinal blood loss. PLAN: Patient remains on IV antibiotics of Zosyn. He is on Clinimix. He is on hemodialysis per Dr. Mccrary. He remains on ventilatory support per Dr. Bedoya. Continue supportive measures. cc: MD Halle Renee MD
[2019-07-22] MEDS: SODIUM BICARBONATE 8.4% IV PUSH SCH ×4 (12:04→23:18)
--- NOTE | 2019-07-22 14:52 | PULMONOLOGY PROGRESS NOTE ---
DATE: 07/22/2019 SUBJECTIVE: The patient is arousable to alert. He does follow simple commands. He was placed on a spontaneous breathing trial. He continues to have increased work of breathing with elevated minute ventilation. OBJECTIVE: Vital Signs: The patient has been afebrile for the last 24 hours with a maximum temperature of 99.7 degrees. HEENT: Pupils are equal and reactive. Oropharynx appears clear. Neck: Supple. Chest: Reveals coarse breath sounds bilaterally. Cardiac: S1-S2. Abdomen: Soft with positive bowel sounds. Extremities: Reveal trace edema. LABORATORIES: White blood count 7.61, hemoglobin 8.4, platelet count 196,000. Sodium 139, potassium 5.2, chloride 101, bicarbonate 19, anion gap 19, BUN 85, creatinine 1.5. Arterial blood gas reveals a pH 7.51, pCO2 of 31, PO2 of 60. IMPRESSION: A 74-year-old with 1. Hypoxemic respiratory failure. 2. Multiorgan dysfunction syndrome. 3. Protein calorie malnutrition. 4. Encephalopathy. 5. Ischemia with gangrenous changes of both lower extremities. DISCUSSION: 74-year-old with problems outlined above. Although he is alkalotic, he has increased ventilatory drive leading to an excessive minute ventilation. I am I suspect that he will fail extubation due to fatigue. Despite his alkalemia, I will give him sodium bicarbonate due to his significant metabolic acidosis. Hopefully this will lead to a decrease in minute ventilation. PLAN: 1. Continue full ventilatory support today. 2. Continue tube feeds. 3. Sodium bicarbonate as outlined above. He may require additional dialysis to correct his acidemia. 4. Guarded prognosis. TIME SPENT: In critical care management 35 minutes. cc: MD Halle Clark MD
[2019-07-22] MEDS: NS 500 ML IV SCH (16:49)
[2019-07-22] MEDS: PROTONIX IV SCH (21:13)
[2019-07-23] MEDS: LOPRESSOR IV SCH ×6 (00:20→20:04)
[2019-07-23] MEDS: ZOSYN 2.25 GM in NS 50 ML IV SCH ×4 (03:05→21:51)
[2019-07-23] MEDS: DUONEB (A & A) INH SCH ×6 (03:15→23:21)
[2019-07-23 04:36] LABS: ALLEN TEST YES; BE 5.5 mmoll (-3.0-3.0); BLOOD TYPE ARTERIAL; HCO3-(ACT) 29.2 mmoll (20.0-26.0); METHB 1.2 % (0.0-1.5); MODALITY VENTILATOR; O2(CT) 12.9 mL/dL (15.0-23.0); O2HB 93.9 % (95.0-99.0); PCO2(98.6) 33 mmHg (35-45); PO2(98.6) 73 mmHg (60-100); SAMPLE BLOOD; SAO2 97.6 % (95.0-100.0); SRATE 10 BPM; THB 9.7 g/dL (11.5-17.4); TVOL 700 mL; pH(98.6) 7.54 (7.35-7.45)
[2019-07-23 05:37] LABS: BASO# 0.04 X1000 (0.0-0.2); BASO% 0.4 % (0.0-0.8); HEMATOCRIT 27.1 % (42.0-52.0); HEMOGLOBIN 8.6 g/dL (14.0-18.0); IMM GRAN# 0.04 X1000 (0.0-0.04); IMM GRAN% 0.4 % (0.0-0.5); LYMPH# 0.71 X1000 (1.2-3.4); LYMPH% 7.5 % (20.5-51.1); MCH 32.1 PG (27-31); MCHC 31.7 g/dL (33-37); MCV 101.1 FL (81-99); MONO# 0.22 X1000 (0.11-0.59); MONO% 2.3 % (1.7-9.3); MPV 11.9 FL (7.4-10.4); NEUT# 8.46 X1000 (1.4-6.5); NEUT% 89.4 % (42.2-75.2); PLT 200 X1000 (130-400); RBC 2.68 XMIL (4.7-6.1); WBC 9.47 X1000 (4.8-10.8)
[2019-07-23 05:51] LABS: ALB/GLOB RATIO 0.7; ALBUMIN 2.1 g/dL (3.5-5.0); CALCIUM 7.9 mg/dL (8.8-10.2); CREATININE 1.9 mg/dL (0.7-1.2); TOTAL BILIRUBIN 1.44 mg/dL (0.20-1.00); TOTAL PROTEIN 5.2 g/dL (6.3-8.3)
--- NOTE | 2019-07-23 06:56 | Diag Imaging Result Doc PS360 ---
EXAM: CHEST-PORTABLE HISTORY: respiratory failure TECHNIQUE: Single view COMPARISON: 07/22/2019 FINDINGS: No change in the right jugular line, the nasogastric tube, or the left subclavian line. The heart remains enlarged. Pulmonary edema persists. There are small pleural effusions with basilar atelectasis as well as underlying infiltrates in the lower lungs. IMPRESSION: Interval worsening Electronically signed by Jermaine Lambert 07/23/2019 6:54 AM
--- NOTE | 2019-07-23 08:35 | PROGRESS NOTE ---
DATE: 07/23/2019 SUBJECTIVE: The patient remains intubated, and has been on the ventilator. He is awake, but does not follow any commands. OBJECTIVE: Vital Signs: Temperature 95.7 degrees, pulse 85 per minute, respiratory rate 22 per minute, blood pressure 104/64, and pulse oximetry 98% on 30% of oxygen. Cardiovascular: First and second heart sounds are audible without any murmurs. Respiratory: Bilateral air entry is moderate with no rales or rhonchi present on auscultation. Gastrointestinal: Abdomen seems to be benign. Musculoskeletal: Bilateral distal feet gangrenous. DIAGNOSTIC DATA: CBC shows hemoglobin of 8.6 and hematocrit 27.1. Rest of the CBC is nondiagnostic. Chemistry shows BUN of 95, creatinine 1.9, glucose 117, calcium 7.9, total bilirubin 1.44, AST 51, ALT 69, and total protein of 5.2 with albumin level of 2.1. Rest of the comprehensive metabolic panel is nondiagnostic. Arterial blood gases showed pH of 7.54, pCO2 showed 33, PO2 73 with FiO2 of 30%. Chest x-ray obtained this morning showed persistent pulmonary edema with small bilateral pleural effusions with basilar atelectasis with possible underlying infiltrates. IMPRESSION: 1. Hypoxemic respiratory failure. 2. Acute kidney injury. 3. Peripheral arterial disease with bilateral gangrenous feet. 4. Anemia with GI blood loss secondary to unknown etiology. 5. Encephalopathy. PLAN: The patient will be continued on ventilator support as per Pulmonary/Critical Care Medicine. He will also continue with dialysis as per Nephrology. We will continue with broad- spectrum antibiotics along with packed red blood cell transfusion on as-needed basis. He has been started on NG tube feeding that he has been tolerating well. We will continue with supportive care. His long-term prognosis remains poor and family is well aware of it. TIME SPENT: A total of 36 critical care time spent. cc: Halle See MD [facility]TD[facility]
[2019-07-23] MEDS: NS 500 ML IV SCH (09:29)
[2019-07-23] MEDS: CORDARONE NG SCH ×3 (09:30→16:25)
[2019-07-23] MEDS: HEPARIN SUBQ SCH ×2 (09:30→20:04)
[2019-07-23 11:39] LABS: ALLEN TEST YES; BE 3.6 mmoll (-3.0-3.0); BLOOD TYPE ARTERIAL; HCO3-(ACT) 27.7 mmoll (20.0-26.0); METHB 0.7 % (0.0-1.5); O2HB 96.6 % (95.0-99.0); PCO2(98.6) 34 mmHg (35-45); PO2(98.6) 194 mmHg (60-100); SAMPLE BLOOD; SAO2 99.9 % (95.0-100.0); SRATE 10 BPM; THB 13.7 g/dL (11.5-17.4)
[2019-07-23 11:40] LABS: MODALITY VENTILATOR
--- NOTE | 2019-07-23 15:34 | NEPHROLOGY PROGRESS NOTE ---
DATE: 07/23/2019 SUBJECTIVE: He is off the ventilator on a closed face mask. He is able to nod to me and look toward me. OBJECTIVE: Vital Signs: Blood pressure 101/65, heart rate 80, respirations 21, temperature 100 degrees. Intake 1.9 L, output 800 mL. General: No acute distress. Skin: Warm and dry with multiple bruises. Neck veins are not appreciated. Oropharynx is dry. Heart: Irregular but rate controlled. Lungs: Equal with a few scattered rhonchi. Abdomen: Soft, nontender. Diminished bowel sounds. Extremities: 2+ edema. No clubbing or cyanosis. IMPRESSION: Acute kidney injury. No recovery. BUN 95 today. 400 mL urine output. PLAN: Plan for SLED tomorrow. cc: MD Halle Cook MD
--- NOTE | 2019-07-23 15:38 | PROGRESS NOTE ---
DATE: 07/23/2019 SUBJECTIVE: Patient has been extubated. He has his eyes open and looks to examiner and tracks. He seems to be attempting to verbalize but does not follow commands. OBJECTIVE: Vital Signs: Blood pressure 101/65, heart rate 80, with ECG monitor showing atrial fibrillation. Oxygen saturation 100%. There is no significant jugular venous distention. Auscultation of the chest reveals coarse breath sounds anteriorly. Cardiac examination reveals an irregular rate and rhythm without appreciable murmur or gallop. Extremities are without edema. Laboratory Data: Includes a white blood cell count of 9.47, hematocrit 27.1, hemoglobin 8.6, platelet count 200,000. Sodium 143, potassium 4.0, chloride 100, carbon dioxide 26, BUN 95, creatinine 1.9, glucose 117. IMPRESSION: 1. Persistent atrial fibrillation. 2. Severe acute noncardiac illness with multiorgan failure and probable disseminated intravascular coagulation. The patient's acute process appears to have stabilized. 3. Severe atherosclerotic coronary disease and preserved left ventricular ejection fraction. 4. Encephalopathy. 5. Chronic obstructive pulmonary disease. 6. Hypertension. 7. Hyperlipidemia. 8. Anemia. 9. Recent urinary tract infection with Escherichia coli. RECOMMENDATIONS: 1. Continue amiodarone 200 mg p.o. t.i.d. and metoprolol parenterally 5 mg IV q.4 hours. 2. Continue subcutaneous heparin 5000 units subcutaneously q.12. 3. Continue supportive care. 4. Patient's prognosis appears to be poor. cc: MD Halle Molina MD
--- NOTE | 2019-07-23 17:55 | PULMONOLOGY PROGRESS NOTE ---
DATE: 07/23/2019 SUBJECTIVE: The patient is awake. He does follow commands. The patient was evaluated earlier today and placed on a spontaneous breathing trial. He did extremely well and arterial blood gases were acceptable. He was extubated. He is now awake and alert off mechanical ventilation. He has a weak voice. He has a marginal cough effort. OBJECTIVE: Vital Signs: The patient has been afebrile for the last 24 hours. Blood pressure 125/89, heart rate 88, respiratory rate 25, oxygen saturation 100%. HEENT: Pupils are equal and reactive. Oropharynx appears clear. Neck: Neck is supple. Chest: Reveals occasional rhonchi bilaterally. Cardiac exam: S1-S2. Abdomen: Soft. Extremities: Reveal significant cyanosis and ischemia. LABORATORIES: White blood count 9.47, hemoglobin 8.6, platelet count 200,000. Chemistries: Sodium 143, potassium 4.0, chloride 100, bicarbonate 26, BUN 95, creatinine 1.9. Chest x-ray reveals small effusions and basilar atelectasis, which is slightly worse. IMPRESSION: A 74-year-old with: 1. Hypoxemic respiratory failure. 2. Renal failure. 3. Protein calorie malnutrition. 4. Multi organ dysfunction syndrome. 5. Gangrenous changes to both feet. DISCUSSION: A 74-year-old with problems outlined above. The patient has been successfully extubated and currently appears comfortable. PLAN: 1. Continue bronchial hygiene. 2. Hold tube feeds today and can consider restarting them tomorrow or advancing diet if he has marked improvement in strength. 3. SLEDD planed for tomorrow per Nephrology. CC:35 minutes cc: MD Halle Clark MD [facility]
[2019-07-23] MEDS: PROTONIX IV SCH (20:04)
[2019-07-23] MEDS: SODIUM CHLORIDE 0.9% INJ SCH (20:04)
[2019-07-24] MEDS: LOPRESSOR IV SCH ×6 (02:30→21:33)
[2019-07-24] MEDS: MORPHINE IV PRN (02:48)
[2019-07-24] MEDS: NS 500 ML IV SCH (03:02)
[2019-07-24] MEDS: DUONEB (A & A) INH SCH ×6 (03:51→23:33)
[2019-07-24 04:49] LABS: ALLEN TEST YES; BE 1.3 mmoll (-3.0-3.0); BLOOD TYPE ARTERIAL; HCO3-(ACT) 25.9 mmoll (20.0-26.0); METHB 1.2 % (0.0-1.5); O2(CT) 12.7 mL/dL (15.0-23.0); O2HB 92.7 % (95.0-99.0); PCO2(98.6) 33 mmHg (35-45); PO2(98.6) 74 mmHg (60-100); SAMPLE BLOOD; SAO2 97.3 % (95.0-100.0); THB 9.7 g/dL (11.5-17.4); pH(98.6) 7.48 (7.35-7.45)
[2019-07-24 04:53] LABS: MODALITY COOL AEROSOL
[2019-07-24] MEDS: ZOSYN 2.25 GM in NS 50 ML IV SCH ×4 (04:54→21:32)
[2019-07-24 06:07] LABS: BASO# 0.05 X1000 (0.0-0.2); BASO% 0.4 % (0.0-0.8); EOS# 0.01 X1000 (0.0-0.7); EOS% 0.1 % (0.0-10.0); HEMATOCRIT 29.1 % (42.0-52.0); IMM GRAN# 0.04 X1000 (0.0-0.04); IMM GRAN% 0.4 % (0.0-0.5); LYMPH# 0.52 X1000 (1.2-3.4); LYMPH% 4.6 % (20.5-51.1); MCH 31.6 PG (27-31); MCHC 30.9 g/dL (33-37); MCV 102.1 FL (81-99); MONO# 0.64 X1000 (0.11-0.59); MONO% 5.6 % (1.7-9.3); MPV 11.6 FL (7.4-10.4); NEUT% 88.9 % (42.2-75.2); PLT 204 X1000 (130-400); RBC 2.85 XMIL (4.7-6.1); RDW 20.7 % (11.5-14.5); WBC 11.36 X1000 (4.8-10.8)
[2019-07-24 06:16] LABS: ALB/GLOB RATIO 0.7; ALBUMIN 2.2 g/dL (3.5-5.0); CALCIUM 8.2 mg/dL (8.8-10.2); POTASSIUM 3.9 mmol/L (3.5-5.1); TOTAL BILIRUBIN 1.62 mg/dL (0.20-1.00); TOTAL PROTEIN 5.5 g/dL (6.3-8.3)
[2019-07-24 07:01] LABS: LYMPHS 5 % (21-51); MONO 2 % (1-9); SEGS 93 % (42-75)
--- NOTE | 2019-07-24 07:08 | Diag Imaging Result Doc PS360 ---
CHEST-PORTABLE - 07/24/2019 INDICATION: respiratory failure COMPARISON: 07/23/2019 FINDINGS: The endotracheal tube is no longer present. Stable bilateral central lines. Stable nasogastric tube in good position. Stable significant cardiomegaly and pulmonary vascular congestion. There has been improvement in the bibasilar infiltrates/pulmonary edema. Stable small to moderate right pleural effusion. IMPRESSION: Improvement from prior. Electronically signed by Heraclio Field 07/24/2019 7:06 AM
[2019-07-24] MEDS: CORDARONE NG SCH ×3 (08:05→21:30)
[2019-07-24] MEDS: HEPARIN SUBQ SCH ×2 (08:05→21:31)
[2019-07-24] MEDS ORDERED: NS 2,000 ML MISC PRN (08:33)
--- NOTE | 2019-07-24 08:45 | PROGRESS NOTE ---
DATE: 07/24/2019 SUBJECTIVE: The patient is lying on the bed and awake but not responding otherwise. He does not follow any vocal commands. He was extubated yesterday and has been doing well since then as far as his breathing is concerned. OBJECTIVE: Vital Signs: Temperature 98.8 degrees, pulse 67 per minute, respiratory rate 17 per minute, blood pressure 123/83, pulse oximetry 94 percent via mask with 40% oxygen. General: The patient is awake but does not respond at all, as aforementioned. He does not follow any verbal commands whatsoever. Cardiovascular System: First and second heart sounds are audible without any murmurs. Respiratory System: Bilateral lung air entry is moderately decreased with no rales or rhonchi present on auscultation. Gastrointestinal System: Abdomen is soft and nondistended. Normal bowel sounds are present. Extremities: Bilateral distal feet and toes are gangrenous. Diagnostic Data: CBC shows WBC count of 11.36, hemoglobin 9.0, hematocrit 29.1, and platelet count of 204,000. Chemistry shows BUN of 109, creatinine 2.0. Bilirubin 1.62, with AST of 62, and ALT of 79. Total proteins were found to be 5.5 with an albumin of 2.2 and calcium levels of 8.2. Rest of the comprehensive metabolic panel is nondiagnostic. Arterial blood gases done on 40% of oxygen showed pH of 7.48, pCO2 of 33, and PO2 of 74. Chest x-ray obtained this morning showed some improvement in the bibasilar infiltrate/pulmonary edema and there is stable small-to- moderate right-sided pleural effusion. IMPRESSION: 1. Encephalopathy. 2. Hypoxemic respiratory failure. 3. Renal failure. 4. Peripheral arterial disease with bilateral gangrenous feet. 5. Anemia. 6. Protein calorie malnutrition. PLAN: The patient will be continued with supportive care and hemodialysis as per nephrology. He will continue with NG tube feeding along with nebulization treatments with albuterol and ipratropium bromide. He will also continue with the Zosyn intravenously as per pulmonary/critical care medicine. We will continue with the proton pump inhibitor and thromboembolism prophylaxis with heparin. Cardiology, nephrology, pulmonary/critical care medicine are also following this case. cc: Halle See MD
--- NOTE | 2019-07-24 12:31 | PULMONOLOGY PROGRESS NOTE ---
DATE: 07/24/2019 SUBJECTIVE: The patient is arousable. He will intermittently focus on the examiner. He is not speaking. He does intermittently moan. He has a fair cough effort. OBJECTIVE: Vital Signs: Maximum temperature in the last 24 hours is 100.0 degrees, BP 108/76, heart rate 86, respiratory rate 15, oxygen saturation 100%. HEENT: Pupils are equal and reactive. Oropharynx appears dry, but clear. Neck: Supple. Chest: Rhonchi bilaterally. Cardiac: S1, S2. Abdomen: Soft with positive bowel sounds. Extremities: Gangrenous changes to both feet. IMAGING AND LABORATORY DATA: White blood count 11.36, hemoglobin 9.0, platelet count 204,000. Sodium 142, potassium 3.9, chloride 100, bicarbonate 25, BUN 109, creatinine 2.0. Arterial blood gas shows pH 7.48, pCO2 of 33, pO2 of 74. Chest x-ray reveals slight decrease in bibasilar pulmonary infiltrates. IMPRESSION: A 74-year-old with: 1. Hypoxemic respiratory failure. 2. Renal failure. 3. Protein calorie malnutrition. 4. Gangrenous changes to both feet. 5. Multiorgan dysfunction syndrome. DISCUSSION: A 74-year-old with problems outlined above. He is doing well off mechanical ventilation, but remains severely ill. PLAN: 1. Restart tube feeds. He is not strong enough to take oral nutrition. 2. Continue bronchial hygiene. 3. Continue dialysis. cc: MD Halle Clark MD
--- NOTE | 2019-07-24 14:24 | NEPHROLOGY PROGRESS NOTE ---
DATE: 07/24/2019 SUBJECTIVE: The same as yesterday. He is awake and looks toward me. Does not verbalize. OBJECTIVE: Vitals: As recorded. General: No acute distress. Neck: Neck veins are not appreciated. Mouth: Oropharynx is dry. Heart: Regular and tachycardic. Lungs: Equal. Scattered crackles. Abdomen: Benign. Extremities: 2+ edema. No clubbing or cyanosis. IMPRESSION: Acute kidney injury. No improvement. Electrolytes and acid-base are in target. Sustained low efficiency dialysis (SLED) tomorrow. cc: MD Halle Cook MD
--- NOTE | 2019-07-24 15:34 | PROGRESS NOTE ---
DATE: 07/24/2019 SUBJECTIVE: Patient continues with eyes open and looks toward examiner. He makes some unintelligible groaning noises but does not follow commands. He does not appear to be in any distress. OBJECTIVE: Vital Signs: Blood pressure 110/80, heart rate 93 and irregular with ECG monitor showing atrial fibrillation. Oxygen saturation 99% on oxygen per mask at 40%. Neck: There is no significant jugular venous distention. Respiratory: Auscultation of the chest reveals coarse breath sounds bilaterally. Cardiac: Reveals irregular rate and rhythm without appreciable murmur or gallop. Extremities: Demonstrate minimal edema and gangrenous changes in both feet distal to the metatarsal area. LABORATORY DATA: Includes a white blood cell count 11.36, hematocrit 29.1, hemoglobin 9.0, platelet count 204,000. Sodium 142, potassium 3.9, chloride 100, carbon dioxide 25, BUN 109, creatinine 2.0, glucose 85. Albumin 2.2. IMPRESSION: 1. Persistent atrial fibrillation. Rate is controlled. 2. Severe acute noncardiac illness with multi organ failure and probable disseminated intravascular congestion. The patient's acute process appears to have stabilized. 3. Severe atherosclerotic coronary disease with preserved left ventricular ejection fraction. 4. Encephalopathy. 5. Chronic obstructive pulmonary disease. 6. Hypertension. 7. Hyperlipidemia. 8. Anemia. 9. Recent urinary tract infection with Escherichia coli. RECOMMENDATIONS: 1. Continue amiodarone 200 mg p.o. b.i.d. and adjust metoprolol to 5 mg IV q.6 hours. 2. Continue subcutaneous heparin 5000 units subcu q.12. 3. Continue supportive care. cc: MD Hlale Molina MD
[2019-07-24] MEDS: PROTONIX IV SCH (21:30)
[2019-07-25] MEDS: NS 500 ML IV SCH ×2 (03:11→19:16)
[2019-07-25] MEDS: LOPRESSOR IV SCH ×2 (03:12→10:39)
[2019-07-25] MEDS: DUONEB (A & A) INH SCH ×6 (03:50→23:25)
[2019-07-25] MEDS: ZOSYN 2.25 GM in NS 50 ML IV SCH ×4 (04:01→21:02)
[2019-07-25 04:39] LABS: ALLEN TEST YES; BLOOD TYPE ARTERIAL; HCO3-(ACT) 26.4 mmoll (20.0-26.0); METHB 1.4 % (0.0-1.5); O2(CT) 12.9 mL/dL (15.0-23.0); O2HB 93.9 % (95.0-99.0); PCO2(98.6) 32 mmHg (35-45); PO2(98.6) 80 mmHg (60-100); SAMPLE BLOOD; SAO2 97.6 % (95.0-100.0); THB 9.7 g/dL (11.5-17.4)
[2019-07-25 04:40] LABS: MODALITY COOL AEROSOL
[2019-07-25 06:29] LABS: BASO# 0.02 X1000 (0.0-0.2); BASO% 0.2 % (0.0-0.8); HEMATOCRIT 30.5 % (42.0-52.0); HEMOGLOBIN 9.3 g/dL (14.0-18.0); IMM GRAN# 0.07 X1000 (0.0-0.04); IMM GRAN% 0.6 % (0.0-0.5); LYMPH# 0.44 X1000 (1.2-3.4); LYMPH% 3.7 % (20.5-51.1); MCH 30.9 PG (27-31); MCHC 30.5 g/dL (33-37); MCV 101.3 FL (81-99); MONO# 0.68 X1000 (0.11-0.59); MONO% 5.7 % (1.7-9.3); MPV 11.2 FL (7.4-10.4); NEUT# 10.75 X1000 (1.4-6.5); NEUT% 89.8 % (42.2-75.2); PLT 215 X1000 (130-400); RBC 3.01 XMIL (4.7-6.1); WBC 11.96 X1000 (4.8-10.8)
[2019-07-25 06:48] LABS: ESTIMATED GFR > 60
[2019-07-25 06:49] LABS: AGAP 16; ALB/GLOB RATIO 0.7; ALBUMIN 2.2 g/dL (3.5-5.0); ALKALINE PHOSPHATASE 89 U/L (32-122); BUN 59 mg/dL (8-22); CALCIUM 8.1 mg/dL (8.8-10.2); CHLORIDE 98 mmol/L (98-107); COSMO 291; CREATININE 1.1 mg/dL (0.7-1.2); GLUCOSE 111 mg/dL (70-104); GOT 60 U/L (10-34); GPT 88 U/L (10-44); POTASSIUM 3.5 mmol/L (3.5-5.1); SODIUM 137 mmol/L (136-145); TCO2 23 mmol/L (25-35); TOTAL BILIRUBIN 1.45 mg/dL (0.20-1.00); TOTAL PROTEIN 5.3 g/dL (6.3-8.3)
--- NOTE | 2019-07-25 06:53 | Diag Imaging Result Doc PS360 ---
CHEST-PORTABLE - 07/25/2019 INDICATION: respiratory failure COMPARISON: 07/24/2019 FINDINGS: Support lines and tubes are stable and in good position. Stable cardiomegaly and severe pulmonary vascular congestion. Slight improvement in the hazy bibasilar infiltrates or atelectasis. No new infiltrates. IMPRESSION: Slight improvement in aeration of the lung bases. Electronically signed by Heraclio Field 07/25/2019 6:51 AM
[2019-07-25] MEDS: CORDARONE NG SCH ×2 (09:04→21:02)
[2019-07-25] MEDS: HEPARIN SUBQ SCH ×2 (09:04→21:02)
--- NOTE | 2019-07-25 09:29 | PROGRESS NOTE ---
DATE: 07/25/2019 SUBJECTIVE: Patient is awake and did try to respond to verbal commands, but seems to be disoriented. OBJECTIVE: Vital Signs: Temperature 98.2 degrees, pulse 81 per minute, respiratory rate 24 per minute, blood pressure 105/70, pulse oximetry 97 percent via Venturi mask with 15 liters of oxygen flow rate. Cardiovascular System: First and second heart sounds are audible with irregularly irregular rhythm. Respiratory System: Bilateral lung air entry slightly decreased with no rales or rhonchi present on auscultation. Gastrointestinal System: Abdomen is soft and nondistended. Normal bowel sounds are present. Musculoskeletal System: Bilateral distal feet gangrene noted. DIAGNOSTIC DATA: CBC shows WBC count of 11.96 with hemoglobin of 9.3, hematocrit 30.5, and platelet count 215. Comprehensive metabolic panel shows improved BUN of 59 and creatinine of 1.1. Total bilirubin is found to 1.45, AST 60, ALT 88, glucose 111, calcium 8.1, total protein 5.3, and albumin levels of 2.2. Rest of the comprehensive metabolic panel is nondiagnostic. Arterial blood gases obtained this morning showed pH of 7.50, pCO2 of 32, and PO2 80 on 35% of oxygen. Chest x-ray obtained this morning showed pulmonary vascular congestion, but slight improvement in aeration of the lung bases. IMPRESSION: 1. Hypoxemic respiratory failure. 2. Renal failure that appears to be getting better, although the patient had hemodialysis yesterday. 3. Encephalopathy. 4. Peripheral arterial disease with bilateral gangrenous feet. 5. Atrial fibrillation. 6. Anemia. 7. Protein calorie malnutrition. PLAN: The patient will continue to get current care. I am going to obtain Vascular Surgery consultation for their input. I am not sure if the patient can undergo any surgery at this time with his current condition. I do suspect that he is having some improvement of his renal function. Overall, his acute phase has stabilized and slowly and gradually he is showing signs of improvement. Soon we will transfer him out of the intensive care unit, but he will need long-term acute care facility in case we intend to discharge him. TIME SPENT: A total of 36 critical care time spent. cc: MD KANA Blake
--- NOTE | 2019-07-25 09:49 | EKG Report ---
Test Performed on : 07/25/2019 09:14:06 AM Test Reason : AFIB Blood Pressure : / mmHG Vent. Rate : 081 BPM Atrial Rate : 277 BPM P-R Int : 000 ms QRS Dur : 116 ms QT Int : 472 ms P-R-T Axes : 000 009 017 degrees QTc Int : [address] depression, consider subendocardial injury Nonspecific T wave abnormality Prolonged QT Abnormal ECG When compared with ECG of 20-JUL-2019 12:47, Criteria for Inferior infarct are no longer present Non-specific change in ST segment in Inferior leads T wave inversion no longer evident in Anterior leads QT has lengthened Confirmed by Cruz ANDRE, [place] ([id number]) on 07/26/2019 9:49:11 AM
--- NOTE | 2019-07-25 10:05 | GENERAL SURGERY CONSULTATION ---
DATE: 07/25/2019 REASON FOR CONSULTATION: I have been asked to see him regarding his peripheral vascular disease and gangrene of the feet. HISTORY OF PRESENT ILLNESS: Mr. Cerna is a 73-year-old gentleman that was admitted with altered mental status back on 07/03/2019. He has significant medical problems including coronary artery disease, hypertension, hyperlipidemia, benign prostatic hypertrophy, supraventricular tachycardia, colitis, restless legs, situational depression, diastolic heart failure. During the course of his hospitalization, he has developed hypoxemic respiratory failure, acute liver failure, acute renal failure. He is now on dialysis. Consultation has been accomplished with gastroenterology, pulmonology, nephrology, cardiology. During the course of his hospitalization, he has developed a gangrene of the toes and what appears to be some ischemic change to the heels. He has required pressor support during his hospitalization. He now has developed gangrene of the toes and some ischemic change to the heels, and I have been asked to see him regarding this. PAST SURGICAL HISTORY: Previous surgery includes a thoracic aortic aneurysm repair with graft, coronary artery bypass, abdominal hernia repair. MEDICATIONS: Medications at home include Lipitor, Plavix Cymbalta, [place], Pepcid, nitroglycerin, aspirin, and lisinopril. ALLERGIES: He has no known drug allergies. FAMILY HISTORY: Pertinent for heart disease. SOCIAL HISTORY: He is . He quit smoking many years ago. There has been no alcohol or substance abuse. REVIEW OF SYSTEMS: Really not obtainable due to his disorientation. PHYSICAL EXAMINATION: Vital Signs: He is afebrile. Heart rate is 81, blood pressure is 114/67, respiratory rate is 26. He is not really oriented or appropriate and does not communicate. He has bilateral breath sounds. Heart: Irregular rate and rhythm. Abdomen: Soft. He has femoral pulses. He has no pedal pulses. He has a scar along the course of his right medial thigh and leg, consistent with a vein harvest. 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 LABORATORY DATA: White count is 11,900, hemoglobin 9.3, hematocrit 30. PH 7.5, pCO2 of 32, PO2 is 80 on an aerosol mask at 35%. BUN 59, creatinine 1.1. He has been on dialysis. ASSESSMENT: 1. Peripheral vascular disease. 2. Low flow with ischemic change of the feet. 3. Gangrene secondary to some pressor support as well. All these factors contribute to his dry gangrene. PLAN: The plan will be to get a lower extremity arterial study to look at his pressures and waveforms, and determine where he might benefit from an appropriate amputation. I do not think there is an urgency about it, in view of the dry nature of the gangrene at this point. cc: MD Halle Aviles MD
--- NOTE | 2019-07-25 13:19 | PROGRESS NOTE ---
DATE: 07/25/2019 SUBJECTIVE: The patient continues awake, and immediately looks to examiner as I enter the room. When asked if he is hurting anywhere, he finally gets out, in a somewhat groaning voice, "not really." OBJECTIVE: Vital Signs: Blood pressure 137/84, heart rate 81 with ECG monitor showing atrial fibrillation, oxygen saturation 100% on Venturi mask at 40%. Neck: There is no significant jugular venous distention. Chest: Clear to auscultation bilaterally. Cardiac: Irregular rate and rhythm without appreciable murmur or gallop. Extremities: Minimal edema. He has bilateral well-demarcated necrosis from metatarsal distally on both feet. LABORATORY DATA: Includes a white blood cell count of 11.96, hematocrit 30.5, hemoglobin 9.3, platelet count 215,000. Sodium 137, potassium 3.5, chloride 98, carbon dioxide 23, BUN 59, creatinine 1.1, glucose 111. IMPRESSION: 1. Persistent atrial fibrillation, rate control. 2. Severe acute noncardiac illness with multiorgan failure, probably disseminated intravascular coagulation. The patient's acute process appears to have stabilized. 3. Encephalopathy seems to be gradually improving. 4. Severe atherosclerotic coronary disease with preserved left ventricular ejection fraction. 5. Anemia. This also appears to have stabilized. 6. Recent urinary tract infection with Escherichia coli. 7. Hypertension. 8. Chronic obstructive pulmonary disease. 9. Hyperlipidemia. RECOMMENDATIONS: 1. Transition metoprolol to oral dosing. 2. Continue amiodarone 200 mg p.o. b.i.d. 3. Continue subcutaneous heparin. The patient ultimately may transition to warfarin. However, it is anticipated that he may need transmetatarsal amputation bilaterally. 4. Continue supportive care. cc: MD Halle Molina MD
--- NOTE | 2019-07-25 13:21 | NEPHROLOGY PROGRESS NOTE ---
DATE: 07/25/2019 SUBJECTIVE: He is awake, alert. He answers yes and no. OBJECTIVE: Vital signs: Blood pressure 137/84, heart rate 81, respiration 12, afebrile. Urine output 355 mL. General: No distress. Skin: Warm and dry. Neck: Neck veins are not appreciated. Heart: Regular. Lungs: Equal with a few rhonchi. Abdomen: Soft, nontender, bowel sounds present. Extremities: 1+ edema. No clubbing or cyanosis. IMPRESSION: Acute kidney injury. Nonoliguric. Electrolytes and acid-base in target. No dialysis today. cc: MD Halle Cook MD
[2019-07-25] MEDS: LOPRESSOR NG SCH ×2 (13:56→21:06)
[2019-07-25] MEDS: MORPHINE IV PRN ×2 (16:07→23:52)
--- NOTE | 2019-07-25 18:58 | PULMONOLOGY PROGRESS NOTE ---
DATE: 07/25/2019 SUBJECTIVE: The patient is awake and alert. He does moan when they are moving him to clean him up. He does not have any evidence of increased work of breathing. OBJECTIVE: Vital Signs: The patient has been afebrile for the last 24 hours. Blood pressure 107/70, heart rate 62, respiratory rate 21, oxygen saturation 100%. HEENT: Pupils are equal. Bitemporal wasting. Oropharynx is dry. Neck: Supple. Chest: Reveals occasional rhonchi bilaterally. Cardiac exam: S1, S2. Abdomen: Soft. Extremities: Reveal ongoing ischemia and cyanosis. LABORATORIES: Sodium 137, potassium 3.5, chloride 98, bicarbonate 23, BUN 59, creatinine 1.1. Arterial blood gas reveals pH 7.50, pCO2 of 32, pO2 of 80. IMAGING: Chest x-ray reveals slight decrease in basilar atelectasis/infiltrates. IMPRESSION: A 74-year-old with: 1. Hypoxemic respiratory failure. 2. Protein calorie malnutrition. 3. Renal failure. 4. Multiorgan dysfunction syndrome with continued clinical improvement. 5. Gangrenous changes to both feet. PLAN: 1. Continue tube feeds. The patient remains too weak to initiate oral intake. 2. Continue bronchial hygiene. 3. Dialysis as needed at the discretion of Nephrology. 4. Overall prognosis remains poor. He will likely require some amputation in the future if he survives this hospital stay. cc: MD Halle Clark MD
[2019-07-25] MEDS: PROTONIX IV SCH (20:15)
[2019-07-26] MEDS: MORPHINE IV PRN ×3 (02:01→08:43)
[2019-07-26] MEDS: DUONEB (A & A) INH SCH ×6 (03:18→23:19)
[2019-07-26] MEDS: ZOSYN 2.25 GM in NS 50 ML IV SCH ×3 (03:35→18:02)
[2019-07-26 04:45] LABS: ALB/GLOB RATIO 0.6; CREATININE 1.4 mg/dL (0.7-1.2); POTASSIUM 4.2 mmol/L (3.5-5.1); TOTAL BILIRUBIN 1.24 mg/dL (0.20-1.00); TOTAL PROTEIN 5.2 g/dL (6.3-8.3)
[2019-07-26 04:48] LABS: BASO# 0.04 X1000 (0.0-0.2); BASO% 0.3 % (0.0-0.8); HEMATOCRIT 29.1 % (42.0-52.0); IMM GRAN# 0.06 X1000 (0.0-0.04); IMM GRAN% 0.5 % (0.0-0.5); LYMPH# 0.55 X1000 (1.2-3.4); LYMPH% 4.2 % (20.5-51.1); MCHC 30.9 g/dL (33-37); MCV 100.3 FL (81-99); MONO# 0.49 X1000 (0.11-0.59); MONO% 3.8 % (1.7-9.3); MPV 11.3 FL (7.4-10.4); NEUT# 11.83 X1000 (1.4-6.5); NEUT% 91.2 % (42.2-75.2); PLT 186 X1000 (130-400); RDW 19.4 % (11.5-14.5); WBC 12.97 X1000 (4.8-10.8)
[2019-07-26 04:52] LABS: ALLEN TEST YES; BE -0.9 mmoll (-3.0-3.0); BLOOD TYPE ARTERIAL; HCO3-(ACT) 24.2 mmoll (20.0-26.0); O2HB 96.1 % (95.0-99.0); PCO2(98.6) 36 mmHg (35-45); PO2(98.6) 95 mmHg (60-100); SAMPLE BLOOD; SAO2 98.6 % (95.0-100.0); pH(98.6) 7.42 (7.35-7.45)
[2019-07-26 04:53] LABS: MODALITY VENTIMASK
[2019-07-26 05:10] LABS: LYMPHS 5 % (21-51); MONO 1 % (1-9); SEGS 94 % (42-75)
--- NOTE | 2019-07-26 06:20 | Diag Imaging Result Doc PS360 ---
EXAM: CHEST-PORTABLE 07/26/2019 HISTORY: respiratory failure TECHNIQUE: AP portable at 0346 COMMENT: There is a right internal jugular central venous catheter with its tip in the superior vena cava. There is a right pleural effusion. There is interstitial and alveolar opacity particularly in the right lower lobe. This has worsened in the right lower lobe since 07/25/2019. IMPRESSION: Worsened pneumonia right lower lobe. Electronically signed by Emerson Kendrick 07/26/2019 6:18 AM
[2019-07-26] MEDS: LOPRESSOR NG SCH ×2 (08:00→20:33)
[2019-07-26] MEDS: CORDARONE NG SCH ×2 (08:44→20:33)
[2019-07-26] MEDS: HEPARIN SUBQ SCH ×2 (08:44→20:33)
--- NOTE | 2019-07-26 10:30 | GENERAL SURGERY PROGRESS NOTE ---
DATE: 07/26/2019 SUBJECTIVE: Time is 10:15 in the morning. Mr. Cerna actually responds to questioning some a little bit today. He seems aware of my presence. His toes and heels look the same. An RAMOS was performed and I reviewed it. He does have pulsatile flow at least to the ankle level. I do think he is worth a try at transmetatarsal amputations bilaterally with debridement of his heels in order to preserve his feet. I will proceed with this whenever he is cleared from the medical point of view, specifically from the senior budget analyst and chamber worker because of the severity of his other medical problems. I have spoken with Dr. See. cc: MD Halle Aviles MD
--- NOTE | 2019-07-26 11:20 | PROGRESS NOTE ---
DATE: 07/26/2019 SUBJECTIVE: The patient is awake and tries to respond but seems to be very weak and frail. OBJECTIVE: Vital Signs: Temperature 97.7 degrees, pulse 72 per minute, respiratory rate 17 per minute, blood pressure 111/68, pulse oximetry 99% on 40% of oxygen. General: The patient is awake and I am not sure if he is oriented. Cardiovascular System: First and second heart sounds are audible without any murmurs. Irregularly irregular rhythm is present. Respiratory System: Bilateral lung air entry is moderately decreased. I do not auscultate any rales or rhonchi. Gastrointestinal System: Abdomen is soft and nondistended. Bowel sounds are slightly hyperactive. Diagnostic Data: CBC shows WBC count of 12.97 with 91.2% neutrophils, hemoglobin is 9.0 and hematocrit 29.1, platelet counts are normal at 186,000. His hemoglobin and hematocrit are stable when compared to the previous 3 days' labs. Chemistry shows a BUN of 80, creatinine 1.4, glucose level of 113, calcium 8.0. Total bilirubin 1.24, AST 53, ALT 95, and total protein of 5.2, along with albumin level of 2.0. The rest of the comprehensive metabolic panel is nondiagnostic. Arterial blood gases done this morning shows a pH of 7.42, pCO2 of 36, and PO2 of 95 on 40% of oxygen via Venturi mask. Chest x-ray obtained this morning showed worsened infiltrate in the right lower lobe. IMPRESSION: 1. Hypoxemic respiratory failure. 2. Acute kidney injury. 3. Encephalopathy. 4. Peripheral arterial disease with bilateral gangrenous feet. 5. Atrial fibrillation. 6. Anemia. 7. Protein calorie malnutrition. PLAN: The patient will be continued on IV Zosyn and we are going to continue with the rest of supportive care. He is going to be moved out of ICU today to the [facility]. Vascular surgical consultation is appreciated. I did discuss with Dr. Banerjee over the phone today and we plan to defer any possible surgery until he gets better since he has dry gangrene and there is no need for any emergency amputations. I also discussed with Dr. Bedoya in detail about his condition and had a lengthy conference meeting with his along with her 2 sons and 2 daughters yesterday. The patient's overall condition remains poor, although he is showing signs of improvement and, therefore, we are going to continue current treatment. Physical therapy is also going to be started soon and we will continue NG tube feeding. Further recommendations will be as per hospital course. TIME SPENT: A total of 38 critical care time spent. cc: Halle See MD MTDD
--- NOTE | 2019-07-26 14:45 | VASCULAR LAB ---
PROCEDURE NAME: Arterial Bilateral Legs - 07/25/2019 PROCEDURE: Lower extremity arterial study. REFERRING PHYSICIAN: Dr. Banerjee. INTERPRETING PHYSICIAN: Dr. Banerjee. DAY CARE SUPERVISOR: Gi. FINDINGS: The patient has gangrene of the toes. This is to determine appropriate level of amputation. Brachial pressure is 114. Right low thigh pressure is 137, right calf 136, right posterior tibial 112. The PVRs were preserved to the ankle. The PPGs are flat line at the toes on the left. Low thigh pressure 142, left calf 156, left posterior tibial 141. Again, the PVRs are preserved. PPGs at the toe level is flat lined. Right AB index is 0.98, left DALI index 1.2. INTERPRETATION: No flow in the digits. Perhaps, he will heal up transmetatarsal amputation in view of his ankle PVRs and pressures. cc: Ilir Banerjee MD
[2019-07-26] MEDS ORDERED: HEPARIN IV PRN (15:16)
[2019-07-26] MEDS ORDERED: NS 1,000 ML IV PRN (15:16)
[2019-07-26] MEDS ORDERED: NS 2,000 ML MISC PRN (15:16)
--- NOTE | 2019-07-26 17:21 | Diag Imaging Result Doc PS360 ---
CT HEAD W/O CONTRAST - 07/26/2019 INDICATION: AMS; Encephalopathy COMPARISON: 07/03/2019 FINDINGS: Stable moderate cerebral atrophy. Stable advanced periventricular cerebral white matter hypodensity compatible with chronic microvascular ischemia. Stable old lacunae in the basal ganglia/thalami bilaterally. No intracranial mass or hemorrhage. There is some fluid in both sphenoid sinuses. IMPRESSION: No acute intracranial abnormality. Extensive chronic changes. This exam was performed using automated exposure control, adjustment of mA or kV according to patient size, and/or use of iterative reconstruction technique Electronically signed by Heraclio Field 07/26/2019 5:19 PM
[2019-07-26] MEDS: NS 500 ML IV SCH (18:03)
[2019-07-26] MEDS ORDERED: MAXIPIME 1 GM in NS 50 ML IV ONE (18:18)
--- NOTE | 2019-07-26 19:10 | NEPHROLOGY PROGRESS NOTE ---
DATE: 07/26/2019 SUBJECTIVE: He is on dialysis currently. Sleep and somewhat difficult to arouse. OBJECTIVE: Vital signs: Blood pressure 124/76, heart rate 79, respiration 18, afebrile. General: No acute distress. Skin is warm and dry. Neck veins are not appreciated. Cardiovascular: Heart is regular. No gallops. Lungs: Are equal. Coarse. No crackles. Abdomen: Soft, nontender. Bowel sounds present. Extremities: No edema, clubbing or cyanosis. IMPRESSION: Acute kidney injury. No recovery. Continue hemodialysis today. 2K bath. 37 bicarbonate. One liter ultrafiltration. cc: MD Halle Cook MD
--- NOTE | 2019-07-26 19:26 | PULMONOLOGY PROGRESS NOTE ---
DATE: 07/26/2019 SUBJECTIVE: The patient is awake and alert. He does respond to some questioning. He has occasional rhonchi. He has marginal cough effort. OBJECTIVE: Vital Signs: The patient has been afebrile for the last 24 hours. Blood pressure 128/94, heart rate 87, respiratory rate 20, oxygen saturation 100% on 40% venturi mask. HEENT: Pupils are equal and reactive. Oropharynx appears dry, but clear. neck: Neck is supple. pulmonary: Chest reveals occasional rhonchi bilaterally. Cardiac: S1-S2. abdomen: Abdomen is soft. Extremities: Extremities reveal ongoing ischemia/gangrenous changes of both feet. LABORATORIES AND DATA: Slight increased density at the right lung base. Sodium 137, potassium 4.2, chloride 100, bicarbonate 23, BUN 80, creatinine 1.4, bilirubin 1.24, total protein 5.2. White blood count 12.97, hemoglobin 9.0, platelet count 186,000. IMPRESSION: A 74-year-old with: 1. Hypoxemic respiratory failure. 2. Renal failure. 3. Multiorgan dysfunction syndrome. 4. Protein calorie malnutrition. 5. Bilateral gangrenous changes to the feet. DISCUSSION: A 74-year-old with problems outlined above. He has significant vascular disease and may require amputation. He remains weak at this juncture and makes a poor surgical candidate. He continues to have radiographic changes consistent with pneumonia or effusions. PLAN: 1. Continue tube feeds until his status has improved to the point that he can adequately take in nutrition. 2. Continue bronchial hygiene. 3. Discontinue Zosyn and initiate cefepime and Zyvox given leukocytosis and worsening chest radiograph. 4. Continue dialysis as needed. 5. Obtain CT scan of the thorax tomorrow to evaluate areas of consolidation versus effusion. cc: MD Halle Clark MD
[2019-07-26] MEDS: SODIUM CHLORIDE 0.9% INJ SCH (20:33)
[2019-07-26] MEDS: PROTONIX IV SCH (20:33)
[2019-07-26] MEDS: ZYVOX 600 MG/D5W 600 MG/300 ML IVPB IV SCH (20:33)
[2019-07-27] MEDS: MORPHINE IV PRN ×7 (00:30→23:05)
[2019-07-27] MEDS: DUONEB (A & A) INH SCH ×6 (03:21→22:36)
[2019-07-27 03:31] LABS: ALLEN TEST YES; BE 2.4 mmoll (-3.0-3.0); BLOOD TYPE ARTERIAL; HCO3-(ACT) 26.8 mmoll (20.0-26.0); PCO2(98.6) 29 mmHg (35-45); PO2(98.6) 92 mmHg (60-100); SAMPLE BLOOD; pH(98.6) 7.53 (7.35-7.45)
[2019-07-27 03:32] LABS: MODALITY VENTIMASK
[2019-07-27 06:03] LABS: BASO# 0.04 X1000 (0.0-0.2); BASO% 0.3 % (0.0-0.8); EOS# 0.01 X1000 (0.0-0.7); EOS% 0.1 % (0.0-10.0); HEMATOCRIT 29.5 % (42.0-52.0); HEMOGLOBIN 9.1 g/dL (14.0-18.0); IMM GRAN# 0.08 X1000 (0.0-0.04); IMM GRAN% 0.6 % (0.0-0.5); LYMPH# 0.65 X1000 (1.2-3.4); LYMPH% 4.8 % (20.5-51.1); MCHC 30.8 g/dL (33-37); MCV 100.3 FL (81-99); MONO# 0.55 X1000 (0.11-0.59); MONO% 4.1 % (1.7-9.3); MPV 11.2 FL (7.4-10.4); NEUT# 12.24 X1000 (1.4-6.5); NEUT% 90.1 % (42.2-75.2); PLT 161 X1000 (130-400); RBC 2.94 XMIL (4.7-6.1); RDW 19.3 % (11.5-14.5); WBC 13.57 X1000 (4.8-10.8)
[2019-07-27 06:26] LABS: AGAP 12; ALB/GLOB RATIO 0.6; ALBUMIN 1.9 g/dL (3.5-5.0); ALKALINE PHOSPHATASE 83 U/L (32-122); BUN 56 mg/dL (8-22); CHLORIDE 99 mmol/L (98-107); COSMO 288; ESTIMATED GFR > 60; GLUCOSE 111 mg/dL (70-104); GOT 54 U/L (10-34); GPT 100 U/L (10-44); POTASSIUM 3.5 mmol/L (3.5-5.1); SODIUM 136 mmol/L (136-145); TCO2 25 mmol/L (25-35); TOTAL BILIRUBIN 1.21 mg/dL (0.20-1.00); TOTAL PROTEIN 5.1 g/dL (6.3-8.3)
--- NOTE | 2019-07-27 07:09 | Diag Imaging Result Doc PS360 ---
CHEST-PORTABLE - 07/27/2019 INDICATION: respiratory failure COMPARISON: 07/26/2019 FINDINGS: Support lines and tubes are stable and in good position. Stable cardiomegaly and pulmonary vascular congestion. There has been improvement in the dense right basilar infiltrate. No new infiltrates. There is probably central pulmonary edema, stable from prior. Stable trace right pleural effusion. IMPRESSION: Improvement in the dense right basilar infiltrate. Electronically signed by Heraclio Field 07/27/2019 7:06 AM
--- NOTE | 2019-07-27 07:54 | GENERAL SURGERY PROGRESS NOTE ---
DATE: 07/27/2019 SUBJECTIVE: Mr. Cerna is afebrile. Heart rate 82, blood pressure 106/64. He is awake. He does respond to his name. He does respond when questioning him about pain or being hungry. So, he is aware and can respond to questioning. His feet look about the same. We will proceed with transmetatarsal amputation and debridement of his heels whenever he appears to be medically stable. Dr. Wilson is to cover the weekend. cc: MD Halle Aviles MD
--- NOTE | 2019-07-27 08:56 | Diag Imaging Result Doc PS360 ---
EXAM: CT THORAX W/O CONTRAST 07/27/2019 HISTORY: persistent pneumonia TECHNIQUE: This exam was performed using automated exposure control, adjustment of mA or kV according to patient size, and/or use of iterative reconstruction technique. COMMENT: The current study is compared with the previous examination of 06/15/2018. The pleural effusions present previously have diminished considerably with only a very small amount of residual fluid more so on the right than the left. There is an aneurysm of the abdominal aorta which has been treated with endograft. This is not visible in its entirety. The aorta is distended above the graft to a transverse dimension of over 5.3 cm. Previously this measured 4.8 cm. The thoracic aorta is very tortuous. The thoracic aorta is not distended. The lack of contrast precludes evaluation for dissection. There is an NG tube in the stomach. There is extensive coronary calcification. There is accentuated thoracic kyphosis and degenerative disc changes in the thoracic and visualized lumbar spine. There are ill-defined opacities in both lower lobes particularly the right lower lobe. There is debris in the bronchus intermedius and particularly in the right lower lobe bronchi. There is some opacification of the posterior medial basal subsegmental bronchi on the left. There is a cavitary lesion present in the lingula which has a variable wall thickness and measures 4.8 x 2.2 cm in the axial plane. There is some apparent associated bronchiectasis. On the previous study there was an opacity in this area. This is more well-defined than that pneumonia. The pneumonia in the right lower lobe is apparently worse than on the previous study. IMPRESSION: 1. Bilateral lower lobe pneumonia which may be related to aspiration given the inspissated material in the bronchi. 2. Cavitary lesion in the lingula. 3. Abdominal aortic aneurysm which appears slightly worse than on 06/15/2018. Electronically signed by Emerson Kendrick 07/27/2019 8:53 AM
[2019-07-27] MEDS: LOPRESSOR NG SCH ×2 (09:02→20:47)
[2019-07-27] MEDS: HEPARIN SUBQ SCH ×2 (09:02→20:47)
[2019-07-27] MEDS: CORDARONE NG SCH ×2 (09:02→20:47)
[2019-07-27] MEDS: ZYVOX 600 MG/D5W 600 MG/300 ML IVPB IV SCH ×2 (09:02→20:47)
--- NOTE | 2019-07-27 12:20 | CARDIOLOGY PROGRESS NOTE ---
DATE: 07/27/2019 SUBJECTIVE: The patient is awake and will make eye contact and will attempt to answer questions but just groans. There has been no acute change overnight. OBJECTIVE: Vital signs: Blood pressure 104/60, heart rate is 78 beats per minute, afebrile and weight is 176 pounds. Intake and output in the last 24 hours are positive 1545 mL. On telemetry, the patient is currently in atrial fibrillation with heart rates between 63 and 70 by telemetry. Currently, patient is on Venturi mask with an oxygen saturation of 96%. HEENT: Normocephalic, atraumatic. Neck: Supple. There is no significant jugular vein distention. Cardiovascular: Irregular rate and rhythm. There is no significant murmur, rub, or gallop appreciated at this time, and he has S1, S2 noted. Chest: It seems more clear to auscultation anteriorly at this time. No coarse rhonchi or wheezing. Extremities: There is minimal edema noted in bilateral lower extremities and he has bilateral necrosis in the metatarsal region distally on both feet. PERTINENT LABORATORY DATA: His sodium is 136, potassium 3.5, BUN is 56, creatinine 1.0, glucose 111. His white blood cell count is 13.57, his hemoglobin is 9.1, his hematocrit is 29.5, and his platelets are 161,000. PERTINENT IMAGING DATA: Chest x-ray portable showed stable cardiomegaly and pulmonary vascular congestion. There is some improvement in the dense right basilar infiltrate noted on this exam. IMPRESSION: 1. Persistent atrial fibrillation, however, rate is currently under control with Lopressor and Amiodarone. 2. Severe acute noncardiac illness with multiorgan failure, probably disseminating intravascular coagulation. This acute process has appeared to stabilize. 3. Encephalopathy, slowly improving. 4. Severe atherosclerotic coronary disease with preserved left ventricular ejection fraction. 5. Anemia. This condition is staying stable at this time. 6. Recurrent urinary tract infection with Escherichia coli. 7. Hypertension. 8. Severe peripheral vascular disease with gangrene to the bilateral feet, which will require amputation. RECOMMENDATIONS: We will continue Metoprolol at 25 mg q.12 hours via NG tube as well as Amiodarone 200 mg b.i.d. via NG tube to help control his atrial fibrillation. At this time, patient is on subcutaneous Heparin as we await for surgical intervention for metatarsal amputation bilaterally secondary to gangrene. Dictated by JUAN RAMON Rowan for Diza Silvestre MD ADDENDUM: Patient has been seen and examined. We will continue with current rate control approach regarding his afib. There is plans for trans-metatarsal amputation(s) in the future. He currently is confused but hemodynamically stable. No change in cardiac meds at this time. Will need to resume anticoagulation for afib following his operation. cc: JUAN RAMON Rowan MD Adnan A. Seljuki, MD [facility]
--- NOTE | 2019-07-27 13:25 | NEPHROLOGY PROGRESS NOTE ---
DATE: 07/27/2019 SUBJECTIVE: He is in bed. He looks toward me, attempts to verbalize. OBJECTIVE: Vital Signs: Blood pressure 104/60, heart rate 78, respirations 22, afebrile. General: No acute distress. Skin: Warm and dry. Heart: Regular. Lungs: Equal. Abdomen: Benign. Extremities: No edema. IMPRESSION: Acute kidney injury. No recovery. Dialysis tomorrow. Electrolytes/acid base/volume status all in target. cc: MD Halle Cook MD
[2019-07-27] MEDS: MAXIPIME 0.5 GM in NS 50 ML IV SCH (17:32)
[2019-07-27] MEDS: NS 500 ML IV SCH (17:33)
--- NOTE | 2019-07-27 17:48 | PROVIDER PROGRESS NOTE ---
Progress Note Dr. Jaramillo Progress Note/Pulmonary and or critical care Subjective: The patient is lying in bed on VM 40%. He is awake and alert. He is able to answer yes or no slowly, but most of time, he moans. RN at the bedside is giving him IV Morphine at this time. Input was appreciatedfrom Dr. See and other teams on the case. Objective: Vital Signs: T 97.8 (No fever in last 24 hours), LA 82, RR 16, BP 106/64 and SaO2 95% on VM 40%. Physical Examination: General: Chronically ill appearing. Lying in bed. No acute distress noted. HEENT: Normocephalic. Atraumatic. Trachea midline. Mucosa pink and moist. PERRL. Oropharynx clear. Chest: Even and unlabored. Symmetrical excursion. Auscultation reveals decreased air entry bilaterally. CVS: Irregularly irregular. S1 and S2 appreciated. Abdomen: Soft. Nondistended. Nontender. Bowel sounds present in all 4 quadrants. Extremities: Ongoing ischemia/gangrenous changes of both feet. Neuro: Awake and alert. Able to answer yes or no questions. Not following commands. Labs and Radiology: Laboratory Results 07/27/19 07/27/19 07/27/19 03:00 05:34 05:34 WBC 13.57 H RBC 2.94 L Hgb 9.1 L Hct 29.5 L MCV 100.3 H MCH 31.0 MCHC 30.8 L RDW Std Deviation 19.3 H Plt Count 161 MPV 11.2 H Immature Gran % (Auto) 0.6 H Neut % (Auto) 90.1 H Lymph % (Auto) 4.8 L Tyrrell % (Auto) 4.1 Eos % (Auto) 0.1 Baso % (Auto) 0.3 Immature Gran # (Auto) 0.08 H Neut # (Auto) 12.24 H Lymph # (Auto) 0.65 L Tyrrell # (Auto) 0.55 Eos # (Auto) 0.01 Baso # (Auto) 0.04 Specimen Type ARTERIAL Sample Site R BRACHIAL pH 7.53 H pCO2 29 L pO2 92 HCO3 26.8 H Base Excess 2.4 Meño Test YES A-a O2 Difference 157.0 Lactate 1.40 Liter Flow 15.0 Blood Gas Modality VENTIMASK FiO2 % 40.0 Sodium 136 Potassium 3.5 D Chloride 99 Carbon Dioxide 25 Anion Gap 12 BUN 56 H Creatinine 1.0 Estimated GFR/1.73 m2 > 60 BUN/Creatinine Ratio 56 Glucose 111 H Calculated Osmolality 288 Calcium 8.0 L Total Bilirubin 1.21 H AST 54 H ALT 100 H Alkaline Phosphatase 83 Total Protein 5.1 L Albumin 1.9 L Globulin 3.2 Albumin/Globulin Ratio 0.6 Assessment: Hypoxemic respiratory failure. Possible RLL pneumonia with a right pleural effusion. Sputum culture uncollected. CXR this morning shows improvement in the dense right basilar infiltrate. CT thorax w/o contrast this morning show bilateral lower lobe pneumonia which may be related to aspiration given the inspissated material in the bronchi; cavitary lesion in the lingula and abdominal aortic aneurysm which appears slightly worse than on 06/15/18. Acute renal failure. Improved. Multiorgan dysfunction syndrome. Protein calorie malnutrition. Bilateral gangrenous changes to the feet. DNR 1. Plan: Continue supplemental oxygen. We titrated oxygen to patients needs per clinical protocols. We will monitor patients response closely. We follow ABG daily. Continue bronchial hygiene. Continue Cefepime and Zyvox. We will monitor patient's clinical and lab response closely. Continue GI and DVT prophylaxis. Continue NG tube feeding with aspiration precaution.
--- NOTE | 2019-07-27 18:14 | PROGRESS NOTE ---
DATE: 07/27/2019 SUBJECTIVE: Patient is awake and tries to answer questions. He is able to say yes or no. OBJECTIVE: Vital Signs: Temperature 97.9 degrees, pulse 69 per minute, respiratory rate 21 per minute, blood pressure 94/54, pulse oximetry 100% on oxygen via Venturi mask. Cardiovascular System: First and second heart sounds are audible. Irregularly irregular rhythm is present. Respiratory System: Bilateral lung air entry is moderately decreased with no rales or rhonchi present on auscultation. Gastrointestinal System: Abdomen is soft and nondistended. It is nontender on palpation and normal bowel sounds are present Musculoskeletal System: Bilateral distal feet gangrene is present. DIAGNOSTIC DATA: CBC shows WBC count of 13.57, hemoglobin 9.1, hematocrit 29.5, and platelet count of 161,000. His white blood cell count and hemoglobin and hematocrit are stable when compared to previous labs. Comprehensive metabolic panel showed calcium levels of 8.0, total bilirubin 1.21, AST 54, ALT 100, protein 5.1 and albumin of 1.9. Rest of the comprehensive metabolic panel is nondiagnostic. Arterial blood gas showed pH of 7.53, pCO2 29, and PO2 92 on 40% oxygen. Chest x-ray done this morning showed improved right basilar infiltrate, possibly secondary to improved aeration. IMPRESSION: 1. Hypoxemic respiratory failure. 2. Acute kidney injury. 3. Encephalopathy. 4. Peripheral arterial disease with bilateral gangrenous feet. 5. Atrial fibrillation. 6. Anemia that is stable. 7. Protein calorie malnutrition. PLAN: Since his infiltrates got worse yesterday, I had a discussion with Pulmonology after which his antibiotics were changed to cefepime and Zyvox. We will continue with the rest of the care along with physical therapy. I had a discussion with the family today and they voiced understanding about his condition. He has been very slowly and gradually recovering and sometime early next week we are going to have a discussion whether we can proceed with transmetatarsal amputations bilaterally by Vascular Surgery. Further recommendations will be as per hospital course. TIME SPENT: A total of 38 critical care time spent. cc: MD KANA Blake
[2019-07-27] MEDS: PROTONIX IV SCH (20:47)
[2019-07-27] MEDS: SODIUM CHLORIDE 0.9% INJ SCH (20:47)
[2019-07-27] MEDS ORDERED: MORPHINE IV ONE (23:32)
[2019-07-27] MEDS: ATROPINE 1 % OPHTH SOLN SL PRN (23:49)
[2019-07-28] MEDS: DUONEB (A & A) INH SCH ×7 (03:48→22:34)
--- NOTE | 2019-07-28 07:24 | Diag Imaging Result Doc PS360 ---
EXAM: CHEST-PORTABLE HISTORY: respiratory failure TECHNIQUE: Single view COMPARISON: 07/27/2019 FINDINGS: No change in the right jugular line, the nasogastric tube, or the left subclavian line. The heart is enlarged. Sternal wires are present. There are increased interstitial markings/bilateral infiltrates as well as tiny effusions. IMPRESSION: Persistent bilateral pneumonia with no interval improvement Electronically signed by Jermaine Lambert 07/28/2019 7:22 AM
[2019-07-28] MEDS: CORDARONE NG SCH ×2 (10:48→20:18)
[2019-07-28] MEDS: NS 500 ML IV SCH ×2 (10:48→20:17)
--- NOTE | 2019-07-28 11:55 | PROGRESS NOTE ---
DATE: 07/28/2019 A 74-year-old white gentleman, chronically sick, has been in the hospital for the last [address] See. The patient was seen in [facility]. Last night, he was not doing very well. He became hypotensive and tachypneic and hypoxic requiring high FiO2. Apparently the whole family was at bedside. The patient is getting morphine and his blood pressure was low. He is supposed to go to dialysis today. Dr. Mccrary is involved. Apparently, dialysis on hold. Family made him Do Not Resuscitate 1. His is at bedside. He is awake and not in respiratory distress. He is basically bedridden. PAST MEDICAL HISTORY: Reviewed. PAST SURGICAL HISTORY: Reviewed. MEDICINES: Reviewed. ALLERGIES: Not known. REVIEW OF SYSTEMS: Unable to obtain. OBJECTIVE: On exam, his blood pressure is 79/82, afebrile, and heart rate is 58.HEENT Exam: He is on non-rebreather. He had a hemodialysis catheter on the right neck and central line on the left side. Poor air entry. Irregular heart sounds. Belly is soft, nontender. He has some edema. He is on heel pads and gangrene of the toes. LABORATORY DATA: White cell count 13.57, hematocrit 29.5, platelet 161,000. ABG pH is 7.53, pCO2 29, PO2 92 on 40%. SMA 7 is normal. Creatinine is 1.0. ASSESSMENT AND PLAN: 1. Acute respiratory failure. 2. Chronic atrial fibrillation. 3. Ischemic heart disease status post bypass. 4. Abdominal aortic aneurysm 5.3 cm. 5. Peripheral arterial disease with impending gangrene of the toes. 6. Acute kidney injury. 7. Chronic anemia. PLAN OF CARE: 1. Oxygen as needed. 2. Comfort care, living will, DNR. Hold on dialysis. Repeat the labs in the morning. The whole family is at bedside. 3. Chronic atrial fibrillation. He is on metoprolol with NG tube and amiodarone. 4. DVT prophylaxis with subcutaneous heparin. 5. GI prophylaxis with IV Protonix and he is on antibiotics with Zyvox and cefepime and patient was seen by Dr. Wilsno and Dr. Mccrary and will check the labs in the morning as well as a chest x-ray and discuss the plan of care with family at bedside, slowly leaning towards comfort care and will follow up. cc: MD Halle Saldivar MD MTDD
--- NOTE | 2019-07-28 11:58 | GENERAL SURGERY PROGRESS NOTE ---
DATE: 07/28/2019 SUBJECTIVE: The patient has had no acute events overnight. OBJECTIVE: Vital Signs: He is afebrile, pulse 60s to 80s. Blood pressure 70s to low 100s systolic, O2 saturation 100% on a non-rebreather. General: He appears very weak, but does shake his head yes or no weakly. Extremities: The toes in both feet appear to be stable with dry gangrene. No gross pus or streaking erythema identified. LABORATORY: White cell count 13,000, hemoglobin 9.1, hematocrit 29, BUN 56, creatinine 1.0. ASSESSMENT AND PLAN: A 74-year-old male with peripheral arterial disease and bilateral gangrenous feet, specifically toes, in the setting of multiorgan failure including acute kidney injury, encephalopathy, hypoxic respiratory failure and protein calorie malnutrition. At some point he may get a transmetatarsal amputation bilaterally. We are awaiting further stabilization medically. cc: MD Halle Garcia MD
[2019-07-28] MEDS: ATROPINE 1 % OPHTH SOLN SL PRN ×2 (12:27→17:21)
[2019-07-28] MEDS: MORPHINE IV PRN ×3 (12:27→20:17)
[2019-07-28] MEDS: ZYVOX 600 MG/D5W 600 MG/300 ML IVPB IV SCH ×2 (12:36→20:17)
[2019-07-28] MEDS: LOPRESSOR NG SCH ×2 (12:40→20:18)
--- NOTE | 2019-07-28 13:09 | NEPHROLOGY PROGRESS NOTE ---
DATE: 07/25/2019 SUBJECTIVE: He is worse this morning. Blood pressure has been low. Altered mental status. Worsening respiratory status. OBJECTIVE: Vital Signs: Blood pressure 113/63, heart rate 73, respirations 17. Intake/output: Intake is 2.2 L. Output 225 mL. Generally: Chronically ill, elderly man, not responsive. Ineffective cough. HEENT: Conjunctivae are pink. Oropharynx is dry. Neck: Neck veins are not distended. Heart: Regular, obscured by lung sounds. Lungs: Have diffuse audible rhonchi and crackles. Abdomen: Soft. Bowel sounds are diminished. Extremities: 2+ edema. No clubbing or cyanosis. IMPRESSION: Acute kidney injury. No recovery. We will hold his dialysis today. He has not had labs collected, so we will do that and continue to monitor them daily. We will not be able to achieve ultrafiltration goals, and as such the cost-benefit analysis and dialysis favors withholding it today. Family is at the bedside when we discussed this. His care will be clamped at the current level, and we will not escalate cc: MD Halle Cook MD
[2019-07-28] MEDS: HEPARIN SUBQ SCH ×2 (15:53→20:18)
[2019-07-28] MEDS: MAXIPIME 0.5 GM in NS 50 ML IV SCH (17:21)
--- NOTE | 2019-07-28 17:56 | PROVIDER PROGRESS NOTE ---
Progress Note Dr. Jaramillo Progress Note/Pulmonary and or critical care Subjective: The patient is on NRB 100% at this time. He is awake and alert. His eyes follow me during my encounter. He tries to say something, but really hard to understand. RN at the bedside gave IV Morphine less than 1 hour ago. Patient apparently had a difficult night last night. Morphine dosage increased since then with Atropine and Ativan. Family refused labs this morning. Input was appreciatedfrom Dr. See and other teams on the case. Objective: Vital Signs: No fever in last 24 hours, LA 67, RR 14, BP 79/52 and SaO2 100% on NRB 100%. Physical Examination: General: Chronically ill appearing. Lying in bed. No acute distress noted. HEENT: Normocephalic. Atraumatic. Trachea midline. Mucosa pink and moist. PERRL. Oropharynx clear. Chest: Even and unlabored. Symmetrical excursion. Auscultation reveals significantly decreased air entry bilaterally. CVS: Irregularly irregular. S1 and S2 appreciated. Abdomen: Soft. Nondistended. Nontender. Bowel sounds present in all 4 quadrants. Extremities: Ongoing ischemia/gangrenous changes of both feet.BUE pitting edema 2-3+. Neuro: Awake and alert. Able to answer yes or no questions. Not following commands. Labs and Radiology: No labs this morning as patients family refused. Assessment: Hypoxemic respiratory failure. Possible RLL pneumonia with a right pleural effusion. Sputum culture uncollected. CT thorax w/o contrast on 07/27/19 showed bilateral lower lobe pneumonia which may be related to aspiration given the inspissated material in the bronchi; cavitary lesion in the lingula and abdominal aortic aneurysm which appears slightly worse than on 06/15/18. Acute renal failure. Improved. Shock. Multiorgan dysfunction syndrome. Protein calorie malnutrition. Bilateral gangrenous changes to the feet. DNR 1. Poor prognosis. Plan: Continue supplemental oxygen. We titrated oxygen to patients needs per clinical protocols. We will monitor patients response closely. We follow ABG daily. Continue bronchial hygiene. Continue Cefepime and Zyvox. We will monitor patient's clinical and lab response closely. Continue GI and DVT prophylaxis. NG tube feeding held.
[2019-07-28 18:56] LABS: ALB/GLOB RATIO 0.5; ALBUMIN 1.8 g/dL (3.5-5.0); CALCIUM 7.9 mg/dL (8.8-10.2); CREATININE 1.5 mg/dL (0.7-1.2); POTASSIUM 4.1 mmol/L (3.5-5.1); TOTAL BILIRUBIN 1.2 mg/dL (0.20-1.00); TOTAL PROTEIN 5.2 g/dL (6.3-8.3)
[2019-07-28] MEDS: SODIUM CHLORIDE 0.9% INJ SCH (20:18)
[2019-07-28] MEDS: PROTONIX IV SCH (20:18)
[2019-07-28 21:30] LABS: BASO# 0.12 X1000 (0.0-0.2); BASO% 0.8 % (0.0-0.8); EOS# 0.04 X1000 (0.0-0.7); EOS% 0.3 % (0.0-10.0); HEMATOCRIT 28.9 % (42.0-52.0); HEMOGLOBIN 8.8 g/dL (14.0-18.0); IMM GRAN# 0.07 X1000 (0.0-0.04); IMM GRAN% 0.5 % (0.0-0.5); LYMPH# 0.73 X1000 (1.2-3.4); LYMPH% 4.8 % (20.5-51.1); MCHC 30.4 g/dL (33-37); MCV 105.1 FL (81-99); MONO# 0.85 X1000 (0.11-0.59); MONO% 5.6 % (1.7-9.3); MPV 11.9 FL (7.4-10.4); NEUT# 13.29 X1000 (1.4-6.5); PLT 146 X1000 (130-400); RBC 2.75 XMIL (4.7-6.1); RDW 19.6 % (11.5-14.5)
[2019-07-28 21:42] LABS: ANISOCYTOSIS 1+; LARGE PLATELETS OCCASIONAL; LYMPHS 4 % (21-51); MONO 4 % (1-9); SEGS 92 % (42-75)
[2019-07-29] MEDS: DUONEB (A & A) INH SCH ×5 (03:20→19:47)
[2019-07-29] MEDS: NS 500 ML IV SCH (05:00)
[2019-07-29] MEDS: MORPHINE IV PRN ×3 (05:28→20:57)
--- NOTE | 2019-07-29 08:40 | Diag Imaging Result Doc PS360 ---
EXAM: CHEST-PORTABLE - 07/29/2019 HISTORY: dyspnea TECHNIQUE: Portable chest COMPARISON: 07/28/2019 FINDINGS: There is stable cardiomegaly. There is infiltrate the right base similar to prior. There is lower lung infiltrate on the left which has increased. There are small bilateral pleural effusions. There is no evidence of pneumothorax. Central venous catheters remain in place. There is a nasogastric tube, the distal end of which is obscured by overlying hardware. IMPRESSION: Increase in infiltrate on the left compared to prior. Electronically signed by Yang Teran 07/29/2019 8:37 AM
[2019-07-29] MEDS: ZYVOX 600 MG/D5W 600 MG/300 ML IVPB IV SCH ×2 (09:05→20:30)
--- NOTE | 2019-07-29 09:33 | GENERAL SURGERY PROGRESS NOTE ---
DATE: 07/29/2019 SUBJECTIVE: The patient has had no new events overnight. He is somewhat responsive to painful stimuli. He does answer questions yes or no and does admit to some pain. OBJECTIVE: He is afebrile, pulse 80s to 70s, blood pressure 100/59, O2 saturation 100%. General: Chronically ill-appearing male in no acute distress. He is somnolent but arousable. Extremities: Both arms are swollen. Both feet show distal gangrene that is dry. ASSESSMENT AND PLAN: A 74-year-old male with multiorgan failure, severe protein calorie malnutrition, and bilateral toe gangrene. Family is in discussions for continued treatment with even transmetatarsal amputations in the future if he is stable versus palliative care. cc: MD Halle Garcia MD
[2019-07-29] MEDS: CORDARONE NG SCH ×2 (10:01→20:31)
[2019-07-29] MEDS: LOPRESSOR NG SCH ×2 (10:01→20:31)
[2019-07-29] MEDS: HEPARIN SUBQ SCH ×2 (10:01→20:30)
--- NOTE | 2019-07-29 13:30 | PROGRESS NOTE ---
DATE: 07/29/2019 SUBJECTIVE: The patient is not doing very well. There is no family at bedside. He is in moribund state. The chest x-ray showed bilateral infiltrates, requiring high FiO2. He is less responsive to verbal stimulus. He has bad gangrene on the toes, and he did not have dialysis yesterday, and he is making 800 mL of urine. OBJECTIVE: General: Obtunded. Lungs: Poor air entry. No change from the yesterday. IMAGING AND LABORATORY DATA: White cell count 15, hematocrit 28, platelets 146,000. Sodium 136, potassium 4.1, BUN 84, creatinine 1.5. LFTs were slightly high. Chest x-ray: Worsening infiltrates. ASSESSMENT AND PLAN: Bilateral pneumonia, coronary artery disease status post bypass, abdominal aortic aneurysm 5.3, kidney injury, deconditioning, decreased performance status. Continue oxygen, intravenous antibiotics with Maxipime, Zyvox. Chronic atrial fibrillation is stable. Subcutaneous heparin for deep venous thrombosis prophylaxis. Gangrene of the toes. Poor prognosis. Living will, DO NOT RESUSCITATE, and family is slowly leaning towards comfort care. Dialysis on hold. Will follow up. cc: MD Halle Saldivar MD
--- NOTE | 2019-07-29 16:06 | PROVIDER PROGRESS NOTE ---
Progress Note Dr. Jaramillo Progress Note/Pulmonary and or critical care Subjective: The patient is on NRB 100% at this time. He is awake and alert with moaning at times. Input was appreciatedfrom Dr. See and other teams on the case. Objective: Vital Signs: T 99.7 (highest T in last 24 hours), LA 88, RR 14, BP 96/58 and SaO2 100% on NRB 100%. Physical Examination: General: Chronically ill appearing. Lying in bed. No acute distress noted. HEENT: Normocephalic. Atraumatic. Trachea midline. PERRL. Chest: No increased work of breathing or accessory muscle use noted. Symmetrical excursion. Auscultation reveals significantly decreased air entry bilaterally. CVS: Irregularly irregular. S1 and S2 appreciated. Abdomen: Soft. Nondistended. Bowel sounds present in all 4 quadrants. Extremities: Ongoing ischemia/gangrenous changes of both feet.BUE pitting edema 2-3+. Neuro: Awake and alert. Not answering questions. Not following commands. Labs and Radiology: Laboratory Results 07/28/19 07/28/19 18:18 18:18 WBC 15.10 H RBC 2.75 L Hgb 8.8 L Hct 28.9 L MCV 105.1 H MCH 32.0 H MCHC 30.4 L RDW Std Deviation 19.6 H Plt Count 146 MPV 11.9 H Immature Gran % (Auto) 0.5 Neut % (Auto) 88.0 H Lymph % (Auto) 4.8 L [place] % (Auto) 5.6 Eos % (Auto) 0.3 Baso % (Auto) 0.8 Immature Gran # (Auto) 0.07 H Neut # (Auto) 13.29 H Lymph # (Auto) 0.73 L [place] # (Auto) 0.85 H Eos # (Auto) 0.04 Baso # (Auto) 0.12 Segmented Neutrophils 92 H Lymphocytes 4 L Monocytes 4 Large Platelets OCCASIONAL Anisocytosis 1+ Macrocytosis OCCASIONAL Sodium 136 Potassium 4.1 D Chloride 97 L Carbon Dioxide 21 L Anion Gap 18 BUN 84 H Creatinine 1.5 H Estimated GFR/1.73 m2 46 BUN/Creatinine Ratio 56 Glucose 100 Calculated Osmolality 298 Calcium 7.9 L Total Bilirubin 1.20 H AST 42 H ALT 90 H Alkaline Phosphatase 83 Total Protein 5.2 L Albumin 1.8 L Globulin 3.4 Albumin/Globulin Ratio 0.5 Assessment: Hypoxemic respiratory failure. Possible RLL pneumonia with a right pleural effusion. Sputum culture uncollected. CT thorax w/o contrast on 07/27/19 showed bilateral lower lobe pneumonia which may be related to aspiration given the inspissated material in the bronchi; cavitary lesion in the lingula and abdominal aortic aneurysm which appears slightly worse than on 06/15/18. CXR this morning shows increase in infiltrate on the left compared to prior. Acute renal failure. Nephrology on board. Dialysis on hold. Shock. Multiorgan dysfunction syndrome. Protein calorie malnutrition. Bilateral gangrenous changes to the feet. DNR 1. Poor prognosis. Plan: Continue supplemental oxygen. We titrated oxygen to patients needs per clinical protocols. We will monitor patients response closely. We follow ABG daily. Continue bronchial hygiene. Continue Cefepime and Zyvox. We will monitor patient's clinical and lab response closely. Continue GI and DVT prophylaxis. NG tube feeding continues to be held secondary to high residual.
[2019-07-29] MEDS: PROTONIX IV SCH (20:30)
[2019-07-29] MEDS: MAXIPIME 0.5 GM in NS 50 ML IV SCH (21:21)
[2019-07-30] MEDS: DUONEB (A & A) INH SCH ×5 (00:24→15:59)
[2019-07-30 05:40] LABS: ALLEN TEST YES; BE -5.3 mmoll (-3.0-3.0); BLOOD TYPE ARTERIAL; HCO3-(ACT) 20.7 mmoll (20.0-26.0); METHB 1.5 % (0.0-1.5); O2(CT) 12.5 mL/dL (15.0-23.0); PCO2(98.6) 30 mmHg (35-45); PO2(98.6) 57 mmHg (60-100); SAMPLE BLOOD; SAO2 93.5 % (95.0-100.0); THB 9.9 g/dL (11.5-17.4)
[2019-07-30 05:41] LABS: MODALITY NRB; O2HB 89.7 % (95.0-99.0)
[2019-07-30 06:23] LABS: BASO# 0.01 X1000 (0.0-0.2); BASO% 0.1 % (0.0-0.8); HEMATOCRIT 28.8 % (42.0-52.0); IMM GRAN# 0.06 X1000 (0.0-0.04); IMM GRAN% 0.5 % (0.0-0.5); LYMPH# 0.43 X1000 (1.2-3.4); LYMPH% 3.6 % (20.5-51.1); MCH 31.3 PG (27-31); MCHC 31.3 g/dL (33-37); MONO# 0.59 X1000 (0.11-0.59); MONO% 4.9 % (1.7-9.3); MPV 10.9 FL (7.4-10.4); NEUT# 10.94 X1000 (1.4-6.5); NEUT% 90.9 % (42.2-75.2); PLT 162 X1000 (130-400); RBC 2.88 XMIL (4.7-6.1); RDW 18.9 % (11.5-14.5); WBC 12.03 X1000 (4.8-10.8)
[2019-07-30] MEDS: NS 500 ML IV SCH (06:29)
[2019-07-30 07:08] LABS: ALB/GLOB RATIO 0.5; ALBUMIN 1.8 g/dL (3.5-5.0); CALCIUM 8.1 mg/dL (8.8-10.2); CREATININE 1.7 mg/dL (0.7-1.2); PHOSPHORUS 6.7 mg/dL (2.7-4.5); POTASSIUM 3.5 mmol/L (3.5-5.1); TOTAL BILIRUBIN 1.29 mg/dL (0.20-1.00); TOTAL PROTEIN 5.3 g/dL (6.3-8.3)
--- NOTE | 2019-07-30 07:09 | Diag Imaging Result Doc PS360 ---
EXAM: CHEST-PORTABLE INDICATION: respiratory failure TECHNIQUE: One view COMPARISON: 07/29/2019 FINDINGS: The patient is rotated toward the left. Support tubes and lines are in stable positions. Right basilar consolidation is approximately stable. The consolidation at the left mid and lower lung zone appears to have improved slightly. It is possible that this is positional, however. No new consolidation is identified. Cardiac silhouette is stable. IMPRESSION: Slight improvement on the left. Electronically signed by Reza Schwarz 07/30/2019 7:07 AM
--- NOTE | 2019-07-30 07:30 | GENERAL SURGERY PROGRESS NOTE ---
DATE: 07/30/2019 Mr. Cerna is less responsive today. He is somnolent, has a nonrebreather mask. He is afebrile, heart rate 86, blood pressure 131/71. His feet exam looks the same. I am awaiting the family's decision as to whether we proceed just with comfort care or whether we continue to treat aggressively. Currently, dialysis is being held but his BUN has been creeping up, as well as his creatinine. Our course forward will be dictated by the family's request. cc: MD Halle Aviles MD
[2019-07-30] MEDS: CORDARONE NG SCH (09:27)
[2019-07-30] MEDS: LOPRESSOR NG SCH (09:27)
--- NOTE | 2019-07-30 09:31 | PROGRESS NOTE ---
DATE: 07/30/2019 SUBJECTIVE: The patient is awake and does respond yes or no. He seems to be somewhat disoriented, however. OBJECTIVE: Vital Signs: Temperature 97.6 degrees, pulse 85 per minute, respiratory rate 19 per minute, blood pressure 110/60, pulse oximetry 98% while on non-rebreather mask. Cardiovascular System: First and second heart sounds are audible. Irregularly irregular rhythm is present. Respiratory System: Bilateral lung air entry is moderately decreased with no rales or rhonchi present on auscultation. Gastrointestinal System: Abdomen is soft and nondistended. It is nontender on palpation and normal bowel sounds are present. Musculoskeletal System: Bilateral distal feet gangrene is present. DIAGNOSTIC DATA: CBC shows WBC count of 12.03, hemoglobin 9.0, hematocrit 28.8, and platelet count of 162,000. Chemistry showed BUN of 99, creatinine 1.7, calcium levels of 8.1, phosphorus 6.7, total bilirubin 1.29, AST 41, ALT 81, and total protein of 5.3 with albumin level of 1.8. In comparison his BUN was 84 and creatinine was 1.5 yesterday and BUN 56 and creatinine 1.0 on 07/27/2019. Arterial blood gases done this morning showed pH of 7.40, pCO2 30, and PO2 57 on 100% of oxygen. Chest x-ray done this morning showed slight improvement of left mid and lower lung zone consolidation with no new infiltrates. IMPRESSION: 1. Hypoxemic respiratory failure. 2. Pneumonia. 3. Acute kidney injury. 4. Encephalopathy. 5. Peripheral arterial disease with bilateral gangrenous feet. 6. Atrial fibrillation. 7. Anemia, stable. 8. Protein calorie malnutrition. PLAN: The patient will be continued on broad-spectrum antibiotics including cefepime and Zyvox along with general supportive care. I will communicate with the family today to see if they want to proceed aggressively with transmetatarsal bilateral feet amputations because of the gangrene. I will also see if Pulmonary Medicine will allow us to proceed with the surgery if the family agrees with that. In that case, I will communicate with General Surgery. His overall condition remains poor with a poor prognosis in the fdc. His recovery process has been extremely slow and family is aware of that. Further recommendations will be as noted above. TIME SPENT: A total of 37 critical care time spent. cc: Halle See MD MTDD
[2019-07-30] MEDS: HEPARIN SUBQ SCH (09:34)
[2019-07-30] MEDS: ZYVOX 600 MG/D5W 600 MG/300 ML IVPB IV SCH (09:34)
--- NOTE | 2019-07-30 13:39 | PROGRESS NOTE ---
DATE: 07/30/2019 ADDENDUM: I saw the patient earlier this morning and then my staff communicated with his son, Edson Cerna, who expressed his opinion that the family does not want any aggressive care anymore. They saw the patient yesterday and they have decided that they do not want any amputations of his feet for gangrene. I spoke to the palliative care nurse, Rosalina, afterwards and she communicated with the patient's , who also expressed her opinion that they do not want any active or aggressive intervention. In fact, they did not want anything except comfort care and that includes hemodialysis and his IV antibiotics as well. Therefore, I have discontinued all lab work, x-rays, and hemodialysis along with IV antibiotics at this time. The patient's family will visit him later today and after that, we are going to switch to comfort measures only. [facility] nurse will also visit him but currently he seems to be not qualified for inpatient hospice. We will therefore continue providing care and provide him comfort measures only as per family's wishes. cc: MD KANA Blake
--- NOTE | 2019-07-30 14:52 | PROGRESS NOTE ---
DATE: 07/30/2019 SUBJECTIVE: Patient continues awake and responds to verbal stimuli by groaning. I was not able to elicit any meaningful response. OBJECTIVE: Vital Signs: Blood pressure 93/52, heart rate 67, with ECG monitor showing atrial fibrillation. Oxygen saturation 100% on oxygen mask. Neck: There is no significant jugular venous distention. Chest: Clear to auscultation bilaterally. Cardiac Exam: Reveals an irregular rate and rhythm without appreciable murmur or gallop. Extremities: Demonstrate mild to moderate peripheral edema diffusely. Patient has gangrenous changes of both feet from metatarsal area distally. LABORATORY DATA: Includes a white blood cell count 12.03, hematocrit 28.8, hemoglobin 9.0, platelet count 162. Sodium 139, potassium 3.5, chloride 100, carbon dioxide 28. BUN 99, creatinine 1.7, glucose 103, albumin 1.8. IMPRESSION: 1. Persistent atrial fibrillation, rate controlled. 2. Severe acute noncardiac illness with multiorgan failure probably disseminated intravascular coagulation. Patient's acute process appears to have stabilized. 3. Persistent encephalopathy. 4. Severe atherosclerotic coronary disease with preserved left ventricular ejection fraction. 5. Anemia. 6. Recent urinary tract infection with Escherichia coli. 7. Hypertension. 8. Chronic obstructive pulmonary disease. 9. Hyperlipidemia. RECOMMENDATIONS: 1. Continue metoprolol orally. 2. Continue amiodarone and reduce dose to 200 mg daily. 3. Continue subcutaneous heparin. 4. Continue supportive care. Prognosis appears to be poor overall. Family considering hospice at this point. cc: MD Halle Molina MD
--- NOTE | 2019-07-30 15:22 | NEPHROLOGY PROGRESS NOTE ---
DATE: 07/30/2019 SUBJECTIVE: She remains unresponsive. OBJECTIVE: Vital Signs: Blood pressure 93/52, heart rate 67, respirations 14, afebrile. General: Again, unresponsive. Skin: Warm and dry. HEENT: Oropharynx is dry. Neck: Neck veins are not visible. Trachea is midline. Heart: Regular. Lungs: Equal, sonorous but clear. Abdomen: Soft, nontender. Bowel sounds present. Extremities: 2+ edema. No clubbing or cyanosis. IMPRESSION: Acute kidney injury. BUN 99 with creatinine 1.7 today. He has no acute indications for dialysis. I received a message that the family has decided to withdraw care. We will sign off but if we can be of further assistance, please do not hesitate to call. cc: MD Halle Cook MD
[2019-07-30] MEDS: MORPHINE IV PRN ×2 (17:52→19:57)
[2019-07-30] MEDS: ATIVAN IV PRN (18:24)
[2019-07-30] MEDS ORDERED: LOPRESSOR NG SCH (21:00)
[2019-07-31] MEDS: MORPHINE IV PRN ×7 (01:37→23:24)
[2019-07-31] MEDS ORDERED: PRILOSEC NG SCH (07:00)
[2019-07-31] MEDS ORDERED: CORDARONE NG SCH (09:00)
[2019-07-31] MEDS: ATIVAN IV PRN ×5 (09:13→22:16)
[2019-07-31] MEDS: ATROPINE 1 % OPHTH SOLN SL PRN ×3 (09:27→18:56)
--- NOTE | 2019-07-31 10:12 | PROGRESS NOTE ---
DATE: 07/31/2019 SUBJECTIVE: The patient is asleep and does not appear to be in any acute distress. He is not able to communicate. OBJECTIVE: Vital Signs: Temperature 97.9 degrees, pulse 86 per minute, respiratory rate 16 per minute, blood pressure 107/60, pulse oximetry 93 percent on oxygen via nonrebreather mask. Cardiovascular System: First and second heart sounds are audible. Respiratory System: Bilateral lung air entry is moderately decreased with a few coarse rales present bilaterally. Gastrointestinal System: Abdomen is soft and nondistended. IMPRESSION: 1. Hypoxemic respiratory failure. 2. Pneumonia. 3. Acute kidney injury. 4. Encephalopathy. 5. Peripheral arterial disease with bilateral gangrenous feet. 6. Atrial fibrillation. PLAN: The patient is now on comfort care only. His IV antibiotics along with the other medications, except for opioid analgesics and benzodiazepines, have been discontinued. We have communicated with general surgery that the patient's family does not want any surgery either. We will only provide him comfort care and because of that, on family's request, we have discontinued tube feeding as well. The patient's family understood that he has a poor prognosis. cc: Halle See MD
--- NOTE | 2019-07-31 12:24 | GENERAL SURGERY PROGRESS NOTE ---
DATE: 07/31/2019 The decision is made to provide comfort care for Mr. Cerna only. I have spoken with Dr. See about that. I talked with his son today as well. In view of that, we will not pursue any further consideration for surgery for his toes. cc: MD Halle Aviles MD
[2019-08-01] MEDS: ATIVAN IV PRN ×6 (00:18→23:05)
[2019-08-01] MEDS: MORPHINE IV PRN ×6 (01:35→21:45)
--- NOTE | 2019-08-01 09:27 | PROGRESS NOTE ---
DATE: 08/01/2019 SUBJECTIVE: The patient is comfortably laying in bed and is not able to communicate. OBJECTIVE: Vital Signs: Temperature 99.4 degrees, pulse 95 per minute, respiratory rate 18 per minute, blood pressure 114/59, pulse ox 83% on 100% oxygen via nonrebreather mask. General: The patient is lying comfortably, under the effect of opioid analgesics. Cardiovascular: First and second heart sounds are audible. Respiratory: Bilateral lung air entry is shallow with few bilateral scattered rales present on auscultation. Gastrointestinal: Abdomen is soft and nondistended. IMPRESSION: This is a 74-year-old gentleman who has been admitted to the hospital about a month ago for hypoxemic respiratory failure, and had pneumonia, with acute kidney injury, along with encephalopathy secondary to sepsis. He also has significant peripheral arterial disease with bilateral gangrenous feet, and has chronic atrial fibrillation as well. PLAN: The patient is on comfort care only, and we have discontinued all of his medications, except for opioid analgesics and benzodiazepines. We have also discontinued IV fluids and tube feeding. The patient's family has been at bedside, and the patient will remain at the hospital until he passes away. cc: Halle See MD
[2019-08-01 19:47] VITALS: BP 112/57
[2019-08-02] MEDS: MORPHINE IV PRN (00:58)
--- NOTE | 2019-08-02 08:37 | DISCHARGE SUMMARY ---
ADMISSION DATE: 07/03/2019 DISCHARGE DATE: 08/02/2019 DISCHARGE DIAGNOSES: 1. Acute hypoxemic respiratory failure. 2. Urinary tract infection. 3. Acute kidney injury. 4. Leukocytosis with transaminasemia secondary to sepsis and septic shock. 5. Pneumonia. 6. Encephalopathy secondary to sepsis. 7. Peripheral arterial disease with bilateral gangrenous feet. 8. Atrial fibrillation. 9. Anemia with gastrointestinal blood loss. 10. Protein calorie malnutrition. 11. Thrombocytopenia. 12. Disseminated intravascular coagulation. 13. Chronic obstructive pulmonary disease. 14. Hypertension. HOSPITAL COURSE: Mr. Crena was a 74-year-old gentleman who was initially admitted on 07/03/2019 with altered mental status. He was diagnosed as having colitis on CT scan and was also noted to have a urinary tract infection with transaminasemia and leukocytosis. Furthermore, he had acute kidney injury and therefore was admitted to the hospital and was treated with broad-spectrum antibiotics along with IV proton pump inhibitors. Nephrology, gastroenterology, and pulmonology were consulted. The patient was admitted to the ICU. We noted that patient was having sepsis with low blood pressure readings after which he was treated with IV Levophed infusion to keep his blood pressure within desirable range. He was also noted to have thrombocytopenia. His hospital stay was complicated with hypoxemic respiratory failure requiring intubation and ventilator support. Furthermore, he was also noted to have GI blood loss with thrombocytopenia and presumably disseminated intravascular coagulation. We transfused him 2 units of packed red blood cells, 1 unit of platelets, and 1 unit of cryoprecipitate during this hospital admission. He also ended up having atrial flutter and then persistent atrial fibrillation secondary to multiorgan failure. Therefore, cardiology consultation was obtained who was actively involved in the care of this patient during this hospital admission as well. The patient initially was completely unresponsive during most of his stay in the ICU but later on woke up. He remained confused and was noted to have encephalopathy secondary to sepsis. We had lengthy discussions with the family who ultimately made him Do Not Resuscitate, after which he was extubated. Mr. Cerna has been known to have severe coronary artery disease and was also having peripheral arterial disease resulting in bilateral gangrenous feet. We obtained a surgical consultation with Dr. Banerjee to see if we can do amputations of his feet. He recommended to have a transmetatarsal bilateral feet amputation for his dry gangrene but then the patient's condition was not very stable and ultimately, the family decided that they wanted comfort care only since the patient's quality of life will not be good anyway. On 07/30/2019, I had discussions with the palliative care nurse and also with the patient's family who expressed their opinion that they did not want to have any active and aggressive intervention and, therefore, wanted to withdraw all care except for comfort care. The patient had been getting hemodialysis during this hospital admission because of acute kidney injury as well and, therefore, we discontinued hemodialysis and IV antibiotics along with IV fluids and tube feedings. We provided him comfort care with morphine sulfate and lorazepam intravenously on an as-needed basis. This morning, the patient was found to be pulseless and apneic with fixed pupils and asystole noted on telemetry. We therefore declared him at 3:55 a.m. on August 02, 2019. The patient was Do Not Resuscitate level 1 and, therefore, resuscitation was not performed. Staff from [facility] has already collected the body early this morning. TIME SPENT: 40 minutes. cc: Halle See MD MTDD
== END 2019-08-02 03:55 | disposition expired | DRG 870 ==
LOC: SUPCPDRO → ED 13:49 → EDIPHOLD 18:18 → ICU 21:04 → 2N 07-26 16:30 → 3N 07-31 01:45
PROVIDERS: ADMIT Internal Medicine; ATTEND Internal Medicine